=== PATIENT | female | born 1955 | race Caucasian/White ===

== ENCOUNTER 2017-10-03 06:33 | Emergency (ER) | payer OTHER, SELFPAY ==
[2017-10-03 06:34] VITALS: BP 192/104; PULSE 83; RESP 18; TEMP 36.6; O2SAT 95; BMI 29.0
[2017-10-03 06:41] VITALS: O2SAT 95
--- NOTE | 2017-10-03 06:43 | RAD_ITS ---
STUDY: X-RAY CHEST REASON FOR EXAM: Female, 62 years old. Cough. Shortness of breath. History of asthma. TECHNIQUE: Single AP portable view of the chest. COMPARISON: Comparison is made with prior study dated October 11, 2013. FINDINGS: EKG electrodes are seen. Hyperinflation. Stable mild increased markings in the lingular segment of the left upper lobe suggestive of scarring. There is no demonstrated pleural abnormality. Normal size heart. Normal mediastinum and facundo. There is prominence of the pulmonary hilar arteries without peripheral pulmonary vascular congestion, suggesting pulmonary hypertension. Normal visualized aortic arch and descending thoracic aorta. There are mild degenerative changes of the visualized thoracic spine. Normal visualized ribs, clavicles, and shoulders. There is no demonstrated abnormality of the visualized soft tissue structures of the upper abdomen. RAD/Chest PA and Lateral IMPRESSION: Hyperinflation. Stable increased linear markings in the lingular segment of the left upper lobe suggestive of mild scarring. Electronically Signed: Ricky Luis MD at 8:19 EDT Tel [phone], Service support ,
--- NOTE | 2017-10-03 06:47 | ED.VISSUMM ---
- ER Visit Summary Date of Service: 10/03/17 Chief Complaint: Dyspnea History of Present Illness: The patient is a 62 F worsening dyspnea since yesterday. History of asthma. Mild cough symptoms 2 days ago. No fevers. No productive cough. No chest pains. Use inhaler throughout the night. Denies history of diabetes. Denies tobacco history. Similar symptoms in the past. Physical Examination: General: Alert and oriented ?3, no acute distress HEENT: Normocephalic, atraumatic. Moist mucosa membranes Neck: supple, nontender. Cardiovascular: Regular rate and rhythm, no murmurs Respiratory: Lower lobes expiratory wheezing, no distress Abdomen: Soft, nontender, nondistended Extremities: Nontender, no edema, pulses intact ?4 Neuro: no focal neurological deficits. Test Results: Chest x-ray: No acute process Emergency Department Course and Treatment: Patient wheezing on exam, vitals stable. DuoNeb treatment. Prednisone started. Chest x-ray obtained negative. Reevaluation minimal wheezing noted. Symptoms much more improved. Patient discharged additional 4 days of steroids. She will follow-up with her PCP. She return if any worsening symptoms. Treatment Plan: [] Disposition: Discharge Impression: 1. Asthma exacerbation 2. Upper respiratory infection This note was generated with [employer] dictation software. It may contain incorrect words, spelling, and punctuation that were not noted in review of the chart prior to signing ED Disposition - Plan for ED Patient: Disposition: Home or Assisted Living Chief Complaint: Asthma Diagnosis: Asthma exacerbation, Upper respiratory infection Instructions: Understanding Asthma Triggers, ED URI Viral Prescriptions: Prednisone [Deltasone] 60 mg PO DAILY #12 tablet Referrals: Justin Pimentel MD [Primary Care Provider] - 3-5 Days
[2017-10-03] MEDS: Ipratropium/Albuterol Sulfate 3 ML AMPUL.NEB INHALATION (06:56)
[2017-10-03 06:57] VITALS: PULSE 75; RESP 16
[2017-10-03] MEDS: predniSONE 20 MG Tablet 60 MG PO (07:08)
[2017-10-03 07:09] VITALS: BP 153/83; PULSE 74; RESP 21; O2SAT 94
--- NOTE | 2017-10-04 11:02 | CM.ED ---
ED CALLBACK: Follow-up call to patient. Patient states she feels some better today and that she just woke up. Patient states the breathing treatments make her tired. She confirmed that she did fill her prednisone prescription and that she has an appointment with Dr. Pimentel (PCP), this Monday. Patient states she was pleased with the care she received in the ED and has no questions/concerns.
== END 2017-10-03 08:01 | disposition home or self-care (01) ==
PROVIDERS: Emergency Provider Emergency Medicine; Family Provider Family Medicine; PCP Family Medicine
DX: J45.901 Unspecified asthma with (acute) exacerbation (principal); J06.9 Acute upper respiratory infection, unspecified; I10 Essential (primary) hypertension; Z79.899 Other long term (current) drug therapy
CPT/HCPCS: 71046; 94640; 99282

== ENCOUNTER → 2017-11-07 17:50 | Outpatient (CLI) | payer OTHER, SELFPAY ==
[2017-11-13 11:08] LABS: HPV Reflexed? NOT INDICATED
== END ==
PROVIDERS: Visit Provider Nurse Practitioner Adult Health
DX: Z01.419 Encounter for gynecological examination (general) (routine) without abnormal findings (principal)
CPT/HCPCS: 88175; G0145

== ENCOUNTER → 2017-11-23 08:48 | Outpatient (CLI) | payer OTHER, SELFPAY ==
[2017-11-27 15:30] LABS: Alternaria tenuis <0.10 kU/L (Class 0); Ash, White 0.44 kU/L (Class I); Aspergillus fumigatus <0.10 kU/L (Class 0); Bermuda Grass 1.45 kU/L (Class III); Birch 0.29 kU/L (Class 0/I); Black Walnut 0.47 kU/L (Class I); Cat Hair / Dander,Stand 2.52 kU/L (Class III); Cedar, Mountain 0.23 kU/L (Class 0/I); Cladosporium herbarum <0.10 kU/L (Class 0); Cockroach, American 0.13 kU/L (Class 0/I); Cottonwood 0.26 kU/L (Class 0/I); D farinae Mite 0.56 kU/L (Class II); D pteronyssinus 0.46 kU/L (Class I); Elm, American White 0.26 kU/L (Class 0/I); Immunoglobulin E 100 IU/mL (0-100); Maple/Box Elder 0.67 kU/L (Class II); Mulberry, White 0.13 kU/L (Class 0/I); Oak, White 0.37 kU/L (Class I); Pecan 0.32 kU/L (Class I); Penicillium Notatum <0.10 kU/L (Class 0); Pigweed, Rough 0.22 kU/L (Class 0/I); Ragweed, Short/Common 0.94 kU/L (Class II); Russian Thistle 0.21 kU/L (Class 0/I); Sheep Sorrel 0.38 kU/L (Class I); Sycamore, American 0.27 kU/L (Class 0/I); Timothy Grass 5.32 kU/L (Class IV)
[2017-11-28 10:11] LABS: Mouse Urine 0.14 kU/L (Class 0/I)
[2017-11-28 10:12] LABS: Immunoglobulin E 118 IU/mL (0-100)
== END ==
PROVIDERS: Family Provider Family Medicine; PCP Family Medicine; Visit Provider Internal Medicine Critical Care Medicine
DX: J45.909 Unspecified asthma, uncomplicated (principal); J30.9 Allergic rhinitis, unspecified
CPT/HCPCS: 36415; 82785; 86003

== ENCOUNTER → 2017-12-07 10:45 | Outpatient (CLI) | payer OTHER, SELFPAY ==
--- NOTE | 2017-12-07 14:19 | PFTCOMP_ITS ---
COMPLETE PULMONARY FUNCTION TEST INTERPRETATION Brief HPI: Patient is a 62 year old female, currently under the care of Dr. Haq , who presents to [facility] for complete pulmonary function tests secondary to diagnosis of asthma. Respiratory therapist reports good effort and reproducible results. Interpretation: Forced expiration spirometry shows a very severe large airways obstructive ventilatory defect with an FEV1 of 50% predicted. There is a significant bronchodilator response in FVC and FEV1 by ATS criteria. Spirograms are of good quality and plateau slowly, indicating slowly emptying areas of the lungs. The respiratory flow volume loop shows decreased expiratory flow rates at all lung volumes consistent with airway obstruction. Lung volumes by body plethysmography show an elevated total lung capacity at 5.38 L, 120% predicted. FRC and RV are elevated out of proportion. Lung volume measurements are consistent with hyperinflation and air-trapping. Diffusion capacity by carbon monoxide is at the lower limit of normal at 64% predicted. The airway resistance is elevated. No previous pulmonary function tests were available for review. Impression: Partially reversible very severe large airways obstructive ventilatory defect resulting in air trapping and hyperinflation. No previous pulmonary function tests available for review.
== END ==
PROVIDERS: Family Provider Family Medicine; PCP Family Medicine; Visit Provider Internal Medicine Critical Care Medicine
DX: J45.909 Unspecified asthma, uncomplicated (principal)
CPT/HCPCS: 94060; 94726; 94729

== ENCOUNTER → 2018-01-10 08:10 | Outpatient (CLI) | payer OTHER, SELFPAY | PROVIDERS: Family Provider Family Medicine; PCP Family Medicine; Visit Provider Nurse Practitioner Adult Health | DX: Z12.31 Encounter for screening mammogram for malignant neoplasm of breast (principal) | CPT/HCPCS: 77063; 77067 ==

== ENCOUNTER → 2018-01-26 12:21 | Outpatient (CLI) | payer OTHER, SELFPAY | PROVIDERS: Family Provider Family Medicine; PCP Family Medicine; Visit Provider Nurse Practitioner Acute Care | DX: R05 Cough (principal) | CPT/HCPCS: 71046 ==

== ENCOUNTER → 2018-01-26 15:06 | Outpatient (CLI) | payer OTHER, SELFPAY | PROVIDERS: Visit Provider Nurse Practitioner Acute Care | DX: R05 Cough (principal) | CPT/HCPCS: 87070; 87205 ==

== ENCOUNTER → 2018-10-09 20:17 | Outpatient (CLI) | payer OTHER, SELFPAY ==
[2018-09-03 10:19] VITALS: BMI 34.3
== END ==
PROVIDERS: Family Provider Family Medicine; PCP Family Medicine; Referring Provider Nurse Practitioner Acute Care; Visit Provider Nurse Practitioner Acute Care
DX: G47.33 Obstructive sleep apnea (adult) (pediatric) (principal)
CPT/HCPCS: 95811

== ENCOUNTER → 2018-10-30 09:00 | Outpatient (CLI) | payer OTHER, SELFPAY ==
[2018-09-03 10:19] VITALS: BMI 34.3
== END ==
PROVIDERS: Family Provider Family Medicine; PCP Family Medicine; Referring Provider Nurse Practitioner Acute Care; Visit Provider Nurse Practitioner Acute Care
DX: G47.33 Obstructive sleep apnea (adult) (pediatric) (principal)

== ENCOUNTER → 2018-11-27 09:47 | Outpatient (CLI) | payer OTHER, SELFPAY ==
[2018-09-03 10:19] VITALS: BMI 34.3
--- NOTE | 2018-11-28 12:40 | PFT ---
INTRODUCTION: The patient is a 63-year-old female that presents for pulmonary function studies secondary to a diagnosis of asthma. Respiratory therapy reports good patient effort. Bronchodilators were used during testing. INTERPRETATION: Forced expiration spirometry demonstrates the presence of a moderate large airways obstructive ventilatory defect. There was no significant response to aerosolized bronchodilators. Spirograms are of good quality and do not plateau, indicating slow emptying of the lungs. Body plethysmography was performed and reveals an elevated RV to 135% of predicted, indicative of underlying air trapping. Diffusing capacity by single breath CO is within normal limits. IMPRESSION: Irreversible moderate large airways obstructive ventilatory defect with associated air trapping and preserved diffusing capacity.
== END ==
PROVIDERS: Family Provider Family Medicine; PCP Family Medicine; Referring Provider Nurse Practitioner Acute Care; Visit Provider Nurse Practitioner Acute Care
DX: J44.9 Chronic obstructive pulmonary disease, unspecified (principal)
CPT/HCPCS: 94060; 94726; 94729

== ENCOUNTER → 2019-01-11 09:53 | Outpatient (CLI) | payer OTHER, SELFPAY ==
[2018-12-06 11:07] VITALS: BMI 34.3
--- NOTE | 2019-01-11 09:55 | BI_ITS ---
MAMMOGRAPHY - BILATERAL SCREENING REASON FOR EXAM: Female, 63 years old. Routine annual screening examination. PERTINENT HISTORY: Mother with breast cancer. Grandmother with breast cancer. Aunt with breast cancer. TECHNIQUE: Digital bilateral breast antoine (3D mammographic acquisition) in the CC and MLO projections. 2-D mediolateral oblique (MLO) and craniocaudad (CC) views of both breasts were obtained. CAD: Full Field Digital Mammography with Computer Added Detection was performed. COMPARISON: Comparison is made with prior study January 10, 2018 and October 01, 2014. FINDINGS: Breast Composition: The breasts are heterogeneously dense, which may obscure small masses. There are no dominant masses or suspicious calcifications. Stable small benign-appearing bilateral axillary lymph nodes. No other significant abnormalities are identified. There has been no significant change since the prior study. BI/SCREEN MAMM (CAD) W/ANTOINE BILAT IMPRESSION: Stable bilateral screening mammogram. Yearly follow-up mammogram recommended. (A) ASSESSMENT CATEGORY: BIRADS Category 2: Benign. A letter regarding these results will be sent to the patient by the facility within 30 days. Approximately 10% of breast cancers are not detected by mammography. A normal mammogram should not delay biopsy of a clinically suspicious abnormality. [id number] Electronically Signed: Ricky Luis, at 11:09 EDT , Service support ,
== END ==
PROVIDERS: Family Provider Family Medicine; PCP Family Medicine; Referring Provider Family Medicine; Visit Provider Family Medicine
DX: Z12.31 Encounter for screening mammogram for malignant neoplasm of breast (principal)
CPT/HCPCS: 77063; 77067

== ENCOUNTER 2019-01-31 19:59 | Emergency (ER) | payer OTHER, SELFPAY ==
[2018-12-06 11:07] VITALS: BMI 34.3
[2019-01-31 20:00] VITALS: BP 161/110; PULSE 61; RESP 18; TEMP 36.7; O2SAT 98; BMI 30.1
--- NOTE | 2019-01-31 20:13 | CT_ITS ---
HISTORY:HEADACHE AND DIZZINESSHX:HTN,SKIN CANCER HEADACHE AND DIZZINESSHX:HTN,SKIN CANCER TECHNIQUE: Multiple axial images were obtained of the brain without intravenous contrast. A radiation dose optimization technique was used for this scan. IV Contrast dosage and agent: None. COMPARISON: None FINDINGS: # of images incl. paperwork: 241 INFARCT: None HEMORRHAGE: None PARENCHYMAL ATTENUATION:Cortical atrophy MASS: None MIDLINE SHIFT: None BASAL CISTERNS: Patent VENTRICLES: Normal in size and configuration for age PARANASAL SINUSES:Mucous retention cystin the left maxillary sinus MASTOID AIR CELLS: Clear ORBITS:No acute pathology CALVARIUM: No acute pathology OTHER TISSUES: No acute pathology ASPECTS Score for Acute Strokes: 10 CT/Brain/Head without Contrast IMPRESSION: No acute intracranial pathology. Cortical atrophy If symptoms persist consider mri for further evaluation if clinically indicated. Individualized dose optimization techniques were used for this CT. at 2108 Reported and signed by: Federica Martinez DO Electronically Signed: Federica Martinez DO at 21:07 EDT Tel , Service support ,
--- NOTE | 2019-01-31 20:13 | EKG12_ITS ---
Test Reason : HYPERTENSION Blood Pressure : / mmHG Vent. Rate : 056 BPM Atrial Rate : 056 BPM P-R Int : 156 ms QRS Dur : 084 ms QT Int : 448 ms P-R-T Axes : 037 019 027 degrees QTc Int : 432 ms Sinus bradycardia Otherwise normal ECG Confirmed by ALISSON KHAN ([id number]), telegraph editor MELANY COLON ([id number]) on 02/04/2019 2:34:25 PM Referred By: TICO Confirmed By:ALISSON KHAN
--- NOTE | 2019-01-31 20:39 | ED.VIS.GEN ---
History of Present Illness Chief Complaint: Hypertension Informant: Patient Onset: Days Context: Gradual Onset Timing: Continuous Current Severity: Moderate Maximum Severity: Moderate Narrative: The patient presents to the emergency department with lightheadedness and elevated blood pressure. States over the past 3 days, she is been having intermittent headaches and is felt lightheaded. She denies change in speech, trouble with balance, or change in vision. She states she took her blood pressure today and it was elevated at 190 systolic. She took a dose of her clonidine and and the blood pressure was down to 160, but she was still having symptoms. She denies any coronary history. She has no history of stroke. She denies any recent trauma. She is been compliant with all of her medications. She denies any recent medication changes. Prior similar symptoms: No Recent Illness/Hospitalization: No Past Medical History - Allergies and Home Meds Allergies/Adverse Reactions: Allergies erythromycin base Allergy (Verified 01/31/19 20:02) Unknown metronidazole [From Flagyl] Allergy (Verified 01/31/19 20:02) Unknown Penicillins Allergy (Verified 01/31/19 20:02) Unknown sulfamethoxazole [From Bactrim] Allergy (Verified 01/31/19 20:02) Unknown tetracycline Allergy (Verified 01/31/19 20:02) Unknown trimethoprim [From Bactrim] Allergy (Verified 01/31/19 20:02) Unknown cefdinir Adverse Reaction (Mild, Verified 01/31/19 20:02) Upset stomach Primary Care Physician: Justin Pimentel MD [Primary Care Provider] - Prior records reviewed: Yes Past Medical History: - - COPD, hypertension Smoking Status: Former smoker Review of Systems General: Denies: Chills, Fever, Sweats Eyes: Denies: Visual changes - bilaterally, Diplopia ENT: Denies: Rhinorrhea, Sore throat Cardiovascular: Denies: Chest pain, Palpitations Respiratory: Denies: Dyspnea, Cough, Dyspnea on exertion Gastrointestinal: Reports: Nausea. Denies: Abdominal pain, Vomiting, Diarrhea, Melena, Hematochezia Genitourinary: Denies: Dysuria, Hematuria, Frequency Musculoskeletal: Denies: Back pain, Extremity Pain Skin: Denies: Rash, Wounds Neurological: Reports: Headache. Denies: Weakness, Numbness Psych: Denies: Depression Endocrine: Denies: Polyuria Physical Exam Vital Signs/Narrative: Vital Signs Temp Pulse Resp BP Pulse Ox 09/05/19 20:00 98.0 F 61 18 161/110 H 98 Inital Vital Signs reviewed: Yes General: Well nourished, Well developed, No Acute Distress Head: Normocephalic, Atraumatic Eyes: Perrl, EOMI ENT: Moist mucous membranes, No rhinorrhea Neck: Supple, Nontender Cardiovascular: Regular rate, Regular rhythm, No murmurs Respiratory: No distress, CTA bilaterally, Chest nontender Abdomen: Soft, Nontender, Nondistended, Normal bowel sounds Back: Nontender, Normal Inspection Extremities: Nontender, No edema Skin: Normal color, No rash Neurological: Alert, Oriented x3, Cranial nerves II-XII grossly intact, Normal Strength, Normal Sensation Psychological: Normal affect, Normal Mood Diagnostic/Tx/Re-eval Clinical Impression(s) from Imaging Studies Brain CT 01/31/19 20:13 IMPRESSION: No acute intracranial pathology. Cortical atrophy If symptoms persist consider mri for further evaluation if clinically indicated. Individualized dose optimization techniques were used for this CT. at 2108 Reported and signed by: Federica Martinez DO Electronically Signed: Federica Martinez DO at 21:07 EDT Tel , Service support , Abnormal Lab Results 01/31/19 01/31/19 20:25 20:25 WBC 6.1 RBC 4.54 Hgb 15.2 H Hct 44.5 MCV 98.0 MCH 33.5 H MCHC 34.2 RDW Std Deviation 45.3 H RDW Coeff of Derik 12.6 Plt Count 212 MPV 10.0 Immature Gran % (Auto) 0.300 Neut % (Auto) 69.4 Lymph % (Auto) 20.8 [place] % (Auto) 7.7 Eos % (Auto) 1.5 Baso % (Auto) 0.3 Absolute Neuts (auto) 4.2 Absolute Lymphs (auto) 1.27 Nucleated RBC % 0 Sodium 134 L Potassium 3.6 Chloride 98 Carbon Dioxide 26.0 Anion Gap 10 BUN 12 Creatinine 0.72 Estim Creat Clear Calc 66.16 Est GFR (MDRD) Af Amer 105 Est GFR (MDRD) Non-Af 87 BUN/Creatinine Ratio 16.7 Glucose 96 Calcium 9.3 Total Bilirubin 0.80 AST 22 ALT 17 Alkaline Phosphatase 67 Troponin I < 0.015 Total Protein 7.5 Albumin 3.8 Globulin 3.7 Albumin/Globulin Ratio 1.0 - Medical Decision Making The patient has no nystagmus. She has a normal gait. She has no difficulties with rapid alternating movements. She was mildly hypertensive on arrival so I did obtain a metabolic work-up. EKG was sinus rhythm without acute ischemic change. Cardiac enzymes, kidney function, and rest of her labs are unremarkable. Her head CT shows no acute process. Without any further intervention, her repeat blood pressure was 134/79. My suspicion is that she is having some symptomatic highs, but now her blood pressure is normal. I do not suspect a central cause of her symptoms. I do feel that she is safe for outpatient therapy. Patient was counseled on concerning symptoms and reasons to return. She will be discharged home. Impression 1. Hypertension ED Disposition - Plan for ED Patient: Instructions: HYPERTENSION, Established Referrals: Justin Pimentel MD [Primary Care Provider] -
[2019-01-31 20:42] LABS: Absolute Lymphocyte Count 1.27 X10^3/uL (0.83-4.51); Absolute Neutrophil Count 4.2 X10^3/uL (2.0-7.7); Basophil# 0.02 X10^3/uL; Basophil% 0.3 % (0-1); Eosinophil# 0.09 X10^3/uL; Eosinophils% 1.5 % (0-5); Hematocrit 44.5 % (37-47); Hemoglobin 15.2 g/dL (12.0-15.0); Lymphocyte # 1.27 X10^3/ul (4.0); Lymphocyte % 20.8 % (19-41); Mean Corp Hgb Conc 34.2 g/dL (32-36); Mean Corpuscular Hgb 33.5 pg (27.0-32.0); Monocyte# 0.47 X10^3/uL; Monocyte% 7.7 % (0-10); NRBC Flagged by Analyzer 0 % (0-5); Neutrophil # 4.24 X10^3/uL (2.7-7.7); Neutrophil % 69.4 % (47-70); Platelet Count 212 K/mm3 (150-450); RBC Distribution Width CV 12.6 % (11.6-14.6); RBC Distribution Width SD 45.3 fl (35.1-43.9); Red Blood Count 4.54 M/mm3 (4.2-5.4); White Blood Count 6.1 K/mm3 (4.4-11.0)
[2019-01-31 20:57] LABS: AST(SGOT) 22 U/L (15-37); Alanine Aminotransfer ALT/SGPT 17 U/L (13-56); Albumin, Serum 3.8 g/dL (3.2-5.0); Alkaline Phosphatase 67 U/L (45-117); Anion Gap 10 (5-15); BUN 12 mg/dL (7-18); BUN/Creat Ratio 16.7 RATIO (10-20); Calcium,Total 9.3 mg/dL (8.5-10.1); Chloride 98 mmol/L (98-107); Creatinine, Serum 0.72 mg/dL (0.55-1.02); EST Glomerular Filtration Rate 87 mL/min (>60); Est Glom Filt Rate - Afr Amer 105 mL/min (>60); Estimated Creatinine Clearance 66.16 ml/min; Globulin 3.7 g/dL (2.2-4.2); Glucose 96 mg/dL (74-106); Potassium 3.6 mmol/L (3.5-5.1); Protein, Total 7.5 g/dL (6.4-8.2); Sodium Level 134 mmol/L (136-145)
[2019-01-31 21:30] VITALS: BP 134/79; PULSE 56; RESP 16; O2SAT 97
== END 2019-01-31 21:35 | disposition home or self-care (01) ==
LOC: ED 20:34
PROVIDERS: Emergency Provider Emergency Medicine; Family Provider Family Medicine; PCP Family Medicine
DX: I10 Essential (primary) hypertension (principal); R42 Dizziness and giddiness; J44.9 Chronic obstructive pulmonary disease, unspecified; Z87.891 Personal history of nicotine dependence; Z79.899 Other long term (current) drug therapy
CPT/HCPCS: 70450; 80053; 84484; 85025; 93005; 99284

== ENCOUNTER → 2019-05-10 11:13 | Outpatient (CLI) | payer OTHER, SELFPAY ==
[2019-03-12 11:10] VITALS: BMI 30.9
[2019-05-10 14:29] LABS: Anion Gap 5 (5-15); BUN 12 mg/dL (7-18); BUN/Creat Ratio 15.1 RATIO (10-20); Calcium,Total 8.8 mg/dL (8.5-10.1); Chloride 97 mmol/L (98-107); Cholesterol 221 mg/dL (200); EST Glomerular Filtration Rate 77 mL/min (>60); Est Glom Filt Rate - Afr Amer 93 mL/min (>60); Glucose 93 mg/dL (74-106); High Density Lipoprotein 62 mg/dL; Potassium 3.7 mmol/L (3.5-5.1); Sodium Level 133 mmol/L (136-145); Triglycerides 151 mg/dL; Very Low Density Lipoprotein 30 mg/dL (5-40)
== END ==
PROVIDERS: Family Provider Family Medicine; PCP Family Medicine; Referring Provider Family Medicine; Visit Provider Family Medicine
DX: I10 Essential (primary) hypertension (principal); E78.00 Pure hypercholesterolemia, unspecified
CPT/HCPCS: 36415; 80048; 80061

== ENCOUNTER → 2019-07-18 | Outpatient (CLI) | payer OTHER, SELFPAY ==
[2019-03-12 11:10] VITALS: BMI 30.9
== END | disposition home or self-care (01) ==
LOC: LABSPEC 10:48
PROVIDERS: PCP Family Medicine; Referring Provider Family Medicine; Visit Provider Family Medicine
DX: K57.92 Diverticulitis of intestine, part unspecified, without perforation or abscess without bleeding (principal)
CPT/HCPCS: 87493; 87506

== ENCOUNTER → 2020-07-23 10:02 | Outpatient (CLI) | payer MEDICARE, OTHER, SELFPAY ==
[2020-04-09 10:45] VITALS: BMI 32.1
[2020-07-23 12:20] LABS: Absolute Lymphocyte Count 0.84 X10^3/uL (0.83-4.51); Absolute Neutrophil Count 3.4 X10^3/uL (2.0-7.7); Basophil# 0.02 X10^3/uL; Basophil% 0.4 % (0-1); Eosinophil# 0.08 X10^3/uL; Eosinophils% 1.7 % (0-5); Hematocrit 45.2 % (37-47); Lymphocyte # 0.84 X10^3/ul (4.0); Lymphocyte % 17.4 % (19-41); Mean Corp Hgb Conc 33.2 g/dL (32-36); Mean Corpuscular Hgb 33.2 pg (27.0-32.0); Mean Platelet Vol. 10.2 fl (6.2-12.0); Monocyte# 0.46 X10^3/uL; Monocyte% 9.5 % (0-10); NRBC Flagged by Analyzer 0 % (0-5); Neutrophil # 3.42 X10^3/uL (2.7-7.7); Neutrophil % 70.8 % (47-70); Platelet Count 279 K/mm3 (150-450); RBC Distribution Width CV 12.6 % (11.6-14.6); RBC Distribution Width SD 47.1 fl (35.1-43.9); Red Blood Count 4.52 M/mm3 (4.2-5.4); White Blood Count 4.8 K/mm3 (4.4-11.0)
[2020-07-23 12:41] LABS: ALB/GLOB Ratio 0.9 RATIO (0.9-2.4); AST(SGOT) 24 U/L (15-37); Alanine Aminotransfer ALT/SGPT 17 U/L (13-56); Albumin, Serum 3.8 g/dL (3.2-5.0); Alkaline Phosphatase 79 U/L (45-117); Anion Gap 7 (5-15); BUN 10 mg/dL (7-18); BUN/Creat Ratio 12.1 RATIO (10-20); Calcium,Total 9.6 mg/dL (8.5-10.1); Chloride 97 mmol/L (98-107); Cholesterol 232 mg/dL (200); Creatinine, Serum 0.83 mg/dL (0.55-1.02); EST Glomerular Filtration Rate 74 mL/min (>60); Est Glom Filt Rate - Afr Amer 89 mL/min (>60); Globulin 4.1 g/dL (2.2-4.2); Glucose 109 mg/dL (74-106); High Density Lipoprotein 68 mg/dL; Potassium 3.6 mmol/L (3.5-5.1); Protein, Total 7.9 g/dL (6.4-8.2); Sodium Level 131 mmol/L (136-145); Triglycerides 161 mg/dL; Very Low Density Lipoprotein 32 mg/dL (5-40)
== END ==
PROVIDERS: PCP Family Medicine; Referring Provider Family Medicine; Visit Provider Family Medicine
DX: I10 Essential (primary) hypertension (principal)
CPT/HCPCS: 36415; 80053; 80061; 85025

== ENCOUNTER → 2020-07-23 14:20 | Outpatient (CLI) | payer MEDICARE, OTHER, SELFPAY ==
[2020-04-09 10:45] VITALS: BMI 32.1
--- NOTE | 2020-07-23 14:23 | CT_ITS ---
STUDY: CT ABDOMEN AND PELVIS WITH CONTRAST REASON FOR EXAM: Female, 65 years old. LLQ PAIN RADIATION DOSAGE (If Supplied By Facility): CTDIvol = ( 17.26 ) mGy, DLP = ( 1690.10 ) mGycm TECHNIQUE: Transaxial images were obtained from the dome of the diaphragm to the symphysis pubis with oral contrast. Oral and amp; IV Gastrografin and amp; 100mL Isovue-300 was administered. Sagittal and coronal images were reconstructed. Individualized dose optimization techniques were used for this CT. COMPARISON: 11/18/2016 FINDINGS: The visualized lung bases are unremarkable. The visualized portions of the heart are within normal limits. No change in multiple hepatic cysts with the largest measuring 4 cm the posterior segment the right lobe. Normal gallbladder and extrahepatic biliary system. Normal spleen. Normal pancreas. Normal bilateral adrenal glands. Normal right kidney. Normal left kidney. Normal visualized stomach. Normal small intestine. There are multiple colonic diverticula consistent with diverticulosis. There is a 1.5 cm round area of fluid intensity with peripheral enhancement either within or adjacent to the sigmoid colon which may represent a fluid-filled diverticulum or tiny abscess. However, no significant surrounding inflammation. The appendix is visualized and appears normal. Normal abdominal aorta. Normal inferior vena cava. Normal retroperitoneum. Normal urinary bladder. Normal abdominal wall. Normal osseous structures. CT/Abdomen/Pelvis WITH Contrast IMPRESSION: Questionable diverticulitis, possibly with a small abscess.. Electronically Signed: Shravan Villalta MD at 17:42 EST Tel , Service support ,
== END ==
PROVIDERS: PCP Family Medicine; Referring Provider Family Medicine; Visit Provider Family Medicine
DX: R10.32 Left lower quadrant pain (principal); I10 Essential (primary) hypertension
CPT/HCPCS: 36415; 74177; 80053; 80061; 85025; Q9967; A4216

== ENCOUNTER → 2020-08-17 13:29 | Outpatient (CLI) | payer MEDICARE, OTHER, SELFPAY ==
[2020-08-03 13:05] VITALS: BMI 30.8
--- NOTE | 2020-08-17 13:30 | CT_ITS ---
STUDY: CT ABDOMEN AND PELVIS WITH CONTRAST REASON FOR EXAM: Female, 65 years old. LLQ abdominal pain RADIATION DOSAGE (If Supplied By Facility): CTDIvol = ( 18.19 ) mGy, DLP = ( 969.12 ) mGycm TECHNIQUE: Transaxial images were obtained from the dome of the diaphragm to the symphysis pubis with oral contrast. Oral and amp;amp; IV Readi-CAT and amp;amp; 100mL Isovue-300 was administered. Sagittal and coronal images were reconstructed. Individualized dose optimization techniques were used for this CT. COMPARISON: Comparison is made with prior examination dated 07/23/2020. FINDINGS: Stable minimal increased linear markings at the lung bases suggest some mild linear scarring. The visualized portions of the heart are within normal limits. Stable hepatic cysts. The largest measures 4 cm. This is in the inferior the posterior segment of the right lobe of the liver. Normal gallbladder and extrahepatic biliary system. Normal spleen. Normal pancreas. Normal bilateral adrenal glands. Normal right kidney. Normal left kidney. There is a small hiatal hernia. Normal small intestine. There are multiple colonic diverticula consistent with diverticulosis. The appendix is visualized and appears normal. There is scattered atherosclerotic calcification of the abdominal aorta, without a demonstrated aneurysm. Normal inferior vena cava. Normal retroperitoneum. Normal urinary bladder. Calcified fibroid uterus. Normal abdominal wall. Marked degree of disc space narrowing and subchondral sclerosis at the L5-S1 level. CT/Abdomen/Pelvis WITH Contrast IMPRESSION: Sigmoid diverticulosis. No radiographic evidence of diverticulitis. Stable hepatic cysts. Electronically Signed: Ricky Luis MD at 14:33 EDT , Service support ,
== END ==
PROVIDERS: PCP Family Medicine; Referring Provider Surgery; Visit Provider Surgery
DX: K57.30 Diverticulosis of large intestine without perforation or abscess without bleeding (principal); K76.89 Other specified diseases of liver
CPT/HCPCS: 74177; Q9967

== ENCOUNTER 2020-09-21 06:24 | Day surgery (SDC) | payer MEDICARE, OTHER, SELFPAY ==
[2020-09-21] VITALS (7 sets, daily range): BP systolic 105–178; BP diastolic 54–80; PULSE 51–67; RESP 16; TEMP 36.2–36.4; O2SAT 98–99; BMI 30.7
--- NOTE | 2020-09-21 07:00 | HP_ITS ---
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 Required: No Is patient in pain?: No Allergies erythromycin base Allergy (Verified 08/10/20 13:33) Unknown metronidazole [From Flagyl] Allergy (Verified 08/10/20 13:33) Unknown Penicillins Allergy (Verified 08/10/20 13:33) Unknown sulfamethoxazole [From Bactrim] Allergy (Verified 08/10/20 13:33) Unknown tetracycline Allergy (Verified 08/10/20 13:33) Unknown trimethoprim [From Bactrim] Allergy (Verified 08/10/20 13:33) Unknown cefdinir Adverse Reaction (Mild, Verified 08/10/20 13:33) Upset stomach Medications Albuterol IH (ProAir) [Proair Hfa] 1 puff INHALATION Q4H PRN PRN 05/21/13 [History Confirmed 08/10/20] Lisinopril/Hydrochlorothiazide [Zestoretic 20/12.5 Tablet] 1 tab PO DAILY 11/18/16 [History Confirmed 08/10/20] Metoprolol Tartrate [Lopressor (Beta Nick)] 50 mg PO BID 11/18/16 [History Confirmed 08/10/20] fluticasone propionate 50 mcg/actuation nasal spray,suspension 2 spray INTRANASAL DAILY #16 g 12/15/17 [Rx Confirmed 08/10/20] montelukast 10 mg tablet 10 mg PO DAILY #30 tab 03/21/19 [Rx Confirmed 08/10/20] albuterol sulfate 90 mcg/actuation aerosol inhaler 2 puff INHALATION Q4H PRN #8.5 g 04/09/20 [Rx Confirmed 08/10/20] fluticasone furoate 200 mcg-vilanterol 25 mcg/dose inhalation powder 1 inh INHALATION QDAY #3 ea 04/09/20 [Rx Confirmed 08/10/20] umeclidinium 62.5 mcg/actuation blister powder for inhalation 1 inh INHALATION QDAY #3 ea 04/09/20 [Rx Confirmed 08/10/20] amlodipine 5 mg tablet 5 mg PO DAILY 08/03/20 [History Confirmed 08/10/20] fluoxetine 20 mg capsule 20 mg PO DAILY cap 08/03/20 [History Confirmed 08/10/20] omeprazole 40 mg capsule,delayed release 40 mg PO QDAY #30 cap 08/10/20 [Rx Confirmed 08/10/20] PFSH Medical History Thyroid disorder (Chronic) Diabetes mellitus (Chronic) Family History Brother Cancer Hypertension Dementia Mother Breast cancer Dementia Social History (Updated 08/10/20 @ 13:[address] Ernestina Hardy MD) Smoking Status: Former smoker second hand exposure: No alcohol intake: current alcohol intake frequency: 3 or more drinks per day substance use type: does not use caffeine: Yes Type: coffee Number of servings: 1 what type of physical activity do you participate in: none HPI HPI HPI: TELMA MUHAMMAD, is a 65 F who presents to the office today for follow-up for left lower quadrant pain/questionable diverticular abscess on previous CT abdomen pelvis from 07/23/2020. Patient did try the Colace and MiraLAX however states she is not having much bowel movements with that on Monday did start her Metamucil again and had normal bowel movement yesterday and today. Patient still complains of some left lower quadrant nominal pain which occurs usually before bowel movement and with palpation. Patient completed her antibiotics on 07/30/2020. Patient has been complaining also of some left upper quadrant pain which is new. HPI HPI HPI: TELMA MUHAMMAD, is a 65 F who presents to the office today for ROS General General: No weight change Gastro Gastrointestinal: Yes abdominal pain, Yes constipation, No blood in stool, No black,tarry stools Exam Const General: cooperative, comfortable, no acute distress, well developed Resp Effort & Inspection: normal respiratory effort Cardio Rate: regular rate GI Inspection: non-distended Palpation: soft, tender (Left lower quadrant and left upper quadrant on exam no peritoneal signs) Psych Affect: normal affect Assessment & Plan Problems 1. Constipation K59.00 2. LLQ abdominal tenderness R10.[address] of the abdomen R93.5 Questionable 1.5 cm sigmoid diverticular abscess first dilated diverticulum 4. LUQ abdominal pain R10.[address] abdomen pelvis to collect the area of questionable sigmoid diverticular abscess. Patient states that she has had 3 episodes of diverticulitis the one was due to the CAT scan most recently another this year was not treated with any antibiotics nor was there a CAT scan in the middle one was treated with antibiotics but there was no CAT scan done. Unsure about patient left lower quadrant pain for really has to do with her diverticular disease or constipation. Patient also has neuro left upper quadrant pain will start patient on 40 mg of omeprazole x2 weeks to see if this improves will have patient follow-up in 2 weeks. At that time we will discuss repeating colonoscopy depending on CT abdomen pelvis. Ernestina Hardy M.D. Pager: [phone] [facility] [address] [place] [address], [facility], [address] [place] [address] Office: [phone] Orders Orders: Abdomen/Pelvis WITH Contrast Today R10.32 Medications New: omeprazole swallow whole; do not crush, chew, dissolve, cut, break 40 mg PO QDAY 30 caps 0RF Plan Detail Follow Up Will complete CT abdomen pelvis and have patient follow-up in 2 weeks. Coding Level of Care Code Off vis,est,level 3 Diagnoses Constipation K59.00 LLQ abdominal tenderness R10.[address] of the abdomen R93.5 LUQ abdominal pain R10.12
[2020-09-21] MEDS: Lactated Ringers 1,000 ML 100 ML IV (07:15)
--- NOTE | 2020-09-21 07:27 | H&P.OPEN ---
History of Present Illness Date of Admission: 09/21/20 The patient is a 65 year old F previously diagnosed with a possible diverticular abscess on CT a repeat CT abdomen pelvis did not show any abscess. Patient did complete her antibiotics for this on 07/30/2020. Patient was also plan some left upper quadrant pain. Patient did take some omeprazole and said it did work for her. Patient states that her left-sided abdominal pain seems to be more in the morning not even in the evening prior to her waking up. Patient is currently not on the omeprazole as she finished her 2-week trial. Last colonoscopy was 5 years ago per patient. Past Medical/Surgical History - Planned Operation Planned Operative Procedure/s: Colonoscopy Date of Operative Procedure: 09/21/20 Permit Signed: No S.O.S: No Is This Patient Having a Total Joint: No - Previous Hospitalizations/Surgeries HX Hospitalizations: No HX of Surgeries: Colonoscopy Any Problems With Anesthesia: No You/Your Family Experience Fever (Hyperthermia) With Anes: No Cholinesterase deficiency: No - Cardiovascular Hx Chest Pain within Last 2 months: No Hx of Irregular Heartbeat and/or Afib: No - Heart murmur Hx Heart Attack: No Hx Congestive Heart Failure: No Hx Rheumatic Fever: No Hx Hypertension: Yes - controlled with meds Hx Internal Defibrillator: No Hx Pacemaker: No Hx Cardiac Catheterization: No Hx Cardiac Surgery/Stents/Etc.: No Hx Stress Test: No HX Edema: No Hx Pain in Legs when Walking/Leg Cramps: No - Respiratory Chronic Cough: No HX of Shortness of Breath: No Hoarseness: No Hx Chronic Obstructive Pulmonary Disease (COPD): Yes Hx Asthma: Yes Hx Emphysema: No Hx Sleep Apnea: Yes CPAP: No - does not use BIPAP: No - does not use Hx Oxygen Use at Home: No Hx Respiratory Tract Infection/Cold (presently): No Result (for STOP score): Positive Hx Smoking: No Smoking Status: Former smoker - Gastrointestinal Hx Gastroesophageal Reflux: No Hx Gastrointestinal Disorders: Yes - Diverticulitis Hx Gastrointestinal Bleed: No Hx Ulcer: No Hx Hiatal Hernia: No Difficulty Chewing/Swallowing: No Recent Onset of Swallowing Problems: No Special diet followed at home: No Hx Unplanned Weight Loss of 20#: No HX Unplanned Weight Gain of 20#: No - Neurological Hx Seizures: No HX Syncope/Blackout Spells/Unconsciousness: No Hx CVA/Stroke: No Hx Transient Ischemic Attacks (TIA): No Hx Multiple Sclerosis: No Hx Parkinson's Disease: No Hx Head/Neck Injury: No Hx Headaches: No Hx Back Injury/Pain: No Recent Onset of Speech Difficulty: No Restless Legs: No Does patient have nerve stimulator: No - Blood Disorder Hx Leukemia: No Bleeding Tendencies: No Hx Deep Vein Thrombosis: No Hx High Cholesterol: No Blood Transmitted Disease: No Hx Hepatitis: No Hx Cirrhosis: No Hx Anemia: No Hx Blood Disorders: No - Reproduction Are You Post Menopause: Yes - Genitourinary Hx Renal Disease: No - Musculoskeletal Hx Arthritis: No Hx Rheumatoid Arthritis: No Hx Gout: No Recent Onset of an Orthopedic Problem: No - Endocrine Hx Diabetes: No Thyroid Disease: No - Psycho/Social Hx Substance Use: No Hx Alcohol Use: Yes - 1 beer daily Hx Anxiety: Yes Hx Depression: Yes - Miscellaneous Hx Cancer: No Recent Exposure to Contagious Disease: No Active MRSA: No Hx of C-Diff: No Any Loose Teeth: No Allergies erythromycin base Allergy (Verified 09/21/20 06:29) Unknown metronidazole [From Flagyl] Allergy (Verified 09/21/20 06:29) Unknown Penicillins Allergy (Verified 09/21/20 06:29) Unknown sulfamethoxazole [From Bactrim] Allergy (Verified 09/21/20 06:29) Unknown tetracycline Allergy (Verified 09/21/20 06:29) Unknown trimethoprim [From Bactrim] Allergy (Verified 09/21/20 06:29) Unknown cefdinir Adverse Reaction (Mild, Verified 09/21/20 06:29) Upset stomach - Discharge Is Pt Admitted From a Senior Living, or a Long-Term: No Who Could Help: After D/C, Where Do you Plan to Go: Return Home - From the PAT History Number of Risk Factors: 4 - Physical Exam Vitals/I&O's: Vital Signs Temp Pulse Resp BP Pulse Ox 97.2 F L 51 L 16 178/78 H 98 09/21/20 06:49 09/21/20 06:49 09/21/20 06:49 09/21/20 06:49 09/21/20 06:49 Oxygen Delivery Method Room Air Weight: 173 lb 1.006 oz Body Mass Index (BMI) 30.7 General: Alert, Oriented x3, Cooperative, No apparent distress HEENT: Atraumatic Lungs: Normal air movement Cardiovascular: Regular rate Abdomen: Soft, Non-Distended, Tender - Minimal left sided abdominal pain mid left abdomen, no peritoneal signs Neurological: Cranial nerves II-XII grossly intact Current Medications Lactated Ringer's () 1,000 mls @ 100 mls/hr IV .Q10H NIC Last Admin: 09/21/20 07:15 Dose: 100 mls/hr Documented by: Assessment/Plan All Active Problems (Last Reviewed 08/10/20 @ 13:33 by Emmanuelle Mcmillan) Abnormal CT of the abdomen (Acute) Hypersomnia (Acute) 65-year-old female left lower quadrant pain, constipation Procedure Criteria Procedure Type: Elective COVID Risk Discussion: The surgeon/proceduralist and patient have discussed in detail the risk of exposure to and/or potential harm posed by the COVID-19 virus with having a surgery/procedure at this time versus the risk of delaying the surgery/procedure. It is not possible to know either the risk of delaying the surgery or procedure or chance of getting an infection with perfect accuracy, but a joint decision was made between the patient and the surgeon/proceduralist to proceed at this time with the scheduled surgery/procedure as indicated on the consent form. Surgery Risks - Colonoscopy I discussed with the patient the risks of the procedure: Yes Risks Include but are not Limited To: Risks include but are not limited to: Bleeding, perforation requiring further surgery, inability to complete colonoscopy requiring barium enema.
--- NOTE | 2020-09-21 07:30 | COLBX_PTH ---
PATIENT: TELMA MUHAMMAD LOC: EN U#:[id number] AGE/SX: 65/F ROOM: RE09/21/[address]: Dr. Ernestina Hardy MD : 1955 BED: DIS: 09/21/2020 SPEC #: [id number] RECD: 09/21/20 10:50 STATUS: ALVERTO REJocelin #: [id number] MCKINLEY: 09/21/20 07:[address]: Ernestina Hardy DEPT: SURGICAL PATHOLOGY RECD BY: Faye Ag ENTERED: 09/21/20 11:00 SP TYPE: COLON BX OTHR DR: Dr. Justin Rivas MD Tissues: A - Cecum, NOS B - Descending colon Procedures: Surgery Specimen Level IV HEADER OPERATION: Colonoscopy (MAC) PRE-OP DIAGNOSIS: Diverticulitis TISSUE SUBMITTED: A ? Cecum near appendiceal orifice polyp biopsy, B ? Descending polyp biopsy MICROSCOPIC DIAGNOSIS A. Cecum near appendiceal orifice polyp, biopsy: Fragments of tubular adenoma. B. Descending colon polyp, biopsy: Hyperplastic polyp. JANE:tung 09/22/2020 MICROSCOPIC DESCRIPTION Slides are reviewed. GROSS DESCRIPTION A - Received in fixative is one container labeled with the patient's name and designated Cecum near appendiceal orifice polyp biopsy. The specimen consists of multiple irregular fragments of light bray soft tissue that in aggregate measure 1.5 x 0.3 x 0.1 cm. The specimen is totally submitted in one cassette. B - Received in fixative is one container labeled with the patient's name and designated descending polyp biopsy. The specimen consists of multiple irregular fragments of light bray soft tissue that in aggregate measure 0.5 x 0.5 x 0.1 cm. The specimen is totally submitted in one cassette. / JANE:tung 09/21/20 TC:1 CPT: 80013 x2
--- NOTE | 2020-09-21 14:58 | OP.CCLET_ITS ---
09/21/2020 Justin Rivas Md Re : Colonoscopy procedure for Carol Brown Dear Evelyn This procedure was performed on Monday, September 21, 2020. My impressions and recommendations are as follows: Impressions : - Diverticulosis in the sigmoid colon, in the descending colon and in the ascending colon. - Two less than 5 mm polyps in the descending colon and in the cecum, removed with a cold biopsy forceps. Resected and retrieved. - The examination was otherwise normal on direct and retroflexion views. Recommendations : - Discharge patient to home. - High fiber diet. - Continue present medications. - Await pathology results. - Repeat colonoscopy in 3 - 5 years for surveillance based on pathology results. My findings are described in the full procedure note, which is enclosed. If I can be of further assistance, please feel free to contact me at Doctor phone number(s): , Work: . Sincerely, MD Ernestina Jenkins MD 09/21/2020 7:59:38 AM This report has been signed electronically.
--- NOTE | 2020-09-21 14:58 | OP.COLON_ITS ---
Patient Name: Carol Brown Procedure Date: 09/21/2020 7:07 AM Date of : 1955 Age: 65 Procedure: Colonoscopy Indications: Abdominal pain in the left lower quadrant, Constipation Providers: Ernestina Hardy MD Referring MD: Justin Rivas Md Medicines: Monitored Anesthesia Care Patient Profile: This is a 65 year old female. Last Colonoscopy: 5 years ago. Complications: No immediate complications. Procedure: Pre-Anesthesia Assessment: - Prior to the procedure, a History and Physical was performed, and patient medications and allergies were reviewed. The patient's tolerance of previous anesthesia was also reviewed. The risks and benefits of the procedure and the sedation options and risks were discussed with the patient. All questions were answered, and informed consent was obtained. Prior Anticoagulants: The patient has taken no previous anticoagulant or antiplatelet agents. ASA Grade Assessment: Per anesthesia. After reviewing the risks and benefits, the patient was deemed in satisfactory condition to undergo the procedure. After I obtained informed consent, the scope was passed under direct vision. Throughout the procedure, the patient's blood pressure, pulse, and oxygen saturations were monitored continuously. The colonoscope was introduced through the anus and advanced to the cecum, identified by the appendiceal orifice, ileocecal valve and palpation. The colonoscopy was performed without difficulty. The patient tolerated the procedure well. The quality of the bowel preparation was good. Scope In: 7:35:51 AM Scope Withdrawal Time 0 hours 10 minutes 13 seconds Scope Out: 7:52:52 AM Total Procedure Duration Time 0 hours 17 minutes 1 second Findings: The perianal and digital rectal examinations were normal. Multiple small-mouthed diverticula were found in the sigmoid colon, descending colon and ascending colon. Two sessile polyps were found in the descending colon and cecum. The polyps were less than 5 mm in size. These polyps were removed with a cold biopsy forceps. Resection and retrieval were complete. The exam was otherwise without abnormality on direct and retroflexion views. Impression: - Diverticulosis in the sigmoid colon, in the descending colon and in the ascending colon. - Two less than 5 mm polyps in the descending colon and in the cecum, removed with a cold biopsy forceps. Resected and retrieved. - The examination was otherwise normal on direct and retroflexion views. Recommendation: - Discharge patient to home. - High fiber diet. - Continue present medications. - Await pathology results. - Repeat colonoscopy in 3 - 5 years for surveillance based on pathology results. Procedure Code(s): --- Professional --- 59077, Colonoscopy, flexible; with biopsy, single or multiple Diagnosis Code(s): --- Professional --- D12.4, Benign neoplasm of descending colon D12.0, Benign neoplasm of cecum R10.32, Left lower quadrant pain K59.00, Constipation, unspecified K57.30, Diverticulosis of large intestine without perforation or abscess without bleeding CPT copyright 2017 [employer]. All rights reserved. The codes documented in this report are preliminary and upon historiography teacher review may be revised to meet current compliance requirements. MD Ernestina Jenkins MD 09/21/2020 7:59:38 AM This report has been signed electronically. Number of Addenda: 0 Note Initiated On: 09/21/2020 7:07 AM
== END 2020-09-21 09:00 | disposition home or self-care (01) ==
LOC: EN 06:24 → AC 06:25
PROVIDERS: PCP Family Medicine; Referring Provider Family Medicine; Visit Provider Surgery
PROC: 0DJD8ZZ Inspection of Lower Intestinal Tract, Via Natural or Artificial Opening Endoscopic (ICD-10-PCS; CPT 45378; principal; 2020-09-21 07:25)
DX: D12.0 Benign neoplasm of cecum (principal); D12.4 Benign neoplasm of descending colon; K57.30 Diverticulosis of large intestine without perforation or abscess without bleeding; K59.00 Constipation, unspecified; R10.32 Left lower quadrant pain; I10 Essential (primary) hypertension; J44.9 Chronic obstructive pulmonary disease, unspecified; Z79.899 Other long term (current) drug therapy; Z87.891 Personal history of nicotine dependence
CPT/HCPCS: 45380; 88305; J7120; J2405

== ENCOUNTER 2021-06-16 09:54 | Outpatient (CLI) | payer MEDICARE, OTHER, SELFPAY | END 2021-06-16 23:59 | disposition short-term general hospital (02) | LOC: LABSPEC 09:55 | PROVIDERS: Referring Provider Physician Assistant; Visit Provider Physician Assistant | DX: U07.1 COVID-19 (principal) | CPT/HCPCS: 87635; U0003; U0005 ==

== ENCOUNTER 2021-06-18 14:00 | Outpatient (CLI) | payer MEDICARE, OTHER, SELFPAY ==
[2021-06-18 14:08] VITALS: BP 142/70; PULSE 62; RESP 16; TEMP 36.4; O2SAT 98; BMI 29.2
[2021-06-18] MEDS: 0.9% Saline Lock 10 ML Syringe IV (14:17)
[2021-06-18 15:35] VITALS: BP 152/73; PULSE 54; RESP 16; TEMP 36.8; O2SAT 97
[2021-06-18 16:24] VITALS: BP 156/71; PULSE 56; RESP 16; TEMP 36.9; O2SAT 100
== END 2021-06-18 23:59 | disposition home or self-care (01) ==
LOC: MS3OUT 14:00 → MS3 14:01
PROVIDERS: Referring Provider Nurse Practitioner Adult Health; Visit Provider Nurse Practitioner Adult Health
DX: U07.1 COVID-19 (principal)
CPT/HCPCS: J7050; M0245; Q0245; A4216

== ENCOUNTER → 2022-01-05 | Outpatient (CLI) | payer MEDICARE, OTHER, SELFPAY ==
[2022-01-05 12:43] LABS: Anion Gap 9 (5-15); BUN 9 mg/dL (7-18); BUN/Creat Ratio 13.9 RATIO (10-20); Calcium,Total 9.1 mg/dL (8.5-10.1); Chloride 95 mmol/L (98-107); Cholesterol 233 mg/dL (200); Creatinine, Serum 0.65 mg/dL (0.55-1.02); EST Glomerular Filtration Rate 97 mL/min (>60); Est Glom Filt Rate - Afr Amer 117 mL/min (>60); Glucose 104 mg/dL (74-106); High Density Lipoprotein 71 mg/dL; Potassium 3.7 mmol/L (3.5-5.1); Sodium Level 132 mmol/L (136-145); Triglycerides 125 mg/dL; Very Low Density Lipoprotein 25 mg/dL (5-40)
== END | disposition home or self-care (01) ==
LOC: MFPLAB 10:43
PROVIDERS: PCP Family Medicine; Referring Provider Family Medicine; Visit Provider Family Medicine
DX: I10 Essential (primary) hypertension (principal)
CPT/HCPCS: 36415; 80048; 80061

== ENCOUNTER → 2022-03-23 | Outpatient (CLI) | payer MEDICARE, OTHER, SELFPAY ==
--- NOTE | 2022-03-23 09:49 | BI_ITS ---
MAMMOGRAPHY - BILATERAL SCREENING REASON FOR EXAM: Female, 66 years old. Routine annual screening examination. PERTINENT HISTORY: Mother with breast cancer. Grandmother with breast cancer. Aunt with breast cancer. TECHNIQUE: Digital bilateral breast antoine (3D mammographic acquisition) in the CC and MLO projections. 2-D mediolateral oblique (MLO) and craniocaudad (CC) views of both breasts were obtained. CAD: Full Field Digital Mammography with Computer Added Detection was performed. COMPARISON: Comparison is made with prior study dated 01/11/2019 and 01/10/2018. FINDINGS: Breast Composition: The breasts are heterogeneously dense, which may obscure small masses. There are no dominant masses or suspicious calcifications. Stable small benign appearing bilateral axillary nodes. No other significant abnormalities are identified. There has been no significant change since the prior study. BI/SCRN MAMM (CAD)W/ANTOINE BILAT IMPRESSION: Stable bilateral screening mammogram. Yearly follow-up mammogram recommended. (A) ASSESSMENT CATEGORY: BIRADS Category 2: Benign. A letter regarding these results will be sent to the patient by the facility within 30 days. Approximately 10% of breast cancers are not detected by mammography. A normal mammogram should not delay biopsy of a clinically suspicious abnormality. [id number] Electronically Signed: Ricky Luis MD at 10:49 EDT ,
== END | disposition home or self-care (01) ==
LOC: OPBI 09:48
PROVIDERS: PCP Family Medicine; Visit Provider Family Medicine
DX: Z12.31 Encounter for screening mammogram for malignant neoplasm of breast (principal); Z80.3 Family history of malignant neoplasm of breast
CPT/HCPCS: 77063; 77067

== ENCOUNTER → 2022-05-27 | Outpatient (CLI) | payer MEDICARE, OTHER, SELFPAY ==
[2022-05-27 10:25] LABS: Absolute Lymphocyte Count 0.72 X10^3/uL (0.83-4.51); Absolute Neutrophil Count 4.1 X10^3/uL (2.0-7.7); Basophil# 0.02 X10^3/uL; Basophil% 0.4 % (0-1); Eosinophil# 0.05 X10^3/uL; Eosinophils% 0.9 % (0-5); Hemoglobin 15.4 g/dL (12.0-15.0); Lymphocyte # 0.72 X10^3/ul (0.83-4.51); Lymphocyte % 13.6 % (19-41); Mean Corp Hgb Conc 34.2 g/dL (32-36); Mean Corpuscular Hgb 33.3 pg (27.0-32.0); Mean Corpuscular Volume 97.2 fL (81-99); Mean Platelet Vol. 10.5 fl (6.2-12.0); Monocyte# 0.44 X10^3/uL; Monocyte% 8.3 % (0-10); NRBC Flagged by Analyzer 0 % (0-5); Neutrophil # 4.05 X10^3/uL (2.7-7.7); Neutrophil % 76.4 % (47-70); Platelet Count 303 K/mm3 (150-450); RBC Distribution Width CV 11.7 % (11.6-14.6); RBC Distribution Width SD 41.7 fl (35.1-43.9); Red Blood Count 4.63 M/mm3 (4.2-5.4); White Blood Count 5.3 K/mm3 (4.4-11.0)
[2022-05-27 11:00] LABS: ALB/GLOB Ratio 1.2 RATIO (0.9-2.4); AST(SGOT) 22 U/L (15-37); Alanine Aminotransfer ALT/SGPT 23 U/L (13-56); Albumin, Serum 3.8 g/dL (3.2-5.0); Alkaline Phosphatase 66 U/L (45-117); Amylase 102 U/L (25-115); Anion Gap 8 (5-15); BUN 16 mg/dL (7-18); BUN/Creat Ratio 20.5 RATIO (10-20); Bilirubin, Direct 0.27 mg/dL (0.00-0.30); Calcium,Total 9.6 mg/dL (8.5-10.1); Chloride 95 mmol/L (98-107); Creatinine, Serum 0.78 mg/dL (0.55-1.02); EST Glomerular Filtration Rate 78 mL/min (>60); Est Glom Filt Rate - Afr Amer 95 mL/min (>60); Globulin 3.2 g/dL (2.2-4.2); Glucose 102 mg/dL (74-106); Lipase 139 U/L (73-393); Potassium 3.2 mmol/L (3.5-5.1); Sodium Level 131 mmol/L (136-145)
[2022-05-28 08:09] LABS: HEPATITIS B SURFACE AG Negative (Negative); Hep C Antibodies 0.2 s/co ratio (0.0-0.9); Hepatitis A IgM Antibody Negative (Negative); Hepatitis B Core AB IgM Negative (Negative)
== END | disposition home or self-care (01) ==
PROVIDERS: PCP Family Medicine; Referring Provider Family Medicine; Visit Provider Nurse Practitioner Family
DX: R10.9 Unspecified abdominal pain (principal)
CPT/HCPCS: 36415; 80053; 80074; 82150; 82248; 83690; 85025

== ENCOUNTER → 2022-06-06 | Outpatient (CLI) | payer MEDICARE, OTHER, SELFPAY ==
[2022-06-06 13:02] LABS: ALB/GLOB Ratio 1.1 RATIO (0.9-2.4); AST(SGOT) 20 U/L (15-37); Alanine Aminotransfer ALT/SGPT 22 U/L (13-56); Albumin, Serum 3.4 g/dL (3.2-5.0); Alkaline Phosphatase 54 U/L (45-117); Anion Gap 11 (5-15); BUN 11 mg/dL (7-18); BUN/Creat Ratio 17.2 RATIO (10-20); Calcium,Total 9.2 mg/dL (8.5-10.1); Chloride 96 mmol/L (98-107); Creatinine, Serum 0.64 mg/dL (0.55-1.02); EST Glomerular Filtration Rate 99 mL/min (>60); Est Glom Filt Rate - Afr Amer 120 mL/min (>60); Globulin 3.1 g/dL (2.2-4.2); Glucose 95 mg/dL (74-106); Potassium 3.5 mmol/L (3.5-5.1); Protein, Total 6.5 g/dL (6.4-8.2); Sodium Level 134 mmol/L (136-145)
== END | disposition home or self-care (01) ==
LOC: MFPLAB 10:42
PROVIDERS: PCP Family Medicine; Visit Provider Nurse Practitioner Family
DX: R89.9 Unspecified abnormal finding in specimens from other organs, systems and tissues (principal)
CPT/HCPCS: 36415; 80053

== ENCOUNTER → 2022-07-28 | Outpatient (CLI) | payer MEDICARE, OTHER, SELFPAY ==
--- NOTE | 2022-07-28 08:31 | RAD_ITS ---
STUDY: X-RAY - PELVIS AND LEFT HIP REASON FOR EXAM: Female, 67 years old. Pain. TECHNIQUE: 3 views of the pelvis and hip. COMPARISON: None. FINDINGS: There is a non-specific bowel gas pattern. Normal visualized soft tissue structures. Osteopenia. Normal bilateral iliac wings, sacroiliac joints and visualized sacrum. Normal bilateral superior and inferior pubic rami. Normal pubic symphysis. Normal bilateral ischial tuberosities. Mild arthrosis of the right hip. Moderate arthrosis of the left with small osteophytes . RAD/HIP, UNI W/ Pelvis 2-3 Views IMPRESSION: Osteopenia with osteoarthrosis of both hips, left greater than right. No acute abnormality, evidence of erosive changes or fusion. Electronically Signed: Esau Frausto, at 9:52 EST ,
== END | disposition home or self-care (01) ==
LOC: MTRAD 08:31
PROVIDERS: PCP Family Medicine; Referring Provider Nurse Practitioner Family; Visit Provider Nurse Practitioner Family
DX: M25.552 Pain in left hip (principal)
CPT/HCPCS: 73502

== ENCOUNTER 2022-09-06 10:30 | Outpatient (RCR) | payer MEDICARE, OTHER, SELFPAY ==
--- NOTE | 2022-08-09 11:57 | HP.PTEVAL ---
Patient's Visit Information TELMA MUHAMMAD is a 67 year old F referred to Physical Therapy by FABRIZIO Rowan with a diagnosis of L hip arthritis. Date of Evaluation: 08/09/22 Physical Therapist: Orlando Cantu DPT - Visit Plan Frequency: 2x /Week Duration: 4 Weeks Plan: Start with general mobility in aquatic setting. Add in hip ROM and strengthening of L side as tolerated. Progress to stairs as tolerated. - Subjective Pt. is here for her initial evaluation with diagnosis of L hip arthritis. Pt. reports having increased pain for ~2 -3 weeks now without mech of injury. She is having some trouble sleeping, but can sleep on her R side with pillow between her knees. Pt. does reports having some N/T in her L foot as well. Possible correlation. Pain tends to get worse by the of the day. Increases pain: Wbing, lifting her L leg, prolonged walking, walking on hard surfaces. Decreases pain: sitting for a little bit. Sitting for too long causes stiffness. She reports having LBP as well. Pt. did have xrays showing: Mild arthrosis of the right hip. Moderate arthrosis of the left with small osteophytes. Pt. is hopeful to get back to all recreational activities and household activities without increase in symptoms. PMH: BP, asthma, COPD, - Pain R hip Pain Intensity (Out of 10): 6 Pain Intensity Range: 4, 9 - Objective POSTURE: Pt. is over wt. Pt. has slight FH and reduced lumbar lordois. PALPATION: Pt. has tenderness in her R groin. NEURO: Pt. has normal sensation in BLEs. Pt. has normal DTR of BLEs. Pt. is able to rise on heels and toes. ROM: LUMBAR SPINE: flexion nil loss NE, ext mod loss NE, SB R min loss NE, SB L min loss increase NW, rotation min/mod loss increase NW bilat. Pt. has tight L HS, R normal. MMT: RLE: ankle DF 5/5, knee: ext 27.1#, flexion 21.8#; hip: flexion 18.3#, abd 11.3#. LLE: ankle DF 4/5 I cant feel how to do it?, was better on the next trials. PF 5/5; knee: ext 11.1#, flexion 8.3#; hip: flexion 0#, abd 0#. GAIT: Pt. ambulates without AD. Pt. has decreased step length bilaterally. Pt. ambulates with a compensated [place] gait pattern during L stance phase. Stairs step to pattern only, loading RLE only. - Special Tests L/S Slump test left side: Negative L/S Slump test right side: Negative L/S Left Straight Leg Raise: Negative L/S Right Straight Leg Raise: Negative Lumbar Standing: Flexion - Mechanical Response: No effect Lumbar Standing: Flexion - Symptoms During Testing: No effect Lumbar Standing: Flexion - Symptoms After Testing: No effect Lumbar Standing: Extension - Mechanical Response: No effect Lumbar Standing: Extension - Symptoms During Testing: No effect Lumbar Standing: Extension - Symptoms After Testing: No effect Lumbar Standing: Right Side Glides - Mechanical Response: No effect Lumbar Standing: Right Side [place] - Symptoms During Testing: No effect Lumbar Standing: Right Side [place] - Symptoms After Testing: No effect Lumbar Standing: Left Side [place] - Mechanical Response: No effect Lumbar Standing: Left Side [place] - Symptoms During Testing: No effect Lumbar Standing: Left Side [place] - Symptoms After Testing: No effect R Hip Scour: Positive R Hip ARNAUD - Intraarticular Pathology: Positive R Hip FADDIR - Labrum: Positive - Balance/Special Test Scores Lower Extremity Functional Score: 9 - Goals Goal 1:: LTG: Pt. to be I with HEP. Goal Time Frame: 4-6 Weeks Goal 2:: STG: pt. to be able to sleep throughout the night without increase in symptoms. Goal Time Frame: 2-4 Weeks Goal 3:: LTG: pt. to have increased AROM of L hip symmetrical to R side without increase in symptoms. Goal Time Frame: 4-6 Weeks Goal 4:: LTG: Pt. to ambulate with 0-2/10 pain in L hip allowing for increased tolerance to all daily activities. Goal Time Frame: 4-6 Weeks Goal 5:: LTG: Pt. to have symmetrical BLE strength allowing for increased stability with all mobility. Goal Time Frame: 4-6 Weeks Goal 6:: LTG: Pt. to negotiate steps with reciprocal pattern with 1 HR with 0-2/10 pain in L hip. Goal Time Frame: 4-6 Weeks - Rehabilitation Potential Physical Therapy Diagnosis: Pt. has signs and symptoms consistent with L hip arthritis. Pt. did have some signs suggestive of possible radicular symptoms from her back, but these were very inconsistently. She has very limited active L hip flexion but this appears to be from being so painful. Pt. had mixed reports of N/T in her LLE as well. Rehabilitation Potential: Good - Anticipated Interventions Patient/Client Instruction: Educate patient on: Condition, Plan of Care, Risk Factors, Benefits of Fitness Program For the Purpose of:: To improve decision making, To facilitate caregiver knowledge, To improve self management, To prevent re-injury, To improve ability to perform tasks related to life management, To improve tolerance to ADL's Therapeutic Exercise to Include: Strength training, Power training, Endurance training, Balance training, Body mechanics, Postural training, Flexibilty training, Gait and locomotor training, In an aquatic setting, Passive ROM, Active ROM, Dynamic Lumbar Stabilization For the Purpose of:: To decrease pain, To increase ROM, To improve nutrient delivery to tissue, To increase oxygenation perfusion, To improve muscle performance and motor function, To improve ability to perform ADL's, To increase tolerance to activity/condition/position, To improve performance and independence with ADL's, To improve gait and locomotor functions, To improve health of tissue, To decrease soft tissue restriction, To increase flexibility/ROM Thank you for the opportunity to evaluate your patient. For Medicare and Medicare HMO plans, please review the plan of care and approve it. It will need to be FAXED BACK to us at [phone] for Medicare purposes. For Medicare only, by signing this I certify the plan of care. Please let me know if there are questions or concerns regarding this plan of care. Physician Signature: Date:
--- NOTE | 2022-09-06 13:40 | HP.PTREVAL_ITS ---
Emmanuelle Melendez, MAHESH-Nerissa, It has been my pleasure to treat TELMA MUHAMMAD over the last 7 visits for L hip arthritis. Please see the progress note below for an update on the physical therapy plan of care! Subjective: Pt. reports overall still having a lot of pain in her L hip and down her leg. She reports no issues while in the pool, but would almost be worse when she got out and put weight on her L leg. Pt. reports 8/10 pain in her L hip, both laterally and less so in her groin. She is avoiding do much walking do to pain. Objective/Function: ROM: L hip: flexion 90deg increase NW, abd 30deg increase NW, ER 30deg increase NW, IR 10deg increase NW. HS length normal. MMT: L hip: flexion 3/5 very painful. hip ER iso 5/5, ext 4/5 increase NW, abd 4/5 increase NW. add 5/5 NE. GAIT: pt. ambulate with fairly antalgic pattern during L stance phase. Pt is tender to palpation to L greater trochanter, and anterior hip as well. Plan Plan: Pt. to follow up with MD at this point in time. Balance/Gait/Functional tests - Balance/Special Test Scores Lower Extremity Functional Score: 9 Goals Goal 1:: LTG: Pt. to be I with HEP. Goal Time Frame: 4-6 Weeks Goal Progress: Progressing Goal 2:: STG: pt. to be able to sleep throughout the night without increase in symptoms. Goal Time Frame: 2-4 Weeks Goal Progress: Progressing Goal 3:: LTG: pt. to have increased AROM of L hip symmetrical to R side without increase in symptoms. Goal Time Frame: 4-6 Weeks Goal Progress: Not Progressing Goal 4:: LTG: Pt. to ambulate with 0-2/10 pain in L hip allowing for increased t olerance to all daily activities. Goal Time Frame: 4-6 Weeks Goal Progress: Not Progressing Goal 5:: LTG: Pt. to have symmetrical BLE strength allowing for increased stability with all mobility. Goal Time Frame: 4-6 Weeks Goal Progress: Not Progressing Goal 6:: LTG: Pt. to negotiate steps with reciprocal pattern with 1 HR with 0- 2/10 pain in L hip. Goal Time Frame: 4-6 Weeks Goal Progress: Not Progressing Anticipated Interventions Patient/Client Instruction: Educate patient on: Condition, Plan of Care, Risk Factors, Benefits of Fitness Program For the Purpose of:: To improve decision making, To facilitate caregiver knowledge, To improve self management, To prevent re-injury, To improve ability to perform tasks related to life management, To improve tolerance to ADL's Therapeutic Exercise to Include: Strength training, Power training, Endurance training, Balance training, Body mechanics, Postural training, Flexibilty training, Gait and locomotor training, In an aquatic setting, Passive ROM, Active ROM, Dynamic Lumbar Stabilization For the Purpose of:: To decrease pain, To increase ROM, To improve nutrient delivery to tissue, To increase oxygenation perfusion, To improve muscle performance and motor function, To improve ability to perform ADL's, To increase tolerance to activity/condition/position, To improve performance and independence with ADL's, To improve gait and locomotor functions, To improve health of tissue, To decrease soft tissue restriction, To increase flexibility/ROM Please do not hesitate to contact me at [phone] by phone or if you have questions or concerns regarding this new plan of care! Sincerely, NAFISA MoniqueT
== END 2022-09-06 19:00 | disposition home or self-care (01) ==
LOC: PT 10:30
PROVIDERS: PCP Family Medicine; Referring Provider Nurse Practitioner Family; Visit Provider Nurse Practitioner Family
DX: M19.90 Unspecified osteoarthritis, unspecified site (principal)
CPT/HCPCS: 97113; 97162; 97164

== ENCOUNTER → 2022-12-28 | Outpatient (CLI) | payer MEDICARE, OTHER, SELFPAY ==
[2022-12-28 12:28] LABS: Osmolality, Urine 424 mOsm/KG
[2022-12-28 12:30] LABS: Urine Sodium 25 mmol/L (Not Establ.)
[2022-12-28 13:01] LABS: Anion Gap 10 (5-15); BUN 8 mg/dL (7-18); BUN/Creat Ratio 14.8 RATIO (10-20); Calcium,Total 8.9 mg/dL (8.5-10.1); Chloride 94 mmol/L (98-107); Creatinine, Serum 0.54 mg/dL (0.55-1.02); EST Glomerular Filtration Rate 120 mL/min (>60); Est Glom Filt Rate - Afr Amer 145 mL/min (>60); Glucose 97 mg/dL (74-106); Sodium Level 131 mmol/L (136-145)
== END | disposition home or self-care (01) ==
LOC: MFPLAB 10:23
PROVIDERS: PCP Family Medicine; Visit Provider Family Medicine
DX: E87.1 Hypo-osmolality and hyponatremia (principal)
CPT/HCPCS: 36415; 80048; 83935; 84300

== ENCOUNTER → 2023-01-26 | Outpatient (CLI) | payer MEDICARE, OTHER, SELFPAY ==
[2023-01-26 10:16] LABS: Sodium Level 139 mmol/L (136-145)
== END | disposition home or self-care (01) ==
LOC: MFPLAB 08:58
PROVIDERS: PCP Family Medicine; Visit Provider Family Medicine
DX: E87.1 Hypo-osmolality and hyponatremia (principal)
CPT/HCPCS: 36415; 84295

== ENCOUNTER 2023-01-28 13:49 | Emergency (ER) | payer MEDICARE, OTHER, SELFPAY ==
[2023-01-28 13:50] VITALS: BP 180/85; PULSE 68; RESP 20; TEMP 36.9; O2SAT 100; BMI 29.2
--- NOTE | 2023-01-28 13:56 | RAD_ITS ---
STUDY: X-RAY CHEST REASON FOR EXAM: Female, 67 years old. chest pain TECHNIQUE: Single AP portable view of the chest. COMPARISON: 01/26/2018 FINDINGS: The lungs are clear and expanded. There is no demonstrated pleural abnormality. Normal size heart. Prominent hilum of the right lung worrisome for right hilar mass or lymphadenopathy. Correlation with CT of the chest with contrast is recommended. Normal visualized pulmonary arteries. Normal visualized aortic arch and descending thoracic aorta. Normal visualized thoracic spine. Normal visualized ribs, clavicles, and shoulders. There is no demonstrated abnormality of the visualized soft tissue structures of the upper abdomen. RAD/Chest 1 View (Portable) IMPRESSION: Possible right hilar mass or lymphadenopathy correlation with CT of the chest with contrast is recommended. Electronically Signed: Shravan Villalta MD at 14:23 EDT ,
--- NOTE | 2023-01-28 13:58 | EDS_ITS ---
HPI History of Present Illness Chief Complaint: Chest Pain Narrative Narrative: 67-year-old female past medical history obstructive sleep apnea, hypersomnia, diabetes, thyroid disorder, presents with chest pain that she has had since this morning. It did not wake her from sleep, and after she got dressed she started having chest pain underneath her breasts. She denies any exacerbating or alleviating factors. Of note, they changed her blood pressure medications recently from lisinopril/hydrochlorothiazide to strictly lisinopril once a day from twice daily dosing. This was because her sodium was low so they took out the water pill component according to the patient and her . They had to increase her lisinopril to 30 mg because of continued elevated blood pressure. She denies any exacerbating or alleviating factors. She may have chest pain on exertion. She states the pain is underneath both of her breasts and across her chest. No nausea or vomiting. No diaphoresis. CVD Risk Factors: Positive for Hypertension and Diabetes [facility] Medical History Abdominal pain Alcohol abuse, uncomplicated Asthma Back pain Chest wall deformity Constipation Daytime sleepiness Depression Diabetes mellitus Diverticulitis HTN (hypertension) Hypercholesteremia LLQ pain Nausea Thyroid disorder Home Medications metoprolol tartrate 50 mg tablet 50 mg PO BID 11/18/16 [History Last Taken 09/21/20] amlodipine 5 mg tablet (Norvasc) 5 mg PO DAILY 08/03/20 [History Last Taken U nknown] fluoxetine 20 mg capsule 20 mg PO DAILY 08/03/20 [History Last Taken Unknown] omeprazole 20 mg capsule,delayed release 20 mg PO DAILY 04/06/21 [History Last Taken Unknown] lisinopril 20 mg-hydrochlorothiazide 12.5 mg tablet 1 tab PO DAILY 06/18/21 [History Last Taken Unknown] umeclidinium 62.5 mcg/actuation blister powder for inhalation (Incruse Ellipta) 1 inh inhalation QDAY #3 ea 04/06/22 [Rx Last Taken Unknown] meloxicam 15 mg tablet 15 mg PO DAILY 06/15/22 [History Last Taken Unknown] montelukast 10 mg tablet 10 mg PO DAILY #30 tabs 07/28/22 [Rx Last Taken Unknown] albuterol sulfate 90 mcg/actuation aerosol inhaler 2 puff inhalation Q4H PRN shortness of breath or wheezing #8.5 grams 10/25/22 [Rx Last Taken Unknown] fluticasone furoate 200 mcg-vilanterol 25 mcg/dose inhalation powder (Breo Ellipta) 1 inh inhalation QDAY #3 ea 10/25/22 [Rx Last Taken Unknown] Allergy/AdvReac Type Severity Reaction Status Date / Time erythromycin base Allergy Unknown Verified 11/21/22 10:43 Penicillins Allergy Unknown Verified 11/21/22 10:43 sulfamethoxazole Allergy Unknown Verified 11/21/22 10:43 [From Bactrim] tetracycline Allergy Unknown Verified 11/21/22 10:43 trimethoprim [From Bactrim] Allergy Unknown Verified 11/21/22 10:43 cefdinir AdvReac Mild Upset Verified 11/21/22 10:43 stomach metronidazole [From Flagyl] AdvReac Nausea Verified 11/21/22 10:43 Family History Brother Cancer Hypertension Dementia Mother Breast cancer Dementia Social History Smoking Status: Former smoker second hand exposure: No alcohol intake: current alcohol intake frequency: 3 or more drinks per day substance use type: does not use caffeine: Yes Type: coffee Number of servings: 1 what type of physical activity do you participate in: none ROS ROS ED ROS Narrative Constitutional: No fever, no chills. HEENT: No sore throat. No neck pain. No loss of vision. No rhinorrhea. Cardiovascular: Positive chest pain. No palpitations. No pedal edema. Respiratory: No cough, no shortness of breath. Abdominal: No abdominal pain. No nausea. No vomiting. Genitourinary: No dysuria. No hematuria. Musculoskeletal: No myalgias. No arthralgias. Neurologic: No headaches. No dizziness. No lightheadedness. Skin: No rash. No change in color. Psychiatric: No depression. No anxiety. EXAM Physical Exam Narrative Exam Narrative: Afebrile. Vital signs noted. HEENT: Normocephalic. Atraumatic. PERRL, EOMI. Neck soft and supple. No point tenderness or step off. Cardiovascular: Regular rate and rhythm. No murmurs, rubs, or gallops appreciated. Respiratory: No tachypnea. Lungs clear to auscultation bilaterally. Gastrointestinal: Abdomen soft, nontender, with normoactive bowel sounds. No rebound or guarding. Neurological: Awake. Alert. Nonfocal, nonlateralizing. Skin: No rash. Normal color. No pallor. Musculoskeletal: No pedal edema. Full range of motion extremities. Const Vital Signs: 01/28/23 13:50 01/28/23 13:55 01/28/23 14:10 Temperature 98.4 F Temperature Source Temporal Pulse Rate 68 Respiratory Rate 20 H Respiratory Effort Short of Breath Labored Blood Pressure 180/85 H Blood Pressure Mean 116 Pulse Ox 100 Oxygen Delivery Method Room Air Room Air 01/28/23 14:13 01/28/23 15:00 Temperature Temperature Source Pulse Rate 67 58 L Respiratory Rate 9 L Respiratory Effort Blood Pressure 142/72 H 153/64 H Blood Pressure Mean 88 Pulse Ox 98 Oxygen Delivery Method Heart Score History: Slightly/Non-Suspicious ECG: Normal Age: >/= 65 years Risk Factors: 1 or 2 Risk Factors Score: 3 MDM MDM MDM Narrative Medical decision making narrative: In the differential diagnosis is acute coronary syndrome versus pulmonary embol ism versus aortic dissection versus hypertensive urgency. She does have elevated blood pressure of 180/85. I have lower suspicion for pulmonary embolism as she has a pulse of 68 and is satting 100% on room air without evidence of hypoxia. She denies DVT or PE risk factors as well except for recent surgery. I have low suspicion for aortic dissection as she is not having tearing back pain, and has equal radial pulses. Her history and physical is not suggestive of dissection pain. Chest pain work-up was pursued. EKG was obtained and interpreted by myself independently as normal sinus rhythm at 72 bpm without ectopy or acute ST changes. No STEMI. In review of previous EKG, there is no significant change from EKG dated January 31, 2019 except for he was bradycardic at that time at 56 bpm. She will be given aspirin and nitroglycerin, as this is also an attempt to lower her blood pressure. I reviewed her laboratory work from today and she has a normal white count of 5.5, hemoglobin normal at 13.1, platelet count normal at 420. Electrolyte panel shows sodium slightly low at 133 but this appears chronic, potassium 3.3, but also she has had low potassium in the past. Glucose appropriately elevated at 139 with a normal anion gap of 9. Initial high-sensitivity troponin is 5. Patient informed me that she had hip surgery 3 weeks ago. While I was going to add a D-dimer, in review of the chest x-ray, while there is no evidence of pneumonia or pneumothorax on my independent interpretation, I reviewed the radiology report which shows concern for hilar mass versus lymphadenopathy. They recommended a CT of the chest with IV contrast. Hence instead of a D-dimer I will perform CTA to look for pulmonary embolism as a cause of her chest pain. However, upon repeat examination her blood pressure is now 153/64 and she states she feels improved. I feel that as long as she has a negative repeat troponin and her CTA shows no evidence of pulmonary embolism, that most likely she would be able to be discharged with follow-up to her primary care provider. Patient will be signed out to the oncoming physician, Dr. Brayan Vargas. Disposition is pending. Patient is in stable condition. History & Record Review Discussion w/independent historian: Patient and Family Additional record(s) reviewed:: Prior ED visit and Prior labs Lab Data Attestation: I reviewed the patient's lab results. Labs: Laboratory Results - last 24 hr 01/28/23 13:55 WBC 5.5 RBC 4.10 L Hgb 13.1 Hct 40.2 MCV 98.0 MCH 32.0 MCHC 32.6 RDW Std Deviation 42.2 RDW Coeff of Derik 11.7 Plt Count 420 MPV 10.2 Immature Gran % (Auto) 0.400 Neut % (Auto) 69.7 Lymph % (Auto) 19.1 [place] % (Auto) 8.4 Eos % (Auto) 2.0 Baso % (Auto) 0.4 Absolute Neuts (auto) 3.8 Absolute Lymphs (auto) 1.05 Nucleated RBC % 0 Sodium 133 L Potassium 3.3 L Chloride 101 Carbon Dioxide 23.0 Anion Gap 9 BUN 9 Creatinine 0.74 Estim Creat Clear Calc 47.14 Est GFR (MDRD) Af Amer 100 Est GFR (MDRD) Non-Af 83 BUN/Creatinine Ratio 12.1 Glucose 139 H Calcium 9.6 Troponin I High Sens 5 Radiography Diagnostic Testing: Clinical Impression(s) from Imaging Studies Chest X-Ray 01/28/23 13:56 IMPRESSION: Possible right hilar mass or lymphadenopathy correlation with CT of the chest with contrast is recommended. Electronically Signed: Shravan Villalta MD at 14:23 EDT , Discharge Plan Triage Chief Complaint: Chest Pain ED Provider: Pierce Alonzo Dx/Rx/DC Orders Clinical Impression: History of hip surgery, Chest pain Prescriptions: No Action omeprazole 20 mg capsule,delayed release(DR/EC) 20 mg PO DAILY amlodipine [Norvasc] 5 mg tablet 5 mg PO DAILY Incruse Ellipta 62.5 mcg/actuation blister with device 1 inh INHALATION QDAY Qty: 3 4RF meloxicam 15 mg tablet 15 mg PO DAILY fluoxetine 20 mg capsule 20 mg PO DAILY metoprolol tartrate 50 MG tablet 50 mg PO BID lisinopril-hydrochlorothiazide 20-12.5 mg tablet 1 tab PO DAILY montelukast 10 mg tablet 10 mg PO DAILY Qty: 30 11RF albuterol sulfate 90 mcg/actuation HFA aerosol inhaler 2 puff INHALATION Q4H PRN (Reason: shortness of breath or wheezing) Qty: 8.5 6RF Rx Instructions: administer with spacer Breo Ellipta 200-25 mcg/dose blister with device 1 inh INHALATION QDAY Qty: 3 4RF Rx Instructions: after inhalation, rinse mouth with water and spit out; do not swallow Primary Care Provider: Sara Rogel Referrals: Sara Rogel, DO [Primary Care Provider] -
[2023-01-28] MEDS: 0.9% Normal Saline 1,000 ML 250 ML IV (14:06)
[2023-01-28] MEDS: Aspirin 81 MG TAB.CHEW 324 MG PO (14:06)
[2023-01-28 14:13] VITALS: BP 142/72; PULSE 67
[2023-01-28] MEDS: Nitroglycerin SL (ED/IMG/CATH) 0.4 MG TABLET SL (14:13)
[2023-01-28 14:21] LABS: Absolute Lymphocyte Count 1.05 X10^3/uL (0.83-4.51); Absolute Neutrophil Count 3.8 X10^3/uL (2.0-7.7); Basophil# 0.02 X10^3/uL; Basophil% 0.4 % (0-1); Eosinophil# 0.11 X10^3/uL; Hematocrit 40.2 % (37-47); Hemoglobin 13.1 g/dL (12.0-15.0); Lymphocyte # 1.05 X10^3/ul (0.83-4.51); Lymphocyte % 19.1 % (19-41); Mean Corp Hgb Conc 32.6 g/dL (32-36); Mean Platelet Vol. 10.2 fl (6.2-12.0); Monocyte# 0.46 X10^3/uL; Monocyte% 8.4 % (0-10); NRBC Flagged by Analyzer 0 % (0-5); Neutrophil # 3.83 X10^3/uL (2.7-7.7); Neutrophil % 69.7 % (47-70); Platelet Count 420 K/mm3 (150-450); RBC Distribution Width CV 11.7 % (11.6-14.6); RBC Distribution Width SD 42.2 fl (35.1-43.9); White Blood Count 5.5 K/mm3 (4.4-11.0)
--- NOTE | 2023-01-28 14:26 | CT_ITS ---
STUDY: CTA CHEST REASON FOR EXAM: Female, 67 years old. Hilar mass RADIATION DOSAGE (If Supplied By Facility): CTDIvol = ( 12.89 ) mGy, DLP = ( 493.56 ) mGycm TECHNIQUE: The examination was performed with the intravenous administration of IV 100mL Isovue-370. Post-processing of the angiographic images was performed, with multiplanar reformation and 3D reconstruction. Individualized dose optimization techniques were used for this CT. COMPARISON: Chest x-ray earlier today FINDINGS: Normal enhancement of the main pulmonary artery and right and left pulmonary arteries. Normal enhancement of the bilateral peripheral pulmonary arteries. There is no demonstrated pulmonary embolism. There is prominence of the main pulmonary arteries without peripheral pulmonary vascular congestion, suggesting pulmonary hypertension. Normal thoracic aorta and visualized great vessels. There is no demonstrated aortic dissection. Normal heart and pericardium. Normal mediastinum. Normal hilar regions. In particular no right hilar mass as suggested on recent chest x-ray with findings corresponding to right hilar vessels. Normal visualized trachea and bronchi. The lungs are well expanded. Some right lower lobe discoid atelectasis. Some lingular atelectasis adjacent to left heart border. Bibasilar and lingular linear scarring. 4 mm noncalcified nodule in the periphery of the superior segment left lower lobe lungs on image 151 Normal pleura. Elevated right hemidiaphragm. Normal chest wall structures. Normal osseous structures. 4.5 cm cyst in the posterior segment of the right lobe of the liver. CT/CTA Chest W/WO Contrast IMPRESSION: 1. No CT evidence of pulmonary embolism. 2. Enlarged central pulmonary arteries suggestive of pulmonary arterial hypertension corresponding to the prominence of the right hilum seen on recent chest x-ray. 3. 4 mm noncalcified left lower lobe nodule and follow-up CT is recommended in 12 months document stability. Electronically Signed: Shravan Villalta MD at 17:03 EDT ,
[2023-01-28 14:45] LABS: Anion Gap 9 (5-15); BUN 9 mg/dL (7-18); BUN/Creat Ratio 12.1 RATIO (10-20); Calcium,Total 9.6 mg/dL (8.5-10.1); Chloride 101 mmol/L (98-107); Creatinine, Serum 0.74 mg/dL (0.55-1.02); EST Glomerular Filtration Rate 83 mL/min (>60); Est Glom Filt Rate - Afr Amer 100 mL/min (>60); Estimated Creatinine Clearance 47.14 ml/min; Glucose 139 mg/dL (74-106); Potassium 3.3 mmol/L (3.5-5.1); Sodium Level 133 mmol/L (136-145); Troponin-I HS (w/2H Reflex) 5 pg/mL (3.0-54.0)
[2023-01-28 15:00] VITALS: BP 153/64; PULSE 58; RESP 9; O2SAT 98
[2023-01-28 16:14] LABS: Reflex Troponin-HS? (from REC) Y
[2023-01-28 16:59] LABS: Troponin-I HS 5 pg/mL (3.0-54.0)
[2023-01-28 17:21] VITALS: BP 144/77; PULSE 63; RESP 13; O2SAT 98
== END 2023-01-28 18:40 | disposition home or self-care (01) ==
PROVIDERS: Emergency Medicine; Emergency Provider Emergency Medicine; PCP Family Medicine; Visit Provider Emergency Medicine
DX: R07.9 Chest pain, unspecified (principal); G47.33 Obstructive sleep apnea (adult) (pediatric); Z87.891 Personal history of nicotine dependence
CPT/HCPCS: 71045; 71275; 80048; 84484; 85025; 93005; 96360; 96361; 99283; J7030; Q9967; A4216

== ENCOUNTER 2023-02-12 00:08 | Emergency (ER) | payer MEDICARE, OTHER, SELFPAY ==
[2023-02-12 00:11] VITALS: BP 148/73; PULSE 61; RESP 24; TEMP 35.6; O2SAT 100; BMI 29.0
[2023-02-12 00:13] VITALS: BP 148/73; PULSE 61; RESP 24; TEMP 35.6; O2SAT 100
--- NOTE | 2023-02-12 01:36 | EX.ED.DYSGE1 ---
HPI History of Present Illness Chief Complaint: Abd Pain Informant: patient and spouse/S.O. Narrative Narrative: Patient is a 67-year-old female with past medical history of hypertension hyperlipidemia and diabetes. She states that she was at home this evening and after eating dinner developed pain in her right upper abdomen. She states the pain was sharp and stabbing and that the bouts of nausea and vomiting. She states has been concerned that she has dysfunction of her gallbladder in the past but never had the gallbladder removed. She reports as she cannot get her pain and nausea under control at home she presents for evaluation. [facility] Medical History Abdominal pain Alcohol abuse, uncomplicated Asthma Back pain Chest wall deformity Constipation Daytime sleepiness Depression Diabetes mellitus Diverticulitis HTN (hypertension) Hypercholesteremia LLQ pain Nausea Thyroid disorder Home Medications metoprolol tartrate 50 mg tablet 50 mg PO BID 11/18/16 [History Last Taken 09/21/20] amlodipine 5 mg tablet (Norvasc) 5 mg PO DAILY 08/03/20 [History Last Taken Unknown] fluoxetine 20 mg capsule 20 mg PO DAILY 08/03/20 [History Last Taken Unknown] omeprazole 20 mg capsule,delayed release 20 mg PO DAILY 04/06/21 [History Last Taken Unknown] lisinopril 20 mg-hydrochlorothiazide 12.5 mg tablet 1 tab PO DAILY 06/18/21 [History Last Taken Unknown] umeclidinium 62.5 mcg/actuation blister powder for inhalation (Incruse Ellipta) 1 inh inhalation QDAY #3 ea 04/06/22 [Rx Last Taken Unknown] meloxicam 15 mg tablet 15 mg PO DAILY 06/15/22 [History Last Taken Unknown] montelukast 10 mg tablet 10 mg PO DAILY #30 tabs 07/28/22 [Rx Last Taken Unknown] albuterol sulfate 90 mcg/actuation aerosol inhaler 2 puff inhalation Q4H PRN shortness of breath or wheezing #8.5 grams 10/25/22 [Rx Last Taken Unknown] fluticasone furoate 200 mcg-vilanterol 25 mcg/dose inhalation powder (Breo Ellipta) 1 inh inhalation QDAY #3 ea 10/25/22 [Rx Last Taken Unknown] ondansetron 4 mg disintegrating tablet 4 mg PO TID PRN nausea and vomiting #21 tabs 02/12/23 [Rx Last Taken Unknown] Allergy/AdvReac Type Severity Reaction Status Date / Time erythromycin base Allergy Unknown Verified 02/12/23 00:10 Penicillins Allergy Unknown Verified 02/12/23 00:10 sulfamethoxazole Allergy Unknown Verified 02/12/23 00:10 [From Bactrim] tetracycline Allergy Unknown Verified 02/12/23 00:10 trimethoprim [From Bactrim] Allergy Unknown Verified 02/12/23 00:10 cefdinir AdvReac Mild Upset Verified 02/12/23 00:10 stomach metronidazole [From Flagyl] AdvReac Nausea Verified 02/12/23 00:10 Family History Brother Cancer Hypertension Dementia Mother Breast cancer Dementia Social History (Updated 02/12/23 @ 00:20 by Gracie Hurley) household members: spouse Smoking Status: Former smoker second hand exposure: No alcohol intake: current alcohol intake frequency: 3 or more drinks per day substance use type: does not use caffeine: Yes Type: coffee Number of servings: 1 what type of physical activity do you participate in: none ROS ROS ED Constitutional Constitutional ED: Denies chills or fever(s) ENT ENT ED: Denies sore throat Cardiovascular Cardiovascular: Denies chest pain Respiratory/Chest Respiratory/Chest: Denies cough or dyspnea Gastrointestinal Gastrointestinal: Reports abdominal pain, nausea and vomiting; Denies diarrhea Genitourinary Genitourinary ED: Denies dysuria Musculoskeletal Musculoskeletal: Denies myalgias Integumentary Denies rash Neurologic Neurologic: Denies headache(s) Hematologic/Lymphatic Hematologic/Lymphatic: Denies easy bleeding or easy bruising EXAM Physical Exam Const Vital Signs: 02/12/23 00:11 02/12/23 00:13 Temperature 96.0 F L 96.0 F L Temperature Source Temporal Temporal Pulse Rate 61 61 Respiratory Rate 24 H 24 H Blood Pressure 148/73 H 148/73 H Blood Pressure Mean 98 98 Pulse Ox 100 100 Oxygen Delivery Method Room Air Room Air Positive well nourished, well developed and obese General Appearance ED: well developed Nutritional Appearance: obese HEENT Reports moist mucous membranes Eyes PERRL and EOMs intact bilaterally General Eye ED: Negative for scleral icterus Neck supple Neck Narrative: No nuchal rigidity or meningeal signs Resp normal respiratory effort and clear to auscultation bilaterally Cardio regular rate and regular rhythm Rate: other Other Details: Radial and carotid pulses are equal and symmetric GI non-distended GI Narrative: Abdomen is soft and nondistended with normal active bowel sounds. Patient has pain with palpation in the midepigastric and right upper quadrant region. No voluntary guarding or rigidity. No pulsatile mass. Negative Fallon sign Auscultation: normoactive bowel sounds Palpation: soft Back/Spine no CVA tenderness Extremity normal to inspection Neuro oriented x3 and CN's II-XII intact bilaterally Sensorium / Orientation: alert Motor Exam: strength 5/5 throughout Psych mental status grossly normal Skin no rashes or lesions noted General Skin Exam: Negative for jaundice MDM MDM MDM Narrative Medical decision making narrative: Patient presented to the ER afebrile. She reported pain in the right upper abdomen that began after eating and reports she does have a history of gallbladder dysfunction. Differential diagnosis is for biliary colic versus acute pancreatitis versus gastroenteritis versus peptic ulcer disease versus intestinal obstruction. By the time I evaluated the patient she states her pain had spontaneously resolved. I discussed with the patient that as she still has mild tenderness on exam that blood work and CT scan to look for potential pancreatitis and/or cholecystitis would be beneficial. She states that she feels much better/normal at this time and does not want to be in the hospital any longer. Therefore at this time patient will be discharged with Zofran for nausea and we will order an outpatient ultrasound of her gallbladder to be obtained in the next few days in order to assess for gallstones and or acute cholecystitis. Patient understands she needs to return if symptoms return or worsen but at this time as she does not want further testing performed and reports feeling normal at this time she is otherwise safe for discharge History & Record Review Discussion w/independent historian: Patient and Significant other Discharge Plan Triage Chief Complaint: Abd Pain ED Provider: Prasanna Berger Dx/Rx/DC Orders Clinical Impression: Biliary colic, Diabetes mellitus, Hypertension Instructions: ED Abdominal Pain Gallstone Poss Prescriptions: New ondansetron 4 mg tablet,disintegrating 4 mg PO TID PRN (Reason: nausea and vomiting) Qty: 21 0RF No Action omeprazole 20 mg capsule,delayed release(DR/EC) 20 mg PO DAILY amlodipine [Norvasc] 5 mg tablet 5 mg PO DAILY Incruse Ellipta 62.5 mcg/actuation blister with device 1 inh INHALATION QDAY Qty: 3 4RF meloxicam 15 mg tablet 15 mg PO DAILY fluoxetine 20 mg capsule 20 mg PO DAILY metoprolol tartrate 50 MG tablet 50 mg PO BID lisinopril-hydrochlorothiazide 20-12.5 mg tablet 1 tab PO DAILY montelukast 10 mg tablet 10 mg PO DAILY Qty: 30 11RF albuterol sulfate 90 mcg/actuation HFA aerosol inhaler 2 puff INHALATION Q4H PRN (Reason: shortness of breath or wheezing) Qty: 8.5 6RF Rx Instructions: administer with spacer Breo Ellipta 200-25 mcg/dose blister with device 1 inh INHALATION QDAY Qty: 3 4RF Rx Instructions: after inhalation, rinse mouth with water and spit out; do not swallow Other Ambulatory Orders: Gallbladder (Routine) Facility: [facility] - Location: [facility] Ordered By: Dr. Prasanna Berger Primary Care Provider: Sara Rogel Referrals: Sara Rogel, [Primary Care Provider] - Activity Restrictions/Additional Instructions: Please get your outpatient gallbladder ultrasound obtained in the next few days to further assess the cause of your symptoms. Use the Zofran as directed to control nausea and vomiting and if you have worsening symptoms or any further concerns return to the ER for repeat evaluation Disposition Disposition: Home, Self Care Discharge Date/Time: 02/12/23 02:05
[2023-02-12] MEDS: Ondansetron ODT 4 MG Tablet PO (01:56)
[2023-02-12 02:04] VITALS: BP 154/64
== END 2023-02-12 02:05 | disposition home or self-care (01) ==
PROVIDERS: Emergency Provider Emergency Medicine; PCP Family Medicine; Visit Provider Emergency Medicine
DX: R10.11 Right upper quadrant pain (principal); E11.9 Type 2 diabetes mellitus without complications; E78.00 Pure hypercholesterolemia, unspecified; Z87.891 Personal history of nicotine dependence; I10 Essential (primary) hypertension; E66.9 Obesity, unspecified
CPT/HCPCS: 99283; A4216

== ENCOUNTER → 2023-02-14 | Outpatient (CLI) | payer MEDICARE, OTHER, SELFPAY ==
--- NOTE | 2023-02-14 09:23 | US_ITS ---
STUDY: ABDOMINAL ULTRASOUND - RIGHT UPPER QUADRANT REASON FOR VISIT: Female, 67 years old RUQ pain . Nausea and vomiting. TECHNIQUE: Ultrasound evaluation of the right upper quadrant was performed with real-time and static puente-scale imaging. TECHNICAL QUALITY: Adequate. COMPARISON: Comparison is made with prior CT scan abdomen and pelvis August 17, 2020. FINDINGS: Liver: The liver measures 14.5 cm. There is increased echogenicity consistent with fatty infiltration. The bile ducts are within normal limits. There is hepatic color flow. The direction of portal flow is hepatopetal. There is a 6.4 cm x 5.1 cm x 5 cm cyst in the inferior aspect of the right lobe of the liver. Gallbladder: Normal distended gallbladder. The gallbladder wall is thickened and measures 4.1 mm. There is a positive sonographic Fallon''s sign. There is no pericholecystic fluid. There are multiple echogenic structures within the gallbladder, consistent with multiple gallstones. Common Bile Duct (C.B.D.): The common bile duct is mildly dilated and measures 7.9 mm. Pancreas: Normal size of the head, body and tail of the pancreas. There is normal echogenicity of the pancreas. There is no demonstrated pancreatic mass or cyst. Right Kidney: Normal size of the right kidney. The right kidney measures 9.6 cm x 5.5 cm x 4.7 cm. Normal renal cortex. The right cortex measures 1.2 cm. There is an 8 mm x 7 mm x 5 mm cyst in the medial aspect of the right kidney. There is no right hydronephrosis. US/Gallbladder IMPRESSION: Multiple gallstones with the gallbladder wall thickening and positive sonographic Fallon''s sign. Mild dilatation of the common bile duct. Fatty infiltration of the liver Electronically Signed: Ricky Luis MD at 10:40 EDT ,
== END | disposition home or self-care (01) ==
LOC: US 09:15
PROVIDERS: PCP Family Medicine; Referring Provider Emergency Medicine; Visit Provider Emergency Medicine
DX: R10.11 Right upper quadrant pain (principal)
CPT/HCPCS: 76705

== ENCOUNTER 2023-03-06 11:23 | Day surgery (SDC) | payer MEDICARE, OTHER, SELFPAY ==
[2023-03-06] VITALS (9 sets, daily range): BP systolic 144–178; BP diastolic 64–86; PULSE 60–85; RESP 16–18; TEMP 36.9–37.1; O2SAT 92–99; BMI 26.4
--- NOTE | 2023-03-06 12:28 | PCM.HP.BLA ---
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: No Accompanied by: Is patient in pain?: No Allergies erythromycin base Allergy (Verified 02/27/23 09:41) UnknownPenicillins Allergy (Verified 02/27/23 09:41) Unknownsulfamethoxazole [From Bactrim] Allergy (Verified 02/27/23 09:41) Unknowntetracycline Allergy (Verified 02/27/23 09:41) Unknowntrimethoprim [From Bactrim] Allergy (Verified 02/27/23 09:41) Unknowncefdinir Adverse Reaction (Mild, Verified 02/27/23 09:41) Upset stomach metronidazole [From Flagyl] Adverse Reaction (Verified 02/27/23 09:41) Nausea Medications metoprolol tartrate 50 mg tablet 50 mg PO BID 11/18/16 [History Confirmed 02/27/23] amlodipine 5 mg tablet (Norvasc) 5 mg PO DAILY 08/03/20 [History Confirmed 02/27/23] fluoxetine 20 mg capsule 20 mg PO DAILY 08/03/20 [History Confirmed 02/27/23] umeclidinium 62.5 mcg/actuation blister powder for inhalation (Incruse Ellipta) 1 inh inhalation QDAY #3 ea 04/06/22 [Rx Confirmed 02/27/23] montelukast 10 mg tablet 10 mg PO DAILY #30 tabs 07/28/22 [Rx Confirmed 02/27/23] albuterol sulfate 90 mcg/actuation aerosol inhaler 2 puff inhalation Q4H PRN shortness of breath or wheezing #8.5 grams 10/25/22 [Rx Confirmed 02/27/23] fluticasone furoate 200 mcg-vilanterol 25 mcg/dose inhalation powder (Breo Ellipta) 1 inh inhalation QDAY #3 ea 10/25/22 [Rx Confirmed 02/27/23] ondansetron 4 mg disintegrating tablet 4 mg PO TID PRN nausea and vomiting #21 tabs 02/12/23 [Rx Confirmed 02/27/23] lisinopril 20 mg-hydrochlorothiazide 12.5 mg tablet 1.5 tab PO DAILY 02/22/23 [History Confirmed 02/27/23] pantoprazole 40 mg tablet,delayed release 40 mg PO DAILY #30 tabs 02/22/23 [Rx Confirmed 02/27/23] PFSH Medical History Abdominal pain Alcohol abuse, uncomplicated Asthma Back pain Chest wall deformity Constipation Daytime sleepiness Depression Diabetes mellitus Diverticulitis HTN (hypertension) Hypercholesteremia LLQ pain Nausea Thyroid disorder Surgical History History of left hip replacement Family History Brother Cancer HypertensionMother Breast cancer Dementia Social History household members: spouse Smoking Status: Former smoker second hand exposure: No alcohol intake: former substance use type: does not use caffeine: Yes Type: coffee Number of servings: 1 what type of physical activity do you participate in: none HPI HPI HPI: The patient has been having pain for about a month. She says the pain is in the right upper quadrant happens when she eats. She has been on a PPI since June. Patient reports that she is not eating anything except for fish or chicken she does not have the pain. Anything else causes pain in the right upper quadrant. ROS General General: No weight change, appetite, fatigue, colon cancer, breast cancer or weakness HEENT HEENT: Yes difficulty swallowing; No eye injury, eye surgery, swollen glands or hoarseness Endo Endocrine: No thyroid disease, diabetes mellitus, thyroid cancer, Hair loss, heat intolerance or cold intolerance Skin Skin: No rash or changing moles Musc Musculoskeletal: No back problems, arthritis, rheumatoid arthritis, gout or joint pain Cardio Cardiovascular: Yes high blood pressure; No murmur, pacemaker, heart disease, atrial fibrillation, heart attack, heart stent, palpitations, shortness of breat with exertion or chest pain Psych Psychiatric: Yes anxiety; No depression or hearing voices Resp Respiratory: No shortness of breath, Yes sleep apnea, No cough, Yes COPD, Yes asthma, No emphysema and No wheezing Gastro Gastrointestinal: Yes abdominal pain, Yes nausea or vomiting, No diarrhea, Yes constipation, No blood in stool, Yes acid reflux, No hemorrhoids, No ulcers, Yes gallbladder problem and No black,tarry stools Raffaele Hematologic: No blood thinners, No blood disorders, No bleeding, No anemia and No blood clots Neuro Neurologic: No system reviewed and no additional complaints, except as documented, No as per HPI, No abnormal gait, No abnormal hearing, No abnormal movements, No abnormal speech, No behavioral changes, No burning sensations, No confusion, No convulsions, No disequilibrium, No dizziness, No localized weakness, No frequent falls, No headache(s), No lack of coordination, No loss of vision, No memory loss, No numbness, No other visual disturbances, No radicular pain, No restless legs, No sensory deficit, No syncope, No tingling, No tremor(s), No weakness and No other Exam Const General: cooperative Orientation: alert and oriented x3 HENMT Head: normal to inspection Neck Neck: normal visual inspection and full ROM Chest Chest palpation & inspection: normal inspection of the chest Resp Effort & Inspection: normal respiratory effort Auscultation: clear to auscultation bilaterally Cardio Rate: regular rate Rhythm: regular rhythm GI Inspection: non-distended Palpation: soft and nontender Skin General: no rashes or lesions noted Neuro General: patient alert and patient oriented x3 Extrem General: full ROM Psych Appearance: grossly normal Mental Status: mental status grossly normal Assessment and Plan Assessment and Plan (1) Cholelithiasis: Status: Acute Qualifiers: Cholelithiasis location: gallbladder Cholecystitis presence: with cholecystitis Cholecystitis acuity: chronic Biliary obstruction: without biliary obstruction Qualified Code(s): K80.10 - Calculus of gallbladder with chronic cholecystitis without obstruction Plan: The patient is a 67-year-old female who has been having right upper quadrant pain after eating. She has been on a PPI for almost a year. This has not improved any of her symptoms. She had an ultrasound that showed a thickened gallbladder wall with cholelithiasis. I recommended laparoscopic cholecystectomy. I discussed the procedure in detail with the patient. I discussed the risks, benefits, and alternatives of the procedure. I discussed the risks including but not limited to bleeding, infection, injury to surrounding organs such as the liver, bile duct, bowels. I did discuss the possibility of having to convert to an open procedure as well as the possibility that if any injuries occurred this may necessitate further surgery at a tertiary care center. El Green MD Pager: [facility] [address] [place] [address], [address] [place] [address] Office: I have examined the patient and the H&P has been reviewed. There are no clinical changes since date of exam.
[2023-03-06 12:46] LABS: Anion Gap 8 (5-15); BUN 6 mg/dL (7-18); BUN/Creat Ratio 8.5 RATIO (10-20); Calcium,Total 9.4 mg/dL (8.5-10.1); Chloride 103 mmol/L (98-107); EST Glomerular Filtration Rate 88 mL/min (>60); Est Glom Filt Rate - Afr Amer 106 mL/min (>60); Estimated Creatinine Clearance 47.14 ml/min; Glucose 101 mg/dL (74-106); Potassium 4.2 mmol/L (3.5-5.1); Sodium Level 137 mmol/L (136-145)
--- NOTE | 2023-03-06 13:00 | GALL_PTH ---
PATIENT: TELMA MUHAMMAD LOC: [facility] [place] U#:[id number] AGE/SX: 67/F ROOM: RE03/06/[address]: Dr. El Green MD : 1955 BED: DIS: 03/06/2023 SPEC #: [id number] RECD: 03/06/23 14:26 STATUS: ALVERTO REJocelin #: [id number] MCKINLEY: 03/06/23 13:[address]: El Green DEPT: SURGICAL PATHOLOGY RECD BY: Faye Ag ENTERED: 03/07/23 09:20 SP TYPE: IDANIA FORTE DR: Sara Rogel DO Tissues: Gallbladder, NOS Procedures: Surgery Specimen Level III HEADER OPERATION: Laparoscopic cholecystectomy PRE-OP DIAGNOSIS: Cholelithiasis TISSUE SUBMITTED: Gallbladder MICROSCOPIC DIAGNOSIS Gallbladder, cholecystectomy: Cholesterolosis, chronic cholecystitis and cholelithiasis. AM:tung 03/08/2023 MICROSCOPIC DESCRIPTION Slides are reviewed. GROSS DESCRIPTION Received is one container labeled with the patient's name and designated gallbladder. The specimen consists of a gallbladder measuring 7.0 x 3.0 x 2.5 cm. The external surface is smooth and glistening. Focally, it is granular, hemorrhagic and contains cautery artifact. The lumen of the gallbladder contains yellow-green mucoid bile and multiple yellow calculi ranging in size from <0.1 to 1.0 cm in greatest dimension. The mucosa is bile-stained and without any mass lesions. The gallbladder wall averages 0.2 cm in thickness and is free of mass lesions. Licensing Analyst sections of the gallbladder and the cystic duct at margin of resection are submitted in one cassette. / AM:tung 03/07/2023 :3 CPT: 99397
[2023-03-06] MEDS: Clindamycin 900 MG/50 ML BAG 75 MG IV (13:10)
[2023-03-06] MEDS: Bupivacaine 0.5% PF 10 ML VIAL (13:52)
--- NOTE | 2023-03-06 14:11 | PCM.OPRPT ---
Report of Operation Date of Procedure: 03/06/23 Pre-Operative Diagnosis: Biliary colic and cholelithiasis Post-Operative Diagnosis: Same Surgery/Procedure Performed:: Laparoscopic cholecystectomy Type of Anesthesia: General/Regional Specimen's removed: Gallbladder Estimated Blood Loss (mL): 5 Description of Procedure: After obtaining informed consent patient was brought back to the operating room. General anesthesia was induced. The abdomen was prepped and draped in usual sterile fashion. A small midline incision was made superior to the umbilicus and deepened to the level of fascia. The fascia was elevated and incised. Next the peritoneum was elevated and incised in the same fashion. Finger sweep was performed and the Curtis trocar was placed into the abdomen. The balloon was inflated. The abdomen was inflated to 15 mmHg. Next a camera was introduced into the abdomen and the abdomen was inspected. Next under direct visualization three 5-mm ports were placed one subxiphoid and 2 subcostal. Next the gallbladder was elevated and retracted toward the right shoulder. The peritoneum was stripped from the gallbladder. The infundibulum was located and retracted laterally. Next the triangle of Calot was dissected and the cystic duct and cystic artery were identified. Cholangiograms were attempted. The Garcia clamp was used to clamp across the infundibulum and the catheter needle was inserted into the gallbladder. I was unable to flush the catheter. There was also a small hole in the back of the gallbladder leaking the contrast. There was some spillage of bile and stones. The cystic duct was too short for a Ranfac catheter. The anatomy appeared classic with no aberrant structures. The gallbladder was taken off of the liver up to group home up the gallbladder to ensure that the anatomy was correct. Three hemolock clips were placed across the cystic duct. The cystic duct was then divided leaving 2 clips on the stump. The cystic artery was clipped and divided in the same fashion. The hook cautery was then used to take the gallbladder off of the gallbladder bed. Hemostasis was obtained. Gallbladder fossa was irrigated and no active bleeding or bile leakage was noted. Next the camera was introduced in the subxiphoid port. An Endopouch bag was placed through the umbilical port and the gallbladder was placed into it. The gallbladder was then removed through the umbilical incision. The camera was then reinserted through the umbilical port. The gallbladder fossa was inspected once more and noted to be hemostatic with no leaking bile. The abdomen was suctioned dry. The 5 mm ports were removed under direct visualization. The umbilical port was then removed and the air was removed from the abdomen. Next using an 0 Vicryl suture the umbilical fascia was closed in a [id number] fashion. The umbilical port site was irrigated local anesthetic was administered to all the incisions. All the incisions were closed with interrupted subcuticular 4-0 Monocryl sutures followed by Steri-Strips and dressings. The patient was awoken and taken to PACU in stable condition. Admit VTE Documentation VTE Mechan Device Prophylaxis: SCD's
--- NOTE | 2023-03-06 14:13 | DCINST_ITS ---
Discharge Instructions Procedure Gallbladder Diet Discharge Diet: Light diet - advance as tolerated Activity Discharge Activity: May Not Drive (for 2-3 days or while taking narcotic pain medications.) and - (Do not drive, work heavy equipment or sign legal documents for 24 hours.) May shower in (days): 1 Lifting Restrictions: 20 lbs for 2 weeks Additional Activity Instructions:: Pain medication may cause nausea. You should typically eat light foods as you take your pain medications. Pain medication may also cause constipation. If this is a problem for you, please discuss with your doctor. Dressing / Incision Call your doctor if your incision/area has: Continuous Slow Oozing, Sudden Increased Bleeding, Increased Pain/ Swelling, Increased Redness and Foul Smelling Discharge Call your doctor if you observe: Fever of 101 or Higher Suture Line Care: Avoid Pulling/Pushing and Avoid Pinching/Bending Remove Dressing in: 2 days Additional Dressing/Incision Instructions:: Leave operative bandaids on for 2 days. When you remove dressing, leave Steri-Strips on until your follow-up appointment, or until the Steri-Strips fall off on their own. Follow Up Care Please Follow Up With: El Green MD When: Please call to schedule 2 week follow up appointment. [phone] Test Results: Test results from this visit will be discussed in further detail at your follow- up appointment, if applicable. Discharge Plan Admission Attending Provider: El Green Primary Care Provider: Sara Rogel Instructions Additional Instructions / Restrictions: Ibuprofen and Tylenol for pain, oxycodone for breakthrough pain. Discharge Orders/Prescriptions Prescriptions: New oxycodone 5 mg tablet 5 - 10 mg PO Q6H PRN (Reason: pain) 5 Days Qty: 20 0RF Continued amlodipine [Norvasc] 5 mg tablet 5 mg PO DAILY Incruse Ellipta 62.5 mcg/actuation blister with device 1 inh INHALATION QDAY Qty: 3 4RF fluoxetine 20 mg capsule 40 mg PO DAILY metoprolol tartrate 50 MG tablet 50 mg PO BID ondansetron 4 mg tablet,disintegrating 4 mg PO TID PRN (Reason: nausea and vomiting) Qty: 21 0RF lisinopril 30 mg tablet 30 mg PO DAILY omeprazole 20 mg capsule,delayed release(DR/EC) 20 mg PO BID Patient Comments: TAKE 1 CAPSULE BY MOUTH TWICE A DAY BEFORE MORNING AND EVENING MEALS montelukast 10 mg tablet 10 mg PO DAILY Qty: 30 11RF albuterol sulfate 90 mcg/actuation HFA aerosol inhaler 2 puff INHALATION Q4H PRN (Reason: shortness of breath or wheezing) Qty: 8.5 6RF Rx Instructions: administer with spacer Breo Ellipta 200-25 mcg/dose blister with device 1 inh INHALATION QDAY Qty: 3 4RF Rx Instructions: after inhalation, rinse mouth with water and spit out; do not swallow Referrals / Follow Up: Sara Rogel DO [Primary Care Provider] - Disposition Disposition (needs filled in before D/C Order can be placed): Home, Self Care
[2023-03-06] MEDS: Lactated Ringers 1,000 ML 15 ML IV (14:58)
[2023-03-06] MEDS: Acetaminophen 500 MG Tablet 1000 MG PO (16:00)
== END 2023-03-06 16:44 | disposition home or self-care (01) ==
LOC: SDC 11:24 → AC 11:25
PROVIDERS: Anesthesiology; PCP Family Medicine; Referring Provider Surgery; Visit Provider Surgery
PROC: (CPT 47610; principal; 2023-03-06 12:40)
DX: K80.10 Calculus of gallbladder with chronic cholecystitis without obstruction (principal); I10 Essential (primary) hypertension; K21.9 Gastro-esophageal reflux disease without esophagitis; J45.909 Unspecified asthma, uncomplicated; F32.A Depression, unspecified; Z79.899 Other long term (current) drug therapy; Z87.891 Personal history of nicotine dependence; Z86.16 Personal history of COVID-19
CPT/HCPCS: 47562; 00790; 80048; 88304; 93005; J7120; J2405

== ENCOUNTER → 2023-03-24 | Outpatient (CLI) | payer MEDICARE, OTHER, SELFPAY ==
--- NOTE | 2023-03-24 13:07 | BI_ITS ---
MAMMOGRAPHY - BILATERAL SCREENING REASON FOR EXAM: Female, 67 years old. Routine annual screening examination. PERTINENT HISTORY: Mother with breast cancer. Grandmother with breast cancer. Aunt with breast cancer. TECHNIQUE: Digital bilateral breast antoine (3D mammographic acquisition) in the CC and MLO projections. 2-D mediolateral oblique (MLO) and craniocaudad (CC) views of both breasts were obtained. CAD: Full Field Digital Mammography with Computer Added Detection was performed. COMPARISON: Comparison is made with prior study dated March 23, 2022 and January 11, 2019. FINDINGS: Breast Composition: The breasts are heterogeneously dense, which may obscure small masses. There are no dominant masses or suspicious calcifications. Stable small benign-appearing bilateral axillary lymph nodes. No other significant abnormalities are identified. There has been no significant change since the prior study. BI/SCRN MAMM (CAD)W/ANTOINE BILAT IMPRESSION: Stable bilateral screening mammogram. Yearly follow-up mammogram recommended. (A) ASSESSMENT CATEGORY: BIRADS Category 2: Benign. A letter regarding these results will be sent to the patient by the facility within 30 days. Approximately 10% of breast cancers are not detected by mammography. A normal mammogram should not delay biopsy of a clinically suspicious abnormality. [id number] Electronically Signed: Ricky Luis MD at 13:55 EDT ,
== END | disposition home or self-care (01) ==
LOC: OPBI 13:06
PROVIDERS: PCP Family Medicine; Referring Provider Family Medicine; Visit Provider Family Medicine
DX: Z12.31 Encounter for screening mammogram for malignant neoplasm of breast (principal); Z80.3 Family history of malignant neoplasm of breast
CPT/HCPCS: 77063; 77067

== ENCOUNTER 2023-10-07 16:25 | Emergency (ER) | payer MEDICARE, OTHER, SELFPAY ==
[2023-10-07 16:26] VITALS: BP 190/103; PULSE 72; RESP 18; TEMP 35.7
[2023-10-07 16:30] VITALS: BP 190/103; PULSE 72; RESP 18; TEMP 35.7; BMI 27.5
--- NOTE | 2023-10-07 16:57 | EX.ED.DYSGE1 ---
HPI History of Present Illness Chief Complaint: Hypertension Informant: patient Onset/Context/Timing Onset: Days Context: Gradual Onset Timing: Intermittent Current Severity: Mild Maximum Severity: Mild Narrative Narrative: 68-year-old female history of hypertension, COPD and diabetes. For her hypertension she is treated with 3 medications, amlodipine 5 mg daily, lisinopril 30 mg daily and metoprolol 50 mg twice daily. States typically they control blood pressure well. Says she has not been ill recently. Denies any chest pain or severe headache. Does states she has been anxious recently about a upcoming trip. Taken to [place]. Prior similar symptoms: Yes Recent Illness/Hospitalization: No PFSH PFS Medical History Abdominal pain Alcohol use Arthritis Asthma Cancer Constipation COPD (chronic obstructive pulmonary disease) CPAP (continuous positive airway pressure) dependence Depression Diabetes mellitus Gastric reflux History of diverticulitis History of hiatal hernia HTN (hypertension) Hypercholesteremia LLQ pain Nausea Post-menopausal Thyroid disorder Wears glasses Home Medications metoprolol tartrate 50 mg tablet 50 mg PO BID 11/18/16 [History Last Taken 03/06/23] amlodipine 5 mg tablet (Norvasc) 5 mg PO DAILY 08/03/20 [History Last Taken 03/05/23] fluoxetine 20 mg capsule 40 mg PO DAILY 08/03/20 [History Last Taken Unknown] lisinopril 30 mg tablet 30 mg PO DAILY 03/01/23 [History Last Taken Unknown] omeprazole 20 mg capsule,delayed release 20 mg PO BID 03/01/23 [History Last Taken 03/06/23] albuterol sulfate 90 mcg/actuation aerosol inhaler 2 puff inhalation Q4H PRN shortness of breath or wheezing #8.5 grams 10/04/23 [Rx Last Taken Unknown] fluticasone furoate 200 mcg-vilanterol 25 mcg/dose inhalation powder (Breo Ellipta) 1 inh inhalation QDAY #3 ea 10/04/23 [Rx Last Taken Unknown] loratadine 10 mg tablet 10 mg PO DAILY #90 tabs 10/04/23 [Rx Last Taken Unknown] montelukast 10 mg tablet 10 mg PO DAILY #90 tabs 10/04/23 [Rx Last Taken Unknown] prednisone 10 mg tablet 10 mg PO QDAY #30 tabs 10/04/23 [Rx Last Taken Unknown] umeclidinium 62.5 mcg/actuation blister powder for inhalation (Incruse Ellipta) 1 inh inhalation QDAY #3 ea 10/04/23 [Rx Last Taken Unknown] Allergy/AdvReac Type Severity Reaction Status Date / Time erythromycin base Allergy Unknown Verified 10/07/23 16:29 Penicillins Allergy Unknown Verified 10/07/23 16:29 sulfamethoxazole Allergy Unknown Verified 10/07/23 16:29 [From Bactrim] tetracycline Allergy Unknown Verified 10/07/23 16:29 trimethoprim [From Bactrim] Allergy Unknown Verified 10/07/23 16:29 cefdinir AdvReac Mild Upset Verified 10/07/23 16:29 stomach metronidazole [From Flagyl] AdvReac Nausea Verified 10/07/23 16:29 Family History Brother Cancer Hypertension Mother Breast cancer Dementia Surgical History History of esophagogastroduodenoscopy (EGD) History of left hip replacement Hx of colonoscopy S/P laparoscopic cholecystectomy Social History household members: spouse Smoking Status: Former smoker second hand exposure: No alcohol intake: former substance use type: does not use caffeine: Yes Type: coffee Number of servings: 1 what type of physical activity do you participate in: none ROS ROS ED ROS Narrative Denies recent illness. Review of Systems ROS Unobtainable: Denies due to encephalopathy Constitutional Constitutional ED: Denies chills or fever(s) Eyes Eyes: Denies blurry vision ENT ENT ED: Denies ear pain Cardiovascular Cardiovascular: Denies chest pain Respiratory/Chest Respiratory/Chest: Denies cough or dyspnea Gastrointestinal Gastrointestinal: Denies abdominal pain Genitourinary Genitourinary ED: Denies dysuria or hematuria Musculoskeletal Musculoskeletal: Denies arthralgias Integumentary Denies abscess Neurologic Neurologic: Denies paresthesias or weakness Psychiatric Psychiatric: Denies anxiety Endocrine Endocrinology: Denies cold intolerance Hematologic/Lymphatic Hematologic/Lymphatic: Reports none Allergic/Immunologic Allergic/Immunologic ED: Denies mouth swelling, tongue swelling or urticaria EXAM Physical Exam Narrative Exam Narrative: Well-appearing 68-year-old female. Vital signs stable blood pressure is elevated at 190/103. She does not look septic toxic or in any distress. H EENT exam normal. Pupils round react light. No facial droop. Normal speech. Neck nontender. No meningismus. Lungs clear to auscultation bilaterally. Heart regular rhythm rate about 70 no murmur. Chest wall and ribs nontender. Abdomen soft nontender. Moving all 4 extremities. 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 Dorsi plantarflexion intact. Neurological exam she is awake and alert. Answer questions following commands. Normal facility maintenance worker strength bilaterally. Normal dorsi plantarflexion. Fingertip to nose and [id number] within normal limits. NIH score 0. At times she does get emotional about anxiety with trip but otherwise acting very normally. Const Vital Signs: 10/07/23 16:30 10/07/23 16:26 Temperature 96.3 F L 96.3 F L Temperature Source Temporal Temporal Pulse Rate 72 72 Respiratory Rate 18 18 Blood Pressure 190/103 H 190/103 H Blood Pressure Mean 132 132 Positive well nourished and well developed; Negative for cachectic, contractures or unkempt General Appearance ED: well developed and NAD; Negative for unkempt, cachectic, contractures, cyanotic, diaphoretic or pallor Nutritional Appearance: Negative for cachectic HEENT Reports moist mucous membranes Negative for trauma or tenderness Eyes PERRL and EOMs intact bilaterally General Eye ED: Negative for pale conjunctiva Neck no lymphadenopathy, supple and no JVD General: Negative for tenderness Lymph Lymphatic: Negative for other Chest Wall inspection of chest normal and palpation of chest normal Resp normal respiratory effort and clear to auscultation bilaterally Effort and Inspection: Negative for retractions Auscultation: Negative for rales, rhonchi or wheezes Cardio regular rate, regular rhythm, S1 normal heart sound, S2 normal heart sound and no murmurs Palpation: Negative for palpable S3 or palpable S4 Rate: Negative for bradycardia or tachycardic Rhythm: Negative for abnormal rhythm GI normal to inspection, nondistended, normoactive bowel sounds, non-tender, non-distended and no masses Auscultation: normoactive bowel sounds Palpation: soft; Negative for tender, guarding or rebound tenderness present Bladder / Kidney Exam: No other Back/Spine no CVA tenderness General Back: Negative for CVA tenderness Cervical Spine: Negative for cervical spine tenderness Thoracic Spine / Upper Back: Negative for thoracic spinal tenderness or paraspinal muscle tenderness Lumbar Spine / Lower Back: Negative for lumbar spinal tenderness Extremity normal to inspection General Extremety ED: Negative for edema or tenderness General Extremity: Negative for edema Neuro oriented x3 and CN's II-XII intact bilaterally Sensorium / Orientation: alert; Negative for orientation impaired, lethargic or stuporous Motor Exam: strength 5/5 throughout; Negative for general weakness or strength abnormal Psych mental status grossly normal Appearance: Negative for unkempt Attitude: No agitated Mood & Affect: Negative for depressed, anxious or tearful Skin no rashes or lesions noted, no wounds and skin turgor normal General Skin Exam: Negative for elasticity normal, jaundice or pallor Lesions: No lesion noted Rashes: No rashes noted Trauma: Negative for abrasion Wounds: Negative for wounds noted MDM MDM MDM Narrative Medical decision making narrative: Patient with acute on chronic hypertension. Normal exam. She had labs several months ago kidney function was unremarkable at that time. She has a completely normal neurologic exam. I do not think she needs any type of imaging or blood work today. She will continue her current medications. Log her blood pressure to follow-up with her primary care provider. She knows she can take an extra dose of either the metoprolol or lisinopril if she needs to if her pressure is running significantly higher. Both she and her are comfortable with plan. Discharge Plan Triage Chief Complaint: Hypertension ED Provider: Raad Wakefield Dx/Rx/DC Orders Clinical Impression: Chronic hypertension, History of diabetes mellitus Instructions: ED Hypertension, Established Prescriptions: No Action amlodipine [Norvasc] 5 mg tablet 5 mg PO DAILY albuterol sulfate 90 mcg/actuation HFA aerosol inhaler 2 puff INHALATION Q4H PRN (Reason: shortness of breath or wheezing) Qty: 8.5 6RF Rx Instructions: administer with spacer Breo Ellipta 200-25 mcg/dose blister with device 1 inh INHALATION QDAY Qty: 3 4RF Rx Instructions: after inhalation, rinse mouth with water and spit out; do not swallow loratadine 10 mg tablet 10 mg PO DAILY Qty: 90 3RF Incruse Ellipta 62.5 mcg/actuation blister with device 1 inh INHALATION QDAY Qty: 3 4RF montelukast 10 mg tablet 10 mg PO DAILY Qty: 90 3RF prednisone 10 mg tablet 10 mg PO QDAY Qty: 30 0RF Rx Instructions: take 4 tabs for three days, then 3 tabs for three days, then 2 tabs for three days, then 1 tab for 3 days fluoxetine 20 mg capsule 40 mg PO DAILY metoprolol tartrate 50 MG tablet 50 mg PO BID lisinopril 30 mg tablet 30 mg PO DAILY omeprazole 20 mg capsule,delayed release(DR/EC) 20 mg PO BID Patient Comments: TAKE 1 CAPSULE BY MOUTH TWICE A DAY BEFORE MORNING AND EVENING MEALS Primary Care Provider: Maggi Dorsey Referrals: Maggi Dorsey MD [Primary Care Provider] - 1-2 Weeks Activity Restrictions/Additional Instructions: Take your blood pressure medications as prescribed. Log your blood pressure twice daily when you are calm and relaxed after breakfast and after dinner. Take those readings to your primary care physician when you follow-up with them to help them determine if they need to adjust your blood pressure medications. Disposition Disposition: Home, Self Care
== END 2023-10-07 17:08 | disposition home or self-care (01) ==
LOC: ED 17:01
PROVIDERS: Emergency Provider Emergency Medicine; PCP Family Medicine; Visit Provider Emergency Medicine
DX: I10 Essential (primary) hypertension (principal); J44.9 Chronic obstructive pulmonary disease, unspecified; E11.9 Type 2 diabetes mellitus without complications; Z87.891 Personal history of nicotine dependence; Z79.899 Other long term (current) drug therapy; E78.00 Pure hypercholesterolemia, unspecified; K21.9 Gastro-esophageal reflux disease without esophagitis
CPT/HCPCS: 99282

== ENCOUNTER → 2023-10-18 | Outpatient (CLI) | payer MEDICARE, OTHER, SELFPAY ==
[2023-10-18 10:21] LABS: Absolute Lymphocyte Count 1.03 X10^3/uL (0.83-4.51); Absolute Neutrophil Count 5.4 X10^3/uL (2.0-7.7); Basophil# 0.03 X10^3/uL; Basophil% 0.4 % (0-1); Eosinophil# 0.11 X10^3/uL; Eosinophils% 1.6 % (0-5); Hematocrit 43.1 % (37-47); Hemoglobin 14.4 g/dL (12.0-15.0); Lymphocyte # 1.03 X10^3/ul (0.83-4.51); Lymphocyte % 14.7 % (19-41); Mean Corp Hgb Conc 33.4 g/dL (32-36); Mean Corpuscular Hgb 33.4 pg (27.0-32.0); Mean Platelet Vol. 10.5 fl (6.2-12.0); Monocyte# 0.41 X10^3/uL; Monocyte% 5.9 % (0-10); NRBC Flagged by Analyzer 0 % (0-5); Neutrophil # 5.41 X10^3/uL (2.7-7.7); Neutrophil % 77.3 % (47-70); Platelet Count 269 K/mm3 (150-450); RBC Distribution Width SD 45.1 fl (35.1-43.9); Red Blood Count 4.31 M/mm3 (4.2-5.4)
[2023-10-18 11:44] LABS: AST(SGOT) 16 U/L (15-37); Alanine Aminotransfer ALT/SGPT 11 U/L (13-56); Albumin, Serum 3.6 g/dL (3.2-5.0); Alkaline Phosphatase 74 U/L (45-117); Anion Gap 10 (5-15); BUN 11 mg/dL (7-18); BUN/Creat Ratio 17.3 RATIO (10-20); Calcium,Total 9.4 mg/dL (8.5-10.1); Chloride 100 mmol/L (98-107); Cholesterol 242 mg/dL (200); Creatinine, Serum 0.64 mg/dL (0.55-1.02); EST Glomerular Filtration Rate 99 mL/min (>60); Est Glom Filt Rate - Afr Amer 119 mL/min (>60); Globulin 3.5 g/dL (2.2-4.2); Glucose 97 mg/dL (74-106); High Density Lipoprotein 69 mg/dL; Potassium 4.1 mmol/L (3.5-5.1); Protein, Total 7.1 g/dL (6.4-8.2); Sodium Level 134 mmol/L (136-145); Thyroid Stim Hormone (TSH) 1.88 uIU/mL (0.358-3.74); Triglycerides 123 mg/dL; Very Low Density Lipoprotein 25 mg/dL (5-40)
[2023-10-18 11:47] LABS: Vitamin D,25 Hydroxy 19.3 ng/mL
== END | disposition home or self-care (01) ==
LOC: MFPLAB 09:16
PROVIDERS: PCP Family Medicine; Visit Provider Family Medicine
DX: I10 Essential (primary) hypertension (principal); F32.A Depression, unspecified
CPT/HCPCS: 36415; 80053; 80061; 82306; 84443; 85025

== ENCOUNTER → 2023-11-07 | Outpatient (CLI) | payer MEDICARE, OTHER, SELFPAY ==
--- NOTE | 2023-11-07 10:09 | CDU_ITS ---
Reason For Study: Dizziness / Chest Pain Rt. Velocities/BP Lt. Velocities/BP Prox CCA 74.0/15.7 cm/sec. Prox CCA 62.5/11.9 cm/sec. Mid CCA 81.7/14.6 cm/sec. Mid CCA 62.5/16.2 cm/sec. Dist CCA 69.2/16.3 cm/sec. Dist CCA 73.8/17.1 cm/sec. Prox ICA 70.2/14.5 cm/sec. Prox ICA 75.5/14.5 cm/sec. Mid ICA 67.4/10.7 cm/sec. Mid ICA 40.5/13.3 cm/sec. Dist ICA 65.5/20.1 cm/sec. Dist ICA 118.0/30.3 cm/sec. Rt. ICA/CCA = 0.9. Lt. ICA/CCA = 1.9. Prox ECA 59.8/12.6 cm/sec. Prox ECA 58.9/12.7 cm/sec. Rt. Vert. 42.1/10.2 cm/sec. Lt. Vert. 72.0/14.5 cm/sec. Right Extracranial There is homogeneous, smooth atherosclerotic plaque noted in the right common carotid artery. There is heterogeneous, irregular atherosclerotic plaque noted in the right internal carotid artery. There is intimal thickening but no significant atherosclerotic plaque noted in the right external carotid artery. Antegrade flow is noted in the right vertebral artery. Left Extracranial There is homogeneous, smooth atherosclerotic plaque noted in the left common carotid artery. There is homogeneous, smooth atherosclerotic plaque noted in the left internal carotid artery. The tortuous nature of the left internal carotid artery may result in flow velocities overestimating the degree of stenosis. There is heterogeneous, irregular atherosclerotic plaque noted in the left external carotid artery. Antegrade flow is noted in the left vertebral artery. Procedure Carotid Duplex [id number]. This is a Carotid Duplex examination using B-mode, color flow and specral Doppler. The exam was diagnostic. Exam performed in department. VL/Carotid Duplex Ultrasound Interpretation Summary Irregular plaque at the proximal right internal carotid artery with less than 5 0% stenosis Less than 50% stenosis right external carotid artery Minimal smooth plaque with tortuosity noted of the left internal carotid artery and less than 50% stenosis. Less than 50% stenosis left external carotid artery Patent and antegrade vertebral arteries bilaterally Ordering Physician: Maggi Dorsey Referring Physician: Maggi Dorsey Performed By: Derick Zamora RVT
== END | disposition home or self-care (01) ==
LOC: CVS 09:49
PROVIDERS: PCP Family Medicine; Referring Provider Family Medicine; Visit Provider Family Medicine
DX: I65.23 Occlusion and stenosis of bilateral carotid arteries (principal); I27.20 Pulmonary hypertension, unspecified; R07.9 Chest pain, unspecified
CPT/HCPCS: 93880

== ENCOUNTER 2024-04-09 18:08 | Emergency (ER) | payer MEDICARE, OTHER, SELFPAY ==
[2024-04-09] VITALS (20 sets, daily range): BP systolic 159–192; BP diastolic 64–93; PULSE 55–68; RESP 10–22; TEMP 36.4; O2SAT 92–100; BMI 28.5
--- NOTE | 2024-04-09 19:07 | EKG12_ITS ---
Test Reason : DYSRHYTHMIA Blood Pressure : */* mmHG Vent. Rate : 57 BPM Atrial Rate : 57 BPM P-R Int : 152 ms QRS Dur : 82 ms QT Int : 474 ms P-R-T Axes : 38 22 24 degrees QTcB Int : 461 ms Sinus bradycardia with occasional Premature ventricular complexes Nonspecific ST abnormality Abnormal ECG Confirmed by ELLIOT BRADLEY, RYLEE ([id number]), assistant film editor EDMOND COLLADO ([id number]) on 04/10/2024 8:58:49 AM Referred By: Confirmed By: RYLEE ZARATE MD
--- NOTE | 2024-04-09 19:07 | CT_ITS ---
STUDY: CT BRAIN WITHOUT CONTRAST REASON FOR EXAM: Female, 68 years old. vision changes, paresthesias, HTN RADIATION DOSAGE (If Supplied By Facility): CTDIvol = ( 44.99 ) mGy, DLP = ( 779.24 ) mGycm TECHNIQUE: Transaxial CT imaging of the brain was performed without administration of intravenous contrast material. Individualized dose optimization techniques were used for this CT. COMPARISON: January 31, 2019. FINDINGS: Normal soft tissue structures. Normal calvarium. Moderate cortical atrophy. Normal white matter tracts of the cerebral hemispheres. Normal basal ganglia and thalami. Normal brainstem. Normal cerebellum. Partial empty sella deformity likely of no significance There is no intracranial hemorrhage. There are no findings of an acute ischemic infarction. Mild mucosal thickening of left maxillary sinus. No significant change since prior exam CT/Brain/Head without Contrast IMPRESSION: Moderate cortical atrophy. No mass or acute bleed. If concern for acute infarct MRI recommended . Electronically Signed: Benny Broderick MD at 20:14 EST ,
--- NOTE | 2024-04-09 19:08 | EDS_ITS ---
HPI History of Present Illness Chief Complaint: Dizziness Informant: patient and spouse/S.O. Narrative Narrative: 68-year-old female states for the past 2 days she has been having intermittent dizziness that she describes as lightheadedness, no disequilibrium, spinning, no near-syncope or syncope. She has been having some off-and-on tingling in her hands and her feet, symmetrically bilaterally when they occur. No weakness. Some flashes of vision disturbance in her vision but no loss, diplopia. No headaches. She had her blood pressure checked when she was in pulmonary office yesterday for routine COPD follow-up and it was in the 170s unusual for her, and today she checked it at home and it was over 200 which prompted her to come to the emergency department. She states she is on multiple blood pressure medications but cannot recall them all. One of them is amlodipine 5 mg she took an extra 1 prior to coming here. She denies any chest discomfort, dyspnea, GI symptoms such as vomiting. She denies any recent injuries or significant pain. Denies any changes to her medications recently that she can recall or taking [id number] medicines such as a decongestant, except for a new vitamin D pill she is taking. [facility] Medical History Wears glasses Cancer Post-menopausal Alcohol use Arthritis History of hiatal hernia History of diverticulitis Gastric reflux COPD (chronic obstructive pulmonary disease) CPAP (continuous positive airway pressure) dependence Constipation Nausea Hypercholesteremia LLQ pain HTN (hypertension) Depression Asthma Abdominal pain Thyroid disorder Diabetes mellitus Home Medications ?Medication ?Instructions ?Recorded ?Last Taken ?Type metoprolol tartrate 50 mg tablet 50 mg PO BID 11/18/16 03/06/23 History fluoxetine 20 mg capsule 40 mg PO DAILY 08/03/20 Unknown History lisinopril 30 mg tablet 30 mg PO DAILY 03/01/23 Unknown History omeprazole 20 mg capsule,delayed 20 mg PO BID 03/01/23 03/06/23 History release loratadine 10 mg tablet 10 mg PO DAILY #90 tabs 10/04/23 Unknown Rx albuterol sulfate 90 mcg/actuation 2 puff inhalation Q4H PRN 04/08/24 Unknown Rx aerosol inhaler shortness of breath or wheezing #8.5 grams ergocalciferol (vitamin D2) 1,250 1,250 mcg PO QWEEK 04/08/24 Unknown History mcg (50,000 unit) capsule fluticasone furoate 200 1 inh inhalation QDAY #3 ea 04/08/24 Unknown Rx mcg-vilanterol 25 mcg/dose inhalation powder (Breo Ellipta) montelukast 10 mg tablet 10 mg PO DAILY #90 tabs 04/08/24 Unknown Rx umeclidinium 62.5 mcg/actuation 1 inh inhalation QDAY #3 ea 04/08/24 Unknown Rx blister powder for inhalation (Incruse Ellipta) amlodipine 5 mg tablet (Norvasc) 10 mg (2 x 5 mg) PO DAILY #1 TAB 04/09/24 03/05/23 Rx clonidine HCl 0.2 mg tablet 0.2 mg PO TID PRN SBP > 175 #20 04/09/24 Unknown Rx tabs Allergy/AdvReac Type Severity Reaction Status Date / Time erythromycin base Allergy Unknown Verified 04/09/24 18:09 Penicillins Allergy Unknown Verified 04/09/24 18:09 sulfamethoxazole (From Allergy Unknown Verified 04/09/24 18:09 Bactrim) tetracycline Allergy Unknown Verified 04/09/24 18:09 trimethoprim (From Bactrim) Allergy Unknown Verified 04/09/24 18:09 cefdinir AdvReac Mild Upset Verified 04/09/24 18:09 stomach metronidazole (From Flagyl) AdvReac Nausea Verified 04/09/24 18:09 Family History Brother Cancer Hypertension Mother Breast cancer Dementia Surgical History S/P laparoscopic cholecystectomy History of esophagogastroduodenoscopy (EGD) Hx of colonoscopy History of left hip replacement Social History household members: spouse Smoking Status: Unknown if ever smoked second hand exposure: No alcohol intake: former substance use type: does not use caffeine: Yes Type: coffee Number of servings: 1 what type of physical activity do you participate in: none ROS ROS ED Constitutional Constitutional ED: Denies chills or fever(s) Eyes Eyes: Reports change in vision; Denies diplopia ENT ENT ED: Denies rhinorrhea or sore throat Cardiovascular Cardiovascular: Reports as per HPI, hypertension and lightheadedness; Denies chest pain, palpitations, pedal edema or syncope Respiratory/Chest Respiratory/Chest: Denies cough or dyspnea Gastrointestinal Gastrointestinal: Denies abdominal pain, diarrhea, nausea or vomiting Genitourinary Genitourinary ED: Denies dysuria or hematuria Musculoskeletal Musculoskeletal: Denies back pain or neck pain Integumentary Denies abscess or rash Neurologic Neurologic: Reports paresthesias; Denies headache(s) or weakness Psychiatric Psychiatric: Denies suicidal thoughts EXAM Physical Exam Const Vital Signs: 04/09/24 18:09 04/09/24 18:58 04/09/24 20:05 Temperature 97.6 F L Temperature Source Oral Pulse Rate 62 61 56 L Respiratory Rate 18 18 12 Blood Pressure 192/93 H 178/69 H Blood Pressure Mean 126 105 Pulse Ox 100 99 95 Oxygen Delivery Method Room Air Room Air 04/09/24 20:08 04/09/24 20:15 04/09/24 20:30 Temperature Temperature Source Pulse Rate 56 L 63 Respiratory Rate 12 14 Blood Pressure 167/77 H 170/66 H 162/75 H Blood Pressure Mean 107 94 97 Pulse Ox 92 94 Oxygen Delivery Method 04/09/24 20:35 04/09/24 20:45 04/09/24 21:00 Temperature Temperature Source Pulse Rate 58 L 61 57 L Respiratory Rate 12 13 11 L Blood Pressure 162/75 H 170/70 H 159/68 H Blood Pressure Mean 104 99 93 Pulse Ox 97 94 92 Oxygen Delivery Method Room Air 04/09/24 21:15 04/09/24 21:30 04/09/24 21:45 Temperature Temperature Source Pulse Rate 56 L 57 L 57 L Respiratory Rate 11 L 11 L 11 L Blood Pressure 168/64 H 176/70 H 181/75 H Blood Pressure Mean 92 98 104 Pulse Ox 94 94 97 Oxygen Delivery Method 04/09/24 22:00 04/09/24 22:00 04/09/24 22:15 Temperature Temperature Source Pulse Rate 68 60 57 L Respiratory Rate 10 L 11 L 10 L Blood Pressure 191/65 H 191/65 H Blood Pressure Mean 107 96 Pulse Ox 98 96 97 Oxygen Delivery Method Room Air 04/09/24 22:30 04/09/24 22:45 04/09/24 22:58 Temperature Temperature Source Pulse Rate 62 55 L 56 L Respiratory Rate 11 L 10 L 22 H Blood Pressure 189/80 H 185/91 H Blood Pressure Mean 110 117 Pulse Ox 98 98 98 Oxygen Delivery Method 04/09/24 23:00 04/09/24 23:15 Temperature Temperature Source Pulse Rate 58 L 56 L Respiratory Rate 12 19 H Blood Pressure 192/87 H Blood Pressure Mean 113 Pulse Ox 99 96 Oxygen Delivery Method Positive well nourished, well developed and obese Constitutional Narrative: Well-appearing General Appearance ED: well developed and NAD Nutritional Appearance: obese HEENT Reports moist mucous membranes normocephalic and atraumatic Eyes PERRL and EOMs intact bilaterally Neck full ROM and supple Resp normal respiratory effort and clear to auscultation bilaterally Cardio regular rate, regular rhythm and no murmurs GI non-tender and non-distended Auscultation: normoactive bowel sounds Palpation: soft Back/Spine no CVA tenderness General Back: other FROM Extremity normal to inspection General Extremety ED: Negative for edema, pulses abnormal or tenderness General Extremity: Negative for edema or pulses abnormal Neuro oriented x3, CN's II-XII intact bilaterally and no sensory deficits noted Neuro Narrative: Normal speech. Normal [id number] and [id number] bilaterally. NIHSS 0. Sensorium / Orientation: awake and alert Motor Exam: strength 5/5 throughout Psych mental status grossly normal Skin no rashes or lesions noted and no wounds MDM MDM MDM Narrative Medical decision making narrative: Patient's renal function, EKG, CT head all normal. I reviewed the imaging, which was obtained because of having nonfocal neurologic symptoms and intermittent vision changes; also saw the report with regards to the CT and I agree with it. Patient with no evidence of endorgan damage as a result of her high blood pressure. Etiology of her pressure being elevated is unknown at this time. She is not having any symptoms that suggest why, I think her symptoms of intermittent lightheadedness are probably a result of her pressure as opposed to because of it. She is on a very small dose of amlodipine, and then apparently according to her list which she wants me to go by, lisinopril and metoprolol. Since her heart rate is in the 50s I would not go up on her metoprolol, but reasonable to go up to amlodipine 10 mg until she sees her doctor as an outpatient. Here we were watching her blood pressure, at the time of evaluation she had a systolic of about 170 and was asymptomatic so we continue to monitor it but it went back up to 192 for a while so we treated this with hydralazine and clonidine. Afterwards her pressure is 165/78 and she is asymptomatic. Stable for discharge home we will also give her a prescription for some prn clonidine to use until she follows up with her doctor. Lab Data Attestation: I reviewed the patient's lab results. Labs: Laboratory Results - last 24 hr 04/09/24 18:30 WBC 5.3 RBC 4.43 Hgb 14.8 Hct 43.7 MCV 98.6 MCH 33.4 H MCHC 33.9 RDW Std Deviation 46.4 H RDW Coeff of Derik 12.8 Plt Count 239 MPV 10.3 Immature Gran % (Auto) 0.400 Neut % (Auto) 65.7 Lymph % (Auto) 23.0 [place] % (Auto) 8.8 Eos % (Auto) 1.5 Baso % (Auto) 0.6 Absolute Neuts (auto) 3.5 Absolute Lymphs (auto) 1.21 Nucleated RBC % 0 Sodium 134 L Potassium 3.2 L Chloride 98 Carbon Dioxide 29.0 Anion Gap 7 BUN 9 Creatinine 0.71 Estim Creat Clear Calc 64.44 Est GFR (MDRD) Af Amer 105 Est GFR (MDRD) Non-Af 87 BUN/Creatinine Ratio 12.7 Glucose 103 Calcium 9.5 Radiography Diagnostic Testing: Clinical Impression(s) from Imaging Studies Brain CT 04/09/24 19:07 IMPRESSION: Moderate cortical atrophy. No mass or acute bleed. If concern for acute infarct MRI recommended . Electronically Signed: Benny Broderick MD at 20:14 EST Reading Location ID and State: [facility] / [place] Tel , Service support , Rhythm Strip Rhythm Strip: Sinus Rhythm Rate: 60 Ectopy: PVC(s) EKG Initial EKG: Attestation: I personally reviewed and interpreted this EKG as follows: Interpretation: Sinus Rhythm and No Acute Injury Pattern Comments: Nml axis & intervals; nml EKG except for PVC Discharge Plan Triage Chief Complaint: Dizziness ED Provider: Heber Allison Dx/Rx/DC Orders Clinical Impression: Accelerated hypertension Instructions: Malignant Hypertension Dc Prescriptions: New clonidine HCl 0.2 mg tablet 0.2 mg PO TID PRN (Reason: SBP > 175) Qty: 20 0RF Continued loratadine 10 mg tablet 10 mg PO DAILY Qty: 90 3RF ergocalciferol (vitamin D2) 1,250 mcg (50,000 unit) capsule 1,250 mcg PO QWEEK albuterol sulfate 90 mcg/actuation HFA aerosol inhaler 2 puff INHALATION Q4H PRN (Reason: shortness of breath or wheezing) Qty: 8.5 6RF Rx Instructions: administer with spacer Incruse Ellipta 62.5 mcg/actuation blister with device 1 inh INHALATION QDAY Qty: 3 4RF montelukast 10 mg tablet 10 mg PO DAILY Qty: 90 3RF Breo Ellipta 200-25 mcg/dose blister with device 1 inh INHALATION QDAY Qty: 3 4RF Rx Instructions: after inhalation, rinse mouth with water and spit out; do not swallow fluoxetine 20 mg capsule 40 mg PO DAILY metoprolol tartrate 50 MG tablet 50 mg PO BID lisinopril 30 mg tablet 30 mg PO DAILY omeprazole 20 mg capsule,delayed release(DR/EC) 20 mg PO BID Patient Comments: TAKE 1 CAPSULE BY MOUTH TWICE A DAY BEFORE MORNING AND EVENING MEALS Changed amlodipine [Norvasc] 5 mg tablet 10 mg PO DAILY Qty: 1 0RF Primary Care Provider: Maggi Dorsey Referrals: Maggi Dorsey MD [Primary Care Provider] - As soon as possible Print Language: [place] Disposition Disposition: Home, Self Care
[2024-04-09 19:24] LABS: Absolute Lymphocyte Count 1.21 X10^3/uL (0.83-4.51); Absolute Neutrophil Count 3.5 X10^3/uL (2.0-7.7); Basophil# 0.03 X10^3/uL; Basophil% 0.6 % (0-1); Eosinophil# 0.08 X10^3/uL; Eosinophils% 1.5 % (0-5); Hematocrit 43.7 % (37-47); Hemoglobin 14.8 g/dL (12.0-15.0); Lymphocyte # 1.21 X10^3/ul (0.83-4.51); Mean Corp Hgb Conc 33.9 g/dL (32-36); Mean Corpuscular Hgb 33.4 pg (27.0-32.0); Mean Corpuscular Volume 98.6 fL (81-99); Mean Platelet Vol. 10.3 fl (6.2-12.0); Monocyte# 0.46 X10^3/uL; Monocyte% 8.8 % (0-10); NRBC Flagged by Analyzer 0 % (0-5); Neutrophil # 3.45 X10^3/uL (2.7-7.7); Neutrophil % 65.7 % (47-70); Platelet Count 239 K/mm3 (150-450); RBC Distribution Width CV 12.8 % (11.6-14.6); RBC Distribution Width SD 46.4 fl (35.1-43.9); Red Blood Count 4.43 M/mm3 (4.2-5.4); White Blood Count 5.3 K/mm3 (4.4-11.0)
[2024-04-09 19:41] LABS: Anion Gap 7 (5-15); BUN 9 mg/dL (7-18); BUN/Creat Ratio 12.7 RATIO (10-20); Calcium,Total 9.5 mg/dL (8.5-10.1); Chloride 98 mmol/L (98-107); Creatinine, Serum 0.71 mg/dL (0.55-1.02); EST Glomerular Filtration Rate 87 mL/min (>60); Est Glom Filt Rate - Afr Amer 105 mL/min (>60); Estimated Creatinine Clearance 64.44 ml/min; Glucose 103 mg/dL (74-106); Potassium 3.2 mmol/L (3.5-5.1); Sodium Level 134 mmol/L (136-145)
[2024-04-09] MEDS: Potassium Chloride Oral Tablet 20 MEQ 40 MEQ PO (22:37)
[2024-04-09] MEDS: cloNIDine HCl 0.1 MG Tablet PO (22:37)
[2024-04-09] MEDS: hydrALAZINE 20 MG/ML Vial 10 MG IV (22:59)
== END 2024-04-09 23:55 | disposition home or self-care (01) ==
PROVIDERS: Emergency Provider Emergency Medicine; PCP Family Medicine; Visit Provider Emergency Medicine
DX: I10 Essential (primary) hypertension (principal); J44.9 Chronic obstructive pulmonary disease, unspecified; E11.9 Type 2 diabetes mellitus without complications; E66.9 Obesity, unspecified
CPT/HCPCS: 70450; 80048; 85025; 93005; 99285; A4216

== ENCOUNTER → 2024-04-09 | Outpatient (CLI) | payer MEDICARE, OTHER, SELFPAY ==
--- NOTE | 2024-04-09 14:25 | BI_ITS ---
MAMMOGRAPHY - BILATERAL SCREENING REASON FOR EXAM: Female, 68 years old. Routine annual screening examination. PERTINENT HISTORY: Mother with breast cancer. Grandmother with breast cancer. Aunt with breast cancer. TECHNIQUE: Digital bilateral breast antoine (3D mammographic acquisition) in the CC and MLO projections. 2-D mediolateral oblique (MLO) and craniocaudad (CC) views of both breasts were obtained. CAD: Full Field Digital Mammography with Computer Added Detection was performed. COMPARISON: Comparison is made with prior study March 24, 2023 and March 23, 2022. FINDINGS: Breast Composition: The breasts are heterogeneously dense, which may obscure small masses. There are no dominant masses or suspicious calcifications. Stable bilateral scattered microcalcifications. Stable fat-containing bilateral axillary lymph nodes. No other significant abnormalities are identified. There has been no significant change since the prior study. BI/SCRN MAMM (CAD)W/ANTOINE BILAT IMPRESSION: Stable bilateral screening mammogram. Yearly follow-up mammogram recommended. (A) ASSESSMENT CATEGORY: BIRADS Category 2: Benign. A letter regarding these results will be sent to the patient by the facility within 30 days. Approximately 10% of breast cancers are not detected by mammography. A normal mammogram should not delay biopsy of a clinically suspicious abnormality. [id number] Electronically Signed: Ricky Luis MD at 15:07 EST ,
== END | disposition home or self-care (01) ==
LOC: OPBI 14:25
PROVIDERS: PCP Family Medicine; Referring Provider Family Medicine; Visit Provider Family Medicine
DX: Z12.31 Encounter for screening mammogram for malignant neoplasm of breast (principal)
CPT/HCPCS: 77063; 77067

== ENCOUNTER → 2024-09-12 | Outpatient (CLI) | payer MEDICARE, OTHER, SELFPAY ==
[2024-09-12 17:59] LABS: Hematocrit 41.9 % (37-47); Hemoglobin 14.4 g/dL (12.0-15.0); Mean Corp Hgb Conc 34.4 g/dL (32-36); Mean Corpuscular Hgb 33.4 pg (27.0-32.0); Mean Corpuscular Volume 97.2 fL (81-99); Mean Platelet Vol. 10.1 fl (6.2-12.0); Platelet Count 248 K/mm3 (150-450); RBC Distribution Width CV 11.8 % (11.6-14.6); RBC Distribution Width SD 42.5 fl (35.1-43.9); Red Blood Count 4.31 M/mm3 (4.2-5.4); White Blood Count 4.4 K/mm3 (4.4-11.0)
[2024-09-12 18:31] LABS: ALB/GLOB Ratio 1.7 RATIO (0.9-2.4); AST(SGOT) 21 U/L (<=31); Alanine Aminotransfer ALT/SGPT 8 U/L (<=34); Albumin, Serum 4.3 g/dL (3.4-4.8); Alkaline Phosphatase 61 U/L (35-104); Anion Gap 13 (5-15); BUN 10 mg/dL (4-19); BUN/Creat Ratio 14.2 RATIO (10-20); Calcium,Total 9.6 mg/dL (7.6-11.0); Carbon Dioxide 24.9 mmol/L (21.0-32.0); Chloride 93 mmol/L (98-108); Creatinine, Serum 0.68 mg/dL (0.70-1.20); EST Glomerular Filtration Rate 94 (>60); Globulin 2.5 g/dL (2.2-4.2); Glucose 104 mg/dL (70-99); Potassium 3.7 mmol/L (3.3-5.1); Protein, Total 6.8 g/dL (5.9-8.4); Sodium Level 131 mmol/L (133-145); Total Bilirubin 0.84 mg/dL (0.00-1.30)
[2024-09-16 15:08] LABS: Vitamin D 1,25-Dihydroxy 88.9 pg/mL (24.8-81.5)
== END | disposition home or self-care (01) ==
LOC: MFPLAB 16:53
PROVIDERS: PCP Family Medicine; Referring Provider Family Medicine; Visit Provider Family Medicine
DX: I10 Essential (primary) hypertension (principal); E55.9 Vitamin D deficiency, unspecified; E87.6 Hypokalemia
CPT/HCPCS: 36415; 80053; 82652; 84443; 85027

== ENCOUNTER 2024-09-21 18:48 | Observation (INO) | payer MEDICARE, OTHER, SELFPAY ==
[2024-09-21] VITALS (11 sets, daily range): BP systolic 125–185; BP diastolic 68–97; PULSE 59–69; RESP 16–18; TEMP 36.2–36.7; O2SAT 97–100; BMI 28.5; BMI 28.8
--- NOTE | 2024-09-21 19:15 | CT_ITS ---
PROCEDURE: STROKE BRAIN/HEAD WITHOUT CONT 09/21/2024 REASON FOR EXAM: NEURO DEFICIT, ACUTE, STROKE SUSPECTED TECHNIQUE: Head CT without intravenous contrast. Coronal and Sagittal reconstruction series were provided. One or more dose reduction techniques were used (e.g., Automated exposure control, adjustment of the mA and/or kV according to patient size, use of iterative reconstruction technique. COMPARISON: 04/09/2024 FINDINGS: Brain: Normal CSF Spaces: Normal Sinuses/Mastoids: Clear at visualized levels Bones: Unremarkable. CT/STROKE Brain/Head without Cont IMPRESSION: NORMAL NONCONTRAST HEAD CT. Reading Location: [id number]
--- NOTE | 2024-09-21 19:32 | EDS_ITS ---
HPI History of Present Illness Chief Complaint: Hypertension Detail of Chief Complaint: Elevated blood pressure, intermittent numbness upper and lower extremity an Informant: patient Onset/Context/Timing Onset: Weeks (Onset greater than a week ago) Context: Sudden Onset Timing: Intermittent Quality: Intermittent paresthesia all extremities and problems with balance Location: Uncertain Current Severity: Gone (At the completion of my H&P patient states symptoms are going) Maximum Severity: Moderate Worsened by: Nothing specific Relieved by: Not applicable Associated Symptoms Associated Symptoms: HPI narrative Narrative Narrative: Patient is a 69-year-old woman. She has history of cholelithiasis, GERD, obstructive sleep apnea not using a CPAP or BiPAP machine, thyroid disease and diabetes mellitus. She however denies diabetes mellitus. This was per review of records. Review of her medication list indicates she is on no medicine for diabetes. Patient presents because of elevated blood pressure with systolic of 180+. She states that she has had bilateral numbness in upper and lower extremity as well as unilateral. Symptoms are worse on the right side. She states she had trouble walking because her right lower extremity was very numb. She denies headache, double vision blurred vision loss of vision. She denies ringing or ears or decreased hearing. She denies trouble with speech or swallowing. She denies cardiac or respiratory symptoms. She denies GI symptoms. She denies urologic symptoms. Patient is not a good informant. Patient would describe her paresthesia when I asked her about the dizziness. From what I am able to gather the dizziness is not positional. There are no exacerbating, alleviating or precipitating factors for the dizziness or the paresthesia. commented that she had trouble using her right arm and picking things up. Prior similar symptoms: No Recent Illness/Hospitalization: No PFSH PFS Medical History Wears glasses Cancer Post-menopausal Alcohol use Arthritis History of hiatal hernia History of diverticulitis Gastric reflux COPD (chronic obstructive pulmonary disease) CPAP (continuous positive airway pressure) dependence Constipation Nausea Hypercholesteremia LLQ pain HTN (hypertension) Depression Asthma Abdominal pain Thyroid disorder Diabetes mellitus Home Medications ?Medication ?Instructions ?Recorded ?Last Taken ?Type metoprolol tartrate 50 mg tablet 50 mg PO BID 11/18/16 03/06/23 History fluoxetine 20 mg capsule 40 mg PO DAILY 08/03/20 Unkn own History omeprazole 20 mg capsule,delayed 20 mg PO BID 03/01/23 03/06/23 History release loratadine 10 mg tablet 10 mg PO DAILY #90 tabs 01/19 Unknown Rx albuterol sulfate 90 mcg/actuation 2 puff inhalation Q 4H PRN 04/08/24 Unknown Rx aerosol inhaler shortness of breath or wheez ing #8.5 grams ergocalciferol (vitamin D2) 1,250 1,250 mcg PO QWEEK 1 06/08/23 Unknown History mcg (50,000 unit) capsule fluticasone furoate 200 1 inh inhalation QDAY #3 ea 04/08/24 Unknown Rx mcg-vilanterol 25 mcg/dose inhalation powder (Breo Ellipta) montelukast 10 mg tablet 10 mg PO DAILY #90 tabs 03/29 06/21 Unknown Rx umeclidinium 62.5 mcg/actuation 1 inh inhalation QDAY #3 ea 04/08/24 Unknown Rx blister powder for inhalation (Incruse Ellipta) amlodipine 10 mg tablet 10 mg PO QHS 09/21/24 Unknow n History hydrochlorothiazide 25 mg tablet 25 mg PO DAILY Unknown History lisinopril 40 mg tablet 40 mg PO DAILY 09/21/24 Unkn own History Allergy/AdvReac Type Severity Reaction Status Date / Time erythromycin base Allergy Unknown Verified 09/21/24 18:51 Penicillins Allergy Unknown Verified 09/21/24 18:51 sulfamethoxazole (From Allergy Unknown Verified 09/21/24 18:51 Bactrim) tetracycline Allergy Unknown Verified 09/21/24 18:51 trimethoprim (From Bactrim) Allergy Unknown Verified 09/21/24 18:51 cefdinir AdvReac Mild Upset Verified 09/21/24 18:51 stomach metronidazole (From Flagyl) AdvReac Nausea Verified 09/21/24 18:51 Family History Brother Cancer Hypertension Mother Breast cancer Dementia Surgical History S/P laparoscopic cholecystectomy History of esophagogastroduodenoscopy (EGD) Hx of colonoscopy History of left hip replacement Social History household members: spouse Smoking Status: Never smoker second hand exposure: No alcohol intake: former substance use type: does not use caffeine: Yes Type: coffee Number of servings: 1 what type of physical activity do you participate in: none ROS ROS ED Constitutional Constitutional ED: Denies chills, fever(s), subjective or sweats Eyes Eyes: Denies blurry vision, change in vision or diplopia ENT ENT ED: Denies ear pain, rhinorrhea or sore throat Cardiovascular Cardiovascular: Denies chest pain, orthopnea, palpitations, paroxysmal nocturnal dyspnea or racing heartbeat Respiratory/Chest Respiratory/Chest: Denies cough, dyspnea, dyspnea on exertion, orthopnea or paroxysmal nocturnal dyspnea Gastrointestinal Gastrointestinal: Denies abdominal pain, diarrhea, melena, nausea or vomiting Genitourinary Genitourinary ED: Denies dysuria, hematuria or urinary frequency Musculoskeletal Musculoskeletal: Denies arthralgias, myalgias or neck pain Integumentary Denies rash Neurologic Neurologic: Reports paresthesias RUE, RLE, LUE and LLE and weakness Psychiatric Psychiatric: Reports anxiety; Denies depression Endocrine Endocrinology: Denies cold intolerance or heat intolerance Hematologic/Lymphatic Hematologic/Lymphatic: Reports systems reviewed and no addt'l complaints, except as documented EXAM Physical Exam Const Vital Signs: 09/21/24 18:52 09/21/24 19:30 09/21/24 19:30 Temperature 97.1 F L Temperature Source Temporal Pulse Rate 59 L 65 Respiratory Rate 18 18 Respiratory Effort Respiratory Pattern Blood Pressure 185/97 H 174/69 H Blood Pressure Mean 126 104 Pulse Ox 97 100 99 Oxygen Delivery Method Room Air Room Air Room Air 09/21/24 19:30 09/21/24 19:45 09/21/24 20:00 Temperature Temperature Source Pulse Rate 60 61 Respiratory Rate 18 16 Respiratory Effort Normal Non-Labored Respiratory Pattern Normal Blood Pressure 179/72 H 157/68 H Blood Pressure Mean 107 97 Pulse Ox 100 98 Oxygen Delivery Method Room Air Room Air 09/21/24 20:15 Temperature Temperature Source Pulse Rate 64 Respiratory Rate 18 Respiratory Effort Respiratory Pattern Blood Pressure 125/97 H Blood Pressure Mean 106 Pulse Ox 98 Oxygen Delivery Method Room Air Positive well nourished and well developed Constitutional Narrative: BMI is 20.6. Patient's blood pressure is elevated. Will not treat in the event that this represents a neurologic event. Will for permissive hypertension. General Appearance ED: well developed; Negative for pallor HEENT Reports moist mucous membranes HEENT Narrative: Ears normal. Nares patent. Posterior pharynx is normal. Uvula is midline. No deviation tongue or protrusion. Eyes PERRL and EOMs intact bilaterally Eyes Narrative: There is no nystagmus. There is no visual field cut. General Eye ED: Negative for pale conjunctiva or scleral icterus Neck no lymphadenopathy, supple and no JVD Chest Wall inspection of chest normal and palpation of chest normal Resp normal respiratory effort and clear to auscultation bilaterally Cardio regular rate, regular rhythm, S1 normal heart sound, S2 normal heart sound and no murmurs GI normal to inspection, nondistended, normoactive bowel sounds, non-tender, non- distended and no masses; Negative for hepatosplenomegaly Back/Spine no CVA tenderness Extremity normal to inspection General Extremety ED: Negative for edema or tenderness General Extremity: Negative for edema Neuro oriented x3, CN's II-XII intact bilaterally and no sensory deficits noted Neuro Narrative: Patient's gait is slightly broad-based. She falls with tandem gait and falls to the right predominantly. There is no dysmetria. [id number] was performed adequately. Sensorium / Orientation: alert Motor Exam: strength 5/5 throughout Psych Psych Narrative: Patient voiced that she feels anxious. She presently has no paresthesia in any extremity or perioral. She states earlier today she had some numbness around her lips. Skin no rashes or lesions noted, no wounds and skin turgor normal General Skin Exam: Negative for jaundice or pallor MDM MDM MDM Narrative Medical decision making narrative: This could represent neuropathy, this could represent hyperventilation, with her stating she had trouble using her right arm concerned this represents TIA/stroke. Symptoms with her weakness would be anterior circulation and she is describing problems with balance which would be posterior circulation. I did not appreciate a heart murmur. Will obtain EKG to determine if there is any evidence of prior NC which would increase likelihood of mural thrombus. History & Record Review Additional record(s) reviewed:: Prior outpatient record (Seen March 2024 at pulmonary office for asthma COPD), Prior ED visit (Seen March 2024 for elevated blood pressure by Dr. Heber Allison. Seen by Dr. Wakefield September 2023 for elevated blood pressure.) and Other (H&P by Dr. Green for cholelithiasis cholecystitis without obstruction) Lab Data Attestation: I reviewed the patient's lab results. Lab results narrative: CBC is unremarkable. Coags are normal. Electrolyte panel is remarkable for sodium 129 and chloride of 92. Her sodium has varied over the past couple of years. The sodium was 131 on September 12. Would not believe this to be the cause of her paresthesia. Labs: Laboratory Results - last 24 hr 09/21/24 19:22 WBC 5.6 RBC 4.47 Hgb 15.2 H Hct 42.4 MCV 94.9 MCH 34.0 H MCHC 35.8 RDW Std Deviation 39.3 RDW Coeff of Derik 11.3 L Plt Count 267 MPV 9.8 Immature Gran % (Auto) 0.400 Neut % (Auto) 66.4 Lymph % (Auto) 21.1 [place] % (Auto) 10.4 H Eos % (Auto) 1.3 Baso % (Auto) 0.4 Absolute Neuts (auto) 3.7 Absolute Lymphs (auto) 1.18 Nucleated RBC % 0 PT 12.7 INR 0.9 APTT 27.4 Sodium 129 L Potassium 3.3 Chloride 92 L Carbon Dioxide 24.4 Anion Gap 13 BUN 11 Creatinine 0.67 L Estim Creat Clear Calc 63.59 Est GFR (MDRD) Non-Af 95 BUN/Creatinine Ratio 15.9 Glucose 114 H Calcium 9.5 Troponin T High Sens < 6 Radiography Diagnostic Testing: Clinical Impression(s) from Imaging Studies Brain CT 09/21/24 19:15 IMPRESSION: NORMAL NONCONTRAST HEAD CT. Reading Location: [facility] CT minus of the head reveals no acute process per my review. There is no evidence of subdural, epidural, subarachnoid hemorrhage or intraparenchymal bleed. There is evidence of atrophy. Awaiting formal read by radiologist, Nicolasa EKG Initial EKG: Attestation: I personally reviewed and interpreted this EKG as follows: Interpretation: Sinus Rhythm (Rate is 61. VA interval is 156 ms. Cures duration 84 ms. QT duration 4 to 50 ms. Crary is normal. There is some artifact which the computer is reading is nonseptic abnormality.) Management Discussion w/another healthcare provider: Hospitalist Treatment and Re-Evaluation :: Patient was informed that I was contacting the hospitalist. I did speak with Dr. Jerad Gonzales. [facility] [place] for stroke workup Discharge Plan Triage Chief Complaint: Hypertension ED Provider: David Roberson Dx/Rx/DC Orders Clinical Impression: Paresthesia of right upper and lower extremity, STACEY (obstructive sleep apnea), Hemiplegia affecting right dominant side, Elevated blood pressure reading with diagnosis of hypertension Prescriptions: No Action loratadine 10 mg tablet 10 mg PO DAILY Qty: 90 3RF ergocalciferol (vitamin D2) 1,250 mcg (50,000 unit) capsule 1,250 mcg PO QWEEK albuterol sulfate 90 mcg/actuation HFA aerosol inhaler 2 puff INHALATION Q4H PRN (Reason: shortness of breath or wheezing) Qty: 8.5 6RF Rx Instructions: administer with spacer Incruse Ellipta 62.5 mcg/actuation blister with device 1 inh INHALATION QDAY Qty: 3 4RF montelukast 10 mg tablet 10 mg PO DAILY Qty: 90 3RF Breo Ellipta 200-25 mcg/dose blister with device 1 inh INHALATION QDAY Qty: 3 4RF Rx Instructions: after inhalation, rinse mouth with water and spit out; do not swallow fluoxetine 20 mg capsule 40 mg PO DAILY metoprolol tartrate 50 MG tablet 50 mg PO BID omeprazole 20 mg capsule,delayed release(DR/EC) 20 mg PO BID Patient Comments: TAKE 1 CAPSULE BY MOUTH TWICE A DAY BEFORE MORNING AND EVENING MEALS amlodipine 10 mg tablet 10 mg PO QHS hydrochlorothiazide 25 mg tablet 25 mg PO DAILY lisinopril 40 mg tablet 40 mg PO DAILY Primary Care Provider: Maggi Dorsey Referrals: Maggi Dorsey MD [Primary Care Provider] - Print Language: Martiniquais Disposition Disposition: Acute Care Hospital [facility]
[2024-09-21 19:34] LABS: Absolute Lymphocyte Count 1.18 X10^3/uL (0.83-4.51); Absolute Neutrophil Count 3.7 X10^3/uL (2.0-7.7); Basophil# 0.02 X10^3/uL; Basophil% 0.4 % (0-1); Eosinophil# 0.07 X10^3/uL; Eosinophils% 1.3 % (0-5); Hematocrit 42.4 % (37-47); Hemoglobin 15.2 g/dL (12.0-15.0); Lymphocyte # 1.18 X10^3/ul (0.83-4.51); Lymphocyte % 21.1 % (19-41); Mean Corp Hgb Conc 35.8 g/dL (32-36); Mean Corpuscular Volume 94.9 fL (81-99); Mean Platelet Vol. 9.8 fl (6.2-12.0); Monocyte# 0.58 X10^3/uL; Monocyte% 10.4 % (0-10); NRBC Flagged by Analyzer 0 % (0-5); Neutrophil # 3.72 X10^3/uL (2.7-7.7); Neutrophil % 66.4 % (47-70); Platelet Count 267 K/mm3 (150-450); RBC Distribution Width CV 11.3 % (11.6-14.6); RBC Distribution Width SD 39.3 fl (35.1-43.9); Red Blood Count 4.47 M/mm3 (4.2-5.4); White Blood Count 5.6 K/mm3 (4.4-11.0)
[2024-09-21 19:44] LABS: International Normalized Ratio 0.9; Prothrombin Time (Protime)PT. 12.7 SECONDS (11.7-14.9)
[2024-09-21 19:45] LABS: Partial Thromboplast Time 27.4 Seconds (24.1-36.2)
[2024-09-21 19:56] LABS: Anion Gap 13 (5-15); BUN 11 mg/dL (4-19); BUN/Creat Ratio 15.9 RATIO (10-20); Calcium,Total 9.5 mg/dL (7.6-11.0); Carbon Dioxide 24.4 mmol/L (21.0-32.0); Chloride 92 mmol/L (98-108); Creatinine, Serum 0.67 mg/dL (0.70-1.20); EST Glomerular Filtration Rate 95 (>60); Estimated Creatinine Clearance 63.59 ml/min (50-250); Glucose 114 mg/dL (70-99); Potassium 3.3 mmol/L (3.3-5.1); Sodium Level 129 mmol/L (133-145); Troponin T High Sensitivity < 6 ng/L (<=14)
--- NOTE | 2024-09-21 20:28 | PCM.HP.STD ---
[facility] - [facility] Date of Admission: 09/21/24 Date of Service: 09/21/24 Chief Complaint: Right Upper Extremity Weakness and Numbness with Elevated Blood Pressure. HPI Narrative TELMA MUHAMMAD, is a 69 F with a past medical history of essential hypertension; on lisinopril, metoprolol, amlodipine and hydrochlorothiazide, history of hyperlipidemia; currently not on treatment, overweight; BMI of 28.6 this admission, STACEY; currently not using CPAP, history of diabetes mellitus; currently not on treatment, history of tobacco abuse; subsequent asthma/COPD on umeclidinium daily plus on as needed albuterol inhaler, depression; on fluoxetine, history of cancer, history of diverticulitis, history of hiatal hernia, history of cholelithiasis; s/p laparoscopic cholecystectomy (2022), GERD; on omeprazole twice daily and OA; s/p Left THR (2022) who presents to [facility] ER complaining of RUE weakness and numbness with elevated blood pressure. Ms. Muhammad is not a good historian at this time to information was gathered from chart, medical staff and computer. According to the records her symptoms began approximately 1 week prior to admission with intermittent paresthesias in all extremities and problems with her balance. She rated symptoms of dizziness and paresthesia to be of moderate severity and not made better or worse by anything. Her informed the ER physician that she seemed to have some clumsiness and weakness of her Right arm with an elevated systolic blood pressure in the ~180 mmHg range so they decided to come in for further evaluation and treatment. She denies associated fever, chills, changes in vision, discharge from eyes, runny nose, sore throat, ear pain, chest pain, shortness of breath, heart racing, palpitations, abdominal pain, nausea, vomiting, diarrhea, constipation, dysuria, hematuria, headache or rash but she does admit to heightened anxiety. In the ER she was noted to have a CT scan of the brain without contrast that revealed normal noncontrast head CT with initial blood pressure highly elevated at 187/95 mmHg consistent with uncontrolled hypertension likely due at least in part to noncompliance with CPAP compounded by laboratory evidence of mild Hyponatremia 129 mmol/L present on admission and she was then admitted to the PCU under observation status for TIA/CVA workup for stay that is expected to be less than 2 midnights. [facility] Medical History Wears glasses Cancer Post-menopausal Alcohol use Arthritis History of hiatal hernia History of diverticulitis Gastric reflux COPD (chronic obstructive pulmonary disease) CPAP (continuous positive airway pressure) dependence Constipation Nausea Hypercholesteremia LLQ pain HTN (hypertension) Depression Asthma Abdominal pain Thyroid disorder Diabetes mellitus Home Medications ?Medication ?Instructions ?Recorded ?Last Taken ?Type metoprolol tartrate 50 mg tablet 50 mg PO BID 11/18/16 03/06/23 History fluoxetine 20 mg capsule 40 mg PO DAILY 08/03/20 Unknown History omeprazole 20 mg capsule,delayed 20 mg PO BID 03/01/23 03/06/23 History release loratadine 10 mg tablet 10 mg PO DAILY #90 tabs 10/04/23 Unknown Rx albuterol sulfate 90 mcg/actuation 2 puff inhalation Q4H PRN 04/08/24 Unknown Rx aerosol inhaler shortness of breath or wheezing #8.5 grams ergocalciferol (vitamin D2) 1,250 1,250 mcg PO QWEEK 04/08/24 Unknown History mcg (50,000 unit) capsule fluticasone furoate 200 1 inh inhalation QDAY #3 ea 04/08/24 Unknown Rx mcg-vilanterol 25 mcg/dose inhalation powder (Breo Ellipta) montelukast 10 mg tablet 10 mg PO DAILY #90 tabs 04/08/24 Unknown Rx umeclidinium 62.5 mcg/actuation 1 inh inhalation QDAY #3 ea 04/08/24 Unknown Rx blister powder for inhalation (Incruse Ellipta) amlodipine 10 mg tablet 10 mg PO QHS 09/21/24 Unknown History hydrochlorothiazide 25 mg tablet 25 mg PO DAILY 09/21/24 Unknown History lisinopril 40 mg tablet 40 mg PO DAILY 09/21/24 Unknown History Allergy/AdvReac Type Severity Reaction Status Date / Time erythromycin base Allergy Unknown Verified 09/21/24 18:51 Penicillins Allergy Unknown Verified 09/21/24 18:51 sulfamethoxazole (From Allergy Unknown Verified 09/21/24 18:51 Bactrim) tetracycline Allergy Unknown Verified 09/21/24 18:51 trimethoprim (From Bactrim) Allergy Unknown Verified 09/21/24 18:51 cefdinir AdvReac Mild Upset Verified 09/21/24 18:51 stomach metronidazole (From Flagyl) AdvReac Nausea Verified 09/21/24 18:51 Family History Brother Cancer Hypertension Mother Breast cancer Dementia Surgical History S/P laparoscopic cholecystectomy History of esophagogastroduodenoscopy (EGD) Hx of colonoscopy History of left hip replacement Social History household members: spouse Smoking Status: Never smoker second hand exposure: No alcohol intake: former substance use type: does not use caffeine: Yes Type: coffee Number of servings: 1 what type of physical activity do you participate in: none ROS ROS Narrative Review of Systems: Constitutional: Patient denies fever or chills. Eyes: Patient denies change in vision or discharge from eyes. ENT: Patient denies runny nose, sore throat or ear pain. Resp: Patient denies shortness of breath or cough. CV: Patient denies chest pain, palpitations, heart racing or lower extremity edema. GI: Patient denies abdominal pain, nausea, vomiting, diarrhea or constipation. : Patient denies dysuria, hematuria or urinary frequency. MSK: Patient admits to generalized weakness but she denies arthralgias or myalgias. Skin: Patient denies rash, abscess, wounds or jaundice. Psych: Patient admits to heightened anxiety but she denies symptoms of uncontrolled depression or SI/HI. Neuro: Patient admits to RUE weakness and numbness with dizziness that have both been intermittent x 1 week as per HPI. She denies headache. Allergy: Patient denies lip swelling, tongue swelling or urticaria. Hematology: Patient denies easy bleeding or easy bruisability. Endocrinology: Patient denies polyuria, polydipsia, polyphagia or heat/cold intolerance. 14 point ROS otherwise negative except for positives noted above in HPI. Vital Signs Vital Signs Vital Signs: 09/21/24 18:52 09/21/24 19:30 09/21/24 19:30 Temperature 97.1 F L Temperature Source Temporal Pulse Rate 59 L 65 Respiratory Rate 18 18 Respiratory Effort Respiratory Pattern Blood Pressure 185/97 H 174/69 H Blood Pressure Mean 126 104 Pulse Ox 97 100 99 Oxygen Delivery Method Room Air Room Air Room Air 09/21/24 19:30 09/21/24 19:45 09/21/24 20:00 Temperature Temperature Source Pulse Rate 60 61 Respiratory Rate 18 16 Respiratory Effort Normal Non-Labored Respiratory Pattern Normal Blood Pressure 179/72 H 157/68 H Blood Pressure Mean 107 97 Pulse Ox 100 98 Oxygen Delivery Method Room Air Room Air 09/21/24 20:15 Temperature Temperature Source Pulse Rate 64 Respiratory Rate 18 Respiratory Effort Respiratory Pattern Blood Pressure 125/97 H Blood Pressure Mean 106 Pulse Ox 98 Oxygen Delivery Method Room Air Weight Weight: 161 lb 3.2 oz Body Mass Index (BMI) 28.5 Results Lab / Micro Data 09/21/24 19:22 09/21/24 19:22 Labs: Laboratory Results - last 24 hr 09/21/24 19:22: WBC 5.6, RBC 4.47, Hgb 15.2 H, Hct 42.4, MCV 94.9, MCH 34.0 H, MCHC 35.8, RDW Std Deviation 39.3, RDW Coeff of Derik 11.3 L, Plt Count 267, MPV 9.8, Immature Gran % (Auto) 0.400, Neut % (Auto) 66.4, Lymph % (Auto) 21.1, [place] % (Auto) 10.4 H, Eos % (Auto) 1.3, Baso % (Auto) 0.4, Absolute Neuts (auto) 3.7, Absolute Lymphs (auto) 1.18, Nucleated RBC % 0, PT 12.7, INR 0.9, APTT 27.4, Sodium 129 L, Potassium 3.3, Chloride 92 L, Carbon Dioxide 24.4, Anion Gap 13, BUN 11, Creatinine 0.67 L, Estim Creat Clear Calc 63.59, Est GFR (MDRD) Non-Af 95, BUN/Creatinine Ratio 15.9, Glucose 114 H, Calcium 9.5, Troponin T High Sens < 6 Imaging Radiology Impression Brain CT 09/21/24 19:15 IMPRESSION: NORMAL NONCONTRAST HEAD CT. Reading Location: [id number] Assessment & Plan Assessment/Plan (1) Hemiplegia affecting right dominant side: QUALIFIERS: Hemiplegia type: unspecified type Hemiplegia etiology: unspecified etiology Qualified Code(s): G81.91 - Hemiplegia, unspecified affecting right dominant side (2) Paresthesia of right upper and lower extremity: (3) Uncontrolled hypertension: (4) STACEY (obstructive sleep apnea): (5) Noncompliance with CPAP treatment: (6) Hyponatremia: (7) Overweight (BMI 25.0-29.9): PLAN: Plan 1. Intermittent RUE weakness and numbness with dizziness suspicious for TIA versus CVA - Admit to PCU under observation status. Start aspirin and statin. Check MRI of brain to evaluate for CVA. Check carotid Doppler to evaluate for stenosis. Check echocardiogram to evaluate LVEF. Check TSH, B12, folate, hemoglobin A1c, lipid profile, DONN and UDS to broaden neurologic evaluation. Check lipid profile in AM. Give acetaminophen as needed for pain or fever. Finally, we will consult [facility] to see this patient for further recommendations without appreciated in advance. 2. Uncontrolled Hypertension; with initial blood pressure highly elevated at 187/95 mmHg present on admission complicating #1 - Hold scheduled antihypertensives to allow for ' permissive hypertension' until CVA definitively ruled out on MRI. Serialize troponin. 3. STACEY; noncompliant with CPAP compounding #1 & #2 - CPAP will be offered and its routine use will be strongly encouraged. 4. Hyponatremia 129 mmol/L present on admission likely due to Adverse Drug Reaction to Hydrochlorothiazide adding to the medical complexity of #1 - #3 - Hold hydrochlorothiazide to avoid potential worsening of this issue. Give NS IV fluid and recheck BMP in a.m. to ensure improvement. 5. Overweight; BMI of 28.6 this admission adding to the burden of disease outlined from #1 - #5 - Weight loss will be recommended. Check TSH. 6. History of tobacco abuse; subsequent asthma/COPD on umeclidinium daily plus on as needed albuterol inhaler amplifying the pathology outlined from #1 - #5 - Stable with no evidence of acute flare maintain home regimen. 7. History of hyperlipidemia; currently not on treatment - Lipid Profile to be checked for #1 will confirm status. 8. History of diabetes mellitus; currently not on treatment HgbA1c pending from #1 to confirm status. 9. Depression; on fluoxetine - Resume fluoxetine as before. 10. History of cancer - Noted. 11. History of diverticulitis - Stable no evidence of recurrence at this time. 12. History of hiatal hernia - Noted. 13. History of cholelithiasis; s/p laparoscopic cholecystectomy (2022) - Noted. 14. GERD; on omeprazole twice daily - Maintain current therapy. 15. OA; s/p Left THR (2022) - Stable. We will give acetaminophen as needed as outlined in #1. 16. DVT prophylaxis - Enoxaparin 40 mg sq daily plus SCD's. Total time: Approximately (but not less than) 70 minutes. Charges/Coding Visit Charges OBSV E&M: 81169 Observ/hosp same date L2
--- NOTE | 2024-09-21 21:05 | CASEMGMT ---
Care Management Face to Face with patient for initial transition planning/care coordination assessment in the ED.? This copy writer introduced self and role at [facility]. Patient alert and oriented. Patient willing to participate in assessment and is able to answer all questions appropriately.? Care providers, pharmacy, and demographics verified. Patient?s was at bedside and also assisted with the assessment when needed. Admitting Diagnosis: Hemiplegia affecting right dominant side and elevated blood pressure. Other diagnosis history: Including but not limited to: Cholelithiasis, GERD, STACEY, (not using CPAP or BiPAP machine), Thyroid Disease, Cancer, Arthritis, Hiatal Hernia, Diverticulitis, COPD, HTN and DM (patient denied DM diagnosis). PCP: Dr. Maggi Dorsey Specialists: Press Brake Operator: Dr. Haq Preferred Pharmacy: [facility] Insurance: AAPR: [facility] Prescription Benefit: Well Care Living Will/HPOA: ?No and unsure if wants during this admission. LNOK: Patient?s , Sami, and 2 daughters, one of [place] and the other of [place], [place]. (All 3 were described as supports) Living Arrangements: Patient lives with her in a one-story home with a basement. There are 2 steps leading in/out of the house which patient is able to navigate without difficulty.? There are handrails by the steps. Patient denied any environmental barriers. Transportation: Patient drives. DME: Nebulizer, standard cane, standard walker, [id number], HHS, 2 grab bars in the shower, and a [id number] chair. Patient stated she used to have a CPAP machine but took it back because it was too loud and patient wasn?t able to sleep. Patient stated she is exploring alternatives with her doctor during an upcoming appointment. [facility]: 2022: History of PT through [facility] following a left hip replacement. SNF/Rehab: Denied. Community Resources: None and none needed. Behavioral Health History: Depression and Anxiety.? Patient reported she?s on medication for anxiety and isn?t sure if it?s working or not. Patient was tearful through much of the assessment. Patient goals: Patient wishes to discharge home, denies need for home health care at this time. Patient denies any further needs or concerns at this time. Disposition Plan: admission to acute; RN CM/SW to follow for discharge planning needs that may arise. Althea Mejias, GROOVING MACHINE OPERATOR, I O PSYCHOLOGIST
--- NOTE | 2024-09-21 21:08 | CT_ITS ---
PROCEDURE: STROKE CTA HEAD AND NECK W/CON N/A REASON FOR EXAM: NEURO DEFICIT, ACUTE, STROKE SUSPECTED TECHNIQUE: CTA imaging of the head and neck from the aortic arch to the skull vertex with out constrast and with intravenous contrast. Multiplanar and multisequence images were obtained. 3D post processing with reformations, Maximum intensity projection (MIPs) Volume rendering and Shaded surface rendering was provided. One or more dose reduction techniques were used (e.g., Automated exposure control, adjustment of the mA and/or kV according to patient size, use of iterative reconstruction technique). FINDINGS: Aortic Arch: Common origin of the brachiocephalic trunk and left common carotid artery consistent with a bovine arch which is a normal variant. Brachiocephalic and Subclavians: Mild atherosclerotic plaque without significant stenosis. RIGHT Carotid: Right CCA: Unremarkable. Right ICA: Mild calcified and soft plaque. Short-segment of the mid right internal carotid artery demonstrates a beaded appearance without significant stenosis suggestive of fibromuscular dysplasia. Maximum stenosis (NASCET): 20 % Right ECA: Unremarkable. LEFT Carotid: Left CCA: Unremarkable. Left ICA: Unremarkable. Maximum stenosis (NASCET): 0 % Left ECA: Mild calcified and soft plaque. Vertebrals: RIGHT Vertebral: Hypoplastic right vertebral artery which terminates as the right posterior inferior cerebellar artery. LEFT Vertebral: Dominant widely patent left vertebral artery. Anatomy: Persistent origin of the left posterior cerebral artery. Aneurysm or avm: No intracranial aneurysms or large vascular malformations are identified. Anterior cerebral arteries: Unremarkable: Middle cerebral arteries: Unremarkable. Basilar artery: Unremarkable. Posterior cerebral arteries: Unremarkable. Other major branches of the posterior circulation: Unremarkable. Major venous structures: Unremarkable. Other findings: Neck: No lymphadenopathy. Lungs: Lung apices are clear. Bones: Bones are unremarkable. CT/STROKE CTA Head AND Neck W/Con IMPRESSION: No large vessel occlusion. Bovine arch. Mild (20%) right carotid stenosis. Short segment of fibromuscular dysplasia of the mid right internal carotid rafi ry. No left carotid stenosis. Patent vertebral arteries bilaterally. The right vertebral artery is hypoplast ic and terminates as the right posterior inferior cerebellar artery. Reading Location: [id number]
--- NOTE | 2024-09-21 21:22 | CDU_ITS ---
Reason For Study Reason For Study: Evaluate for Stenosis Rt. Velocities/BP Lt. Velocities/BP Prox CCA 90/15 cm/sec. Prox CCA 74/16 cm/sec. Mid CCA 83/18 cm/sec. Mid CCA 81/16 cm/sec. Dist CCA 86/20 cm/sec. Dist CCA 71/17 cm/sec. Prox ICA 83/19 cm/sec. Prox ICA 111/26 cm/sec. Mid ICA 91/15 cm/sec. Mid ICA 58/20 cm/sec. Dist ICA 190/52 cm/sec. Dist ICA 83/27 cm/sec. Rt. ICA/CCA = 2.29. Lt. ICA/CCA = 1.4. Prox ECA 95/17 cm/sec. Prox ECA 73/10 cm/sec. Rt. Vert. 59/11 cm/sec. Lt. Vert. 89/26 cm/sec. Right Extracranial There is intimal thickening but no significant atherosclerotic plaque noted in the right common carotid artery. There is heterogeneous, smooth atherosclerotic plaque noted in the right internal carotid artery. There is intimal thickening but no significant atherosclerotic plaque noted in the right external carotid artery. Antegrade flow is noted in the right vertebral artery. Left Extracranial There is heterogeneous, irregular atherosclerotic plaque noted in the left common carotid artery. There is heterogeneous, irregular atherosclerotic plaque noted in the left internal carotid artery. There is heterogeneous, irregular atherosclerotic plaque noted in the left external carotid artery. Antegrade flow is noted in the left vertebral artery. Procedure Carotid Duplex [id number]. This is a Carotid Duplex examination using B-mode, color flow and specral Doppler. Exam performed portable in patient room. VL/Carotid Duplex Ultrasound Interpretation Summary Moderate (50-69%) stenosis right extracranial internal carotid. Mild (<50%) stenosis left extracranial internal carotid. Patent and antegrade vertebrals bilaterally. Ordering Physician: Jerad Rodriguez Referring Physician: David Roberson Performed By: Char Longoria, RDCS, RVT
--- NOTE | 2024-09-21 21:22 | ECHOD_ITS ---
Reason For Study Reason For Study: TIA/CVA Procedure This was a 2D Doppler, Color Flow transthoracic echocardiogram. Exam performed portable in patient room. Left Ventricle Normal size and thickness. The LV systolic function is normal. EF is 65 %. Stage 1 diastolic dysfunction. Right Ventricle Normal right ventricle. Atria The left atrium is moderately enlarged. Normal right atrium. Mitral Valve Mild mitral annular calcification. Trivial mitral valve insufficiency. Tricuspid Valve Normal tricuspid valve. Aortic Valve Trisinus/trileaflet aortic valve. Pulmonic Valve The pulmonic valve is not well visualized. Great Vessels Normal sized aortic root. Pericardium/Pleural No pericardial effusion. MMode/2D Measurements & Calculations LVIDd: 4.0 cm IVSd: 1.1 cm Ao root diam: 2.8 cm LVIDs: 2.2 cm LVPWd: 1.1 cm RVDd: 2.8 cm FS: 44.5 % LAV(MOD-bp): 29.0 ml LVAd ap4: 21.8 cm2 LVAd ap2: 19.5 cm2 LAV(MOD-bp) Indexed: 16.5 ml/m2 LVLd ap4: 7.0 cm LVLd ap2: 6.8 cm LAV(MOD-sp2): 25.3 ml EDV(MOD-sp4): 57.4 ml EDV(MOD-sp2): 47.8 ml LAV(MOD-sp4): 31.7 ml EDV(sp4-el): 57.3 ml EDV(sp2-el): 47.6 ml LVAs ap4: 9.5 cm2 LVAs ap2: 8.9 cm2 LVLs ap4: 6.0 cm LVLs ap2: 5.9 cm ESV(MOD-sp4): 13.5 ml ESV(MOD-sp2): 12.3 ml ESV(sp4-el): 12.9 ml ESV(sp2-el): 11.6 ml EF(MOD-sp4): 76.4 % EF(MOD-sp2): 74.4 % EF(sp4-el): 77.5 % SV(MOD-sp4): 43.9 ml SV(MOD-sp2): 35.6 ml SV(sp4-el): 44.4 ml SI(MOD-sp4): 24.9 ml/m2 SI(MOD-sp2): 20.2 ml/m2 LA A4 area: 15.0 cm2 LA dimension(2D): 4.6 cm RA A4 area: 10.2 cm2 TAPSE: 1.8 cm Time Measurements MV dec time: 0.18 sec Doppler Measurements & Calculations MV E max leland: 52.1 cm/sec Lat Peak E' Leland: 10.8 cm/sec Med Peak E' Leland: 6.6 cm/sec MV A max leland: 94.4 cm/sec E/E' lat: 4.8 E/E' med: 7.9 MV E/A: 0.55 Ao V2 max: 163.2 cm/sec LV V1 max: 122.0 cm/sec MV dec slope: 293.1 cm/sec2 Ao max P.7 mmHg LV V1 max P.0 mmHg Ao V2 mean: 107.6 cm/sec LV V1 mean P.8 mmHg Ao mean P.3 mmHg LV V1 mean: 78.5 cm/sec Ao V2 VTI: 30.4 cm LV V1 VTI: 26.2 cm AV (velocity ratio): 0.86 PA V2 max: 112.8 cm/sec ECHO/Echo Complete Interpretation Summary The LV systolic function is normal. EF is 65 %. Stage 1 diastolic dysfunction. The left atrium is moderately enlarged. Mild mitral annular calcification. Increased turbulence and flow in the pulmonary artery. Recommend cardiac MRI fo r evaluation for possible shunts. Ordering Physician: Jerad Rodriguez Referring Physician: David Roberson Performed By: Saira Rubi RDCS
[2024-09-21 22:40] LABS: FOLATES,SERUM (FOLIC ACID) 9.82 ng/mL (4.60-34.80)
[2024-09-21] MEDS: 0.9% Normal Saline (1000mL) 1,000 ML 70 ML IV (22:40)
[2024-09-21] MEDS: Atorvastatin Calcium 40 MG Tablet PO (22:47)
[2024-09-21] MEDS: Pantoprazole Sodium 20 MG Tablet PO (22:47)
[2024-09-21] MEDS: Aspirin 325 MG Tablet PO (22:50)
[2024-09-21 23:10] LABS: Hemoglobin A1c 5.4 % (<=5.6)
[2024-09-21 23:15] LABS: Troponin T High Sens 2 HR < 6 ng/L (<=14)
[2024-09-21 23:32] LABS: Vitamin B12 488 pg/mL (180-914)
[2024-09-21 23:40] LABS: Alcohol, Blood (Medical)-Serum < 10.1 mg/dL (<=10.0)
[2024-09-21 23:59] LABS: Troponin T High Sens 4 HR < 6 ng/L (<=14)
[2024-09-22] VITALS (9 sets, daily range): BP systolic 129–149; BP diastolic 57–90; PULSE 55–75; RESP 12–18; TEMP 36.6–36.9; O2SAT 97–99; BMI 28.8
[2024-09-22 00:11] LABS: Amphetamine Urine NEGATIVE (<1000 ng/mL); Barbiturate Urine NEGATIVE (< 200 ng/mL); Benzodiazepine Urine NEGATIVE (< 200 ng/mL); Buprenorphine Urine NEGATIVE (< 200 ng/mL); Cocaine Urine NEGATIVE (< 300 ng/mL); Fentanyl, Urine NEGATIVE; Methadone Urine NEGATIVE (< 300 ng/mL); Opiates Urine NEGATIVE (< 300 ng/mL); Oxycodone, Urine NEGATIVE (< 100 ng/mL); PCP Urine NEGATIVE (< 25 ng/mL); THC Urine PRESUMPTIVE POSITIVE (< 50 ng/mL)
--- NOTE | 2024-09-22 01:06 | CPS ---
Patient refused PAP therapy for night time use
[2024-09-22] MEDS: Enoxaparin 40 MG/0.4 ML Syringe SC (06:15)
[2024-09-22 06:46] LABS: Cholesterol 198 mg/dL (<=200); High Density Lipoprotein 54 mg/dL; Low Density Lipoprotein Calc. 131 mg/dL; Triglycerides 66 mg/dL; Very Low Density Lipoprotein 13 mg/dL (5-40); cholesterol:hdl ratio screen 3.68
[2024-09-22] MEDS: Ipratropium/Albuterol Sulfate 3 ML AMPUL.NEB INHALATION ×3 (06:51→19:57)
[2024-09-22] MEDS: Budesonide Respules 0.5 MG/2 ML AMPUL.NEB. INHALATION (06:51)
[2024-09-22] MEDS: Aspirin E.C. 81 MG Tablet PO (09:58)
[2024-09-22] MEDS: Pantoprazole Sodium 20 MG Tablet PO ×2 (09:58→21:41)
[2024-09-22] MEDS: Loratadine 10 MG Tablet PO (09:59)
[2024-09-22] MEDS: Fluoxetine HCl 40 MG CAPSULE PO (09:59)
--- NOTE | 2024-09-22 11:42 | NEURO.CONS ---
Assessment and Plan: Neuro Assessment/Plan TELMA MUHAMMAD is a 69 F with a past medical history of HTN and HLD presented with hypertension, b/l hand tingling and right arm weakness. symptoms has resolved possible TIA MRI brain w.o cont TTE cont ASA start statin vascular risks modification follow up with vascular neurolgy HPI Consult Data Date of Consult: 09/22/24 HPI Narrative HPI Narrative: TELMA MUHAMMAD, is a 69 F with a past medical history of essential hypertension history of hyperlipidemia; currently not on treatment,who presents to [facility] ER complaining of RUE weakness and numbness with elevated blood pressure. she had b/l hand tinglings followed by right arm weakness she was hypertensive in the ED. on exam today she is back to her baseline CTA head and neck showed No large vessel occlusion.Short segment of fibromuscular dysplasia of the mid right internal carotid artery. [facility] Medical History Wears glasses Cancer Post-menopausal Alcohol use Arthritis History of hiatal hernia History of diverticulitis Gastric reflux COPD (chronic obstructive pulmonary disease) CPAP (continuous positive airway pressure) dependence Constipation Nausea Hypercholesteremia LLQ pain HTN (hypertension) Depression Asthma Abdominal pain Thyroid disorder Diabetes mellitus Home Medications ?Medication ?Instructions ?Recorded ?Last Taken ?Type metoprolol tartrate 50 mg tablet 50 mg PO BID blood pressure 11/18/16 03/06/23 History fluoxetine 20 mg capsule 40 mg PO DAILY depression 08/03/20 Unknown History omeprazole 20 mg capsule,delayed 20 mg PO BID GERD 03/01/23 03/06/23 History release loratadine 10 mg tablet 10 mg PO DAILY #90 tabs 10/04/23 Unknown Rx albuterol sulfate 90 mcg/actuation 2 puff inhalation Q4H PRN 04/08/24 Unknown Rx aerosol inhaler shortness of breath or wheezing #8.5 grams ergocalciferol (vitamin D2) 1,250 1,250 mcg PO QWEEK 04/08/24 Unknown History mcg (50,000 unit) capsule fluticasone furoate 200 1 inh inhalation QDAY #3 ea 04/08/24 Unknown Rx mcg-vilanterol 25 mcg/dose inhalation powder (Breo Ellipta) montelukast 10 mg tablet 10 mg PO DAILY allergies #90 tabs 04/08/24 Unknown Rx umeclidinium 62.5 mcg/actuation 1 inh inhalation QDAY COPD #3 ea 04/08/24 Unknown Rx blister powder for inhalation (Incruse Ellipta) amlodipine 10 mg tablet 10 mg PO QHS blood pressure 09/21/24 Unknown History hydrochlorothiazide 25 mg tablet 25 mg PO DAILY blood pressure 09/21/24 Unknown History lisinopril 40 mg tablet 40 mg PO DAILY blood presssure 09/21/24 Unknown History Allergy/AdvReac Type Severity Reaction Status Date / Time erythromycin base Allergy Unknown Verified 09/21/24 18:51 Penicillins Allergy Unknown Verified 09/21/24 18:51 sulfamethoxazole (From Allergy Unknown Verified 09/21/24 18:51 Bactrim) tetracycline Allergy Unknown Verified 09/21/24 18:51 trimethoprim (From Bactrim) Allergy Unknown Verified 09/21/24 18:51 cefdinir AdvReac Mild Upset Verified 09/21/24 18:51 stomach metronidazole (From Flagyl) AdvReac Nausea Verified 09/21/24 18:51 Family History Brother Cancer Hypertension Mother Breast cancer Dementia Surgical History S/P laparoscopic cholecystectomy History of esophagogastroduodenoscopy (EGD) Hx of colonoscopy History of left hip replacement Social History household members: spouse Smoking Status: Never smoker second hand exposure: No alcohol intake: former substance use type: does not use caffeine: Yes Type: coffee Number of servings: 1 what type of physical activity do you participate in: none Vital Signs Vital Signs Vital Signs: 09/21/24 18:52 09/21/24 19:30 09/21/24 19:30 Temperature 97.1 F L Temperature Source Temporal Pulse Rate 59 L 65 Pulse Strength Respiratory Rate 18 18 Respiratory Effort Respiratory Depth Respiratory Pattern Blood Pressure 185/97 H 174/69 H Blood Pressure Mean 126 104 Blood Pressure Source Blood Pressure Position Blood Pressure Location Pulse Ox 97 100 99 Oxygen Delivery Method Room Air Room Air Room Air 09/21/24 19:30 09/21/24 19:45 09/21/24 20:00 Temperature Temperature Source Pulse Rate 60 61 Pulse Strength Respiratory Rate 18 16 Respiratory Effort Normal Non-Labored Respiratory Depth Respiratory Pattern Normal Blood Pressure 179/72 H 157/68 H Blood Pressure Mean 107 97 Blood Pressure Source Blood Pressure Position Blood Pressure Location Pulse Ox 100 98 Oxygen Delivery Method Room Air Room Air 09/21/24 20:15 09/21/24 20:30 09/21/24 20:39 Temperature 98.0 F Temperature Source Pulse Rate 64 68 65 Pulse Strength Respiratory Rate 18 16 18 Respiratory Effort Respiratory Depth Respiratory Pattern Blood Pressure 125/97 H 145/71 H 145/71 H Blood Pressure Mean 106 95 95 Blood Pressure Source Blood Pressure Position Blood Pressure Location Pulse Ox 98 99 100 Oxygen Delivery Method Room Air Room Air 09/21/24 21:00 09/21/24 21:22 09/21/24 22:00 Temperature 97.6 F L 97.9 F Temperature Source Oral Oral Pulse Rate 65 63 69 Pulse Strength Respiratory Rate 16 16 16 Respiratory Effort Respiratory Depth Respiratory Pattern Blood Pressure 166/78 H 183/75 H 182/73 H Blood Pressure Mean 107 111 109 Blood Pressure Source Monitor Monitor Blood Pressure Position Semi-Fowlers Semi-Fowlers Blood Pressure Location Right Arm Right Arm Pulse Ox 98 98 100 Oxygen Delivery Method Room Air Room Air Room Air 09/21/24 22:00 09/21/24 23:15 09/22/24 01:56 Temperature 97.8 F Temperature Source Oral Pulse Rate 62 Pulse Strength Respiratory Rate 16 Respiratory Effort Normal Respiratory Depth Normal Respiratory Pattern Normal Blood Pressure 146/67 H Blood Pressure Mean 93 Blood Pressure Source Monitor Blood Pressure Position Semi-Fowlers Blood Pressure Location Right Arm Pulse Ox 100 98 Oxygen Delivery Method Room Air Room Air Room Air 09/22/24 02:57 09/22/24 06:00 09/22/24 06:52 Temperature 98.4 F Temperature Source Oral Pulse Rate 71 55 L Pulse Strength Respiratory Rate 16 16 Respiratory Effort Normal Respiratory Depth Normal Respiratory Pattern Normal Normal Blood Pressure 149/57 H Blood Pressure Mean 87 Blood Pressure Source Monitor Blood Pressure Position Semi-Fowlers Blood Pressure Location Right Arm Pulse Ox 97 Oxygen Delivery Method Room Air Room Air 09/22/24 06:52 09/22/24 09:54 09/22/24 10:00 Temperature 98.3 F Temperature Source Oral Pulse Rate 62 Pulse Strength Normal (2+) Respiratory Rate 17 Respiratory Effort Respiratory Depth Respiratory Pattern Blood Pressure 135/65 H Blood Pressure Mean 88 Blood Pressure Source Monitor Blood Pressure Position Semi-Fowlers Blood Pressure Location Right Arm Pulse Ox 99 97 Oxygen Delivery Method Room Air Room Air 09/22/24 10:00 Temperature Temperature Source Pulse Rate Pulse Strength Respiratory Rate Respiratory Effort Respiratory Depth Respiratory Pattern Blood Pressure Blood Pressure Mean Blood Pressure Source Blood Pressure Position Blood Pressure Location Pulse Ox Oxygen Delivery Method Room Air Weight Weight: 71.6 kg Body Mass Index (BMI) 28.8 EEG Results Procedure Details EEG Procedure Details: TELMA MUHAMMAD is a 69 year old F with a past medical history of , who presents for evaluation of Electroencephalogram on DATE at TIME Physical Exam Narrative awake alert oriented x3 following commands RHIANNON, EMOI Face symmetric upper ext antigravity no drift lower ext no drift sensatin intact Lab / Micro Data 09/21/24 19:22 09/21/24 19:22 Labs: Laboratory Results - last 24 hr 09/21/24 19:22: WBC 5.6, RBC 4.47, Hgb 15.2 H, Hct 42.4, MCV 94.9, MCH 34.0 H, MCHC 35.8, RDW Std Deviation 39.3, RDW Coeff of Derik 11.3 L, Plt Count 267, MPV 9.8, Immature Gran % (Auto) 0.400, Neut % (Auto) 66.4, Lymph % (Auto) 21.1, [place] % (Auto) 10.4 H, Eos % (Auto) 1.3, Baso % (Auto) 0.4, Absolute Neuts (auto) 3.7, Absolute Lymphs (auto) 1.18, Nucleated RBC % 0, PT 12.7, INR 0.9, APTT 27.4, Sodium 129 L, Potassium 3.3, Chloride 92 L, Carbon Dioxide 24.4, Anion Gap 13, BUN 11, Creatinine 0.67 L, Estim Creat Clear Calc 63.59, Est GFR (MDRD) Non-Af 95, BUN/Creatinine Ratio 15.9, Glucose 114 H, Hemoglobin A1c 5.4, Calcium 9.5, Troponin T High Sens < 6 09/21/24 21:35: Troponin T Hi Sens 2 Hr < 6, Vitamin B12 488, Serum Folate 9.82, TSH 2.810, Ethyl Alcohol < 10.1 09/21/24 22:45: Urine Opiates Screen NEGATIVE, U Buprenorphine Qual NEGATIVE, Ur Oxycodone Screen NEGATIVE, Urine Methadone Screen NEGATIVE, Urine Fentanyl Screen NEGATIVE, Ur Barbiturates Screen NEGATIVE, Ur Phencyclidine Scrn NEGATIVE, Ur Amphetamines Screen NEGATIVE, U Benzodiazepines Scrn NEGATIVE, Urine Cocaine Screen NEGATIVE, U Cannabinoids Screen PRESUMPTIVE POSITIVE 09/21/24 23:17: Troponin T Hi Sens 4Hr < 6 09/22/24 04:57: Triglycerides 66, Cholesterol 198, LDL Cholesterol, Calc 131, VLDL Cholesterol 13, HDL Cholesterol 54, Cholesterol/HDL Ratio 3.68 Imaging Radiology Impression Brain CT 09/21/24 19:15 IMPRESSION: NORMAL NONCONTRAST HEAD CT. Reading Location: [facility] Head/Neck CTA 09/21/24 21:08 IMPRESSION: No large vessel occlusion. Bovine arch. Mild (20%) right carotid stenosis. Short segment of fibromuscular dysplasia of the mid right internal carotid artery. No left carotid stenosis. Patent vertebral arteries bilaterally. The right vertebral artery is hypoplastic and terminates as the right posterior inferior cerebellar artery. Reading Location: [facility] Active Medications Active Medications Active Medications: Current Medications Generic Name Dose Route Start Last Admin Trade Name Freq PRN Reason Stop Dose Admin Acetaminophen 650 mg 09/21/24 21:22 Acetaminophen 325 Mg Tablet PO Q6H PRN PRN Pain 1-10 or Fever Albuterol Sulfate 2.5 mg 09/21/24 21:22 Albuterol 2.5 Mg/3 Ml Vial.Neb. INHALATION Q4H PRN PRN shortness of breath/wheezing Albuterol/Ipratropium 3 ml 09/21/24 22:00 09/22/24 06:51 Ipratropium/Albuterol Sulfate 3 Ml Ampul.Neb INHALATION 3 ml Q6HWA.RT NIC Administration Aspirin 81 mg 09/22/24 08:00 09/22/24 09:58 Aspirin E.C. 81 Mg Tablet PO 81 mg BREAKFAST NIC Administration Atorvastatin Calcium 40 mg 09/21/24 22:00 09/21/24 22:47 Atorvastatin Calcium 40 Mg Tablet PO 40 mg QHS NIC Administration Budesonide 0.5 mg 09/21/24 22:00 09/22/24 06:51 Budesonide Respules 0.5 Mg/2 Ml Ampul.Neb. INHALATION 0.5 mg Q12H.RT NIC Administration Enoxaparin Sodium 40 mg 09/22/24 06:00 09/22/24 06:15 Enoxaparin 40 Mg/0.4 Ml Syringe SC 40 mg DAILY@0600 NIC Administration Fluoxetine HCl 40 mg 09/22/24 10:00 09/22/24 09:59 Fluoxetine Hcl 40 Mg Capsule PO 40 mg DAILY NIC Administration Sodium Chloride 100 mls @ 15 mls/hr 09/21/24 21:24 IV .Q6H40M PRN Saline Flush Sodium Chloride 100 mls @ 15 mls/hr 09/21/24 21:24 IV .Q6H40M PRN Additional IVPB Infusion Loratadine 10 mg 09/22/24 10:00 09/22/24 09:59 Loratadine 10 Mg Tablet PO 10 mg DAILY NIC Administration Montelukast Sodium 10 mg 09/22/24 22:00 Montelukast 10 Mg Tablet PO QHS NIC Pantoprazole Sodium 20 mg 09/21/24 22:00 09/22/24 09:58 Pantoprazole Sodium 20 Mg Tablet PO 20 mg BID NIC Administration Sodium Chloride 10 - 40 ml 09/21/24 21:24 0.9% Saline Lock 10 Ml Syringe IV UD PRN SALINE FLUSH NIHSS NIHSS Nursing Documentation NIHSS Nursing Documentation: NIHSS: Ischemic Stroke/TIA Start: 09/21/24 21:22 Text: For PCU Patients: NIH and Neuro Check every 4 Status: Active hours, PRN and with change in RN caregiver. Freq: [id number] Protocol: Activity Type Activity Date Activity User E-sign Co-sign Detail Recorded Client Recorded Date Recorded By Document 09/22/24 09:54 [id number] 09/22/24 09:56 09/22/24 09:54 NIH Stroke Scale [NIHSS] A score of 0 is normal or asymptomatic . Total possible score is 42. Inpatient: RN or Physician to activate a stroke alert for onset of new stroke symptoms or with NIHSS increase >/= 3 points. Following change in neurological status, NIHSS will be performed per physician order or more frequently PRN. -1a. Level of Consciousness 0 - Alert; keenly responsive -1b. LOC Questions 0 - Answers BOTH questions correctly -1c. LOC Commands 0 - Performs BOTH tasks correctly -2. Best Gaze 0 - Normal -3. Visual 0 - No visual loss -4. Facial Palsy 0 - Normal symmetrical movements -5a. Left Arm 0 - No drift; arm holds 90 ( or 45) degrees for full 10 seconds -5b. Right Arm 0 - No drift; arm holds 90 ( or 45) degrees for full 10 seconds -6a. Left Leg 0 - No drift; leg holds 30- degree position for full 5 seconds -7. Limb Ataxia 0 - Absent -8. Sensory 0 - Normal; no sensory loss -9. Best Language 0 - No aphasia; normal -10. Dysarthria 0 - Normal -11. Extinction and Inattention 0 - No abnormality -Total 0 Query Text:A score of 0 is normal or asymptomatic. Total possible score is 42 . ED: Notify Physician for NIHSS increase by > / = 3 points. Inpatient: RN or Physician to activate a stroke alert for NIHSS increase of > / = 3 points. Coma Scale [Assess] -Motor Obeys Commands -Verbal Oriented
[2024-09-22] MEDS: 0.9% Saline Lock 10 ML Syringe IV (13:39)
--- NOTE | 2024-09-22 17:53 | PN.HOSP_ITS ---
Reason for Visit Reason for Visit: Diagnoses Overweight (09/21/24) Hypo-osmolality and hyponatremia (09/21/24) Obstructive sleep apnea (adult) (pediatric) (09/21/24) Hemiplegia, unspecified affecting right dominant side (09/21/24) Essential (primary) hypertension (09/21/24) Paresthesia of skin (09/21/24) Patient's noncompliance with other medical treatment and regimen due to unspecified reason (09/21/24) Subjective Subjective Patient was seen and examined today, her blood pressure appears under control at this time, she was admitted due to paresthesias and generalized weakness in the upper and lower extremities that has been going on for approximately a week. Patient denies any visual disturbances or speech disturbances. She has an MRI of the brain ordered without contrast but I changed it to an MRI of the brain with contrast to rule out the possibility of MS. Patient has a history of sleep apnea but was intolerant of CPAP. Objective Data Objective Data Vital Signs: Vital Signs Temp Pulse Resp BP Pulse Ox O2 Del Method 98.3 F 75 17 129/64 H 97 Room Air 09/22/24 17:30 09/22/24 17:30 09/22/24 17:30 09/22/24 17:30 09/22/24 17:30 09/22/24 17:30 Oxygen Delivery Method Room Air Weight: 71.6 kg Body Mass Index (BMI) 28.8 Intake & Output: Intake and Output for Last 24 Hours 09/20/24 09/21/24 09/22/24 23:59 23:59 23:59 Intake Total 1280 / 1280 Output Total 300 / 300 Balance 980 / 980 Lab / Micro Data 09/21/24 19:22 09/21/24 19:22 Labs: Laboratory Results - last 24 hr 09/21/24 19:22: WBC 5.6, RBC 4.47, Hgb 15.2 H, Hct 42.4, MCV 94.9, MCH 34.0 H, MCHC 35.8, RDW Std Deviation 39.3, RDW Coeff of Derik 11.3 L, Plt Count 267, MPV 9.8, Immature Gran % (Auto) 0.400, Neut % (Auto) 66.4, Lymph % (Auto) 21.1, Mills % (Auto) 10.4 H, Eos % (Auto) 1.3, Baso % (Auto) 0.4, Absolute Neuts (auto) 3.7, Absolute Lymphs (auto) 1.18, Nucleated RBC % 0, PT 12.7, INR 0.9, APTT 27.4, S odium 129 L, Potassium 3.3, Chloride 92 L, Carbon Dioxide 24.4, Anion Gap 13, BUN 11, Creatinine 0.67 L, Estim Creat Clear Calc 63.59, Est GFR (MDRD) Non-Af 95, BUN/Creatinine Ratio 15.9, Glucose 114 H, Hemoglobin A1c 5.4, Calcium 9.5, Troponin T High Sens < 6 09/21/24 21:35: Troponin T Hi Sens 2 Hr < 6, Vitamin B12 488, Serum Folate 9.82, TSH 2.810, Ethyl Alcohol < 10.1 09/21/24 22:45: Urine Opiates Screen NEGATIVE, U Buprenorphine Qual NEGATIVE, Ur Oxycodone Screen NEGATIVE, Urine Methadone Screen NEGATIVE, Urine Fentanyl Screen NEGATIVE, Ur Barbiturates Screen NEGATIVE, Ur Phencyclidine Scrn NEGATIVE, Ur Amphetamines Screen NEGATIVE, U Benzodiazepines Scrn NEGATIVE, Urine Cocaine Screen NEGATIVE, U Cannabinoids Screen PRESUMPTIVE POSITIVE 09/21/24 23:17: Troponin T Hi Sens 4Hr < 6 09/22/24 04:57: Triglycerides 66, Cholesterol 198, LDL Cholesterol, Calc 131, VLDL Cholesterol 13, HDL Cholesterol 54, Cholesterol/HDL Ratio 3.68 Radiography Diagnostic Testing: Radiology Impression Brain CT 09/21/24 19:15 IMPRESSION: NORMAL NONCONTRAST HEAD CT. Reading Location: [facility] Head/Neck CTA 09/21/24 21:08 IMPRESSION: No large vessel occlusion. Bovine arch. Mild (20%) right carotid stenosis. Short segment of fibromuscular dysplasia of the mid right internal carotid artery. No left carotid stenosis. Patent vertebral arteries bilaterally. The right vertebral artery is hypoplastic and terminates as the right posterior inferior cerebellar artery. Reading Location: [facility] Physical Exam Const alert, oriented x3, no apparent distress, average body habitus and healthy appearing General Appearance: cooperative, well kempt and well developed Orientation / Consciousness: awake, oriented to person, oriented to place and oriented to time HEENT normocephalic, head/scalp atraumatic and moist oral mucous membranes Eyes PERRL, EOMs intact bilaterally and conjunctivae normal Neck supple, no JVD, thyroid normal and no carotid bruits General: trachea midline Resp normal respiratory effort, no retractions, no use of accessory muscles and clear to auscultation bilaterally Auscultation: Negative for rales, rhonchi or wheezes Cardio regular rate, regular rhythm, S1 normal heart sound, S2 normal heart sound, no murmurs, no rub and no gallops GI normal to inspection, nondistended, normoactive bowel sounds, soft to palpation, non-tender and non-distended Extremity no clubbing, cyanosis or edema Skin no rashes or lesions noted General Skin Exam: no breakdown Neuro oriented x3, CN's II-XII intact bilaterally, moves all extremities, no focal motor deficits and no sensory deficits noted Sensorium / Orientation: awake and alert Speech: speech normal Psych affect normal Assessment & Plan Assessment/Plan (1) Paresthesia of right upper and lower extremity: PLAN: Plan 1. Paresthesias of the upper and lower extremities with generalized weakness- again patient's MRI of the brain was changed to MRI with contrast to rule out MS. PT and OT will continue to see the patient #2 uncontrolled hypertension-patient's blood pressure is under control at this time, her medications for blood pressure will have to be reviewed before she is discharged #3 obstructive sleep apnea-intolerant of PAP therapy-complicates care, management, recovery, and prognosis #4 chronic depression-patient is on Prozac #5 asthma-COPD overlap syndrome-patient does see pulmonary medicine, she is on inhalers-it appears she uses Breo and Incruse Total clinical time spent by myself addressing the patient's medical issues, reviewing all of her data, and collaborating with patient's care team: 35 minutes Charges/Coding Visit Charges Inpatient E&M: 87406 Subs Hosp L2 NIHSS NIHSS Nursing Documentation NIHSS Nursing Documentation: NIHSS: Ischemic Stroke/TIA Start: 09/21/24 21:22 Text: For PCU Patients: NIH and Neuro Check every 4 Status: Active hours, PRN and with change in RN caregiver. Freq: [id number] Protocol: Activity Type Activity Date Activity User E-sign Co-sign Detail Recorded Client Recorded Date Recorded By Document 09/22/24 17:30 [id number] 09/22/24 17:38 09/22/24 17:30 NIH Stroke Scale [NIHSS] A score of 0 is normal or asymptomatic . Total possible score is 42. Inpatient: RN or Physician to activate a stroke alert for onset of new stroke symptoms or with NIHSS increase >/= 3 points. Following change in neurological status, NIHSS will be performed per physician order or more frequently PRN. -1a. Level of Consciousness 0 - Alert; keenly responsive -1b. LOC Questions 0 - Answers BOTH questions correctly -1c. LOC Commands 0 - Performs BOTH tasks correctly -2. Best Gaze 0 - Normal -3. Visual 0 - No visual loss -4. Facial Palsy 0 - Normal symmetrical movements -5a. Left Arm 0 - No drift; arm holds 90 ( or 45) degrees for full 10 seconds -5b. Right Arm 0 - No drift; arm holds 90 ( or 45) degrees for full 10 seconds -6a. Left Leg 0 - No drift; leg holds 30- degree position for full 5 seconds -6b. Right Leg 0 - No drift; leg holds 30- degree position for full 5 seconds -7. Limb Ataxia 0 - Absent -8. Sensory 0 - Normal; no sensory loss -9. Best Language 0 - No aphasia; normal -10. Dysarthria 0 - Normal -11. Extinction and Inattention 0 - No abnormality -Total 0 Query Text:A score of 0 is normal or asymptomatic. Total possible score is 42 . ED: Notify Physician for NIHSS increase by > / = 3 points. Inpatient: RN or Physician to activate a stroke alert for NIHSS increase of > / = 3 points. Coma Scale [Assess] -Eye Opening Spontaneous -Motor Obeys Commands -Verbal Oriented [Total] -Coma Scale Total 15
[2024-09-22] MEDS: Montelukast 10 MG Tablet PO (21:41)
[2024-09-22] MEDS: Atorvastatin Calcium 40 MG Tablet PO (21:41)
[2024-09-23] VITALS (8 sets, daily range): BP systolic 136–154; BP diastolic 54–88; PULSE 70–89; RESP 16–22; TEMP 36.7–37.1; O2SAT 95–99; BMI 28.8
--- NOTE | 2024-09-23 00:13 | EKG12_ITS ---
Test Reason : CP Blood Pressure : */* mmHG Vent. Rate : 86 BPM Atrial Rate : 86 BPM P-R Int : 136 ms QRS Dur : 90 ms QT Int : 404 ms P-R-T Axes : 39 54 32 degrees QTcB Int : 483 ms Normal sinus rhythm Nonspecific ST abnormality Abnormal ECG When compared with ECG of 21-Sep-2024 19:24, MANUAL COMPARISON REQUIRED DATA IS UNCONFIRMED Confirmed by ELLIOT BRADLEY, RYLEE ([id number]), deputy editor in chief HILARIA REESE ([id number]) on 09/26/2024 1:35:53 PM Referred By: David Roberson Confirmed By: RYLEE ZARATE MD
[2024-09-23 00:28] LABS: Bedside Glucose 108 mg/dL (74-106)
[2024-09-23] MEDS: Lorazepam 2 MG/ML WCH Syringe 0.5 MG IV (00:32)
[2024-09-23] MEDS: 0.9% Saline Lock 10 ML Syringe IV (00:32)
--- NOTE | 2024-09-23 00:40 | NURSING ---
pt rand out because she felt shaky and like her rt leg was asleep, she also states that her jaw feltodd, like she has to bite down on something, pt is anxious and worried about lots of different things in life ekg obtained, dr ventura notified. will monitor
[2024-09-23] MEDS: Enoxaparin 40 MG/0.4 ML Syringe SC (05:27)
[2024-09-23] MEDS: Budesonide Respules 0.5 MG/2 ML AMPUL.NEB. INHALATION (06:54)
[2024-09-23] MEDS: Ipratropium/Albuterol Sulfate 3 ML AMPUL.NEB INHALATION ×2 (06:54→12:13)
[2024-09-23] MEDS: Loratadine 10 MG Tablet PO (07:56)
[2024-09-23] MEDS: Pantoprazole Sodium 20 MG Tablet PO (07:56)
[2024-09-23] MEDS: Aspirin E.C. 81 MG Tablet PO (07:56)
[2024-09-23] MEDS: Fluoxetine HCl 40 MG CAPSULE PO (07:56)
--- NOTE | 2024-09-23 09:42 | MRI_ITS ---
PROCEDURE: SPINE CERVICAL W/WO CONTRAST 09/23/2024 REASON FOR EXAM: SPINAL STENOSIS TECHNIQUE: Multiplanar multisequence MRI cervical spine was performed with and without IV contrast. CONTRAST: Clariscan VOLUME: 15 mL COMPARISON: 09/21/2024 FINDINGS: Variable overall moderate motion limitation. Cervical vertebral body heights are preserved. Degenerative type marrow signal changes, greatest at C5-C7. Straightening of the normal cervical lordosis may be positional, degenerative, or related to pain/muscular spasm.. No definite cord signal abnormality or abnormal enhancement allowing for limitations. Diffuse disc desiccation. Additional level by level degenerative findings as below acknowledging evaluation is again limited by motion. C2-3: Unremarkable. C3-4: Minimal disc bulging. No significant foraminal or spinal canal stenosis. C4-5: Mild/moderate disc height loss.. Broad-based predominantly posterior disc bulging, slightly asymmetric to the LEFT. Mild focal spinal canal stenosis with incomplete effacement of CSF and without cord contour abnormality. Suspect mild facet/uncovertebral arthropathy. Suspect mild LEFT foraminal stenosis, difficult to evaluate due to motion. C5-6: Moderate disc height loss. Diffuse disc bulging. Mild/moderate focal spinal canal stenosis, with incomplete effacement of CSF. No cord contour abnormality. Suspect facet/uncovertebral arthropathy. Mild ligamentum flavum hypertrophy. Suspect mild RIGHT and at least moderate LEFT foraminal stenosis, difficult to evaluate due to motion artifact on T2. C6-7: [id number] disc height loss with diffuse disc bulging. Suspect mild facet/uncovertebral arthropathy. Mild/moderate focal spinal canal stenosis with incomplete effacement of CSF. No definite cord contour abnormality. Suspect mild/moderate LEFT and mild RIGHT foraminal stenoses, difficult to evaluate due to motion. C7-T1: Mild/moderate disc height loss. Mild diffuse disc bulging. No significant focal spinal canal or foraminal stenosis evident allowing for limitations. Other: None. MRI/Spine Cervical W/WO Contrast IMPRESSION: 1. Somewhat limited exam. 2. Multilevel spondylosis as above, greatest at C5-C7. No high grade spinal ca nal or foraminal stenoses identified, allowing for limitations. 3. No definite cord signal abnormality or abnormal enhancement to suggest a dem yelinating process. 4. Additional description as above. Reading Location: [id number]
--- NOTE | 2024-09-23 10:00 | MRI_ITS ---
PROCEDURE: BRAIN W/WO CONTRAST (MRIBRWW), 09/23/2024 REASON FOR EXAM: WEAKNESS WITH PARESTHESIAS-RULE OUT MS,STROKE COMPARISON: 09/21/2024 TECHNIQUE: Multisequence multiplanar MRI brain was performed with and without intravenous contrast. Contrast: 15 mL Clariscan. FINDINGS: Cerebrum: Unremarkable. Cerebellum: Unremarkable. Brainstem: Unremarkable. Ventricles/extra-axial spaces: Similar prominence of the extra-axial spaces over the bilateral cerebral convexities. No ventriculomegaly. Major flow voids: Grossly unremarkable within limits of nondedicated technique. Paranasal sinuses: Trace to mild mucosal thickening in the ethmoid air cells.. Scalp/calvarium: Unremarkable. Orbits: Grossly unremarkable within limits of nondedicated technique. Other: No abnormal enhancement. MRI/Brain W/WO Contrast IMPRESSION: 1. No findings to suggest acute infarct or a demyelinating process such as MS. 2. Additional description as above. Reading Location: [id number]
--- NOTE | 2024-09-23 11:11 | CASEMGMT ---
Met with patient to complete MURILLO form. MURILLO form explained to patient who voiced understanding and signed form. Original form placed in pt?s chart and copy provided to patient. Afshan Robert, Discharge Planning Asst
--- NOTE | 2024-09-23 12:41 | STROKE.CONS ---
Assessment and Plan: Stroke Assessment/Plan TELMA MUHAMMAD is a 69 F with a history of HTN who presents for evaluation of BLE numbness. Neurological examination shows NIH 0. Neuroimaging shows no acute stroke Dx Peripheral Neuropahty. Resolved No further work up If sx re occur outpatient EMG SL HPI Consult Data Date of Consult: 09/23/24 HPI Narrative HPI Narrative: TELMA MUHAMMAD, is a 69 F who presents [facility] Medical History Wears glasses Cancer Post-menopausal Alcohol use Arthritis History of hiatal hernia History of diverticulitis Gastric reflux COPD (chronic obstructive pulmonary disease) CPAP (continuous positive airway pressure) dependence Constipation Nausea Hypercholesteremia LLQ pain HTN (hypertension) Depression Asthma Abdominal pain Thyroid disorder Diabetes mellitus Home Medications ?Medication ?Instructions ?Recorded ?Last Taken ?Type metoprolol tartrate 50 mg tablet 50 mg PO BID blood pressure 11/18/16 03/06/23 History fluoxetine 20 mg capsule 40 mg PO DAILY depression 08/03/20 Unknown History omeprazole 20 mg capsule,delayed 20 mg PO BID GERD 03/01/23 03/06/23 History release loratadine 10 mg tablet 10 mg PO DAILY #90 tabs 10/04/23 Unknown Rx albuterol sulfate 90 mcg/actuation 2 puff inhalation Q4H PRN 04/08/24 Unknown Rx aerosol inhaler shortness of breath or wheezing #8.5 grams ergocalciferol (vitamin D2) 1,250 1,250 mcg PO QWEEK 04/08/24 Unknown History mcg (50,000 unit) capsule fluticasone furoate 200 1 inh inhalation QDAY #3 ea 04/08/24 Unknown Rx mcg-vilanterol 25 mcg/dose inhalation powder (Breo Ellipta) montelukast 10 mg tablet 10 mg PO DAILY allergies #90 tabs 04/08/24 Unknown Rx umeclidinium 62.5 mcg/actuation 1 inh inhalation QDAY COPD #3 ea 04/08/24 Unknown Rx blister powder for inhalation (Incruse Ellipta) amlodipine 10 mg tablet 10 mg PO QHS blood pressure 09/21/24 Unknown History hydrochlorothiazide 25 mg tablet 25 mg PO DAILY blood pressure 09/21/24 Unknown History lisinopril 40 mg tablet 40 mg PO DAILY blood presssure 09/21/24 Unknown History Allergy/AdvReac Type Severity Reaction Status Date / Time erythromycin base Allergy Unknown Verified 09/21/24 18:51 Penicillins Allergy Unknown Verified 09/21/24 18:51 sulfamethoxazole (From Allergy Unknown Verified 09/21/24 18:51 Bactrim) tetracycline Allergy Unknown Verified 09/21/24 18:51 trimethoprim (From Bactrim) Allergy Unknown Verified 09/21/24 18:51 cefdinir AdvReac Mild Upset Verified 09/21/24 18:51 stomach metronidazole (From Flagyl) AdvReac Nausea Verified 09/21/24 18:51 Family History Brother Cancer Hypertension Mother Breast cancer Dementia Surgical History S/P laparoscopic cholecystectomy History of esophagogastroduodenoscopy (EGD) Hx of colonoscopy History of left hip replacement Social History household members: spouse Smoking Status: Never smoker second hand exposure: No alcohol intake: former substance use type: does not use caffeine: Yes Type: coffee Number of servings: 1 what type of physical activity do you participate in: none Vital Signs Vital Signs Vital Signs: 09/22/24 13:14 09/22/24 13:32 09/22/24 13:47 Temperature 98.5 F Temperature Source Oral Pulse Rate 58 L 67 Pulse Strength Respiratory Rate 18 16 Respiratory Pattern Normal Blood Pressure 134/90 H Blood Pressure Mean 104 Blood Pressure Source Monitor Blood Pressure Position Semi-Fowlers Blood Pressure Location Right Arm Pulse Ox 97 Oxygen Delivery Method Room Air Room Air 09/22/24 17:30 09/22/24 19:57 09/22/24 19:57 Temperature 98.3 F Temperature Source Oral Pulse Rate 75 73 Pulse Strength Respiratory Rate 17 12 Respiratory Pattern Normal Blood Pressure 129/64 H Blood Pressure Mean 85 Blood Pressure Source Monitor Blood Pressure Position Semi-Fowlers Blood Pressure Location Right Arm Pulse Ox 97 97 Oxygen Delivery Method Room Air Room Air 09/22/24 22:00 09/22/24 22:00 09/22/24 22:00 Temperature 98 F Temperature Source Temporal Pulse Rate 73 Pulse Strength Normal (2+) Respiratory Rate 17 Respiratory Pattern Blood Pressure 147/71 H Blood Pressure Mean 96 Blood Pressure Source Monitor Blood Pressure Position Semi-Fowlers Blood Pressure Location Right Arm Pulse Ox 97 Oxygen Delivery Method Room Air Room Air 09/23/24 02:00 09/23/24 05:22 09/23/24 05:26 Temperature 98.1 F 98.6 F 98.6 F Temperature Source Temporal Oral Oral Pulse Rate 87 70 70 Pulse Strength Respiratory Rate 22 H 18 18 Respiratory Pattern Blood Pressure 144/76 H 145/88 H 154/88 H Blood Pressure Mean 98 107 110 Blood Pressure Source Monitor Blood Pressure Position Supine Blood Pressure Location Left Arm Pulse Ox 98 98 98 Oxygen Delivery Method Room Air Room Air Room Air 09/23/24 06:55 09/23/24 06:55 09/23/24 07:51 Temperature 98.7 F Temperature Source Oral Pulse Rate 78 89 Pulse Strength Respiratory Rate 16 16 Respiratory Pattern Normal Blood Pressure 136/57 H Blood Pressure Mean 83 Blood Pressure Source Monitor Blood Pressure Position Semi-Fowlers Blood Pressure Location Right Arm Pulse Ox 98 96 Oxygen Delivery Method Room Air Room Air 09/23/24 07:55 09/23/24 08:17 09/23/24 12:14 Temperature Temperature Source Pulse Rate 86 Pulse Strength Normal (2+) Respiratory Rate 18 Respiratory Pattern Normal Blood Pressure Blood Pressure Mean Blood Pressure Source Blood Pressure Position Blood Pressure Location Pulse Ox Oxygen Delivery Method Room Air Weight Weight: 71.6 kg Body Mass Index (BMI) 28.8 EEG Results Procedure Details EEG Procedure Details: TELMA MUHAMMAD is a 69 year old F with a past medical history of , who presents for evaluation of Electroencephalogram on DATE at TIME Lab / Micro Data 09/21/24 19:22 09/21/24 19:22 Labs: Laboratory Results - last 24 hr 09/23/24 00:09: POC Glucose 108 H Imaging Radiology Impression Carotid Duplex 09/21/24 21:22 Interpretation Summary Moderate (50-69%) stenosis right extracranial internal carotid. Mild (<50%) stenosis left extracranial internal carotid. Patent and antegrade vertebrals bilaterally. Ordering Physician: Jerad Rodriguez Referring Physician: David Roberson Performed By: Char Longoria, [place], RVT Cervical Spine MRI 09/23/24 09:42 IMPRESSION: 1. Somewhat limited exam. 2. Multilevel spondylosis as above, greatest at C5-C7. No high grade spinal canal or foraminal stenoses identified, allowing for limitations. 3. No definite cord signal abnormality or abnormal enhancement to suggest a demyelinating process. 4. Additional description as above. Reading Location: [facility] Brain MRI 09/23/24 10:00 IMPRESSION: 1. No findings to suggest acute infarct or a demyelinating process such as MS. 2. Additional description as above. Reading Location: [facility] Active Medications Active Medications Active Medications: Current Medications Generic Name Dose Route Start Last Admin Trade Name Freq PRN Reason Stop Dose Admin Acetaminophen 650 mg 09/21/24 21:22 Acetaminophen 325 Mg Tablet PO Q6H PRN PRN Pain 1-10 or Fever Albuterol Sulfate 2.5 mg 09/21/24 21:22 Albuterol 2.5 Mg/3 Ml Vial.Neb. INHALATION Q4H PRN PRN shortness of breath/wheezing Albuterol/Ipratropium 3 ml 09/21/24 22:00 09/23/24 12:13 Ipratropium/Albuterol Sulfate 3 Ml Ampul.Neb INHALATION 3 ml Q6HWA.RT NIC Administration Aspirin 81 mg 09/22/24 08:00 09/23/24 07:56 Aspirin E.C. 81 Mg Tablet PO 81 mg BREAKFAST NIC Administration Atorvastatin Calcium 40 mg 09/21/24 22:00 09/22/24 21:41 Atorvastatin Calcium 40 Mg Tablet PO 40 mg QHS NIC Administration Budesonide 0.5 mg 09/21/24 22:00 09/23/24 06:54 Budesonide Respules 0.5 Mg/2 Ml Ampul.Neb. INHALATION 0.5 mg Q12H.RT NIC Administration Enoxaparin Sodium 40 mg 09/22/24 06:00 09/23/24 05:27 Enoxaparin 40 Mg/0.4 Ml Syringe SC 40 mg DAILY@0600 NIC Administration Fluoxetine HCl 40 mg 09/22/24 10:00 09/23/24 07:56 Fluoxetine Hcl 40 Mg Capsule PO 40 mg DAILY NIC Administration Sodium Chloride 100 mls @ 15 mls/hr 09/21/24 21:24 IV .Q6H40M PRN Saline Flush Sodium Chloride 100 mls @ 15 mls/hr 09/21/24 21:24 IV .Q6H40M PRN Additional IVPB Infusion Loratadine 10 mg 09/22/24 10:00 09/23/24 07:56 Loratadine 10 Mg Tablet PO 10 mg DAILY NIC Administration Montelukast Sodium 10 mg 09/22/24 22:00 09/22/24 21:41 Montelukast 10 Mg Tablet PO 10 mg QHS NIC Administration Pantoprazole Sodium 20 mg 09/21/24 22:00 09/23/24 07:56 Pantoprazole Sodium 20 Mg Tablet PO 20 mg BID NIC Administration Sodium Chloride 10 - 40 ml 09/21/24 21:24 09/23/24 00:32 0.9% Saline Lock 10 Ml Syringe IV 20 ml UD PRN Administration SALINE FLUSH NIHSS NIHSS Nursing Documentation NIHSS Nursing Documentation: NIHSS: Ischemic Stroke/TIA Start: 09/21/24 21:22 Text: For PCU Patients: NIH and Neuro Check every 4 Status: Complete hours, PRN and with change in RN caregiver. Freq: [id number] Protocol: Activity Type Activity Date Activity User E-sign Co-sign Detail Recorded Client Recorded Date Recorded By Document 09/23/24 07:52 [id number] 09/23/24 07:54 SS 09/23/24 07:52 NIH Stroke Scale [NIHSS] A score of 0 is normal or asymptomatic . Total possible score is 42. Inpatient: RN or Physician to activate a stroke alert for onset of new stroke symptoms or with NIHSS increase >/= 3 points. Following change in neurological status, NIHSS will be performed per physician order or more frequently PRN. -1a. Level of Consciousness 0 - Alert; keenly responsive -1b. LOC Questions 0 - Answers BOTH questions correctly -1c. LOC Commands 0 - Performs BOTH tasks correctly -2. Best Gaze 0 - Normal -3. Visual 0 - No visual loss -4. Facial Palsy 0 - Normal symmetrical movements -5a. Left Arm 0 - No drift; arm holds 90 ( or 45) degrees for full 10 seconds -5b. Right Arm 0 - No drift; arm holds 90 ( or 45) degrees for full 10 seconds -6a. Left Leg 0 - No drift; leg holds 30- degree position for full 5 seconds -6b. Right Leg 0 - No drift; leg holds 30- degree position for full 5 seconds -7. Limb Ataxia 0 - Absent -8. Sensory 1 - Mild-to- moderate sensory loss; -9. Best Language 0 - No aphasia; normal -10. Dysarthria 0 - Normal -11. Extinction and Inattention 0 - No abnormality -Total 1 Query Text:A score of 0 is normal or asymptomatic. Total possible score is 42 . ED: Notify Physician for NIHSS increase by > / = 3 points. Inpatient: RN or Physician to activate a stroke alert for NIHSS increase of > / = 3 points. Coma Scale [Assess] -Eye Opening Spontaneous -Motor Obeys Commands -Verbal Oriented [Total] -Coma Scale Total 15
--- NOTE | 2024-09-23 16:32 | PCM.DC ---
Discharge Instructions Diet Discharge Diet: Low fat / Low cholesterol DC O2, CPAP, BIPAP needs Home O2 Discharge instructions: No Dressing / Incision Discharge Activity: Return to Normal Activity May resume sexual activity in: No Restrictions Weight Bearing Status: Weight bearing as tolerated Dressing / Incision Call your doctor if you observe: Fever of 101 or Higher, Shortness of breath, Dizziness, Swelling in the ankles and Chest pain Follow Up Care Test Results: Test results from this visit will be discussed in further detail at your follow-up appointment, if applicable. Discharge Plan Admission Admit Date/Time: 09/21/24 20:59 Primary Reason for Your Visit: intermittent neuropathy Attending Provider: Radha Murray Primary Care Provider: Maggi Dorsey Consulting Providers: Enrico Santos; Carlos Harmon; Elyssa Lloyd; Saida Walters; Stefany Cantu; Braxton Choi; Esther Yu; Jaime Mccray; Felipe Perez; Matt Sal; Caitlin Contreras; Migue Ibanez; Domitila Cantrell; lAec Malik; Roseline Gonzalez; Niranjan Briones; Arturo Khanna; Hao Rodriguez; Caroline Guzman; Sriram Powell; Jerad Rodriguez; Erik Moreno Instructions Patient Instructions: What Is Peripheral Neuropathy Discharge Orders/Prescriptions Prescriptions: New aspirin 81 mg Tablet,Delayed Release (Dr/Ec) 81 mg PO BREAKFAST Qty: 30 1RF Continued loratadine 10 mg tablet 10 mg PO DAILY Qty: 90 3RF ergocalciferol (vitamin D2) 1,250 mcg (50,000 unit) capsule 1,250 mcg PO QWEEK albuterol sulfate 90 mcg/actuation HFA aerosol inhaler 2 puff INHALATION Q4H PRN (Reason: shortness of breath or wheezing) Qty: 8.5 6RF Rx Instructions: administer with spacer Incruse Ellipta 62.5 mcg/actuation blister with device 1 inh INHALATION QDAY Qty: 3 4RF montelukast 10 mg tablet 10 mg PO DAILY Qty: 90 3RF Breo Ellipta 200-25 mcg/dose blister with device 1 inh INHALATION QDAY Qty: 3 4RF Rx Instructions: after inhalation, rinse mouth with water and spit out; do not swallow fluoxetine 20 mg capsule 40 mg PO DAILY metoprolol tartrate 50 MG tablet 50 mg PO BID omeprazole 20 mg capsule,delayed release(DR/EC) 20 mg PO BID Patient Comments: TAKE 1 CAPSULE BY MOUTH TWICE A DAY BEFORE MORNING AND EVENING MEALS amlodipine 10 mg tablet 10 mg PO QHS hydrochlorothiazide 25 mg tablet 25 mg PO DAILY lisinopril 40 mg tablet 40 mg PO DAILY Referrals / Follow Up: Maggi Dorsey MD [Primary Care Provider] - Within 1 Week Disposition Disposition (needs filled in before D/C Order can be placed): Home, Self Care
--- NOTE | 2024-09-23 16:33 | PCM.DC.SUM ---
Providers Date of Admission: 09/21/24 Date of Discharge: 09/23/24 Primary Care Physician: Maggi Dorsey MD Consultations 09/21/24 21:22 Consult: Tele-Neurology Routine Consulting Provider: [facility] Reason for Consult: Acute Ischemic Stroke/TIA EMERGENT Consult: No MD Notified: Yes Date Notified: 09/21/24 Time Notified: 22:13 Method of Notification: Answering Service Method of Consult:: Telemedicine Nursing Unit Staff Notify [facility] of Tele-Neurology Consult: Yes Reason For Visit: INTERMITTENT RUE WEAKNESS AND NUMBNESS Diagnosis Discharge Diagnosis (1) Paresthesia of right upper and lower extremity: Status: Acute Code(s): R20.2 - Paresthesia of skin Medications at Discharge Home Medications metoprolol tartrate 50 mg tablet 50 mg PO BID blood pressure 11/18/16 fluoxetine 20 mg capsule 40 mg PO DAILY depression 08/03/20 omeprazole 20 mg capsule,delayed release 20 mg PO BID GERD 03/01/23 loratadine 10 mg tablet 10 mg PO DAILY #90 tabs 10/04/23 albuterol sulfate 90 mcg/actuation aerosol inhaler 2 puff inhalation Q4H PRN shortness of breath or wheezing #8.5 grams 04/08/24 ergocalciferol (vitamin D2) 1,250 mcg (50,000 unit) capsule 1,250 mcg PO QWEEK 04/08/24 fluticasone furoate 200 mcg-vilanterol 25 mcg/dose inhalation powder (Breo Ellipta) 1 inh inhalation QDAY #3 ea 04/08/24 montelukast 10 mg tablet 10 mg PO DAILY allergies #90 tabs 04/08/24 umeclidinium 62.5 mcg/actuation blister powder for inhalation (Incruse Ellipta) 1 inh inhalation QDAY COPD #3 ea 04/08/24 amlodipine 10 mg tablet 10 mg PO QHS blood pressure 09/21/24 hydrochlorothiazide 25 mg tablet 25 mg PO DAILY blood pressure 09/21/24 lisinopril 40 mg tablet 40 mg PO DAILY blood presssure 09/21/24 aspirin 81 mg tablet,delayed release 81 mg PO BREAKFAST #30 tabs 09/23/24 Hospital Course Operations None Procedures None Summary of Care Provided Minutes Spent on Discharge: 55 Hospital Course: Patient is a 69-year-old female with past medical history as outlined including hypertension and a history of depression and anxiety who was admitted through the ED on 09/21/2024 with complaint of right upper extremity weakness and numbness as well as elevated blood pressure. Symptoms have been going on for about a week prior to admission and she admitted to dizziness and paresthesia in all her extremities. The symptoms were intermittent. noticed some clumsiness and weakness in her right upper extremity and blood pressure was elevated in the 180s so they came in for review. CT of the brain showed no acute intracranial pathology. She was admitted to be managed for strokelike symptoms to rule out stroke as well as poorly controlled hypertension. Neurology was consulted. Patient had MRI of the brain with and without contrast which did not show any evidence of acute pathology. She also had cervical spine MRI which showed evidence of moderate cervical stenosis. This could also be contributing to her symptoms. Symptoms however resolved while in the hospital and she felt better. Her blood pressure control also improved. Patient was worried that she had severe anxiety and depression and this could also be contributing to her symptoms. She was counseled to follow-up with her PCP for management of this. She was discharged home on 09/23/2024. She had 2D echo which showed EF of 65% with stage I diastolic dysfunction and moderately enlarged left atrium and increased turbulence and flow in the pulmonary artery with recommendation for cardiac MRI for evaluation of possible shunts. She is follow-up with her PCP for this cardiac MRI to be ordered as deemed necessary. Patient seen and examined prior to discharge. Her daughter was by her bedside. She denied any numbness or tingling at that time. Review of systems otherwise negative. Labs and vitals reviewed. Home medication reviewed and reconciled. Physical Exam Const alert, oriented x3 and no apparent distress General Appearance: cooperative, comfortable and anxious Orientation / Consciousness: awake Exam Limitations: no limitations HEENT normocephalic, head/scalp atraumatic, hearing grossly normal bilaterally, moist oral mucous membranes and oropharynx normal Mouth: oral and palatal mucosa normal Eyes PERRL, EOMs intact bilaterally and conjunctivae normal Neck no lymphadenopathy and supple Resp normal respiratory effort, no retractions, no use of accessory muscles and clear to auscultation bilaterally Cardio regular rate, regular rhythm, S1 normal heart sound, S2 normal heart sound and no murmurs Extremity normal to inspection, full ROM and no clubbing, cyanosis or edema Skin no rashes or lesions noted Neuro oriented x3, CN's II-XII intact bilaterally, moves all extremities and no focal motor deficits Sensorium / Orientation: awake and alert Motor Exam: strength 5/5 throughout Psych affect normal Weight / BMI Weight Weight: 157 lb 13.616 oz Body Mass Index (BMI) 28.8 ABG / Lab / Microbiology Data 09/21/24 19:22 09/21/24 19:22 Laboratory: Laboratory Results - last 24 hr 09/23/24 00:09: POC Glucose 108 H Microbiology: Microbiology 09/23/24 11:29 Mucosa - Nasopharyngeal Respiratory Panel (PCR) - Final Radiography Diagnostic Testing: Radiology Impression Carotid Duplex 09/21/24 21:22 Interpretation Summary Moderate (50-69%) stenosis right extracranial internal carotid. Mild (<50%) stenosis left extracranial internal carotid. Patent and antegrade vertebrals bilaterally. Ordering Physician: Jerad Rodriguez Referring Physician: David Roberson Performed By: Char Longoria RDCS, RVT Echocardiogram 09/21/24 21:22 Interpretation Summary The LV systolic function is normal. EF is 65 %. Stage 1 diastolic dysfunction. The left atrium is moderately enlarged. Mild mitral annular calcification. Increased turbulence and flow in the pulmonary artery. Recommend cardiac MRI for evaluation for possible shunts. Ordering Physician: Jerad Rodriguez Referring Physician: David Roberson Performed By: Saira Rubi RDCS Cervical Spine MRI 09/23/24 09:42 IMPRESSION: 1. Somewhat limited exam. 2. Multilevel spondylosis as above, greatest at C5-C7. No high grade spinal canal or foraminal stenoses identified, allowing for limitations. 3. No definite cord signal abnormality or abnormal enhancement to suggest a demyelinating process. 4. Additional description as above. Reading Location: [facility] Brain MRI 09/23/24 10:00 IMPRESSION: 1. No findings to suggest acute infarct or a demyelinating process such as MS. 2. Additional description as above. Reading Location: [facility] D/C Instructions Discharge Diet: Low fat / Low cholesterol Discharge Activity: Return to Normal Activity May resume sexual activity in: No Restrictions Weight Bearing Status: Weight bearing as tolerated Call your doctor if you observe: Fever of 101 or Higher, Shortness of breath, Dizziness, Swelling in the ankles and Chest pain DC O2, CPAP, BIPAP Needs Home O2 Discharge instructions: No DC home with Oxygen: No Meaningful Use Info Meaningful Use Meaningful Use Diagnoses (Choose all that apply): None applicable Ischemic Stroke Statin Dosing Therapy Reference: STATIN DOSE THERAPY REFERENCE: * Patients > 75 years receive moderate or high dose statin therapy. * Patients 75 years or YOUNGER should receive HIGH intensity statin dose unless contraindicated. You will be required to document reason for non-treatment if statin daily dose does not meet guidelines. HIGH DOSE STATIN THERAPY DAILY Atorvastatin > than or = to 40 mg Rosuvastatin > than or = to 20 mg Amlodipine + Atorvastatin > than or = to 2.5/40 mg Ezetimibe + Simvastatin 10/80 mg Simvastatin 80mg Discharge Plan Admission Admit Date/Time: 09/21/24 20:59 Primary Reason for Your Visit: intermittent neuropathy Attending Provider: Radha Murray Primary Care Provider: Maggi Dorsey Consulting Providers: Enrico Santos; Carlos Harmon; Elyssa Lloyd; Saida Walters; Stefany Cantu; Braxton Choi; Esther Yu; Jaime Mccray; Felipe Perez; Matt Sal; Caitlin Contreras; Migue Ibanez; Domitila Cantrell; Alec Malik; Roseline Gonzalez; Niranjan Briones; Arturo Khanna; Hao Rodriguez; Caroline Guzman; Sriram Powell; Jerad Rodriguez; Erik Moreno Instructions Patient Instructions: What Is Peripheral Neuropathy Discharge Orders/Prescriptions Prescriptions: New aspirin 81 mg Tablet,Delayed Release (Dr/Ec) 81 mg PO BREAKFAST Qty: 30 1RF Continued loratadine 10 mg tablet 10 mg PO DAILY Qty: 90 3RF ergocalciferol (vitamin D2) 1,250 mcg (50,000 unit) capsule 1,250 mcg PO QWEEK albuterol sulfate 90 mcg/actuation HFA aerosol inhaler 2 puff INHALATION Q4H PRN (Reason: shortness of breath or wheezing) Qty: 8.5 6RF Rx Instructions: administer with spacer Incruse Ellipta 62.5 mcg/actuation blister with device 1 inh INHALATION QDAY Qty: 3 4RF montelukast 10 mg tablet 10 mg PO DAILY Qty: 90 3RF Breo Ellipta 200-25 mcg/dose blister with device 1 inh INHALATION QDAY Qty: 3 4RF Rx Instructions: after inhalation, rinse mouth with water and spit out; do not swallow fluoxetine 20 mg capsule 40 mg PO DAILY metoprolol tartrate 50 MG tablet 50 mg PO BID omeprazole 20 mg capsule,delayed release(DR/EC) 20 mg PO BID Patient Comments: TAKE 1 CAPSULE BY MOUTH TWICE A DAY BEFORE MORNING AND EVENING MEALS amlodipine 10 mg tablet 10 mg PO QHS hydrochlorothiazide 25 mg tablet 25 mg PO DAILY lisinopril 40 mg tablet 40 mg PO DAILY Referrals / Follow Up: Maggi Dorsey MD [Primary Care Provider] - Within 1 Week Disposition Disposition (needs filled in before D/C Order can be placed): Home, Self Care Charges/Coding Visit Charges Inpatient E&M: 34870 Disch Hosp >30min
== END 2024-09-23 16:32 | disposition home or self-care (01) ==
LOC: ED 20:34 → PCU 20:45
PROVIDERS: Internal Medicine; Admitting Provider Internal Medicine; Emergency Provider Emergency Medicine; PCP Family Medicine; Referring Provider Emergency Medicine; Visit Provider Student in an Organized Health Care Education/Training Program
DX: R20.2 Paresthesia of skin (principal); G81.91 Hemiplegia, unspecified affecting right dominant side; J44.9 Chronic obstructive pulmonary disease, unspecified; E87.1 Hypo-osmolality and hyponatremia; R42 Dizziness and giddiness; F41.9 Anxiety disorder, unspecified; G47.33 Obstructive sleep apnea (adult) (pediatric); E66.3 Overweight; Z79.51 Long term (current) use of inhaled steroids; Z79.82 Long term (current) use of aspirin; K21.9 Gastro-esophageal reflux disease without esophagitis; Z91.199 Patient's noncompliance with other medical treatment and regimen due to unspecified reason; Z82.49 Family history of ischemic heart disease and other diseases of the circulatory system; R29.700 NIHSS score 0; Z68.28 Body mass index [BMI] 28.0-28.9, adult; R29.898 Other symptoms and signs involving the musculoskeletal system; I10 Essential (primary) hypertension; E78.00 Pure hypercholesterolemia, unspecified; M48.02 Spinal stenosis, cervical region; F32.A Depression, unspecified; Z87.19 Personal history of other diseases of the digestive system; Z79.899 Other long term (current) drug therapy; Z90.49 Acquired absence of other specified parts of digestive tract; R53.1 Weakness
CPT/HCPCS: 36415; 70450; 70496; 70498; 70553; 72156; 80048; 80061; 80307; 82077; 82607; 82746; 82962; 83036; 84443; 84484; 85025; 85610; 85730; 87633; 92522; 93005; 93306; 93880; 94640; 94762; 96372; 96374; 97162; 97165; 97802; 99221; 99285; 99406; A9575; Q9967; A4216; G0378

== ENCOUNTER → 2024-10-28 | Outpatient (CLI) | payer MEDICARE, OTHER, SELFPAY | END | disposition home or self-care (01) | LOC: PSN 08:06 | PROVIDERS: PCP Family Medicine; Referring Provider Nurse Practitioner Acute Care; Visit Provider Nurse Practitioner Acute Care | DX: J44.9 Chronic obstructive pulmonary disease, unspecified (principal) | CPT/HCPCS: 94060; 94726; 94729 ==

== ENCOUNTER → 2024-11-05 | Outpatient (CLI) | payer MEDICARE, OTHER, SELFPAY ==
[2024-11-05 08:15] VITALS: PULSE 61; PULSE 66; PULSE 73; PULSE 75; PULSE 77; PULSE 81; O2SAT 95; O2SAT 96; O2SAT 97; O2SAT 98; O2SAT 99
--- NOTE | 2024-11-08 12:26 | PCM.PSN.6M ---
PSN 6 Minute Walk Test 6 Minute Walk Test 6 Minute Walk Test: 6 Minute Walk Test PSN:6-Minute Walk Test Start: 11/05/24 08:29 Freq: Status: Active Protocol: RESP.6MINW Document 11/05/24 08:15 AEH (Rec: 11/05/24 08:32 AEH [id number]) 6 Minute Walk Test Date Performed 11/05/24 Time Performed 08:15 Height 5 ft 4 in Weight: 160 lb Weight in Pounds 160.[address]: Tasia Assistive device None used: Pre-test Oxygen Delivery Room Air Method Pulse Ox (%) 98 Pulse Rate (60-100 61 beats/min) Dyspnea Desmond Scale ( 0 0-10) Exertion Desmond Scale 6 (6-20) 1st minute Oxygen Delivery Room Air Method Pulse Ox (%) 96 Pulse Rate (60-100 66 beats/min) 2nd minute Oxygen Delivery Room Air Method Pulse Ox (%) 97 Pulse Rate (60-100 73 beats/min) 3rd minute Oxygen Delivery Room Air Method Pulse Ox (%) 98 Pulse Rate (60-100 73 beats/min) 4th minute Oxygen Delivery Room Air Method Pulse Ox (%) 98 Pulse Rate (60-100 77 beats/min) 5th minute Oxygen Delivery Room Air Method Pulse Ox (%) 95 Pulse Rate (60-100 75 beats/min) 6th minute Oxygen Delivery Room Air Method Pulse Ox (%) 98 Pulse Rate (60-100 81 beats/min) Dyspnea Desmond Scale ( 0.5 0-10) Exertion Desmond Scale 9 (6-20) Post-test Oxygen Delivery Room Air Method Pulse Ox (%) 99 Pulse Rate (60-100 66 beats/min) Full Laps Walked 13 Partial Lap, Number 9 of Tiles Walked Total Distance 776 Walked (ft) Interpretation Interpretation: The patient ambulated 776 feet over the course of 6 minutes beginning on room air without assistive devices. Pretesting oxygen saturation was noted to be 98% on room air. With ambulation, the magy oxygen saturation was 95%. There was no significant exertional oxygen desaturation. Recommendations Recommendations: There is no indication for the use of supplemental oxygen at this time.
== END | disposition home or self-care (01) ==
LOC: PSN 08:02
PROVIDERS: PCP Family Medicine; Referring Provider Nurse Practitioner Acute Care; Visit Provider Nurse Practitioner Acute Care
DX: J44.9 Chronic obstructive pulmonary disease, unspecified (principal)
CPT/HCPCS: 94618

== ENCOUNTER → 2024-11-06 | Outpatient (CLI) | payer MEDICARE, OTHER, SELFPAY ==
--- NOTE | 2024-11-06 12:19 | BD_ITS ---
PROCEDURE: DEXA BONE DENSITY STUDY 11/06/2024 REASON FOR EXAM: F, age 69 y/o . Postmenopausal. TECHNIQUE: DXA scan of sites with data reported below. REFERENCE LINKS: ISCD Adult Positions COMPARISON: None FINDINGS: BMD and T-SCORES Lumbar spine: 0.957 g/cm2, T-score -0.8 Levels: L1 through L4 Right femoral neck: 0.633 g/cm2, T-score -1.9 Femoral neck comparison data not recommended for monitoring change. Right total hip: 0.891 g/cm2, T-score -0.4 The World Health Organization has defined the following categories based on bone density: Normal bone density: T-score equal to or greater than -1.0 Osteopenia: T-score between -1.0 and -2.5 Osteoporosis: T-score equal to or less than -2.5 The patient does meet the pharmacological treatment recommendations for prevention of osteoporosis. BD/Dexa Bone Density Study IMPRESSION: OSTEOPENIA. Recommend follow-up as clinically warranted. Reading Location: [place] [id number]
--- OUTSIDE RECORDS SUMMARY | 2024-11-06 21:14 | XMS RPT_ITS | CCD ---
Author Organization [facility] Care Team Providers Care Transportation Museum Helper Name Role Phone Dr. Justin Rivas Referring Provider [phone] Dr. Mikey Haq Attending Provider DO Sara Rogel M Primary Care Provider [phone] DR ARMAND COOK MD Attending [facility] DO Juan F Sara M Primary Care Provider DO Juan F Sara M Referring Provider Opal ROLL CARRIER, ROLL CARRIER-C Fern Attending Provider DO Sara Rogel M Primary Care Provider [phone] DO Nithin Rogelistin M Referring Provider Dr. Ernestina Hardy Attending Provider Dr. El Green Attending Provider Dr. Phan Salgado Attending Provider Dr. El Green Referring Provider Dr. El Green Other Provider DO Nithin Rogelistin M Primary Care Provider DO Juan F Sara M Referring Provider Opal ROLL CARRIER, ROLL CARRIER-C Fern Attending Provider Maggi Dorsey MD Primary Care Provider Maggi Dorsey MD Attending Provider Maggi Dorsey MD Referring Provider Dr. David Roberson MD Referring Provider Dr. David Roberson MD Emergency Provider Rodriguez DO, Dr. Mars Admit Provider Unavail able Rodriguez DO, Dr. Mars Other Provider Unavail able Enrico Santos MD Other Provider Unavailable Eden BRADLEY, Dr. Gonzalez Other Provider Elyssa Lloyd MD Other Provider Unavailable Romeo RODRIGUEZ, Dr. Cintron Other Provider Alondra BRADLEY, Dr. Mccall Other Provider Jimbo BRADLEY, Dr. Limon Other Provider Gigi BRADLEY, Dr. Santana Other Provider Shazia BRADLEY, Dr. Sandoval Other Provider Chris BRADLEY, Dr. Wang Other Provider Doron BRADLEY, Dr. Gutierrez Other Provider Diane BRADLEY, Caitlin Other Provider Marcelle BRADLEY, Dr. Camarena Other Provider Óscar BRADLEY, Dr. Ramesh Other Provider King BRADLEY, Dr. Michael Other Provider Carlos BRADLEY, Dr. Roseline Morgan Other Provider Anselmo BRADLEY, Dr. Ureña Other Provider Clemencia BRADLEY, Dr. Morris Other Provider Michael BRADLEY, Dr. Bui Other Provider Thomas BRADLEY, Dr. Velazquez Other Provider Unavailable Andre BRADLEY, Sriram Other Provider Unavailable Trevor BRADLEY, Dr. Radha Whitehead Attending Provider Dr. Erik Moreno DO Other Provider Dr. Erik Moreno DO Attending Provider Dr. Hilton Ulrich MD Attending Provider Rodriguez DO, Dr. Mars Referring Provider Deandre Newman MD, Dr. Arellano Attending Provider Trevor BRADLEY, Dr. Radha Whitehead Other Provider Brigette Alvarenga Attending Provider Damian BRADLEY, Dr. Chisholm Attending Provider [phone] Opal ROLL CARRIER-C, Fern Attending Provider Joseph ROLL CARRIER-C, Fern Referring Provider Sunita, Chalon Referring Unavailable Brigette Murillo Attending Unavailable Sunita, Chalon Primary Care Unavailable Sunita, Chalon Primary Care Unavailable Joseph ROLL CARRIER, Fern Attending Unavailable Joseph ROLL CARRIER, Fern Referring Unavailable Sunita, Chalon Attending Unavailable Sunita, Chalon Primary Care Unavailable Sunita, Chalon Referring Unavailable Sunita, Chalon Primary Care Unavailable Sunita, Chalon Referring Unavailable Joseph ROLL CARRIER, Fern Attending Unavailable Sunita, Chalon Primary Care Unavailable Sunita, Chalon Referring Unavailable LidiaBrigette Attending Unavailable Sunita, Chalon Primary Care Unavailable Phan Salgado Attending Unavailable Sunita, Chalon Referring Unavailable Sunita, Chalon Primary Care Unavailable Joseph ROLL CARRIER, Fern Attending Unavailable Sunita, Chalon Primary Care Unavailable Jerad Rodriguez Referring Unavailable Hilton Ulrich Attending Unavailable Sunita, Chalon Primary Care Unavailable Eileen Newman Attending Unavailable Jerad Rodriguez Admitting Unavailable Sunita, Chalon Primary Care Unavailable Enrico Santos Consulting Unavailable Radha Murray Attending Unavailable Roberson, David Referring Unavailable Adeli, Amir Consulting Unavailable Hinduspeedy, Elyssa Consulting Unavailable Romeo, Saida Consulting Unavailable Zha, Stefany Consulting Unavailable Jimbo, Braxton Consulting Unavailable Gigi, Esther Consulting Unavailable BittaJaime alston Consulting Unavailable Felipe Perez Consulting Unavailable Matt Sal Consulting Unavailable Caitlin Contreras Consulting Unavailable Migue Ibanez Consulting Unavailable Domitila Cantrell Consulting Unavailable Alec Malik Consulting Unavailable Roseline Gonzalez Consulting UnavailNiranjan Barbosa Consulting Unavailable Arturo Khanna Consulting Unavailable Hao Rodriguez Consulting Unavailable Caroline Guzman Consulting Unavailable Sriram Powell Consulting Unavailable Jerad Rodriguez Consulting Unavailable Erik Moreno Consulting Unavailable Radha Murray Consulting Unavailable Jerad Rodriguez Attending Unavailable Erik Moreno Attending Unavailable Sunita, Chalon Primary Care Unavailable Opal ROLL CARRIER, Fern Referring Unavailable Opal ROLL CARRIER, Fern Attending Unavailable Sunita, Chalon Primary Care Unavailable Sunita, Chalon Referring Unavailable Sunita, Chalon Attending Unavailable Sunita, Chalon Attending Unavailable Sunita, Chalon Primary Care Unavailable Sunita, Chalon Referring Unavailable Sunita, Chalon Primary Care Unavailable Heber Allison Attending Unavailable Jerad Rodriguez Admitting Unavailable Sunita, Chalon Primary Care Unavailable Enrico Santos Consulting Unavailable Roberson, David Referring Unavailable Radha Murray Attending Unavailable Adesamara Amigamaliel Consulting Unavailable Hindsalinas Elyssa Consulting Unavailable Romeo, Saida Consulting Unavailable Alondra Stefany Consulting Unavailable JimboBraxton dick Consulting Unavailable Esther Yu Consulting Unavailable Jaime Mccray Consulting Unavailable Felipe Perez Consulting Unavailable Matt Sal Consulting Unavailable Caitlin Contreras Consulting Unavailable Migue Ibanez Consulting Unavailable Domitila Cantrell Consulting Unavailable Alec Malik Consulting Unavailable Roseline Gonzalez Consulting UnavailNiranjan Barbosa Consulting Unavailable Arturo Khanna Consulting Unavailable Hao Rodriguez Consulting Unavailable Caroline Guzman Consulting Unavailable Sriram Powell Consulting Unavailable Jerad Rodriguez Consulting Unavailable Erik Moreno Consulting Unavailable Allergies Allergy Classification Reported Allergen(s) Allergy Type Date of Onset Reaction(s) Facility (15 sources) cefdinir Drug Allergy 06-16-19 Upset stomach [facility] (15 sources) Erythromycin Drug Allergy 06-16-19 Unknown [facility] (15 sources) metroNIDAZOLE Drug Allergy 06-18-19 22 Nausea [facility] (16 sources) Penicillins; Translations: [Penicillins] Allergy to substance 06-16-19 Unknown [facility] (15 sources) Sulfamethoxazole Drug Allergy 06-16-19 Unknown [facility] (15 sources) Tetracycline Drug Allergy 06-16-19 Unknown [facility] (15 sources) Trimethoprim Drug Allergy 06-16-19 Unknown [facility] (1 source) cefdinir Drug Allergy 10-09-19 [facility] (1 source) Erythromycin Drug Allergy 10-09-19 [facility] (1 source) metroNIDAZOLE Drug Allergy 10-09-19 [facility] (1 source) Sulfamethoxazole Drug Allergy 10-09-19 [facility] (1 source) Tetracycline Drug Allergy 10-09-19 [facility] (1 source) Trimethoprim Drug Allergy 10-09-19 [facility] Medications Current Medications Medication Drug Class(es) Dates Sig (Normalized) Sig (Original) amLODIPine 10 mg oral tablet (20 sources) Dihydropyridine Calcium Channel Nick Start: 09-21-2024 take 1 tablet by mouth at bedtime Amlodipine 10 mg tablet Active 10 mg PO AT BEDTIME September 21, 2024 12:00am Start: 04-09-2024 End: 09-21-2024 take 2 tablets by mouth once daily Amlodipine (Norvasc) 5 mg tablet Discontinued 10 mg PO DAILY April 10, 2024 12:41am September 21, 2024 7:24pm Start: 08-03-2020 End: 04-09-2024 take 1 tablet by mouth once daily Amlodipine (Norvasc) 5 mg tablet Discontinued 5 mg PO DAILY August 03, 2020 1:00am April 10, 2024 12:41am FLUoxetine 20 mg oral capsule (20 sources) Serotonin Reuptake Inhibitor Start: 08-03-2020 take 20 mg by mouth once daily Fluoxetine Active 20 MG PO DAILY August 03, 2020 1:54pm Start: 05-21-2013 End: 08-03-2020 take 2 capsules by mouth once daily Fluoxetine 20 mg capsule Active 40 mg PO DAILY August 03, 2020 1:54pm Start: 05-21-2013 End: 08-03-2020 take 40 mg by mouth once daily Fluoxetine Active 40 MG PO DAILY August 03, 2020 1:54pm Fluticasone Furoate-Vilanterol (20 sources) Corticosteroid, beta2-Adrenergic Agonist Start: 04-08-2024 Fluticasone Furoate-Vilanterol (Breo Ellipta) 200-25 mcg/dose blister with device Active 1 NMA INHALATION daily April 08, 2024 12:20pm after inhalation, rinse mouth with water and spit out; do not swallow Start: 10-04-2023 End: 04-08-2024 Fluticasone Furoate-Vilanter ol (Breo Ellipta) 200-25 mcg/dose blister with device Discontinued 1 NMA INHALATION daily October 04, 2023 10:20am April 08, 2024 12:20pm after inhalation, rinse mouth with water and spit out; do not swallow Start: 10-04-2023 Fluticasone Fu roate-Vilanterol (Breo Ellipta) 200-25 mcg/dose blister with device Active 1 INH INHALATION daily October 04, 2023 10:20am after inhalation, rinse mouth with water and spit out; do not swallow Start: 10-25-2022 End: 10-04-2023 Fluticasone Furoate-Vilanter ol (Breo Ellipta) 200-25 mcg/dose blister with device Discontinued 1 NMA INHALATION daily October 25, 2022 1:12pm October 04, 2023 10:20am after inhalation, rinse mouth with water and spit out; do not swallow Start: 10-25-2022 End: 10-04-2023 Fluticasone Furoate-Vilanter ol (Breo Ellipta) 200-25 mcg/dose blister with device Discontinued 1 INH INHALATION daily October 25, 2022 1:12pm October 04, 2023 10:20am after inhalation, rinse mouth with water and spit out; do not swallow Start: 10-25-2022 Fluticasone Fu roate-Vilanterol (Breo Ellipta) 200-25 mcg/dose blister with device Active 1 INH INHALATION daily October 25, 2022 1:12pm after inhalation, rinse mouth with water and spit out; do not swallow Start: 04-06-2022 End: 10-25-2022 Fluticasone Furoate-Vilanter ol (Breo Ellipta) 200-25 mcg/dose blister with device Discontinued 1 NMA INHALATION daily April 06, 2022 10:40am October 25, 2022 1:12pm after inhalation, rinse mouth with water and spit out; do not swallow Start: 04-06-2022 End: 10-25-2022 Fluticasone Furoate-Vilanter ol (Breo Ellipta) 200-25 mcg/dose blister with device Discontinued 1 INH INHALATION daily April 06, 2022 10:40am October 25, 2022 1:12pm after inhalation, rinse mouth with water and spit out; do not swallow Start: 04-06-2022 Fluticasone Fu roate-Vilanterol (Breo Ellipta) 200-25 mcg/dose blister with device Active 1 INH INHALATION daily April 06, 2022 9:40am after inhalation, rinse mouth with water and spit out; do not swallow Start: 09-03-2021 End: 04-06-2022 Fluticasone Furoate-Vilanter ol (Breo Ellipta) 200-25 mcg/dose blister with device Discontinued 1 NMA INHALATION daily September 03, 2021 9:42am April 06, 2022 10:41am after inhalation, rinse mouth with water and spit out; do not swallow Start: 09-03-2021 End: 04-06-2022 Fluticasone Furoate-Vilanter ol (Breo Ellipta) 200-25 mcg/dose blister with device Discontinued 1 INH INHALATION daily September 03, 2021 9:42am April 06, 2022 10:41am after inhalation, rinse mouth with water and spit out; do not swallow Start: 09-03-2021 End: 04-06-2022 Fluticasone Furoate-Vilanter ol (Breo Ellipta) 200-25 mcg/dose blister with device Discontinued 1 INH INHALATION daily September 03, 2021 8:42am April 06, 2022 9:41am after inhalation, rinse mouth with water and spit out; do not swallow Start: 09-03-2021 Fluticasone Fu roate-Vilanterol (Breo Ellipta) 200-25 mcg/dose blister with device Active 1 INH INHALATION daily September 03, 2021 9:42am after inhalation, rinse mouth with water and spit out; do not swallow Start: 08-24-2020 End: 09-03-2021 Fluticasone Furoate-Vilanter ol (Breo Ellipta) 200-25 mcg/dose blister with device Discontinued 1 NMA INHALATION daily August 24, 2020 1:43pm September 03, 2021 9:42am after inhalation, rinse mouth with water and spit out; do not swallow Start: 08-24-2020 End: 09-03-2021 Fluticasone Furoate-Vilanter ol (Breo Ellipta) 200-25 mcg/dose blister with device Discontinued 1 INH INHALATION daily 3 August 24, 2020 12:43pm September 03, 2021 8:42am after inhalation, rinse mouth with water and spit out; do not swallow Start: 08-24-2020 End: 09-03-2021 Fluticasone Furoate-Vilanter ol (Breo Ellipta) 200-25 mcg/dose blister with device Discontinued 1 INH INHALATION daily 3 August 24, 2020 1:43pm September 03, 2021 9:42am after inhalation, rinse mouth with water and spit out; do not swallow Start: 04-09-2020 End: 08-24-2020 Fluticasone Furoate-Vilanter ol (Breo Ellipta) 200-25 mcg/dose blister with device Discontinued 1 NMA INHALATION daily April 09, 2020 12:22pm August 24, 2020 1:43pm after inhalation, rinse mouth with water and spit out; do not swallow Start: 04-09-2020 End: 08-24-2020 Fluticasone Furoate-Vilanter ol (Breo Ellipta) 200-25 mcg/dose blister with device Discontinued 1 INH INHALATION daily April 09, 2020 11:22am August 24, 2020 12:43pm after inhalation, rinse mouth with water and spit out; do not swallow Start: 04-09-2020 End: 08-24-2020 Fluticasone Furoate-Vilanter ol (Breo Ellipta) 200-25 mcg/dose blister with device Discontinued 1 INH INHALATION daily April 09, 2020 12:22pm August 24, 2020 1:43pm after inhalation, rinse mouth with water and spit out; do not swallow Start: 03-21-2019 End: 04-09-2020 Fluticasone Furoate-Vilanter ol (Breo Ellipta) 200-25 mcg/dose blister with device Discontinued 1 NMA INHALATION daily 60 March 21, 2019 11:45am April 09, 2020 12:23pm after inhalation, rinse mouth with water and spit out; do not swallow Start: 03-21-2019 End: 04-09-2020 Fluticasone Furoate-Vilanter ol (Breo Ellipta) 200-25 mcg/dose blister with device Discontinued 1 INH INHALATION daily 60 March 21, 2019 10:45am April 09, 2020 11:23am after inhalation, rinse mouth with water and spit out; do not swallow Start: 03-21-2019 End: 04-09-2020 Fluticasone Furoate-Vilanter ol (Breo Ellipta) 200-25 mcg/dose blister with device Discontinued 1 INH INHALATION daily 60 March 21, 2019 11:45am April 09, 2020 12:23pm after inhalation, rinse mouth with water and spit out; do not swallow Start: 02-25-2019 End: 03-21-2019 Fluticasone Furoate-Vilanter ol (Breo Ellipta) 200-25 mcg/dose blister with device Discontinued 1 NMA INHALATION daily 60 February 25, 2019 11:01am March 21, 2019 11:45am after inhalation, rinse mouth with water and spit out; do not swallow Start: 02-25-2019 End: 03-21-2019 Fluticasone Furoate-Vilanter ol (Breo Ellipta) 200-25 mcg/dose blister with device Discontinued 1 INH INHALATION daily 60 February 25, 2019 10:01am March 21, 2019 10:45am after inhalation, rinse mouth with water and spit out; do not swallow Start: 02-25-2019 End: 03-21-2019 Fluticasone Furoate-Vilanter ol (Breo Ellipta) 200-25 mcg/dose blister with device Discontinued 1 INH INHALATION daily 60 February 25, 2019 11:01am March 21, 2019 11:45am after inhalation, rinse mouth with water and spit out; do not swallow Start: 07-27-2018 End: 02-25-2019 Fluticasone Furoate-Vilanter ol (Breo Ellipta) 200-25 mcg/dose blister with device Discontinued 1 NMA INHALATION daily 60 July 27, 2018 4:43pm February 25, 2019 11:01am after inhalation, rinse mouth with water and spit out; do not swallow Start: 07-27-2018 End: 02-25-2019 Fluticasone Furoate-Vilanter ol (Breo Ellipta) 200-25 mcg/dose blister with device Discontinued 1 INH INHALATION daily 60 July 27, 2018 3:43pm February 25, 2019 10:01am after inhalation, rinse mouth with water and spit out; do not swallow Start: 07-27-2018 End: 02-25-2019 Fluticasone Furoate-Vilanter ol (Breo Ellipta) 200-25 mcg/dose blister with device Discontinued 1 INH INHALATION daily 60 July 27, 2018 4:43pm February 25, 2019 11:01am after inhalation, rinse mouth with water and spit out; do not swallow Start: 12-15-2017 End: 07-27-2018 Fluticasone Furoate-Vilanter ol (Breo Ellipta) 200-25 mcg/dose blister with device Discontinued 1 NMA INHALATION daily 60 December 15, 2017 12:00am July 27, 2018 4:43pm after inhalation, rinse mouth with water and spit out; do not swallow Start: 12-15-2017 End: 07-27-2018 Fluticasone Furoate-Vilanter ol (Breo Ellipta) 200-25 mcg/dose blister with device Discontinued 1 INH INHALATION daily 60 December 14, 2017 11:00pm July 27, 2018 3:43pm after inhalation, rinse mouth with water and spit out; do not swallow Start: 12-15-2017 End: 07-27-2018 Fluticasone Furoate-Vilanter ol (Breo Ellipta) 200-25 mcg/dose blister with device Discontinued 1 INH INHALATION daily 60 December 15, 2017 12:00am July 27, 2018 4:43pm after inhalation, rinse mouth with water and spit out; do not swallow hydroCHLOROthiazide 25 mg oral tablet (2 sources) Thiazide Diuretic Start: 09-21-2024 take 1 tablet by mouth once daily Hydrochlorothiazide 25 mg tablet Active 25 mg PO DAILY September 21, 2024 12:00am lisinopril 40 mg oral tablet (20 sources) Angiotensin Converting Enzyme Inhibitor Start: 09-21-2024 take 1 tablet by mouth once daily Lisinopril 40 mg tablet Active 40 mg PO DAILY September 21, 2024 12:00am Start: 03-01-2023 End: 09-21-2024 take 1 tablet by mouth once daily Lisinopril 30 mg tablet Discontinued 30 mg PO DAILY March 01, 2023 12:00am September 21, 2024 7:23pm Start: 05-21-2013 End: 08-03-2020 take 1 tablet by mouth once daily Lisinopril 20 MG tablet Discontinued 20 mg PO DAILY May 21, 2013 1:00am August 03, 2020 1:55pm metoprolol tartrate 50 mg oral tablet (15 sources) beta-Adrenergic Nick Start: 11-18-2016 take 1 tablet by mouth twice daily Metoprolol Tartrate 50 MG tablet Active 50 mg PO TWICE A DAY November 18, 2016 12:00am omeprazole 20 mg delayed release oral capsule (20 sources) Proton Pump Inhibitor Start: 03-01-2023 take 1 capsule by mouth twice daily Omeprazole 20 mg capsule,delayed release(DR/EC) Active 20 mg PO TWICE A DAY March 01, 2023 12:00am Start: 04-06-2021 End: 02-22-2023 take 1 capsule by mouth once daily Omeprazole 20 mg capsule,delayed release(DR/EC) Discontinued 20 mg PO DAILY April 06, 2021 1:00am February 22, 2023 3:11pm Start: 08-10-2020 End: 04-06-2021 take 1 capsule by mouth once daily Omeprazole 40 mg capsule,delayed release(DR/EC) Discontinued 0 .ROUTE .COMPLEX November 25, 2020 8:09am April 06, 2021 12:26pm TAKE ONE CAPSULE BY MOUTH EVERY DAY. SWALLOW WHOLE DO NOT CRUSH, CHEW, DISSOLVE, CUT, OR BREAK Umeclidinium (20 sources) Anticholinergic Start: 04-08-2024 take 62.5 ug by inhalation once daily Umeclidinium (Incruse Ellipta) 62.5 mcg/actuation blister with device Active 1 NMA INHALATION daily April 08, 2024 12:19pm Start: 10-04-2023 End: 04-08-2024 take 62.5 ug by inhalation once daily Umeclidinium (Incruse Ellipta) 62.5 mcg/actuation blister with device Discontinued 1 NMA INHALATION daily October 04, 2023 10:20am April 08, 2024 12:20pm Start: 10-04-2023 take 62.5 ug by inha lation once daily Umeclidinium (Incruse Ellipta) 62.5 mcg/actuation blister with device Active 1 INH INHALATION daily October 04, 2023 10:20am Start: 04-19-2023 End: 10-04-2023 take 62.5 ug by inhalation once daily Umeclidinium (Incruse Ellipta) 62.5 mcg/actuation blister with device Discontinued 1 NMA INHALATION daily April 19, 2023 4:06pm October 04, 2023 10:20am Start: 04-19-2023 End: 10-04-2023 take 62.5 ug by inhalation once daily Umeclidinium (Incruse Ellipta) 62.5 mcg/actuation blister with device Discontinued 1 INH INHALATION daily April 19, 2023 4:06pm October 04, 2023 10:20am Start: 04-06-2022 End: 04-19-2023 take 62.5 ug by inhalation once daily Umeclidinium (Incruse Ellipta) 62.5 mcg/actuation blister with device Discontinued 1 NMA INHALATION daily April 06, 2022 10:40am April 19, 2023 4:06pm Start: 04-06-2022 End: 04-19-2023 take 62.5 ug by inhalation once daily Umeclidinium (Incruse Ellipta) 62.5 mcg/actuation blister with device Discontinued 1 INH INHALATION daily April 06, 2022 10:40am April 19, 2023 4:06pm Start: 04-06-2022 take 62.5 ug by inha lation once daily Umeclidinium (Incruse Ellipta) 62.5 mcg/actuation blister with device Active 1 INH INHALATION daily April 06, 2022 10:40am Start: 04-06-2022 take 62.5 ug by inha lation once daily Umeclidinium (Incruse Ellipta) 62.5 mcg/actuation blister with device Active 1 INH INHALATION daily April 06, 2022 9:40am Start: 09-03-2021 End: 04-06-2022 take 62.5 ug by inhalation once daily Umeclidinium (Incruse Ellipta) 62.5 mcg/actuation blister with device Discontinued 1 NMA INHALATION daily September 03, 2021 9:42am April 06, 2022 10:41am Start: 09-03-2021 End: 04-06-2022 take 62.5 ug by inhalation once daily Umeclidinium (Incruse Ellipta) 62.5 mcg/actuation blister with device Discontinued 1 INH INHALATION daily September 03, 2021 9:42am April 06, 2022 10:41am Start: 09-03-2021 End: 04-06-2022 take 62.5 ug by inhalation once daily Umeclidinium (Incruse Ellipta) 62.5 mcg/actuation blister with device Discontinued 1 INH INHALATION daily September 03, 2021 8:42am April 06, 2022 9:41am Start: 09-03-2021 take 62.5 ug by inha lation once daily Umeclidinium (Incruse Ellipta) 62.5 mcg/actuation blister with device Active 1 INH INHALATION daily September 03, 2021 9:42am Start: 08-24-2020 End: 09-03-2021 take 62.5 ug by inhalation once daily Umeclidinium (Incruse Ellipta) 62.5 mcg/actuation blister with device Discontinued 1 NMA INHALATION daily August 24, 2020 1:43pm September 03, 2021 9:42am Start: 08-24-2020 End: 09-03-2021 take 62.5 ug by inhalation once daily Umeclidinium (Incruse Ellipta) 62.5 mcg/actuation blister with device Discontinued 1 INH INHALATION daily August 24, 2020 12:43pm September 03, 2021 8:42am Start: 08-24-2020 End: 09-03-2021 take 62.5 ug by inhalation once daily Umeclidinium (Incruse Ellipta) 62.5 mcg/actuation blister with device Discontinued 1 INH INHALATION daily August 24, 2020 1:43pm September 03, 2021 9:42am Start: 04-09-2020 End: 08-24-2020 take 62.5 ug by inhalation once daily Umeclidinium (Incruse Ellipta) 62.5 mcg/actuation blister with device Discontinued 1 NMA INHALATION daily April 09, 2020 12:22pm August 24, 2020 1:43pm Start: 04-09-2020 End: 08-24-2020 take 62.5 ug by inhalation once daily Umeclidinium (Incruse Ellipta) 62.5 mcg/actuation blister with device Discontinued 1 INH INHALATION daily April 09, 2020 11:22am August 24, 2020 12:43pm Start: 04-09-2020 End: 08-24-2020 take 62.5 ug by inhalation once daily Umeclidinium (Incruse Ellipta) 62.5 mcg/actuation blister with device Discontinued 1 INH INHALATION daily April 09, 2020 12:22pm August 24, 2020 1:43pm Start: 09-05-2019 End: 04-09-2020 take 62.5 ug by inhalation once daily Umeclidinium (Incruse Ellipta) 62.5 mcg/actuation blister with device Discontinued 1 NMA INHALATION daily September 05, 2019 1:39pm April 09, 2020 12:23pm Start: 09-05-2019 End: 04-09-2020 take 62.5 ug by inhalation once daily Umeclidinium (Incruse Ellipta) 62.5 mcg/actuation blister with device Discontinued 1 INH INHALATION daily September 05, 2019 12:39pm April 09, 2020 11:23am Start: 09-05-2019 End: 04-09-2020 take 62.5 ug by inhalation once daily Umeclidinium (Incruse Ellipta) 62.5 mcg/actuation blister with device Discontinued 1 INH INHALATION daily September 05, 2019 1:39pm April 09, 2020 12:23pm Start: 09-05-2019 End: 09-05-2019 take 62.5 ug by inhalation once daily Umeclidinium (Incruse Ellipta) 62.5 mcg/actuation blister with device Discontinued 1 NMA INHALATION daily September 05, 2019 1:19pm September 05, 2019 1:39pm Start: 09-05-2019 End: 09-05-2019 take 62.5 ug by inhalation once daily Umeclidinium (Incruse Ellipta) 62.5 mcg/actuation blister with device Discontinued 1 INH INHALATION daily September 05, 2019 12:19pm September 05, 2019 12:39pm Start: 09-05-2019 End: 09-05-2019 take 62.5 ug by inhalation once daily Umeclidinium (Incruse Ellipta) 62.5 mcg/actuation blister with device Discontinued 1 INH INHALATION daily September 05, 2019 1:19pm September 05, 2019 1:39pm Start: 03-21-2019 End: 09-05-2019 take 62.5 ug by inhalation once daily Umeclidinium (Incruse Ellipta) 62.5 mcg/actuation blister with device Discontinued 1 NMA INHALATION daily March 21, 2019 11:45am September 05, 2019 1:22pm Start: 03-21-2019 End: 09-05-2019 take 62.5 ug by inhalation once daily Umeclidinium (Incruse Ellipta) 62.5 mcg/actuation blister with device Discontinued 1 INH INHALATION daily March 21, 2019 10:45am September 05, 2019 12:22pm Start: 03-21-2019 End: 09-05-2019 take 62.5 ug by inhalation once daily Umeclidinium (Incruse Ellipta) 62.5 mcg/actuation blister with device Discontinued 1 INH INHALATION daily March 21, 2019 11:45am September 05, 2019 1:22pm Start: 11-26-2018 End: 03-21-2019 take 62.5 ug by inhalation once daily Umeclidinium (Incruse Ellipta) 62.5 mcg/actuation blister with device Discontinued 1 NMA INHALATION daily November 26, 2018 1:00pm March 21, 2019 11:45am Start: 11-26-2018 End: 03-21-2019 take 62.5 ug by inhalation once daily Umeclidinium (Incruse Ellipta) 62.5 mcg/actuation blister with device Discontinued 1 INH INHALATION daily November 26, 2018 12:00pm March 21, 2019 10:45am Start: 11-26-2018 End: 03-21-2019 take 62.5 ug by inhalation once daily Umeclidinium (Incruse Ellipta) 62.5 mcg/actuation blister with device Discontinued 1 INH INHALATION daily November 26, 2018 1:00pm March 21, 2019 11:45am Start: 04-27-2018 End: 11-26-2018 take 62.5 ug by inhalation once daily Umeclidinium (Incruse Ellipta) 62.5 mcg/actuation blister with device Discontinued 1 NMA INHALATION daily April 27, 2018 11:51am November 26, 2018 1:00pm Start: 04-27-2018 End: 11-26-2018 take 62.5 ug by inhalation once daily Umeclidinium (Incruse Ellipta) 62.5 mcg/actuation blister with device Discontinued 1 INH INHALATION daily April 27, 2018 10:51am November 26, 2018 12:00pm Start: 04-27-2018 End: 11-26-2018 take 62.5 ug by inhalation once daily Umeclidinium (Incruse Ellipta) 62.5 mcg/actuation blister with device Discontinued 1 INH INHALATION daily April 27, 2018 11:51am November 26, 2018 1:00pm Start: 12-15-2017 End: 04-27-2018 take 62.5 ug by inhalation once daily Umeclidinium (Incruse Ellipta) 62.5 mcg/actuation blister with device Discontinued 1 NMA INHALATION daily December 15, 2017 12:00am April 27, 2018 11:52am Completed/Discontinued Medications Medication Drug Class(es) Dates Sig (Normalized) Sig (Original) [id number] actuat albuterol 0.09 mg/actuat metered dose inhaler (20 sources) beta2-Adrenergic Agonist Start: 04-09-2020 End: 04-08-2024 Albuterol Sulfate 90 mcg/actuation HFA aerosol inhaler Discontinued 2 NMA INHALATION Q4H as needed for shortness of breath or wheezing 8.October 25, 2022 1:11pm October 04, 2023 10:20am administer with spacer Start: 04-09-2020 End: 10-04-2023 take 1 puff(s) by inhalation every four hours Albuterol Sulfate Active 2 PUFF INHALATION Q4H 8.October 04, 2023 10:19am administer with spacer Start: 05-21-2013 End: 04-06-2021 take 1 puff(s) by inhalation every four hours as needed Albuterol Sulfate Discontinued 1 PUFF INHALATION EVERY 4 HOURS NEEDED May 21, 2013 12:00am April 06, 2021 11:25am Start: 05-21-2013 End: 04-06-2021 take 1 puff(s) by inhalation every four hours as needed Albuterol Sulfate Discontinued 1 PUFF INHALATION EVERY 4 HOURS NEEDED May 21, 2013 1:00am April 06, 2021 12:25pm Albuterol Sulfate 1 PUFF inhaler (3 sources) Start: 05-21-2013 End: 04-06-2021 Albuterol Sulfate 1 PUFF inhaler Discontinued 1 NMA INHALATION EVERY 4 HOURS NEEDED as needed for Asthma May 21, 2013 1:00am April 06, 2021 12:25pm aspirin 81 mg delayed release oral tablet (2 sources) Platelet Aggregation Inhibitor, Nonsteroidal Anti-inflammatory Drug Start: 09-23-2024 End: 10-08-2024 take 1 tablet by mouth at breakfast Aspirin 81 mg Tablet,Delayed Release (Dr/Ec) Discontinued 81 mg PO WITH BREAKFAST September 23, 2024 12:00am October 08, 2024 1:17pm 60 actuat budesonide 0.16 mg/actuat / formoterol fumarate 0.0045 mg/actuat metered dose inhaler (15 sources) Corticosteroid, beta2-Adrenergic Agonist Start: 10-03-2017 End: 01-26-2018 Budesonide-Formote rol 6 GM HFA aerosol inhaler Discontinued 6 g IH NEEDED as needed for Sob &/Or Wheezing October 03, 2017 12:00am January 26, 2018 1:47pm Start: 10-03-2017 End: 01-26-2018 Budesonide-Formoterol Discon tinued 6 GM IH NEEDED October 03, 2017 12:00am January 26, 2018 1:47pm cetirizine hydrochloride 10 mg oral tablet (15 sources) Histamine-1 Receptor Antagonist Start: 05-21-2013 End: 08-03-2020 take 1 tablet by mouth once daily Cetirizine 10 MG tablet Discontinued 10 mg PO DAILY May 21, 2013 1:00am August 03, 2020 1:54pm cloNIDine hydrochloride 0.2 mg oral tablet (3 sources) Central alpha-2 Adrenergic Agonist Start: 04-09-2024 End: 09-21-2024 Clonidine Hcl 0.2 mg tablet Discontinued 0.2 mg PO THREE TIMES A DAY as needed for SBP > 175 April 10, 2024 12:41am September 21, 2024 7:23pm ergocalciferol 1.25 mg oral capsule (3 sources) Provitamin D2 Compound Start: 04-08-2024 End: 10-08-2024 Ergocalciferol (Vitamin D2) 1,250 mcg (50,000 unit) capsule Discontinued 1250 ug PO EVERY WEEK April 08, 2024 1:00am October 08, 2024 1:17pm Fluticasone-Umeclidi n-Vilanter (15 sources) Anticholinergic, Corticosteroid, beta2-Adrenergic Agonist Start: 04-06-2021 End: 04-06-2022 Fluticasone-Umeclidi n-Vilanter (Trelegy Ellipta) 100-62.5-25 mcg blister with device Discontinued 1 NMA INHALATION DAILY 60 April 06, 2021 1:00am April 06, 2022 10:25am Start: 04-06-2021 End: 04-06-2022 Ivpmoijpuar-Yaxuowkep-Miudrk er (Trelegy Ellipta) 100-62.5-25 mcg blister with device Discontinued 1 INH INHALATION DAILY 60 April 06, 2021 1:00am April 06, 2022 10:25am Start: 04-06-2021 End: 04-06-2022 Vpqavpjappq-Ywnlairip-Mozfoj er (Trelegy Ellipta) 100-62.5-25 mcg blister with device Discontinued 1 INH INHALATION DAILY 60 April 06, 2021 12:00am April 06, 2022 9:25am Start: 04-06-2021 Fluticasone-Um eclidin-Vilanter (Trelegy Ellipta) 100-62.5-25 mcg blister with device Active 1 INH INHALATION DAILY 60 April 06, 2021 1:00am hydroCHLOROthiazide 12.5 mg / lisinopril 20 mg oral tablet (15 sources) Thiazide Diuretic, Angiotensin Converting Enzyme Inhibitor Start: 06-18-2021 End: 02-22-2023 Lisinopril-Hydrochlorothiazi de 20-12.5 mg tablet Discontinued 1 {tbl} PO DAILY June 18, 2021 1:00am February 22, 2023 2:56pm Start: 06-18-2021 End: 02-22-2023 take 1 tablet by mouth once daily Lisinopril-Hydrochlorothiazide Discontin ued 1 TABLET PO DAILY June 18, 2021 1:00am February 22, 2023 2:56pm levoFLOXacin 500 mg oral tablet (15 sources) Quinolone Antimicrobial Start: 01-26-2018 End: 01-31-2018 take 1 tablet by mouth every twenty-four hours Levofloxacin (Levaquin) 500 mg tablet Discontinued 500 mg PO Q24H 5 January 26, 2018 12:00am January 30, 2018 12:00am January 31, 2018 12:05am loratadine 10 mg oral tablet (10 sources) Start: 10-04-2023 End: 10-08-2024 take 1 tablet by mouth once daily Loratadine 10 mg tablet Discontinued 10 mg PO DAILY October 04, 2023 10:20am October 08, 2024 1:18pm meloxicam 15 mg oral tablet (12 sources) Nonsteroidal Anti-inflammatory Drug Start: 06-15-2022 End: 02-22-2023 take 1 tablet by mouth once daily Meloxicam 15 mg tablet Discontinued 15 mg PO DAILY June 15, 2022 1:00am February 22, 2023 2:55pm montelukast 10 mg oral tablet (20 sources) Leukotriene Receptor Antagonist Start: 05-21-2013 End: 04-08-2024 take 1 tablet by mouth once daily Montelukast 10 mg tablet Discontinued 10 mg PO DAILY September 19, 2023 12:16pm October 04, 2023 10:20am ondansetron 4 mg disintegrating oral tablet (6 sources) Serotonin-3 Receptor Antagonist Start: 02-12-2023 End: 04-04-2023 take 1 tablet by mouth three times daily as needed for nausea and vomiting Ondansetron 4 mg tablet,disintegra ting Discontinued 4 mg PO THREE TIMES A DAY as needed for nausea and vomiting February 12, 2023 1:37am April 04, 2023 10:14am oxyCODONE hydrochloride 5 mg oral tablet (5 sources) Opioid Agonist Start: 03-06-2023 End: 03-21-2023 take 5-10 mg by mouth every six hours as needed for pain Oxycodone 5 mg tablet Discontinued 5 - 10 mg PO EVERY 6 HOURS as needed for pain 15 10March 06, 2023 March 21, 2023 1:49pm predniSONE 10 mg oral tablet (20 sources) Start: 10-04-2023 End: 04-08-2024 Prednisone 10 mg tablet Discontinued 10 mg PO daily October 04, 2023 12:00am April 08, 2024 12:00pm take 4 tabs for three days, then 3 tabs for three days, then 2 tabs for three days, then 1 tab for 3 days Start: 01-26-2018 End: 02-09-2018 Prednisone 10 mg tablet Discontinued 10 mg PO daily January 26, 2018 12:00am February 09, 2018 12:55pm take 4 tabs for three days, then 3 tabs for three days, then 2 tabs for three days, then 1 tab for 3 days Start: 10-03-2017 End: 12-15-2017 take 3 tablets by mouth once daily at mealtime Prednisone 20 MG tablet Discontinued 60 mg PO DAILY October 03, 2017 12:00am December 15, 2017 2:06pm With food Start: 10-03-2017 End: 12-15-2017 take 60 mg by mouth once daily at mealtime Prednisone Discontinued 60 MG PO DAILY October 03, 2017 12:00am December 15, 2017 2:06pm With food Problems Active Problems Problem Classification Problem Date Documented Date Episodic/Chronic Abdominal pain (6 sources) Abdominal pain; Translations: [Unspecified abdominal pain] 02-22-2023 Episodic Asthma (15 sources) Exacerbation of asthma; Translations: [Unspecified asthma with (acute) exacerbation] 10-04-2017 Chronic Biliary tract disease (14 sources) Biliary colic; Translations: [Calculus of bile duct without cholangitis or cholecystitis without obstruction] 02-20-2023 Episodic Chronic obstructive pulmonary disease and bronchiectasis (20 sources) Asthma-chronic obstructive pulmonary disease overlap syndrome; Translations: [Chronic obstructive pulmonary disease, unspecified] Onset: 10-31-2024 Chronic Diabetes mellitus without complication (15 sources) Diabetes mellitus; Translations: [Type 2 diabetes mellitus without complications] 11-16-2017 Chronic Esophageal disorders (6 sources) Gastroesophageal reflux disease; Translations: [Gastro-esophageal reflux disease without esophagitis] 02-22-2023 Chronic Essential hypertension (20 sources) Hypertensive disorder; Translations: [Essential (primary) hypertension] Onset: 09-17-2024 02-20-2023 Chronic Fluid and electrolyte disorders (5 sources) Hyponatremia; Translations: [Hypo-osmolality and hyponatremia] Onset: 09-23-2024 09-21-2024 Episodic Nausea and vomiting (6 sources) Nausea; Translations: [Nausea] 02-22-2023 Episodic Nonspecific chest pain (8 sources) Chest pain; Translations: [Chest pain, unspecified] 01-28-2023 Episodic Other nervous system disorders (4 sources) Paresthesia; Translations: [Paresthesia of skin] 10-01-2024 Episodic Other nervous system disorders (2 sources) Paresthesia of skin; Translations: [Paresthesia of skin] Onset: 09-23-2024 Episodic Other nutritional; endocrine; and metabolic disorders (4 sources) H/O: diabetes mellitus; Translations: [Personal history of other endocrine, nutritional and metabolic disease] 10-07-2023 Episodic Other nutritional; endocrine; and metabolic disorders (4 sources) Body mass index 25-29 - overweight; Translations: [Overweight] 10-01-2024 Episodic Other nutritional; endocrine; and metabolic disorders (1 source) Overweight; Translations: [Overweight] Onset: 09-23-2024 Episodic Other upper respiratory disease (16 sources) Allergic rhinitis; Translations: [Allergic rhinitis, unspecified] 12-15-2017 Chronic Other upper respiratory infections (15 sources) Upper respiratory infection; Translations: [Acute upper respiratory infection, unspecified] 10-04-2017 Episodic Paralysis (5 sources) Hemiplegia of right dominant side; Translations: [Hemiplegia, unspecified affecting right dominant side] Onset: 09-23-2024 10-01-2024 Chronic Pulmonary heart disease (8 sources) Pulmonary hypertension; Translations: [Pulmonary hypertension, unspecified] 01-28-2023 Chronic Residual codes; unclassified (17 sources) Obstructive sleep apnea syndrome; Translations: [Obstructive sleep apnea (adult) (pediatric)] 03-12-2019 Chronic Residual codes; unclassified (15 sources) Hypersomnia; Translations: [Hypersomnia, unspecified] 12-15-2017 Chronic Residual codes; unclassified (11 sources) Obstructive sleep apnea (adult) (pediatric); Translations: [Obstructive sleep apnea (adult)(pediatric)] Onset: 04-09-2024 Chronic Residual codes; unclassified (2 sources) Dependence on continuous positive airway pressure ventilation; Translations: [Dependence on other enabling machines and devices] 10-08-2024 Chronic Comment on above: NONCOMPLIANT Residual codes; unclassified (8 sources) History of operative procedure on hip; Translations: [Other specified postprocedural states] 01-28-2023 Episodic Residual codes; unclassified (4 sources) Unable to comply with treatment; Translations: [Poor compliance with continuous positive airway pressure treatment] 10-01-2024 Episodic Residual codes; unclassified (1 source) Asymptomatic menopausal state; Translations: [Asymptomatic menopausal state] Onset: 10-08-2024 Episodic Spondylosis; intervertebral disc disorders; other back problems (4 sources) Degeneration of cervical intervertebral disc; Translations: [Other cervical disc degeneration, unspecified cervical region] 09-27-2024 Chronic Spondylosis; intervertebral disc disorders; other back problems (1 source) Cervicalgia; Translations: [Cervicalgia] Onset: 09-26-2024 Episodic Thyroid disorders (15 sources) Disorder of thyroid gland; Translations: [Disorder of thyroid, unspecified] 11-16-2017 Episodic Unclassified (15 sources) Age more than 65 years; Translations: [Over 65 years old] 06-16-2021 Unclassified (1 source) Patient's noncompliance with other medical treatment and regimen due to unspecified reason; Translations: [Patient's noncompliance with other medical treatment and regimen due to unspecified reason] Onset: 09-23-2024 Viral infection (15 sources) Disease caused by 2019-nCoV; Translations: [COVID-19] 06-16-2021 Episodic Past or Other Problems Problem Classification Problem Date Documented Da te Episodic/Chronic Conditions associated with dizziness or vertigo (1 source) Dizziness and giddiness; Translations: [Dizziness and giddiness] Onset: 05-07-2024 Episodic Other screening for suspected conditions (not mental disorders or infectious disease) (16 sources) CT of abdomen abnormal; Translations: [Abnormal findings on diagnostic imaging of other abdominal regions, including retroperitoneum] Onset: 05-08-2024 08-03-2020 Episodic Comment on above: Questionable 1.5 cm sigmoid diverticular abscess first dilated diverticulum Results Test Name Value Interpretation Reference Range Facility Pulmonary Visit Reporton Pulmonary Visit Report [facility] [place] [address] [place] [address] OFFICE VISIT Date of Service: 10/08/24 MR#: [id number] Acct: [id number] Name: TELMA MUHAMMAD Rep #: [id number] : 1955 Provider: FABRIZIO Joseph Age/Sex: 69/F Location: [facility] Status: Signed Assessment and Plan Assessment and Plan (1) Asthma-COPD overlap syndrome: Status: Chronic Plan: She does not appear to be in exacerbation today. It has been quite sometime since we performed any testing. She is agreeable to reestablishing baseline function by evaluating a pulmonary function test and a pulmonary stress test. Return to the office in approximately 6 weeks to discuss test results. We will develop a plan at that time. In the meantime, continue current maintenance medication, she is symptomatically controlled with the use of Breo and Incruse. (2) CPAP (continuous positive airway pressure) dependence: Status: Chronic Comment: NONCOMPLIANT Plan: She may consider a retitration study and attempting compliance with PAP therapy. This can be addressed at her follow-up visit. (3) Allergic rhinitis: Status: Chronic Qualifiers: Allergic rhinitis trigger: unspecified Allergic rhinitis seasonality: unspecified Qualified Code(s): J30.9 - Allergic rhinitis, unspecified Plan: Complicates exam, plan, care and prognosis. Continue loratadine, and Singulair. Orders: Orders Simple Pulmonary Exercise Test 11/05/24 J44.9 - Chronic obstructive pulmonary disease, unspecified PFT Complete - DLCO, Spirometry b/a bronchodilators, lung volumes 10/28/24 J44.9 - Chronic obstructive pulmonary disease, unspecified Plan Details Additional Comments: This note was generated with Miroi dictation software. It may contain incorrect words, spelling, and punctuation that were not noted in checking the note before signing. Follow Up: 6 Weeks (CSM) HPI 6 M FU Chief Complaint: Routine follow-up HPI Comments Details: This patient presents to the office today for follow-up of her asthma/COPD overlap syndrome complicated by obstructive sleep apnea for which she is no longer compliant. She is ambulatory and currently on room air. She was recently hospitalized at [facility] from September 21 through September 23, 2024 for paresthesia of the right upper and lower extremity. She came into the emergency department with complaints of right upper extremity weakness and numbness, also had elevated blood pressure. Symptoms were reportedly ongoing for a week. CT of the brain negative for intracranial pathology. [facility] neurology consulted. MRI of the brain with and without contrast negative for acute pathology. Cervical spine MRI showed moderate cervical stenosis. She is compliant with use of Breo 1 puff daily. She does report rinsing her mouth out after each use. She denies any medication side effect such as sore throat or thrush. She is also compliant with Singulair daily and Incruse daily. She is not currently using her albuterol nebulizer. If you recall, she quit smoking approximately 25 or 30 years ago. She reports shortness of breath on exertion occasionally. She denies any cough, sputum production or hemoptysis. She denies any wheezing, chest pain or chest tightness. She has not had any fever, chills or body aches. 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 She admits to dry mouth throughout the night and in the morning. She realizes that she has obstructive sleep apnea but was not able to tolerate a fullface mask. She might consider reevaluating with an alternative mask. Intake Vital Signs 04/08/24 07:35 10/08/24 08:25 Height 5 ft 3 in 5 ft 2 in Weight: 155 lb BMI 28.3 BP 134/60 H Blood Pressure Location Rt brachial Position Sitting Respiration 16 Pulse 51 L Pulse Source Monitor Temp 97.4 F L Temperature Source Temporal Artery Pulse Oximetry (%) 99 Oxygen Delivery Method room air Intake Visit Reasons: 6 M FU Rolls Baker Required: No DME Vendor: None Accompanied by: Self Is patient in pain?: No Allergies erythromycin base Allergy (Verified 10/08/24 13:15) Unknown Penicillins Allergy (Verified 10/08/24 13:15) Unknown sulfamethoxazole (From Bactrim) Allergy (Verified 10/08/24 13:15) Unknown tetracycline Allergy (Verified 10/08/24 13:15) Unknown trimethoprim (From Bactrim) Allergy (Verified 10/08/24 13:15) Unknown cefdinir Adverse Reaction (Mild, Verified 10/08/24 13:15) Upset stomach metronidazole (From Flagyl) Adverse Reaction (Verified 10/08/24 13:15) Nausea Medications ???Medication ???Instructions ???Recorded ???Confirmed ???Type metoprolol tartrate 50 mg tablet 50 mg PO BID blood pressure 10/08/24 History fluoxetine 20 mg capsule 40 (more content not included)... Normal [facility] Cerv Spine 4 or 5 Viewson Cerv Spine 4 or 5 Views [facility] Imaging Services [address] [place] [address] Cerv Spine 4 or 5 Views MR#: [id number] Acct: [id number] Name: TELMA MUHAMMAD Rep #: [id number] : 1955 F 69 From: Martín Alva MD PCP: Dr. Maggi Dorsey MD Status: DEP AMB Study: Cerv Spine 4 or 5 Views Date of Exam: 09/26/24 Exam# [id number] Ordering Dr: Brigette Murillo PROCEDURE: CERV SPINE 4 OR 5 VIEWS 09/26/2024 REASON FOR EXAM: PAIN TECHNIQUE: 4 views of the cervical spine. AP, lateral, flexion-extension FINDINGS: The cervical spine is visualized on the lateral view from the skull base to T1. No fracture or malalignment. No prevertebral soft tissue swelling. No evidence of instability. C4-5 moderate disc space narrowing with anterior osteophyte formation C5-6 and C6-7 severe appearing disc space narrowing with anterior osteophyte formation C7-T1 mhvatvql-[id number] disc space narrowing Visualized apices appear clear. RAD/Cerv Spine 4 or 5 Views IMPRESSION: Multilevel spondylosis/discogenic change as above. Reading Location: [id number] CC: KENNETH Watts; Dr. Maggi Dorsey MD Nailhead Operator: Signed Normal [facility] Orthopedic Visit Reporton Orthopedic Visit Report [facility] [facility] [address] [place] [address] OFFICE VISIT Date of Service: 09/26/24 MR#: [id number] Acct: [id number] Name: TELMA MUHAMMAD Rep #: [id number] : 1955 Provider: KENNETH Watts Age/Sex: 69/F Location: [facility] Status: Signed Intake Vital Signs 09/22/24 11:11 09/26/24 15:04 Height 5 ft 2 in 5 ft 2 in Weight: 156 lb 2 oz BMI 28.5 Intake Visit Reasons: LUMBAR SPINE Chief Complaint: Lumbar spine pain Accompanied by: Self Is patient in pain?: No Allergies erythromycin base Allergy (Verified 09/26/24 15:08) Unknown Penicillins Allergy (Verified 09/26/24 15:08) Unknown sulfamethoxazole (From Bactrim) Allergy (Verified 09/26/24 15:08) Unknown tetracycline Allergy (Verified 09/26/24 15:08) Unknown trimethoprim (From Bactrim) Allergy (Verified 09/26/24 15:08) Unknown cefdinir Adverse Reaction (Mild, Verified 09/26/24 15:08) Upset stomach metronidazole (From Flagyl) Adverse Reaction (Verified 09/26/24 15:08) Nausea Medications ???Medication ???Instructions ???Recorded ???Confirmed ???Type metoprolol tartrate 50 mg tablet 50 mg PO BID blood pressure 09/26/24 History fluoxetine 20 mg capsule 40 mg PO DAILY depression 08/03/20 09/26/24 History omeprazole 20 mg capsule,delayed 20 mg PO BID GERD 03/01/23 5 History release loratadine 10 mg tablet 10 mg PO DAILY #90 tabs 10/04/23 0 09/26/24 Rx albuterol sulfate 90 mcg/actuation 2 puff inhalation Q4H PRN 09/26/24 Rx aerosol inhaler shortness of breath or wheezing #8.5 grams ergocalciferol (vitamin D2) 1,250 1,250 mcg PO QWEEK 04/08/2409/26 History mcg (50,000 unit) capsule fluticasone furoate 200 1 inh inhalation QDAY #3 ea 09/26/24 Rx mcg-vilanterol 25 mcg/dose inhalation powder (Breo Ellipta) montelukast 10 mg tablet 10 mg PO DAILY allergies #90 tabs 04/08/24 09/26/24 Rx umeclidinium 62.5 mcg/actuation 1 inh inhalation QDAY COPD #3 ea 1 06/08/23 09/26/24 Rx blister powder for inhalation (Incruse Ellipta) amlodipine 10 mg tablet 10 mg PO QHS blood pressure 09/26/24 History hydrochlorothiazide 25 mg tablet 25 mg PO DAILY blood pressure 08/2809/26/24 History lisinopril 40 mg tablet 40 mg PO DAILY blood presssure 09/26/24 History aspirin 81 mg tablet,delayed 81 mg PO BREAKFAST #30 tabs 09/26/24 Rx release Have you fallen in the past year?: No PFSH Medical History Wears glasses Cancer Post-menopausal Alcohol use Arthritis History of hiatal hernia History of diverticulitis Gastric reflux COPD (chronic obstructive pulmonary disease) CPAP (continuous positive airway pressure) dependence Constipation Nausea Hypercholesteremia LLQ pain HTN (hypertension) Depression Asthma Abdominal pain Thyroid disorder Diabetes mellitus Surgical History S/P laparoscopic cholecystectomy History of esophagogastroduodenoscopy (EGD) Hx of colonoscopy History of left hip replacement Family History Brother Cancer Hypertension Mother Breast cancer Dementia Social History household members: spouse Smoking Status: Never smoker second hand exposure: No alcohol intake: former substance use type: does not use caffeine: Yes Type: coffee Number of servings: 1 what type of physical activity do you participate in: none HPI LUMBAR SPINE Details: This documentation accurately reflects the service provided and the decisions made by , KENNETH Watts 09/26/24 1504. Part of today???s visit was documented by Nelly Turcios MA, acting as scribe. TELMA MUHAMMAD is a 69 year old F here today for her cervical spine. The patient says that on weekend on both Monday and Monday she was having tingling in her bilateral fingers and toes. She was also having difficulty grasping objects in her right hand and then she felt like her right side of her face was starting to droop. The patient then went to the ER to be seen for potential stroke. While she was at the hospital her symptoms resolved leading to be investigated for a TIA. Patient says that she was also having very high blood pressure at the time of these issues and reportedly said that it was 178/92. While at the hospital they did multiple different imaging which included a cervical MRI. The cervical MRI did show some mild to moderate stenosis of the cervical spine and she was recommended to see us at discharge. The patient denies any neck pain she denies any pain that exten (more content not included)... Normal [facility] 12 Lead EKGon 09-23-2024 12 Lead EKG [facility] Cardiovascular Services [address] [place] [address] 12 Lead EKG 09/23/24 0023 MR#: [id number] Acct: [id number] Name: TELMA MUHAMMAD Rep #: [id number] : 1955 69 From: Phan Salgado MD Attending Dr: Dr. Radha Murray MD Status: DI S JACOBO Ordering Dr: Jerad Rodriguez DO Date: 09/23/24 Location: [facility] Sex: F C Admitted: 09/21/24 Test Reason : CP Blood Pressure : */* mmHG Vent. Rate : 86 BPM Atrial Rate : 86 BPM P-R Int : 136 ms QRS Dur : 90 ms QT Int : 404 ms P-R-T Axes : 39 54 32 degrees QTcB Int : 483 ms Normal sinus rhythm Nonspecific ST abnormality Abnormal ECG When compared with ECG of 21-Sep-2024 19:24, MANUAL COMPARISON REQUIRED DATA IS UNCONFIRMED Confirmed by DAMIAN BRADLEY, PHAN ([id number]), script editor HILARIA REESE ([id number]) on 09/26/2024 1:35:53 PM Referred By: David Roberson Confirmed By: PHAN SALGADO MD 09/26/24 1335 Date Phan Salgado MD CC: Dr. Maggi Dorsey MD; Dr. Jerad Rodriguez DO; Dr. Radha Murray MD; Dr. David Roberson MD Signed [facility] Bedside Glucoseon 09-23-2024 FINGERSTICK GLU 108 mg/dL High 74-106 [facility] Comment on above: Result Comment: LUCILA VANG OF PATIENT CARE PER NURSING PROTOCOL Performed By: #### L 499.0043 #### [facility] [address] [place], [address] Brain W/WO Contraston 2024 Brain W/WO Contrast [facility] Imaging Services [address] [place] [address] Brain W/WO Contrast MR#: [id number] Acct: [id number] Name: TELMA MUHAMMAD Rep #: [id number] : 1955 F 69 From: Erik Valencia MD PCP: Dr. Maggi Dorsey MD Status: ADM JACOBO Study: Brain W/WO Contrast Date of Exam: 09/23/24 Exam# [id number] Ordering Dr: Erik Moreno DO PROCEDURE: BRAIN W/WO CONTRAST (MRIBRWW), 09/23/2024 REASON FOR EXAM: WEAKNESS WITH PARESTHESIAS-RULE OUT MS,STROKE COMPARISON: 09/21/2024 TECHNIQUE: Multisequence multiplanar MRI brain was performed with and without intravenous contrast. Contrast: 15 mL Clariscan. FINDINGS: Cerebrum: Unremarkable. Cerebellum: Unremarkable. Brainstem: Unremarkable. Ventricles/extra-axial spaces: Similar prominence of the extra-axial spaces over the bilateral cerebral convexities. No ventriculomegaly. Major flow voids: Grossly unremarkable within limits of nondedicated technique. Paranasal sinuses: Trace to mild mucosal thickening in the ethmoid air cells.. Scalp/calvarium: Unremarkable. Orbits: Grossly unremarkable within limits of nondedicated technique. Other: No abnormal enhancement. MRI/Brain W/WO Contrast IMPRESSION: 1. No findings to suggest acute infarct or a demyelinating process such as MS. 2. Additional description as above. Reading Location: [facility] CC: Dr. Maggi Dorsey MD; Dr. Erik oMreno DO Nailhead Operator: Signed [facility] Discharge Instructionon 08-28 Discharge Instruction [facility] Medical Records Department [address] [place] [address] Instructions for Home/Discharge Instructions 09/23/24 1632 MR#: [id number] Acct: [id number] Name: TELMA MUHAMMAD Rep #: [id number] : 1955 69 From: Radha Murray MD PCP: Dr. Maggi Dorsey MD Status:ADM JACOBO Discharge Instructions Diet Discharge Diet: Low fat / Low cholesterol DC O2, CPAP, BIPAP needs Home O2 Discharge instructions: No Dressing / Incision Discharge Activity: Return to Normal Activity May resume sexual activity in: No Restrictions Weight Bearing Status: Weight bearing as tolerated Dressing / Incision Call your doctor if you observe: Fever of 101 or Higher, Shortness of breath, Dizziness, Swelling in the ankles and Chest pain Follow Up Care Test Results: Test results from this visit will be discussed in further detail at your follow-up appointment, if applicable. Discharge Plan Admission Admit Date/Time: 09/21/24 20:59 Primary Reason for Your Visit: intermittent neuropathy Attending Provider: Radha Murray Primary Care Provider: Maggi Dorsey Consulting Providers: Enrico Santos; Carlos Harmon; Elyssa Lloyd; Saida Walters; Stefany Cantu; Braxton Choi; Esther Yu; Jaime Mccray; Felipe Perez; Matt Sal; Caitlin Contreras; Migue Ibanez; Domitila Cantrell; Alec Malik; Roseline Gonzalez; Niranjan Briones; Arturo Khanna; Hao Rodriguez; Caroline Guzman; Sriram Powell; Jerad Rodriguez; Erik Moreno Instructions Patient Instructions: What Is Peripheral Neuropathy Discharge Orders/Prescriptions Prescriptions: New aspirin 81 mg Tablet,Delayed Release (Dr/Ec) 81 mg PO BREAKFAST Qty: 30 1RF Continued loratadine 10 mg tablet 10 mg PO DAILY Qty: 90 3RF ergocalciferol (vitamin D2) 1,250 mcg (50,000 unit) capsule 1,250 mcg PO QWEEK albuterol sulfate 90 mcg/actuation HFA aerosol inhaler 2 puff INHALATION Q4H PRN (Reason: shortness of breath or wheezing) Qty: 8.5 6RF Rx Instructions: administer with spacer Incruse Ellipta 62.5 mcg/actuation blister with device 1 inh INHALATION QDAY Qty: 3 4RF montelukast 10 mg tablet 10 mg PO DAILY Qty: 90 3RF Breo Ellipta 200-25 mcg/dose blister with device 1 inh INHALATION QDAY Qty: 3 4RF Rx Instructions: after inhalation, rinse mouth with water and spit out; do not swallow fluoxetine 20 mg capsule 40 mg PO DAILY metoprolol tartrate 50 MG tablet 50 mg PO BID omeprazole 20 mg capsule,delayed release(DR/EC) 20 mg PO BID Patient Comments: TAKE 1 CAPSULE BY MOUTH TWICE A DAY BEFORE MORNING AND EVENING MEALS amlodipine 10 mg tablet 10 mg PO QHS hydrochlorothiazide 25 mg tablet 25 mg PO DAILY lisinopril 40 mg tablet 40 mg PO DAILY Referrals / Follow Up: Maggi Dorsey MD [Primary Care Provider] - Within 1 Week Disposition Disposition (needs filled in before D/C Order can be placed): Home, Self Care 09/23/24 1633 Radha Murray MD CC: Saida Walters; Domitila Cantrell; Niranjan Briones; Stefany Cantu MD; Elyssa Lloyd MD; Enrico Santos MD; Dr. Carlos Harmon MD; Dr. Maggi Dorsey MD; Dr. Jerad Rodriguez DO; Dr. Braxton Choi MD; Dr. Esther Yu MD; Dr. Felipe Perez MD; Dr. Jaime Mccray MD; Dr. Matt Sal MD; Dr. Erik Moreno DO; Dr. Migue Ibanez DO; Dr. Roseline Gonzalez MD; Dr. Alec Malik MD; Dr. Arturo Khanna MD; Dr. Hao Rodriguez MD; Dr. Caroline Guzman MD; Caitlin Contreras DO; Sriram Powell MD Signed [facility] deOrdered By: Erik Moreno on 09-23-2024 Glucose [Mass/Vol] 108 mg/dL High 74-106 [facility] Comment on above: MANAGEMENT OF PATIEN T CARE PER NURSING PROTOCOL MR/CON.PCM.NEon 09-23-2024 MR/CON.PCM.NE [facility] Medical Records Department [address] [place] [address] Consultation - Neurology 09/23/24 1241 MR#: [id number] Acct: [id number] Name: TELMA MUHAMMAD Rep #: [id number] : 1955 69 From: Hao Rodriguez MD PCP: Dr. Maggi Dorsey MD Status:ADM JACOBO Location: [place] [address] Assessment and Plan: Stroke Assessment/Plan TELMA MUHAMMAD is a 69 F with a history of HTN who presents for evaluation of BLE numbness. Neurological examination shows NIH 0. Neuroimaging shows no acute stroke Dx Peripheral Neuropahty. Resolved No further work up If sx re occur outpatient EMG SL HPI Consult Data Date of Consult: 09/23/24 HPI Narrative HPI Narrative: TELMA MUHAMMAD, is a 69 F who presents [facility] Medical History Wears glasses Cancer Post-menopausal Alcohol use Arthritis History of hiatal hernia History of diverticulitis Gastric reflux COPD (chronic obstructive pulmonary disease) CPAP (continuous positive airway pressure) dependence Constipation Nausea Hypercholesteremia LLQ pain HTN (hypertension) Depression Asthma Abdominal pain Thyroid disorder Diabetes mellitus Home Medications ???Medication ???Instructions ???Recorded ???Last Taken ???Type metoprolol tartrate 50 mg tablet 50 mg PO BID blood pressure 03/06/23 History fluoxetine 20 mg capsule 40 mg PO DAILY depression 08/03/20 Unknown History omeprazole 20 mg capsule,delayed 20 mg PO BID GERD 03/01/23 3 History release loratadine 10 mg tablet 10 mg PO DAILY #90 tabs 10/04/23 U nknown Rx albuterol sulfate 90 mcg/actuation 2 puff inhalation Q4H PRN Unknown Rx aerosol inhaler shortness of breath or wheezing #8.5 grams ergocalciferol (vitamin D2) 1,250 1,250 mcg PO QWEEK 11/11/24 Unkno wn History mcg (50,000 unit) capsule fluticasone furoate 200 1 inh inhalation QDAY #3 ea Unknown Rx mcg-vilanterol 25 mcg/dose inhalation powder (Breo Ellipta) montelukast 10 mg tablet 10 mg PO DAILY allergies #90 tabs 04/08/24 Unknown Rx umeclidinium 62.5 mcg/actuation 1 inh inhalation QDAY COPD #3 ea 1 06/08/23 Unknown Rx blister powder for inhalation (Incruse Ellipta) amlodipine 10 mg tablet 10 mg PO QHS blood pressure Unknown History hydrochlorothiazide 25 mg tablet 25 mg PO DAILY blood pressure 08/28 11/20 Unknown History lisinopril 40 mg tablet 40 mg PO DAILY blood presssure Unknown History Allergy/AdvReac Type Severity Reaction Status Date / Time erythromycin base Allergy Unknown Verified 09/21/24 18:51 Penicillins Allergy Unknown Verified 09/21/24 18:51 sulfamethoxazole (From Allergy Unknown Verified 09/21/24 18:51 Bactrim) tetracycline Allergy Unknown Verified 09/21/24 18:51 trimethoprim (From Bactrim) Allergy Unknown Verified 09/21/24 18:51 cefdinir AdvReac Mild Upset Verified 09/21/24 18:51 stomach metronidazole (From Flagyl) AdvReac Nausea Verified 09/21/24 18:51 Family History Brother Cancer Hypertension Mother Breast cancer Dementia Surgical History S/P laparoscopic cholecystectomy History of esophagogastroduodenoscopy (EGD) Hx of colonoscopy History of left hip replacement Social History household members: spouse Smoking Status: Never smoker second hand exposure: No alcohol intake: former substance use type: does not use caffeine: Yes Type: coffee Number of servings: 1 what type of physical activity do you participate in: none Vital Signs Vital Signs Vital Signs: 09/22/24 13:14 09/22/24 13:32 09/22/24 13:47 Temperature 98.5 F Temperature Source Oral Pulse Rate 58 L 67 Pulse Strength Respiratory Rate 18 16 Respiratory Pattern Normal Blood Pressure 134/90 H Blood Pressure Mean 104 Blood Pressure Source Monitor Blood Pressure Position Semi-Fowlers Blood Pressure Location Right Arm Pulse Ox 97 Oxygen Delivery Method Room Air Room Air 09/22/24 17:30 09/22/24 19:57 09/22/24 19:57 Temperature 98.3 F Temperature Source Oral Pulse Rate 75 73 Pulse Strength Respiratory Rate 17 12 Respiratory Pattern Normal Blood Pressure 129/64 H Blood Pressure Mean 85 Blood Pressure Source Monitor Blood Pressure Position Semi-Fowlers Blood Pressure Location Right Arm Pulse Ox 97 97 Oxygen Delivery Method Room Air Room Air 09/22/24 22:00 09/22/24 22:00 09/22/24 22:00 Temperature 98 F Temperature Source Temporal Pulse Rate 73 Pulse Strength Normal (2+) Respiratory Rate (more content not included)... Normal [facility] RESPIRATORY PANEL MOLECULARo n 09-23-2024 RP PANEL ADENOVIRUS Not Detected INFLUENZA A Not Detected INFLUENZA A (SUBTYPE H1) Not Detected INFLUENZA A (SUBTYPE H3) Not Detected INFLUENZA B Not Detected HUMAN METAPHNEUMO Not Detected PARAINFLUENZA 1 Not Detected PARAINFLUENZA 2 Not Detected PARAINFLUENZA 3 Not Detected PARAINFLUENZA 4 Not Detected RHINOVIRUS Not Detected RSV A Not Detected RSV B Not Detected Normal [facility] Comment on above: Performed By: #### L 499.0043 #### [facility] [address] [address] [facility] [place], [place], [id number] Respiratory pathogens detect ion panel by molecular detection methodOrdered By: Radha Murray on 09-23-2024 Respiratory pathogens DNA and RNA panel DONALD+probe (Resp) [facility] Spine Cervical W/WO Contrast on 09-23-2024 Spine Cervical W/WO Contrast [facility] Imaging Services [address] [place], [place] [id number] Spine Cervical W/WO Contrast MR#: [id number] Acct: [id number] Name: TELMA MUHAMMAD Rep #: [id number] : 1955 F 69 From: Erik Valencia MD PCP: Dr. Maggi Dorsey MD Status: ADM JACOBO Study: Spine Cervical W/WO Contrast Date of Exam: Exam# [id number] Ordering Dr: Radha Murray MD PROCEDURE: SPINE CERVICAL W/WO CONTRAST 09/23/2024 REASON FOR EXAM: SPINAL STENOSIS TECHNIQUE: Multiplanar multisequence MRI cervical spine was performed with and without IV contrast. CONTRAST: Clariscan VOLUME: 15 mL COMPARISON: 09/21/2024 FINDINGS: Variable overall moderate motion limitation. Cervical vertebral body heights are preserved. Degenerative type marrow signal changes, greatest at C5-C7. Straightening of the normal cervical lordosis may be positional, degenerative, or related to pain/muscular spasm.. No definite cord signal abnormality or abnormal enhancement allowing for limitations. Diffuse disc desiccation. Additional level by level degenerative findings as below acknowledging evaluation is again limited by motion. C2-3: Unremarkable. C3-4: Minimal disc bulging. No significant foraminal or spinal canal stenosis. C4-5: Mild/moderate disc height loss.. Broad-based predominantly posterior disc bulging, slightly asymmetric to the LEFT. Mild focal spinal canal stenosis with incomplete effacement of CSF and without cord contour abnormality. Suspect mild facet/uncovertebral arthropathy. Suspect mild LEFT foraminal stenosis, difficult to evaluate due to motion. C5-6: Moderate disc height loss. Diffuse disc bulging. Mild/moderate focal spinal canal stenosis, with incomplete effacement of CSF. No cord contour abnormality. Suspect facet/uncovertebral arthropathy. Mild ligamentum flavum hypertrophy. Suspect mild RIGHT and at least moderate LEFT foraminal stenosis, difficult to evaluate due to motion artifact on T2. C6-7: Wzgiovzn-gc-zsypqz disc height loss with diffuse disc bulging. Suspect mild facet/uncovertebral arthropathy. Mild/moderate focal spinal canal stenosis with incomplete effacement of CSF. No definite cord contour abnormality. Suspect mild/moderate LEFT and mild RIGHT foraminal stenoses, difficult to evaluate due to motion. C7-T1: Mild/moderate disc height loss. Mild diffuse disc bulging. No significant focal spinal canal or foraminal stenosis evident allowing for limitations. Other: None. MRI/Spine Cervical W/WO Contrast IMPRESSION: 1. Somewhat limited exam. 2. Multilevel spondylosis as above, greatest at C5-C7. No high grade spinal canal or foraminal stenoses identified, allowing for limitations. 3. No definite cord signal abnormality or abnormal enhancement to suggest a demyelinating process. 4. Additional description as above. Reading Location: [id number] CC: Dr. Maggi Dorsey MD; Dr. Radha Murray MD Nailhead Operator: Signed [facility] Calculated very low density lipoprotein (VLDL) cholesterol measurementOrdered By: Jerad Moses on 09-22-2024 Calculated very low density lipoprotein (VLDL) cholesterol measurement 13 mg/dL 5-40 [facility] LDL calc ser/plasOrdered By: Jerad Moses on 09-22-2024 Cholesterol in LDL [Mass/Vol] 131 mg/dL [facility] Comment on above: Qsjnjnpgjg=845-261 m g/dL & Higher Tebu=927 mg/dL or greater Lipid Profileon 09-22-2024 CHOL:HDL 3.68 Normal [facility] Comment on above: Performed By: #### L 499.0043 #### [facility] [address] [place], [place], [id number] ([phone]) Cholesterol [Mass/Vol] 198 mg/dL Normal <=200 [facility] Comment on above: Result Comment: Chol esterol level, Desirable <200 mg/dL Borderline high cholesterol 200-239 mg/dL High cholesterol >=240 mg/dL Recommendations of the NCEP Adult Treatment Panel for the following risk-cutoff thresholds for the [place] population. Performed By: #### L 499.0043 #### [facility] [address] [place], [place], [id number] Cholesterol in HDL [Mass/Vol] 54 mg/dL Normal [facility] Comment on above: Result Comment: [place] Cholesterol Education Program (NCEP) guidelines: <40 mg/dL: Low HDL-cholesterol (major risk factor for CHD) >= 60 mg/dL: High HDL-cholesterol (negative risk factor for CHD) HDL-cholesterol is affected by a number of factors, e.g. smoking, exercise, hormones, sex and age. Performed By: #### L 499.0043 #### [facility] [address] [place], [place], [id number] [phone] Cholesterol in LDL [Mass/Vol] 131 mg/dL [facility] Comment on above: Result Comment: Bord fkyugn=605-294 mg/dL Higher Vgzv=372 mg/dL or greater Performed By: #### L 499.0043 #### [facility] [address] [place], [address] Cholesterol in VLDL [Mass/Vol] 13 mg/dL Normal 5-40 [facility] Comment on above: Performed By: #### L 499.0043 #### [facility] [address] [place], [address] Triglyceride [Mass/Vol] 66 mg/dL Normal [facility] Comment on above: Result Comment: The drugs N-Acetylcysteine and Metamizole may falsely depress this assay. Normal range: <150 mg/dL Borderline High: 150-199 mg/dL High: 200-499 mg/dL Very High: >500 mg/dL Performed By: #### L 499.0043 #### [facility] [address] [place], [address] MR/CON.PCM.NEon 09-22-2024 MR/CON.PCM.NE [facility] Medical Records Department [address] [place] [address] Consultation - Neurology 09/22/24 1142 MR#: [id number] Acct: [id number] Name: TELMA MUHAMMAD Rep #: [id number] : 1955 69 From: Roseline Gonzalez MD PCP: Dr. Maggi Dorsey MD Status:ADM JACOBO Location: [place] [address] Assessment and Plan: Neuro Assessment/Plan TELMA MUHAMMAD is a 69 F with a past medical history of HTN and HLD presented with hypertension, b/l hand tingling and right arm weakness. symptoms has resolved possible TIA MRI brain w.o cont TTE cont ASA start statin vascular risks modification follow up with vascular neurolgy HPI Consult Data Date of Consult: 09/22/24 HPI Narrative HPI Narrative: TELMA MUHAMMAD, is a 69 F with a past medical history of essential hypertension history of hyperlipidemia; currently not on treatment,who presents to [facility] ER complaining of RUE weakness and numbness with elevated blood pressure. she had b/l hand tinglings followed by right arm weakness she was hypertensive in the ED. on exam today she is back to her baseline CTA head and neck showed No large vessel occlusion.Short segment of fibromuscular dysplasia of the mid right internal carotid artery. [facility] Medical History Wears glasses Cancer Post-menopausal Alcohol use Arthritis History of hiatal hernia History of diverticulitis Gastric reflux COPD (chronic obstructive pulmonary disease) CPAP (continuous positive airway pressure) dependence Constipation Nausea Hypercholesteremia LLQ pain HTN (hypertension) Depression Asthma Abdominal pain Thyroid disorder Diabetes mellitus Home Medications ???Medication ???Instructions ???Recorded ???Last Taken ???Type metoprolol tartrate 50 mg tablet 50 mg PO BID blood pressure 03/06/23 History fluoxetine 20 mg capsule 40 mg PO DAILY depression 08/03/20 Unknown History omeprazole 20 mg capsule,delayed 20 mg PO BID GERD 03/01/23 3 History release loratadine 10 mg tablet 10 mg PO DAILY #90 tabs 10/04/23 U nknown Rx albuterol sulfate 90 mcg/actuation 2 puff inhalation Q4H PRN Unknown Rx aerosol inhaler shortness of breath or wheezing #8.5 grams ergocalciferol (vitamin D2) 1,250 1,250 mcg PO QWEEK 04/08/24 Unkno wn History mcg (50,000 unit) capsule fluticasone furoate 200 1 inh inhalation QDAY #3 ea Unknown Rx mcg-vilanterol 25 mcg/dose inhalation powder (Breo Ellipta) montelukast 10 mg tablet 10 mg PO DAILY allergies #90 tabs 04/08/24 Unknown Rx umeclidinium 62.5 mcg/actuation 1 inh inhalation QDAY COPD #3 ea 1 06/08/23 Unknown Rx blister powder for inhalation (Incruse Ellipta) amlodipine 10 mg tablet 10 mg PO QHS blood pressure Unknown History hydrochlorothiazide 25 mg tablet 25 mg PO DAILY blood pressure 08/28 11/20 Unknown History lisinopril 40 mg tablet 40 mg PO DAILY blood presssure Unknown History Allergy/AdvReac Type Severity Reaction Status Date / Time erythromycin base Allergy Unknown Verified 09/21/24 18:51 Penicillins Allergy Unknown Verified 09/21/24 18:51 sulfamethoxazole (From Allergy Unknown Verified 09/21/24 18:51 Bactrim) tetracycline Allergy Unknown Verified 09/21/24 18:51 trimethoprim (From Bactrim) Allergy Unknown Verified 09/21/24 18:51 cefdinir AdvReac Mild Upset Verified 09/21/24 18:51 stomach metronidazole (From Flagyl) AdvReac Nausea Verified 09/21/24 18:51 Family History Brother Cancer Hypertension Mother Breast cancer Dementia Surgical History S/P laparoscopic cholecystectomy History of esophagogastroduodenoscopy (EGD) Hx of colonoscopy History of left hip replacement Social History household members: spouse Smoking Status: Never smoker second hand exposure: No alcohol intake: former substance use type: does not use caffeine: Yes Type: coffee Number of servings: 1 what type of physical activity do you participate in: none Vital Signs Vital Signs Vital Signs: 09/21/24 18:52 09/21/24 19:30 09/21/24 19:30 Temperature 97.1 F L Temperature Source Temporal Pulse Rate 59 L 65 Pulse Strength Respiratory Rate 18 18 Respiratory Effort Respiratory Depth Respiratory Pattern Blood Pressure 185/97 H 174/69 H Blood Pressure Mean 126 104 Blood Pressure Source Blood Pressure Position Blood Pressure Location Pulse Ox 97 100 99 Oxygen Delivery Method Room Air Room Air Room Air 09/21/24 19:30 09/21/24 19:45 09/21/24 20:0 (more content not included)... Normal [facility] Screening total cholesterol/ high density lipoprotein (HDL) cholesterol ratioOrdered By: Jerad Moses on 09-22-2024 Cholesterol.total/Chol esterol in HDL [Mass ratio] 3.68 {ratio} [facility] Serum or plasma cholesterol in HDL measurement (mass/volume)Ordered By: Jerad Moses on 09-22-2024 Cholesterol in HDL [Mass/Vol] 54 mg/dL >40 [facility] Comment on above: National Cholesterol Education Program (NCEP) guidelines:<40 mg/dL: Low HDL-cholesterol (major risk factor for CHD)>= 60 mg/dL: High HDL-cholesterol (negative risk factor for CHD)HDL-cholesterol is affected by a number of factors, e.g. smoking, exercise, hormones, sex and age. Serum or plasma cholesterol measurement (mass/volume)Ordered By: Jerad Moses on 09-22-2024 Cholesterol [Mass/Vol] 198 mg/dL <201 [facility] Comment on above: Cholesterol level, D esirable <200 mg/dLBorderline high cholesterol 200-239 mg/dLHigh cholesterol >=240 mg/dLRecommendations of the NCEP Adult Treatment Panel for the following risk-cutoff thresholds for the [place] population. Triglycerides measurementOrd ered By: Jerad Moses on 09-22-2024 Triglyceride [Mass/Vol] 66 mg/dL <199 [facility] Comment on above: The drugs N-Acetylcy steine and Metamizole may falsely depress this assay. Normal range: <150 mg/dLBorderline High: 150-199 mg/dLHigh: 200-499 mg/dLVery High: >500 mg/dL Urine Drug Screen ([facility]IST[facility])on 09-22-2024 AMPHETAMINES Negative Normal <1000 ng/mL [facility] Comment on above: Performed By: #### L 501.9985, L501.9100, L503.0106, L505.5000, L501.9520 #### [facility] [address] [place], [address] BARBITIURATES Negative Normal < 200 ng/mL [facility] Comment on above: Performed By: #### L 501.9985, L501.9100, L503.0106, L505.5000, L501.9520 #### [facility] [address] [place], [address] BENZODIAZIPINE Negative Normal < 200 ng/mL [facility] Comment on above: Performed By: #### L 501.9985, L501.9100, L503.0106, L505.5000, L501.9520 #### [facility] [address] [place], [address] BUP Ur Drug Scr Negative Normal < 200 ng/mL [facility] Comment on above: Performed By: #### L 501.9985, L501.9100, L503.0106, L505.5000, L501.9520 #### [facility] [address] [place], [address] COCAINE Negative Normal < 300 ng/mL [facility] Comment on above: Performed By: #### L 501.9985, L501.9100, L503.0106, L505.5000, L501.9520 #### [facility] [address] [place], [address] Fentanyl Negative Normal [facility] Comment on above: Performed By: #### L 501.9985, L501.9100, L503.0106, L505.5000, L501.9520 #### [facility] [address] [place], [address] METHADONE Negative Normal < 300 ng/mL [facility] Comment on above: Performed By: #### L 501.9985, L501.9100, L503.0106, L505.5000, L501.9520 #### [facility] [address] [place], [address] OPIATES Negative Normal < 300 ng/mL [facility] Comment on above: Performed By: #### L 501.9985, L501.9100, L503.0106, L505.5000, L501.9520 #### [facility] [address] [place], [address] OXYCODONE Negative Normal < 100 ng/mL [facility] Comment on above: Performed By: #### L 501.9985, L501.9100, L503.0106, L505.5000, L501.9520 #### [facility] [address] [place], [place], [id number] PCP Negative Normal < 25 ng/mL [facility] Comment on above: Performed By: #### L 501.9985, L501.9100, L503.0106, L505.5000, L501.9520 #### [facility] [address] [place], [place], [id number] THC Positive Normal < 50 ng/mL [facility] Comment on above: Result Comment: If c onfirmation testing is needed, a separate order will be required to send out testing to the reference laboratory. Performed By: #### L 501.9985, L501.9100, L503.0106, L505.5000, L501.9520 #### [facility] [address] [facility] [address] [place], [place], [id number] Absolute lymphocyte countOrd ered By: David [facility] on 09-21-2024 Lymphocytes Auto (Unsp spec) [#/Vol] 1.18 10*3/uL 0.83-4.51 [facility] Absolute neutrophil countOrd ered By: [facility] on 09-21-2024 Neutrophils (Bld) [#/Vol] 3.7 10*3/uL 2.0-7.7 [facility] Activated partial thrombopla stin time (aPTT) in platelet poor plasma by coagulation aOrdered By: Davidalysia Roberson on 09-21-2024 aPTT Coag (PPP) [Time] 27.4 s 24.1-36.2 [facility] Alcohol, Blood (Medical)-Ser umon 09-21-2024 SERUM ETOH < 10.1 Normal <=10.0 [facility] Comment on above: Result Comment: This test is for medical purposes only. The legal definition of intoxication varies according to local law. Performed By: #### L 501.9985, L501.9100, L503.0106, L505.5000, L501.9520 #### [facility] [address] [place], [address] Amphetamine detection with 1 000 ng/mL as cutoffOrdered By: Jerad Moses on 09-21-2024 Amphetamines Screen method >1000 ng/mL Ql (U) Negative < 200 ng/mL [facility] Anion gap in Serum or Plasma Ordered By: Davidalysia Roberson on 09-21-2024 Anion gap [Moles/Vol] 13 mmol/L 10-10 [facility] Automated lymphocyte count a s percentage of total leukocytesOrdered By: Davidalysia Roberson on 09-21-2024 Lymphocytes/100 WBC Auto (Unsp spec) 21.1 % [facility] BUN/creatinine ratioOrdered By: David Roberson on 09-21-2024 Urea nitrogen/Creatinine [Mass ratio] 15.9 mg/mg 03-17 [facility] Basic Metabolic Profile (BMP )on 09-21-2024 BUN/CRE 15.9 RATIO Normal 03-17 [facility] Comment on above: Performed By: #### L 300.3900, L300.4310, L500.2500, L501.4021, L100.0100 ####[facility] [address] [place], [address] Calcium [Mass/Vol] 9.5 mg/dL Normal 7.6-11.0 [facility] Comment on above: Performed By: #### L 300.3900, L300.4310, L500.2500, L501.4021, L100.0100 ####[facility] [address] [place], [address] Chloride [Moles/Vol] 92 mmol/L Low 98-108 [facility] Comment on above: Performed By: #### L 300.3900, L300.4310, L500.2500, L501.4021, L100.0100 ####[facility] [address] [place], [address] CO2 [Moles/Vol] 24.4 mmol/L Normal 21.0-32.0 [facility] Comment on above: Performed By: #### L 300.3900, L300.4310, L500.2500, L501.4021, L100.0100 ####[facility] [address] [place], [address] Creatinine [Mass/Vol] 0.67 mg/dL Low 0.70-1.20 [facility] Comment on above: Performed By: #### L 300.3900, L300.4310, L500.2500, L501.4021, L100.0100 ####[facility] [address] [place], [address] ECRCL 63.59 ml/min Normal 50-250 [facility] Comment on above: Performed By: #### L 300.3900, L300.4310, L500.2500, L501.4021, L100.0100 ####[facility] [address] [place], [address] GAP 13 Normal 5-15 [facility] Comment on above: Performed By: #### L 300.3900, L300.4310, L500.2500, L501.4021, L100.0100 ####[facility] [address] [place], [address] GFR/1.73 sq M.predicted among non-blacks MDRD (S/P/Bld) [Vol rate/Area] 95 mL/min/{1.73_m2} Normal >60 [facility] Comment on above: Result Comment: mL/m in/1.73m2 CKD-EPI Creatinine Equation (2020) Performed By: #### L 300.3900, L300.4310, L500.2500, L501.4021, L100.0100 ####[facility] [address] [place], [address] Glucose [Mass/Vol] 114 mg/dL High 70-99 [facility] Comment on above: Performed By: #### L 300.3900, L300.4310, L500.2500, L501.4021, L100.0100 ####[facility] [address] [place], [address] Potassium [Moles/Vol] 3.3 mmol/L Normal 3.3-5.1 [facility] Comment on above: Performed By: #### L 300.3900, L300.4310, L500.2500, L501.4021, L100.0100 ####[facility] [address] [place], [address] Sodium [Moles/Vol] 129 mmol/L Low 133-145 [facility] Comment on above: Performed By: #### L 300.3900, L300.4310, L500.2500, L501.4021, L100.0100 ####[facility] [address] [place], [address] Urea nitrogen [Mass/Vol] 11 mg/dL Normal 4-19 [facility] Comment on above: Performed By: #### L 300.3900, L300.4310, L500.2500, L501.4021, L100.0100 ####[facility] [address] [place], [address] Basophil percentageOrdered B y: David Roberson on 09-21-2024 Basophils/100 WBC (Bld) 0.4 % 0-1 [facility] CBC W/Diff, Automatedon 04-2 Absolute Lymph 1.18 X10 3/uL Normal 0.83-4.51 [facility] Comment on above: Performed By: #### L 300.3900, L300.4310, L500.2500, L501.4021, L100.0100 #### [facility] [address] [place], [address] Absolute Neut 3.7 X10 3/uL Normal 2.0-7.7 [facility] Comment on above: Performed By: #### L 300.3900, L300.4310, L500.2500, L501.4021, L100.0100 #### [facility] [address] [place], [address] Basophils/100 WBC (Bld) 0.4 % Normal 0-1 [facility] Comment on above: Performed By: #### L 300.3900, L300.4310, L500.2500, L501.4021, L100.0100 #### [facility] [address] [place], [address] Eosinophils/100 WBC (Bld) 1.3 % Normal 0-5 [facility] Comment on above: Performed By: #### L 300.3900, L300.4310, L500.2500, L501.4021, L100.0100 #### [facility] [address] [place], [address] Erythrocyte distribution width (RBC) [Ratio] 11.3 % Low 11.6-14.6 [facility] Comment on above: Performed By: #### L 300.3900, L300.4310, L500.2500, L501.4021, L100.0100 #### [facility] [address] [place], [address] Hematocrit (Bld) [Volume fraction] 42.4 % Normal 37-47 [facility] Comment on above: Performed By: #### L 300.3900, L300.4310, L500.2500, L501.4021, L100.0100 #### [facility] [address] [place], [address] Hemoglobin (Bld) [Mass/Vol] 15.2 g/dL High 12.0-15.0 [facility] Comment on above: Performed By: #### L 300.3900, L300.4310, L500.2500, L501.4021, L100.0100 #### [facility] [address] [place], [address] IG% 0.400 Normal 0.0-0.9 [facility] Comment on above: Result Comment: IG% - Immature Granulocytes (promyelocytes, myelocytes and metamyelocytes) > 1% indicates that a LEFT SHIFT is Present. Performed By: #### L 300.3900, L300.4310, L500.2500, L501.4021, L100.0100 #### [facility] [address] [place], [address] Lymphocytes/100 WBC (Bld) 21.1 % Normal 19-41 [facility] Comment on above: Performed By: #### L 300.3900, L300.4310, L500.2500, L501.4021, L100.0100 #### [facility] [address] [place], [address] MCH (RBC) [Entitic mass] 34.0 pg High 27.0-32.0 [facility] Comment on above: Performed By: #### L 300.3900, L300.4310, L500.2500, L501.4021, L100.0100 #### [facility] [address] [place], [address] MCHC (RBC) [Mass/Vol] 35.8 g/dL Normal 32-36 [facility] Comment on above: Performed By: #### L 300.3900, L300.4310, L500.2500, L501.4021, L100.0100 #### [facility] [address] [place], [address] MCV (RBC) [Entitic vol] 94.9 fL Normal 81-99 [facility] Comment on above: Performed By: #### L 300.3900, L300.4310, L500.2500, L501.4021, L100.0100 #### [facility] [address] [place], [address] Monocytes/100 WBC (Bld) 10.4 % High 0-10 [facility] Comment on above: Performed By: #### L 300.3900, L300.4310, L500.2500, L501.4021, L100.0100 #### [facility] [address] [place], [address] Neutrophils/100 WBC (Bld) 66.4 % Normal 47-70 [facility] Comment on above: Performed By: #### L 300.3900, L300.4310, L500.2500, L501.4021, L100.0100 #### [facility] [address] [place], [address] Nucleated RBC (Bld) [#/Vol] 0 10*3/uL Normal 0-5 [facility] Comment on above: Performed By: #### L 300.3900, L300.4310, L500.2500, L501.4021, L100.0100 #### [facility] [address] [place], [address] Platelet mean volume (Bld) [Entitic vol] 9.8 fL Normal 6.2-12.0 [facility] Comment on above: Performed By: #### L 300.3900, L300.4310, L500.2500, L501.4021, L100.0100 #### [facility] [address] [place], [address] Platelets (Bld) [#/Vol] 267 10*3/uL Normal 150-450 [facility] Comment on above: Performed By: #### L 300.3900, L300.4310, L500.2500, L501.4021, L100.0100 #### [facility] [address] [place], [address] RBC (Bld) [#/Vol] 4.47 10*6/uL Normal 4.2-5.4 [facility] Comment on above: Performed By: #### L 300.3900, L300.4310, L500.2500, L501.4021, L100.0100 #### [facility] [address] [place], [address] RDW SD 39.3 fl Normal 35.1-43.9 [facility] Comment on above: Performed By: #### L 300.3900, L300.4310, L500.2500, L501.4021, L100.0100 #### [facility] [address] [place], [address] WBC (Bld) [#/Vol] 5.6 10*3/uL Normal 4.4-11.0 [facility] Comment on above: Performed By: #### L 300.3900, L300.4310, L500.2500, L501.4021, L100.0100 #### [facility] [address] [place], [address] Carbon dioxide, total [Moles /volume] in Central venous bloodOrdered By: David Roberson on 09-21-2024 CO2 [Moles/Vol] 24.4 mmol/L 21.0-32.0 [facility] Carotid Duplex Ultrasoundon 09-21-2024 Carotid Duplex Ultrasound [facility] [address] [place] [address] Carotid Duplex Ultrasound 09/23/24 0833 MR#: [id number] Acct: [id number] Name: TELMA MUHAMMAD Rep #: [id number] : 1955 69 From: Hilton Ulrich MD Attending Dr: Dr. Radha Murray MD Status: LEATHA CENTENO Ordering Dr: Jerad Rodriguez DO Date: 09/21/24 Location: U Sex: F C Admitted: 09/21/24 Reason For Study Reason For Study: Evaluate for Stenosis Rt. Velocities/BP Lt. Velocities/BP Prox CCA 90/15 cm/sec. Prox CCA 74/16 cm/sec. Mid CCA 83/18 cm/sec. Mid CCA 81/16 cm/sec. Dist CCA 86/20 cm/sec. Dist CCA 71/17 cm/sec. Prox ICA 83/19 cm/sec. Prox ICA 111/26 cm/sec. Mid ICA 91/15 cm/sec. Mid ICA 58/20 cm/sec. Dist ICA 190/52 cm/sec. Dist ICA 83/27 cm/sec. Rt. ICA/CCA = 2.29. Lt. ICA/CCA = 1.4. Prox ECA 95/17 cm/sec. Prox ECA 73/10 cm/sec. Rt. Vert. 59/11 cm/sec. Lt. Vert. 89/26 cm/sec. Right Extracranial There is intimal thickening but no significant atherosclerotic plaque noted in the right common carotid artery. There is heterogeneous, smooth atherosclerotic plaque noted in the right internal carotid artery. There is intimal thickening but no significant atherosclerotic plaque noted in the right external carotid artery. Antegrade flow is noted in the right vertebral artery. Left Extracranial There is heterogeneous, irregular atherosclerotic plaque noted in the left common carotid artery. There is heterogeneous, irregular atherosclerotic plaque noted in the left internal carotid artery. There is heterogeneous, irregular atherosclerotic plaque noted in the left external carotid artery. Antegrade flow is noted in the left vertebral artery. Procedure Carotid Duplex 06177. This is a Carotid Duplex examination using B-mode, color flow and specral Doppler. Exam performed portable in patient room. VL/Carotid Duplex Ultrasound Interpretation Summary Moderate (50-69%) stenosis right extracranial internal carotid. Mild (<50%) stenosis left extracranial internal carotid. Patent and antegrade vertebrals bilaterally. Ordering Physician: Jerad Rodriguez Referring Physician: David Roberson Performed By: Char Longoria, [place], RVT 09/23/24 1115 Date Hilton Ulrich MD CC: Dr. Maggi Dorsey MD; Dr. Jerad Rodriguez DO; Dr. Radha Murray MD; Dr. David Roberson MD Date Dictated: 09/23/24832 Date Transcribed: 09/23/241114 Nailhead Operator: Signed Normal [facility] Chloride assayOrdered By: Garrett Roberson on 09-21-2024 Chloride [Moles/Vol] 92 mmol/L Low 98-108 [facility] Echo Completeon 09-21-2024 Echo Complete [facility] [address] [place] [address] Echo Complete 09/23/24 1142 MR#: [id number] Acct: [id number] Name: TELMA MUHAMMAD Rep #: [id number] : 1955 69 From: Eileen Newman MD Attending Dr: Dr. Radha Murray MD Status: AD M JACOBO Ordering Dr: Jerad Rodriguez DO Date: 09/21/24 Location: [facility] Sex: F C Admitted: 09/21/24 Reason For Study Reason For Study: TIA/CVA Procedure This was a 2D Doppler, Color Flow transthoracic echocardiogram. Exam performed portable in patient room. Left Ventricle Normal size and thickness. The LV systolic function is normal. EF is 65 %. Stage 1 diastolic dysfunction. Right Ventricle Normal right ventricle. Atria The left atrium is moderately enlarged. Normal right atrium. Mitral Valve Mild mitral annular calcification. Trivial mitral valve insufficiency. Tricuspid Valve Normal tricuspid valve. Aortic Valve Trisinus/trileaflet aortic valve. Pulmonic Valve The pulmonic valve is not well visualized. Great Vessels Normal sized aortic root. Pericardium/Pleural No pericardial effusion. MMode/2D Measurements Calculations LVIDd: 4.0 cm IVSd: 1.1 cm Ao root diam: 2.8 cm LVIDs: 2.2 cm LVPWd: 1.1 cm RVDd: 2.8 cm FS: 44.5 % LAV(MOD-bp): 29.0 ml LVAd ap4: 21.8 cm2 LVAd ap2: 19.5 cm2 LAV(MOD-bp) Indexed: 16.5 ml/m2 LVLd ap4: 7.0 cm LVLd ap2: 6.8 cm LAV(MOD-sp2): 25.3 ml EDV(MOD-sp4): 57.4 ml EDV(MOD-sp2): 47.8 ml LAV(MOD-sp4): 31.7 ml EDV(sp4-el): 57.3 ml EDV(sp2-el): 47.6 ml LVAs ap4: 9.5 cm2 LVAs ap2: 8.9 cm2 LVLs ap4: 6.0 cm LVLs ap2: 5.9 cm ESV(MOD-sp4): 13.5 ml ESV(MOD-sp2): 12.3 ml ESV(sp4-el): 12.9 ml ESV(sp2-el): 11.6 ml EF(MOD-sp4): 76.4 % EF(MOD-sp2): 74.4 % EF(sp4-el): 77.5 % SV(MOD-sp4): 43.9 ml SV(MOD-sp2): 35.6 ml SV(sp4-el): 44.4 ml SI(MOD-sp4): 24.9 ml/m2 SI(MOD-sp2): 20.2 ml/m2 LA A4 area: 15.0 cm2 LA dimension(2D): 4.6 cm RA A4 area: 10.2 cm2 TAPSE: 1.8 cm Time Measurements MV dec time: 0.18 sec Doppler Measurements Calculations MV E max kvng: 52.1 cm/sec Lat Peak E' Kvng: 10.8 cm/sec Med Peak E' Kvng: 6.6 cm/sec MV A max kvng: 94.4 cm/sec E/E' lat: 4.8 E/E' med: 7.9 MV E/A: 0.55 Ao V2 max: 163.2 cm/sec LV V1 max: 122.0 cm/sec MV dec slope: 293.1 cm/sec2 Ao max P.7 mmHg LV V1 max P.0 mmHg Ao V2 mean: 107.6 cm/sec LV V1 mean P.8 mmHg Ao mean P.3 mmHg LV V1 mean: 78.5 cm/sec Ao V2 VTI: 30.4 cm LV V1 VTI: 26.2 cm AV (velocity ratio): 0.86 PA V2 max: 112.8 cm/sec ECHO/Echo Complete Interpretation Summary The LV systolic function is normal. EF is 65 %. Stage 1 diastolic dysfunction. The left atrium is moderately enlarged. Mild mitral annular calcification. Increased turbulence and flow in the pulmonary artery. Recommend cardiac MRI for evaluation for possible shunts. Ordering Physician: Jerad Rodriguez Referring Physician: David Roberson Performed By: Saira Rubi RDCS 09/23/24 1253 Date Eileen Newman MD CC: Dr. Maggi Dorsey MD; Dr. Jeard Rodriguez DO; Dr. Radha Murray MD; Dr. David Roberson MD Date Dictated: 09/23/24 1142 Date Transcribed: 09/23/24 1253 Nailhead Operator: Signed Normal [facility] Emergency Department Summary on 09-21-2024 Emergency Department Summary [facility] Medical Records Department [address] [place] [address] Emergency Department Summary 09/21/24 MR#: [id number] Acct: [id number] Name: TELMA MUHAMMAD Rep #: [id number] : 1955 69 From: David Roberson MD PCP: Dr. Maggi Dorsey MD Status:REG ER Location: ED HPI History of Present Illness Chief Complaint: Hypertension Detail of Chief Complaint: Elevated blood pressure, intermittent numbness upper and lower extremity an Informant: patient Onset/Context/Timing Onset: Weeks (Onset greater than a week ago) Context: Sudden Onset Timing: Intermittent Quality: Intermittent paresthesia all extremities and problems with balance Location: Uncertain Current Severity: Gone (At the completion of my H P patient states symptoms are going) Maximum Severity: Moderate Worsened by: Nothing specific Relieved by: Not applicable Associated Symptoms Associated Symptoms: HPI narrative Narrative Narrative: Patient is a 69-year-old woman. She has history of cholelithiasis, GERD, obstructive sleep apnea not using a CPAP or BiPAP machine, thyroid disease and diabetes mellitus. She however denies diabetes mellitus. This was per review of records. Review of her medication list indicates she is on no medicine for diabetes. Patient presents because of elevated blood pressure with systolic of 180+. She states that she has had bilateral numbness in upper and lower extremity as well as unilateral. Symptoms are worse on the right side. She states she had trouble walking because her right lower extremity was very numb. She denies headache, double vision blurred vision loss of vision. She denies ringing or ears or decreased hearing. She denies trouble with speech or swallowing. She denies cardiac or respiratory symptoms. She denies GI symptoms. She denies urologic symptoms. Patient is not a good informant. Patient would describe her paresthesia when I asked her about the dizziness. From what I am able to gather the dizziness is not positional. There are no exacerbating, alleviating or precipitating factors for the dizziness or the paresthesia. commented that she had trouble using her right arm and picking things up. Prior similar symptoms: No Recent Illness/Hospitalization: No PFSH PFS Medical History Wears glasses Cancer Post-menopausal Alcohol use Arthritis History of hiatal hernia History of diverticulitis Gastric reflux COPD (chronic obstructive pulmonary disease) CPAP (continuous positive airway pressure) dependence Constipation Nausea Hypercholesteremia LLQ pain HTN (hypertension) Depression Asthma Abdominal pain Thyroid disorder Diabetes mellitus Home Medications ???Medication ???Instructions ???Recorded ???Last Taken ???Type metoprolol tartrate 50 mg tablet 50 mg PO BID 11/18/16 03/06/23 His tory fluoxetine 20 mg capsule 40 mg PO DAILY 08/03/20 Unknown Hi story omeprazole 20 mg capsule,delayed 20 mg PO BID 03/01/23 03/06/23 His tory release loratadine 10 mg tablet 10 mg PO DAILY #90 tabs 10/04/23 U nknown Rx albuterol sulfate 90 mcg/actuation 2 puff inhalation Q4H PRN Unknown Rx aerosol inhaler shortness of breath or wheezing #8.5 grams ergocalciferol (vitamin D2) 1,250 1,250 mcg PO QWEEK 04/08/24 Unkno wn History mcg (50,000 unit) capsule fluticasone furoate 200 1 inh inhalation QDAY #3 ea Unknown Rx mcg-vilanterol 25 mcg/dose inhalation powder (Breo Ellipta) montelukast 10 mg tablet 10 mg PO DAILY #90 tabs 04/08/24 U nknown Rx umeclidinium 62.5 mcg/actuation 1 inh inhalation QDAY #3 ea Unknown Rx blister powder for inhalation (Incruse Ellipta) amlodipine 10 mg tablet 10 mg PO QHS 09/21/24 Unknown Hist ory hydrochlorothiazide 25 mg tablet 25 mg PO DAILY 09/21/24 Unknown Hi story lisinopril 40 mg tablet 40 mg PO DAILY 09/21/24 Unknown Hi story Allergy/AdvReac Type Severity Reaction Status Date / Time erythromycin base Allergy Unknown Verified 09/21/24 18:51 Penicillins Allergy Unknown Verified 09/21/24 18:51 sulfamethoxazole (From Allergy Unknown Verified 09/21/24 18:51 Bactrim) tetracycline Allergy Unknown Verified 09/21/24 18:51 trimethoprim (From Bactrim) Allergy Unknown Verified 09/21/24 18:51 cefdinir AdvReac Mild Upset Verified 09/21/24 18:51 stomach metronidazole (From Flagyl) AdvReac Nausea Verified 09/21/24 18:51 Family History Brother Cancer Hypertension Mother Breast cancer Dementia Surgical History S/P laparoscopic cholecystectomy History of esophagogastroduodenoscopy (EGD) Hx of colonoscopy History of left hip replacement Social Hi (more content not included)... Normal [facility] Eosinophil percentageOrdered By: David Roberson on 09-21-2024 Eosinophils/100 WBC (Bld) 1.3 % 0-5 [facility] Erythrocyte distribution wid th ratioOrdered By: Davidalysia Roberson on 09-21-2024 Erythrocyte distribution width (RBC) [Ratio] 11.3 % Low 11.6-14.6 [facility] Erythrocyte distribution wid th standard deviationOrdered By: Davidalysia Roberson on 09-21-2024 Erythrocyte distribution width (RBC) [Ratio] 39.3 fl 35.1-43.9 [facility] Folate [Moles/volume] in Ser um or PlasmaOrdered By: Jerad Moses on 09-21-2024 Folate [Moles/Vol] 9.82 ng/mL 4.60-34.80 [facility] Comment on above: Hemolysis, Results w ill be affected, Requires Recollection. Folates,Serum (Folic Acid)on 09-21-2024 FOLATES,SERUM 9.82 ng/mL Normal 4.60-34.80 [facility] Comment on above: Result Comment: Hemo lysis, Results will be affected, Requires Recollection. Performed By: #### L 506.0200 #### [facility] [address] [place], [place], [id number] Glomerular filtration rate ( GFR) estimation/1.73 sq m using serum, plasma, or whole bOrdered By: David Roberson on 09-21-2024 GFR/1.73 sq M.predicted among non-blacks MDRD (S/P/Bld) [Vol rate/Area] 95 mL/min/{1.73_m2} >60 [facility] Comment on above: mL/min/1.73m2 CKD-EP I Creatinine Equation (2020) H AND P Exam - [place] 09-21-2024 H&P Exam - Hospitalist [facility] Medical Records Department [address] [place] [address] H P Exam - Hospitalist 09/21/242027 MR#: [id number] Acct: [id number] Name: TELMA MUHAMMAD Rep #: [id number] : 1955 69 From: Jerad Rodriguez DO PCP: Dr. Maggi Dorsey MD Status:ADM JACOBO Location: [place] [address] HPI - General General Date of Admission: 09/21/24 Date of Service: 09/21/24 Chief Complaint: Right Upper Extremity Weakness and Numbness with Elevated Blood Pressure. HPI Narrative TELMA MUHAMMAD, is a 69 F with a past medical history of essential hypertension; on lisinopril, metoprolol, amlodipine and hydrochlorothiazide, history of hyperlipidemia; currently not on treatment, overweight; BMI of 28.6 this admission, STACEY; currently not using CPAP, history of diabetes mellitus; currently not on treatment, history of tobacco abuse; subsequent asthma/COPD on umeclidinium daily plus on as needed albuterol inhaler, depression; on fluoxetine, history of cancer, history of diverticulitis, history of hiatal hernia, history of cholelithiasis; s/p laparoscopic cholecystectomy (2022), GERD; on omeprazole twice daily and OA; s/p Left THR (2022) who presents to [facility] ER complaining of RUE weakness and numbness with elevated blood pressure. Ms. Muhammad is not a good historian at this time to information was gathered from chart, medical staff and computer. According to the records her symptoms began approximately 1 week prior to admission with intermittent paresthesias in all extremities and problems with her balance. She rated symptoms of dizziness and paresthesia to be of moderate severity and not made better or worse by anything. Her informed the ER physician that she seemed to have some clumsiness and weakness of her Right arm with an elevated systolic blood pressure in the 180 mmHg range so they decided to come in for further evaluation and treatment. She denies associated fever, chills, changes in vision, discharge from eyes, runny nose, sore throat, ear pain, chest pain, shortness of breath, heart racing, palpitations, abdominal pain, nausea, vomiting, diarrhea, constipation, dysuria, hematuria, headache or rash but she does admit to heightened anxiety. In the ER she was noted to have a CT scan of the brain without contrast that revealed normal noncontrast head CT with initial blood pressure highly elevated at 187/95 mmHg consistent with uncontrolled hypertension likely due at least in part to noncompliance with CPAP compounded by laboratory evidence of mild Hyponatremia 129 mmol/L present on admission and she was then admitted to the PCU under observation status for TIA/CVA workup for stay that is expected to be less than 2 midnights. [facility] Medical History Wears glasses Cancer Post-menopausal Alcohol use Arthritis History of hiatal hernia History of diverticulitis Gastric reflux COPD (chronic obstructive pulmonary disease) CPAP (continuous positive airway pressure) dependence Constipation Nausea Hypercholesteremia LLQ pain HTN (hypertension) Depression Asthma Abdominal pain Thyroid disorder Diabetes mellitus Home Medications ???Medication ???Instructions ???Recorded ???Last Taken ???Type metoprolol tartrate 50 mg tablet 50 mg PO BID 11/18/16 03/06/23 His tory fluoxetine 20 mg capsule 40 mg PO DAILY 08/03/20 Unknown Hi story omeprazole 20 mg capsule,delayed 20 mg PO BID 03/01/23 03/06/23 His tory release loratadine 10 mg tablet 10 mg PO DAILY #90 tabs 10/04/23 U nknown Rx albuterol sulfate 90 mcg/actuation 2 puff inhalation Q4H PRN Unknown Rx aerosol inhaler shortness of breath or wheezing #8.5 grams ergocalciferol (vitamin D2) 1,250 1,250 mcg PO QWEEK 04/08/24 Unkno wn History mcg (50,000 unit) capsule fluticasone furoate 200 1 inh inhalation QDAY #3 ea Unknown Rx mcg-vilanterol 25 mcg/dose inhalation powder (Breo Ellipta) montelukast 10 mg tablet 10 mg PO DAILY #90 tabs 04/08/24 U nknown Rx umeclidinium 62.5 mcg/actuation 1 inh inhalation QDAY #3 ea Unknown Rx blister powder for inhalation (Incruse Ellipta) amlodipine 10 mg tablet 10 mg PO QHS 09/21/24 Unknown Hist ory hydrochlorothiazide 25 mg tablet 25 mg PO DAILY 09/21/24 Unknown Hi story lisinopril 40 mg tablet 40 mg PO DAILY 09/21/24 Unknown Hi story Allergy/AdvReac Type Severity Reaction Status Date / Time erythromycin base Allergy Unknown Verified 09/21/24 18:51 Penicillins Allergy Unknown Verified 09/21/24 18:51 sulfamethoxazole (From Allergy Unknown Verified 09/21/24 18:51 Bactrim) tetracycline Allergy Unknown Verified 09/21/24 18:51 trimethoprim (From Bactrim) Allergy Unknown Verified 09/21/24 18:51 cefdinir AdvReac Mild Upset Ve (more content not included)... Normal [facility] Hematocrit Auto (Bld) [Volum e fraction]Ordered By: David Roberson on 09-21-2024 Hematocrit (Bld) [Volume fraction] 42.4 % 37-47 [facility] Hemoglobin A1con 09-21-2024 HbA1c (Bld) [Mass fraction] 5.4 % Normal <=5.6 [facility] Comment on above: Result Comment: Norm al < 5.7 % Prediabetic 5.7 - 6.4 % Diabetic >or= 6.5 % Please note range changes. Performed By: #### L 501.9985, L501.9100, L503.0106, L505.5000, L501.9520 #### [facility] [address] [place] [address]. [place], [place], [id number] Hemoglobin A1c percentageOrd ered By: Jerad Moses on 09-21-2024 HbA1c (Bld) [Mass fraction] 5.4 % <5.7 [facility] Comment on above: Normal < 5.7 % Predi abetic 5.7 - 6.4 % Diabetic >or= 6.5 % Please note range changes. Hemoglobin measurementOrdere d By: David Roberson on 09-21-2024 Hemoglobin (Bld) [Mass/Vol] 15.2 g/dL High 12.0-15.0 [facility] Immature granulocytes/100 WB C Auto (Bld)Ordered By: David Roberson on 09-21-2024 Immature granulocytes/100 WBC (Bld) 0.400 % 0.0-0.9 [facility] Comment on above: IG% - Immature Granu locytes (promyelocytes, myelocytes and metamyelocytes) > 1% indicates that a LEFT SHIFT is Present. International normalized rat io (INR) calculationOrdered By: David Roberson on 09-21-2024 INR Coag (Bld) [Relative time] 0.9 {INR} [facility] L499.0042on 09-21-2024 Trop T High Sen < 6 Normal <=14 [facility] Comment on above: Performed By: #### L 499.0043 #### [facility] [address] [place], [address] L499.0043on 09-21-2024 Trop T High Sen < 6 Normal <=14 [facility] Comment on above: Performed By: #### L 499.0043 #### [facility] [address] [place], [address] L501.4021on 09-21-2024 Trop T High Sen < 6 Normal <=14 [facility] Comment on above: Performed By: #### L 300.3900, L300.4310, L500.2500, L501.4021, L100.0100 ####[facility] [address] [place], [address] MCV (mean corpuscular volume ) determinationOrdered By: David Roberson on 09-21-2024 MCV (RBC) [Entitic vol] 94.9 fL 81-99 [facility] Mean corpuscular hemoglobin (MCH) determinationOrdered By: David [facility] on 09-21-2024 MCH (RBC) [Entitic mass] 34.0 pg High 27.0-32.0 [facility] Mean corpuscular hemoglobin concentration (MCHC) determinationOrdered By: [facility] on 09-21-2024 MCHC (RBC) [Mass/Vol] 35.8 g/dL 32-36 [facility] Mean platelet volume determi nationOrdered By: David Roberson on 09-21-2024 Platelet mean volume (Bld) [Entitic vol] 9.8 fL 6.2-12.0 [facility] Monocyte percentageOrdered B y: David Roberson on 09-21-2024 Monocytes/100 WBC (Bld) 10.4 % High 0-10 [facility] Neutrophil percentageOrdered By: Davidalysia Roberson on 09-21-2024 Neutrophils/100 WBC (Bld) 66.4 % 47-70 [facility] No Panel InformationOrdered By: Jerad Moses on 09-21-2024 Urine Buprenorphine Qualitative Negative < 200 ng/mL [facility] Urine Oxycodone Screen Negative < 100 ng/mL [facility] Nucleated red blood cell per centageOrdered By: David Roberson on 09-21-2024 Nucleated RBC/100 WBC (Bld) [Ratio] 0 % 0-5 [facility] Partial Thromboplast Timeon 09-21-2024 aPTT Coag (Bld) [Time] 27.4 s Normal 24.1-36.2 [facility] Comment on above: Performed By: #### L 300.3900, L300.4310, L500.2500, L501.4021, L100.0100 ####[facility] [address] [place], [place], [id number] Platelet countOrdered By: Garrett alysia Da on 09-21-2024 Platelets (Bld) [#/Vol] 267 10*3/uL 150-450 [facility] Potassium measurement (mass/ volume)Ordered By: David Roberson on 09-21-2024 Potassium (Unsp spec) [Mass/Vol] 3.3 mmol/L 3.3-5.1 [facility] Prothrombin Time w/INRon INR Coag (PPP) [Relative time] 0.9 {INR} Normal [facility] Comment on above: Performed By: #### L 300.3900, L300.4310, L500.2500, L501.4021, L100.0100 ####[facility] [address] [place], [place], [id number] PT Coag (PPP) [Time] 12.7 s Normal 11.7-14.9 [facility] Comment on above: Performed By: #### L 300.3900, L300.4310, L500.2500, L501.4021, L100.0100 ####[facility] [address] [place], [place], [id number] Prothrombin timeOrdered By: David Roberson on 09-21-2024 PT Coag (PPP) [Time] 12.7 s 11.7-14.9 [facility] Quantitative urine opiates m easurementOrdered By: Jerad Moses on 09-21-2024 Opiates Ql (U) Negative < 300 ng/mL [facility] RBC Auto (Bld) [#/Vol]Ordere d By: David Roberson on 09-21-2024 RBC (Bld) [#/Vol] 4.47 10*6/uL 4.2-5.4 [facility] STROKE Brain/Head without Co nton 09-21-2024 STROKE Brain/Head without Cont [facility] Imaging Services [address] [place], [place] [id number] STROKE Brain/Head without Cont MR#: [id number] Acct: [id number] Name: TELMA MUHAMMAD Rep #: [id number] : 1955 F 69 From: Shravan Villalta MD PCP: Dr. Maggi Dorsey MD Status: [facility] Study: STROKE Brain/Head without Cont Date of Exam: 0 09/21/24 Exam# [id number] Ordering Dr: David Roberson MD PROCEDURE: STROKE BRAIN/HEAD WITHOUT CONT 09/21/2024 REASON FOR EXAM: NEURO DEFICIT, ACUTE, STROKE SUSPECTED TECHNIQUE: Head CT without intravenous contrast. Coronal and Sagittal reconstruction series were provided. One or more dose reduction techniques were used (e.g., Automated exposure control, adjustment of the mA and/or kV according to patient size, use of iterative reconstruction technique. COMPARISON: 04/09/2024 FINDINGS: Brain: Normal CSF Spaces: Normal Sinuses/Mastoids: Clear at visualized levels Bones: Unremarkable. CT/STROKE Brain/Head without Cont IMPRESSION: NORMAL NONCONTRAST HEAD CT. Reading Location: [facility] CC: Dr. Maggi Dorsey MD; Dr. David Roberson MD Nailhead Operator: Signed Normal [facility] STROKE CTA Head AND Neck W/C onon 09-21-2024 STROKE CTA Head AND Neck W/Con [facility] Imaging Services [address] [place] [address] STROKE CTA Head AND Neck W/Con MR#: [id number] Acct: [id number] Name: TELMA MUHAMMAD Rep #: [id number] : 1955 F 69 From: Shravan Villalta MD PCP: Dr. Maggi Dorsey MD Status: ADM JACOBO Study: STROKE CTA Head AND Neck W/Con Date of Exam: 0 09/21/24 Exam# [id number] Ordering Dr: Jerad Rodriguez DO PROCEDURE: STROKE CTA HEAD AND NECK W/CON N/A REASON FOR EXAM: NEURO DEFICIT, ACUTE, STROKE SUSPECTED TECHNIQUE: CTA imaging of the head and neck from the aortic arch to the skull vertex with out constrast and with intravenous contrast. Multiplanar and multisequence images were obtained. 3D post processing with reformations, Maximum intensity projection (MIPs) Volume rendering and Shaded surface rendering was provided. One or more dose reduction techniques were used (e.g., Automated exposure control, adjustment of the mA and/or kV according to patient size, use of iterative reconstruction technique). FINDINGS: Aortic Arch: Common origin of the brachiocephalic trunk and left common carotid artery consistent with a bovine arch which is a normal variant. Brachiocephalic and Subclavians: Mild atherosclerotic plaque without significant stenosis. RIGHT Carotid: Right CCA: Unremarkable. Right ICA: Mild calcified and soft plaque. Short-segment of the mid right internal carotid artery demonstrates a beaded appearance without significant stenosis suggestive of fibromuscular dysplasia. Maximum stenosis (NASCET): 20 % Right ECA: Unremarkable. LEFT Carotid: Left CCA: Unremarkable. Left ICA: Unremarkable. Maximum stenosis (NASCET): 0 % Left ECA: Mild calcified and soft plaque. Vertebrals: RIGHT Vertebral: Hypoplastic right vertebral artery which terminates as the right posterior inferior cerebellar artery. LEFT Vertebral: Dominant widely patent left vertebral artery. Anatomy: Persistent origin of the left posterior cerebral artery. Aneurysm or avm: No intracranial aneurysms or large vascular malformations are identified. Anterior cerebral arteries: Unremarkable: Middle cerebral arteries: Unremarkable. Basilar artery: Unremarkable. Posterior cerebral arteries: Unremarkable. Other major branches of the posterior circulation: Unremarkable. Major venous structures: Unremarkable. Other findings: Neck: No lymphadenopathy. Lungs: Lung apices are clear. Bones: Bones are unremarkable. CT/STROKE CTA Head AND Neck W/Con IMPRESSION: No large vessel occlusion. Bovine arch. Mild (20%) right carotid stenosis. Short segment of fibromuscular dysplasia of the mid right internal carotid artery. No left carotid stenosis. Patent vertebral arteries bilaterally. The right vertebral artery is hypoplastic and terminates as the right posterior inferior cerebellar artery. Reading Location: [facility] CC: Dr. Maggi Dorsey MD; Dr. Jerad Rodriguez DO Nailhead Operator: Signed Normal [facility] Screening urine fentanyl samia surementOrdered By: Jerad Moses on 09-21-2024 fentaNYL Screen Ql (U) Negative [facility] Serum creatinine measurement (mass/volume)Ordered By: David Roberson on 09-21-2024 Creatinine [Mass/Vol] 0.67 mg/dL Low 0.70-1.20 [facility] Serum glucose measurement (m ass/volume)Ordered By: David Roberson on 09-21-2024 Glucose [Mass/Vol] 114 mg/dL High 70-99 [facility] Serum or plasma calcium lake urement (mass/volume)Ordered By: Davidalysia Roberson on 09-21-2024 Calcium [Mass/Vol] 9.5 mg/dL 7.6-11.0 [facility] Serum or plasma ethanol lake urement (mass/volume)Ordered By: Jerad Moses on 09-21-2024 Ethanol [Mass/Vol] mg/dL <10.1 [facility] Comment on above: This test is for med ical purposes only. The legal definition of intoxication varies according to local law. Serum or plasma urea nitroge n measurement (mass/volume)Ordered By: David Roberson on 09-21-2024 Urea nitrogen [Mass/Vol] 11 mg/dL 4-19 [facility] Sodium levelOrdered By: David Roberson on 09-21-2024 Sodium [Moles/Vol] 129 mmol/L Low 133-145 [facility] TSH DL <= 0.005 mIU/L QnOrde red By: Jerad Moses on 09-21-2024 TSH Qn 2.810 uIU/mL 0.300-4.20 0 [facility] Thyroid Stim Hormone (TSH)on 09-21-2024 TSH 2.810 uIU/mL Normal 0.300-4.20 0 [facility] Comment on above: Performed By: #### L 501.9985, L501.9100, L503.0106, L505.5000, L501.9520 #### [facility] [address] [place], [place], [address] Troponin T.cardiac [Mass/vol ume] in Serum or Plasma by High sensitivity methodOrdered By: David Roberson on 09-21-2024 Troponin T.cardiac High sensitivity method [Mass/Vol] < 6 ng/L <14 [facility] Troponin T.cardiac High sensitivity method [Mass/Vol] < 6 ng/L <14 [facility] Troponin T.cardiac High sensitivity method [Mass/Vol] < 6 ng/L <14 [facility] Urine benzodiazepine levelOr dered By: Jerad Moses on 09-21-2024 Benzodiazepines Ql (U) Negative < 200 ng/mL [facility] Urine cocaine levelOrdered B y: Jerad Moses on 09-21-2024 Cocaine Ql (U) Negative < 300 ng/mL [facility] Urine dmucv-2-wmalmlaohpnomf abinol (THC) measurementOrdered By: Jerad Moses on 09-21-2024 Cannabinoids Screen Ql (U) Positive < 50 ng/mL [facility] Comment on above: If confirmation test ing is needed, a separate order will be required to send out testing to the reference laboratory. Urine phencyclidine (PCP) de tectionOrdered By: Jerad Moses on 09-21-2024 Phencyclidine Ql (U) Negative < 25 ng/mL [facility] Vitamin B12on 09-21-2024 Cobalamin (Vitamin B12) [Mass/Vol] 488 pg/mL Normal 180-914 [facility] Comment on above: Performed By: #### L 501.9985, L501.9100, L503.0106, L505.5000, L501.9520 #### [facility] [address] [place], [place], [phone] Vitamin B12 ser/plasOrdered By: Jerad Moses on 09-21-2024 Cobalamin (Vitamin B12) [Mass/Vol] 488 pg/mL 180-914 [facility] White blood cell (WBC) count Ordered By: David Roberson on 09-21-2024 WBC (Bld) [#/Vol] 5.6 10*3/uL 4.4-11.0 [facility] Vitamin D 1,25-Dihydroxyon 0 09-16-2024 VIT D 1,25 DIHY 88.9 pg/mL Abnormal 24.8-81.5 [facility] Comment on above: Order Comment: Order Date: 09/12/24Order Info: [id number] - [id number] Result Comment: Perf ormed at: - [facility] [address] [id number] Election Watcher: Jose Juan Augustin MD, Phone: [phone] Performed By: #### L 500.4050, L3300.0960, L100.0500, L501.9520 ####[facility] [address] [place], [place], [id number] 1,25-dihydroxyvitamin D3 [Ma ss/Vol]Ordered By: Maggi Dorsey on 09-12-2024 Vitamin D 1,25-Dihydroxy 88.9 pg/mL High 24.8-81.5 [facility] Comment on above: Performed at: [facility] [address] [id number] Director: Jose Juan Augustin MD, Phone: [phone] Anion gap in Serum or Plasma Ordered By: Maggi Dorsey on 09-12-2024 Anion gap [Moles/Vol] 13 mmol/L 5- [facility] BUN/creatinine ratioOrdered By: Maggi Inmanke on 09-12-2024 Urea nitrogen/Creatinine [Mass ratio] 14.2 mg/mg 10- [facility] Bilirubin, totalOrdered By: Maggi Inmanke on 09-12-2024 Bilirubin [Mass/Vol] 0.84 mg/dL 0.00-1.30 [facility] CBC-Complete Blood Cnt No Di ffon 09-12-2024 Erythrocyte distribution width (RBC) [Ratio] 11.8 % Normal 11.6-14.6 [facility] Comment on above: Order Comment: Order Date: 09/12/24Order Info: [id number] - CBC Performed By: #### L 500.4050, L3300.0960, L100.0500, L501.9520 ####[facility] [address] [place], [address] Hematocrit (Bld) [Volume fraction] 41.9 % Normal 37-47 [facility] Comment on above: Order Comment: Order Date: 09/12/24Order Info: [id number] - CBC Performed By: #### L 500.4050, L3300.0960, L100.0500, L501.9520 ####[facility] [address] [place], [address] Hemoglobin (Bld) [Mass/Vol] 14.4 g/dL Normal 12.0-15.0 [facility] Comment on above: Order Comment: Order Date: 09/12/24Order Info: [id number] - CBC Performed By: #### L 500.4050, L3300.0960, L100.0500, L501.9520 ####[facility] [address] [place], [address] MCH (RBC) [Entitic mass] 33.4 pg High 27.0-32.0 [facility] Comment on above: Order Comment: Order Date: 09/12/24Order Info: [id number] - CBC Performed By: #### L 500.4050, L3300.0960, L100.0500, L501.9520 ####[facility] [address] [place], [address] MCHC (RBC) [Mass/Vol] 34.4 g/dL Normal 32-36 [facility] Comment on above: Order Comment: Order Date: 09/12/24Order Info: [id number] - CBC Performed By: #### L 500.4050, L3300.0960, L100.0500, L501.9520 ####[facility] [address] [place], [address] MCV (RBC) [Entitic vol] 97.2 fL Normal 81-99 [facility] Comment on above: Order Comment: Order Date: 09/12/24Order Info: [id number] - CBC Performed By: #### L 500.4050, L3300.0960, L100.0500, L501.9520 ####[facility] [address] [place], [address] Platelet mean volume (Bld) [Entitic vol] 10.1 fL Normal 6.2-12.0 [facility] Comment on above: Order Comment: Order Date: 09/12/24Order Info: [id number] - CBC Performed By: #### L 500.4050, L3300.0960, L100.0500, L501.9520 ####[facility] [address] [place], [address] Platelets (Bld) [#/Vol] 248 10*3/uL Normal 150-450 [facility] Comment on above: Order Comment: Order Date: 09/12/24Order Info: [id number] - CBC Performed By: #### L 500.4050, L3300.0960, L100.0500, L501.9520 ####[facility] [address] [place], [address] RBC (Bld) [#/Vol] 4.31 10*6/uL Normal 4.2-5.4 [facility] Comment on above: Order Comment: Order Date: 09/12/24Order Info: [id number] - CBC Performed By: #### L 500.4050, L3300.0960, L100.0500, L501.9520 ####[facility] [address] [place], [address] RDW SD 42.5 fl Normal 35.1-43.9 [facility] Comment on above: Order Comment: Order Date: 09/12/24Order Info: [id number] - CBC Performed By: #### L 500.4050, L3300.0960, L100.0500, L501.9520 ####[facility] [address] [place], [address] WBC (Bld) [#/Vol] 4.4 10*3/uL Normal 4.4-11.0 [facility] Comment on above: Order Comment: Order Date: 09/12/24Order Info: [id number] - CBC Performed By: #### L 500.4050, L3300.0960, L100.0500, L501.9520 ####[facility] [address] [place], [address] Carbon dioxide, total [Moles /volume] in Central venous bloodOrdered By: Maggi Dorsey on 09-12-2024 CO2 [Moles/Vol] 24.9 mmol/L 21.0-32.0 [facility] Chloride assayOrdered By: Mabel Dorsey on 09-12-2024 Chloride [Moles/Vol] 93 mmol/L Low 98-108 [facility] Comprehensive Metabolic Prof ilon 09-12-2024 Albumin [Mass/Vol] 4.3 g/dL Normal 3.4-4.8 [facility] Comment on above: Order Comment: Order Date: 09/12/24Order Info: [id number] - CMPOrder Info: [id number] - TSH Performed By: #### L 500.4050, L3300.0960, L100.0500, L501.9520 ####[facility] [address] [place], [address] Albumin/Globulin [Mass ratio] 1.7 {ratio} Normal 0.9-2.4 [facility] Comment on above: Order Comment: Order Date: 09/12/24Order Info: [id number] - CMPOrder Info: [id number] - TSH Performed By: #### L 500.4050, L3300.0960, L100.0500, L501.9520 ####[facility] [address] [place], [address] ALK PHOS 61 U/L Normal 35-104 [facility] Comment on above: Order Comment: Order Date: 09/12/24Order Info: [id number] - CMPOrder Info: 3 - TSH Performed By: #### L 500.4050, L3300.0960, L100.0500, L501.9520 ####[facility] [address] [place], [address] ALT [Catalytic activity/Vol] 8 U/L Normal <=34 [facility] Comment on above: Order Comment: Order Date: 09/12/24Order Info: [id number] - CMPOrder Info: [id number] - TSH Performed By: #### L 500.4050, L3300.0960, L100.0500, L501.9520 ####[facility] [address] [place], [address] AST [Catalytic activity/Vol] 21 U/L Normal <=31 [facility] Comment on above: Order Comment: Order Date: 09/12/24Order Info: [id number] - CMPOrder Info: 6-3 - TSH Performed By: #### L 500.4050, L3300.0960, L100.0500, L501.9520 ####[facility] [address] [place], [address] Bilirubin [Mass/Vol] 0.84 mg/dL Normal 0.00-1.30 [facility] Comment on above: Order Comment: Order Date: 09/12/24Order Info: [id number] - CMPOrder Info: [id number] - TSH Performed By: #### L 500.4050, L3300.0960, L100.0500, L501.9520 ####[facility] [address] [place], [address] BUN/CRE 14.2 RATIO Normal 10-20 [facility] Comment on above: Order Comment: Order Date: 09/12/24Order Info: [id number] - CMPOrder Info: [id number] - TSH Performed By: #### L 500.4050, L3300.0960, L100.0500, L501.9520 ####[facility] [address] [place], [address] Calcium [Mass/Vol] 9.6 mg/dL Normal 7.6-11.0 [facility] Comment on above: Order Comment: Order Date: 09/12/24Order Info: [id number] - CMPOrder Info: [id number] - TSH Performed By: #### L 500.4050, L3300.0960, L100.0500, L501.9520 ####[facility] [address] [place], [address] Chloride [Moles/Vol] 93 mmol/L Low 98-108 [facility] Comment on above: Order Comment: Order Date: 09/12/24Order Info: [id number] - CMPOrder Info: [id number] - TSH Performed By: #### L 500.4050, L3300.0960, L100.0500, L501.9520 ####[facility] [address] [place], [address] CO2 [Moles/Vol] 24.9 mmol/L Normal 21.0-32.0 [facility] Comment on above: Order Comment: Order Date: 09/12/24Order Info: [id number] - CMPOrder Info: [id number] - TSH Performed By: #### L 500.4050, L3300.0960, L100.0500, L501.9520 ####[facility] [address] [place], [address] Creatinine [Mass/Vol] 0.68 mg/dL Low 0.70-1.20 [facility] Comment on above: Order Comment: Order Date: 09/12/24Order Info: [id number] - CMPOrder Info: [id number] - TSH Performed By: #### L 500.4050, L3300.0960, L100.0500, L501.9520 ####[facility] [address] [place], [address] GAP 13 Normal 5-15 [facility] Comment on above: Order Comment: Order Date: 09/12/24Order Info: [id number] - CMPOrder Info: [id number] - TSH Performed By: #### L 500.4050, L3300.0960, L100.0500, L501.9520 ####[facility] [address] [place], [address] GFR/1.73 sq M.predicted among non-blacks MDRD (S/P/Bld) [Vol rate/Area] 94 mL/min/{1.73_m2} Normal >60 [facility] Comment on above: Order Comment: Order Date: 09/12/24Order Info: [id number] - CMPOrder Info: [id number] - TSH Result Comment: mL/m in/1.73m2 CKD-EPI Creatinine Equation (2020) Performed By: #### L 500.4050, L3300.0960, L100.0500, L501.9520 ####[facility] [address] [place], [address] Globulin (S) [Mass/Vol] 2.5 g/dL Normal 2.2-4.2 [facility] Comment on above: Order Comment: Order Date: 09/12/24Order Info: [id number] - CMPOrder Info: 3015-3 - TSH Performed By: #### L 500.4050, L3300.0960, L100.0500, L501.9520 ####[facility] [address] [place], [address] Glucose [Mass/Vol] 104 mg/dL High 70-99 [facility] Comment on above: Order Comment: Order Date: 09/12/24Order Info: 0786-1 - CMPOrder Info: 3015-3 - TSH Performed By: #### L 500.4050, L3300.0960, L100.0500, L501.9520 ####[facility] [address] [place], [address] Potassium [Moles/Vol] 3.7 mmol/L Normal 3.3-5.1 [facility] Comment on above: Order Comment: Order Date: 09/12/24Order Info: 0786-1 - CMPOrder Info: 301-3 - TSH Performed By: #### L 500.4050, L3300.0960, L100.0500, L501.9520 ####[facility] [address] [place], [address] Sodium [Moles/Vol] 131 mmol/L Low 133-145 [facility] Comment on above: Order Comment: Order Date: 09/12/24Order Info: 0786-1 - CMPOrder Info: 3016-3 - TSH Performed By: #### L 500.4050, L3300.0960, L100.0500, L501.9520 ####[facility] [address] [place], [address] T PROT 6.8 g/dL Normal 5.9-8.4 [facility] Comment on above: Order Comment: Order Date: 09/12/24Order Info: 0786-1 - CMPOrder Info: 3016-3 - TSH Performed By: #### L 500.4050, L3300.0960, L100.0500, L501.9520 ####[facility] [address] [place], [place], [address] Urea nitrogen [Mass/Vol] 10 mg/dL Normal 4-19 [facility] Comment on above: Order Comment: Order Date: 09/12/24Order Info: 0786-1 - CMPOrder Info: 3016-3 - TSH Performed By: #### L 500.4050, L3300.0960, L100.0500, L501.9520 ####[facility] [address] [place], [place], [address] Erythrocyte distribution wid th (RBC) [Ratio]Ordered By: Maggi Dorsey on 09-12-2024 Erythrocyte distribution width (RBC) [Entitic vol] 42.5 fL 35.1-43.9 [facility] Erythrocyte distribution wid th ratioOrdered By: Maggi Dorsey on 09-12-2024 Erythrocyte distribution width (RBC) [Ratio] 11.8 % 11.6-14.6 [facility] Erythrocyte distribution wid th standard deviationOrdered By: Maggi Sunita on 09-12-2024 Erythrocyte distribution width (RBC) [Ratio] 42.5 fl 35.1-43.9 [facility] GFR/1.73 sq M.predicted wilberto g non-blacks MDRD (S/P/Bld) [Vol rate/Area]Ordered By: Maggi Dorsey on 09-12-2024 Estimated GFR (MDRD) Non-Af Amer 94 >60 [facility] Comment on above: mL/min/1.73m2 CKD-EP I Creatinine Equation (2020) Glomerular filtration rate ( GFR) estimation/1.73 sq m using serum, plasma, or whole bOrdered By: Maggi Dorsey on 09-12-2024 GFR/1.73 sq M.predicted among non-blacks MDRD (S/P/Bld) [Vol rate/Area] 94 mL/min/{1.73_m2} >60 [facility] Comment on above: mL/min/1.73m2 CKD-EP I Creatinine Equation (2020) Hematocrit Auto (Bld) [Volum e fraction]Ordered By: Maggi Dorsey on 09-12-2024 Hematocrit (Bld) [Volume fraction] 41.9 % 37-47 [facility] Hemoglobin measurementOrdere d By: Maggi Dorsey on 09-12-2024 Hemoglobin (Bld) [Mass/Vol] 14.4 g/dL 12.0-15.0 [facility] Laboratory - Chemistry and C hemistry - challengeOrdered By: Maggi Dorsey on 09-12-2024 AST [Catalytic activity/Vol] 21 U/L <32 [facility] MCV (mean corpuscular volume ) determinationOrdered By: Maggi Dorsey on 09-12-2024 MCV (RBC) [Entitic vol] 97.2 fL 81-99 [facility] Mean corpuscular hemoglobin (MCH) determinationOrdered By: Maggi Dorsey on 09-12-2024 MCH (RBC) [Entitic mass] 33.4 pg High 27.0-32.0 [facility] Mean corpuscular hemoglobin concentration (MCHC) determinationOrdered By: Maggi Dorsey on 09-12-2024 MCHC (RBC) [Mass/Vol] 34.4 g/dL 32-36 [facility] Mean platelet volume determi nationOrdered By: Maggi Dorsey on 09-12-2024 Platelet mean volume (Bld) [Entitic vol] 10.1 fL 6.2-12.0 [facility] Platelet countOrdered By: Mabel Dorsey on 09-12-2024 Platelets (Bld) [#/Vol] 248 10*3/uL 150-450 [facility] Potassium (Unsp spec) [Mass/ Vol]Ordered By: Maggi Dorsey on 09-12-2024 Potassium [Moles/Vol] 3.7 mmol/L 3.3-5.1 [facility] Potassium measurement (mass/ volume)Ordered By: Maggi Dorsey on 09-12-2024 Potassium (Unsp spec) [Mass/Vol] 3.7 mmol/L 3.3-5.1 [facility] RBC Auto (Bld) [#/Vol]Ordere d By: Maggi Dorsey on 09-12-2024 RBC (Bld) [#/Vol] 4.31 10*6/uL 4.2-5.4 [facility] Serum creatinine measurement (mass/volume)Ordered By: Maggi Dorsey on 09-12-2024 Creatinine [Mass/Vol] 0.68 mg/dL Low 0.70-1.20 [facility] Serum globulin measurementOr dered By: Maggi Dorsey on 09-12-2024 Globulin (S) [Mass/Vol] 2.5 g/dL 2.2-4.2 [facility] Serum glucose measurement (m ass/volume)Ordered By: Maggi Dorsey on 09-12-2024 Glucose [Mass/Vol] 104 mg/dL High 70-99 [facility] Serum or plasma alanine gilliland otransferase (ALT) measurementOrdered By: Maggi Dorsey on 09-12-2024 ALT [Catalytic activity/Vol] 8 U/L <35 [facility] Serum or plasma albumin lake urement (mass/volume)Ordered By: Maggi Dorsey on 09-12-2024 Albumin [Mass/Vol] 4.3 g/dL 3.4-4.8 [facility] Serum or plasma albumin/glob ulin mass ratioOrdered By: Maggi Dorsey on 09-12-2024 Albumin/Globulin [Mass ratio] 1.7 {ratio} 0.9-2.4 [facility] Serum or plasma alkaline hasmukh sphatase measurementOrdered By: Maggi Dorsey on 09-12-2024 ALP [Catalytic activity/Vol] 61 U/L 35-104 [facility] Serum or plasma calcitriol m easurement (mass/volume)Ordered By: Maggi Dorsey on 09-12-2024 1,25-dihydroxyvitamin D3 [Mass/Vol] 88.9 pg/mL High 24.8-81.5 [facility] Comment on above: Performed at: [address] [id number] Director: Jose Juan Augustin MD, Phone: [phone] Serum or plasma calcium lake urement (mass/volume)Ordered By: Maggi Dorsey on 09-12-2024 Calcium [Mass/Vol] 9.6 mg/dL 7.6-11.0 [facility] Serum or plasma urea nitroge n measurement (mass/volume)Ordered By: Maggi Inmanke on 09-12-2024 Urea nitrogen [Mass/Vol] 10 mg/dL 4-19 [facility] Sodium levelOrdered By: Damir Dorsey on 09-12-2024 Sodium [Moles/Vol] 131 mmol/L Low 133-145 [facility] TSH DL <= 0.005 mIU/L QnOrde red By: Maggi Inmanke on 09-12-2024 Thyroid Stimulating Hormone (TSH) 1.690 uIU/mL 0.300-4.20 0 [facility] TSH Qn 1.690 uIU/mL 0.300-4.20 0 [facility] Thyroid Stim Hormone (TSH)on 09-12-2024 TSH 1.690 uIU/mL Normal 0.300-4.20 0 [facility] Comment on above: Order Comment: Order Date: 09/12/24Order Info: 0786-1 - CMPOrder Info: 3016-3 - TSH Performed By: #### L 500.4050, L3300.0960, L100.0500, L501.9520 ####[facility] [address] [facility] [place], [address] Total proteinOrdered By: Krala Dorsey on 09-12-2024 Protein [Mass/Vol] 6.8 g/dL 5.9-8.4 [facility] White blood cell (WBC) count Ordered By: Maggi Inmanke on 09-12-2024 WBC (Bld) [#/Vol] 4.4 10*3/uL 4.4-11.0 [facility] 12 Lead EKGon 04-09-2024 12 Lead EKG [facility] Cardiovascular Services [address] [place] [address] 12 Lead EKG 04/09/241911 MR#: [id number] Acct: [id number] Name: TELMA MUHAMMAD Rep #: [id number] : 1955 68 From: Phan Salgado MD Attending Dr: Status: DEP ER Ordering Dr: Heber Allison MD Date: 04/09/24 Location: ED Sex: F C Admitted: Test Reason : DYSRHYTHMIA Blood Pressure : */* mmHG Vent. Rate : 57 BPM Atrial Rate : 57 BPM P-R Int : 152 ms QRS Dur : 82 ms QT Int : 474 ms P-R-T Axes : 38 22 24 degrees QTcB Int : 461 ms Sinus bradycardia with occasional Premature ventricular complexes Nonspecific ST abnormality Abnormal ECG Confirmed by DAMIAN BRADLEY, PHAN ([id number]), script editor EDMOND COLLADO ([id number]) on 04/10/2024 8:58:49 AM Referred By: Confirmed By: PHAN SALGADO MD 04/10/24 0858 Date Phan Salgado MD CC: Dr. Heber Allison MD; Dr. Maggi Dorsey MD Signed Normal [facility] Basic Metabolic Profile (BMP )on 04-09-2024 BUN/CRE 12.7 RATIO Normal 10-20 [facility] Comment on above: Performed By: #### L 100.0100, L500.2500 ####[facility] [address] [place], [address] CA,Total 9.5 mg/dL Normal 8.5-10.1 [facility] Comment on above: Performed By: #### L 100.0100, L500.2500 ####[facility] [address] [place], [address] Chloride [Moles/Vol] 98 mmol/L Normal 98-107 [facility] Comment on above: Performed By: #### L 100.0100, L500.2500 ####[facility] [address] [place], [address] CO2 [Moles/Vol] 29.0 mmol/L Normal 21.0-32.0 [facility] Comment on above: Performed By: #### L 100.0100, L500.2500 ####[facility] [address] [place], [address] Creatinine [Mass/Vol] 0.71 mg/dL Normal 0.55-1.02 [facility] Comment on above: Result Comment: The validity of the calculated GFR GFRAA in patients over 70 years has not been determined. Clinical correlation is essential. Performed By: #### L 100.0100, L500.2500 ####[facility] [address] [place], [address] ECRCL 64.44 ml/min Normal [facility] Comment on above: Performed By: #### L 100.0100, L500.2500 ####[facility] [address] [place], [address] EST GFR - AA 105 mL/min Normal >60 [facility] Comment on above: Result Comment: Afri can Bangladeshi GFR Calc Performed By: #### L 100.0100, L500.2500 ####[facility] [address] [place], [address] GAP 7 Normal 5-15 [facility] Comment on above: Performed By: #### L 100.0100, L500.2500 ####[facility] [address] [place], [address] GFR/1.73 sq M.predicted among non-blacks MDRD (S/P/Bld) [Vol rate/Area] 87 mL/min/{1.73_m2} Normal >60 [facility] Comment on above: Result Comment: Non- GFR Calc Performed By: #### L 100.0100, L500.2500 ####[facility] [address] [place], [address] Glucose [Mass/Vol] 103 mg/dL Normal 74-106 [facility] Comment on above: Result Comment: Fast ing Glucose result from 100 to 125 mg/dL suggests IMPAIRED HOMEOSTASIS per A.D.A. criteria. Performed By: #### L 100.0100, L500.2500 ####[facility] [address] [place], [address] Potassium [Moles/Vol] 3.2 mmol/L Low 3.5-5.1 [facility] Comment on above: Performed By: #### L 100.0100, L500.2500 ####[facility] [address] [place], [address] Sodium [Moles/Vol] 134 mmol/L Low 136-145 [facility] Comment on above: Performed By: #### L 100.0100, L500.2500 ####[facility] [address] [place], [address] Urea nitrogen [Mass/Vol] 9 mg/dL Normal 7-18 [facility] Comment on above: Performed By: #### L 100.0100, L500.2500 ####[facility] [address] [place], [address] Brain/Head without Contrasto 04-09-2024 Brain/Head without Contrast [facility] Imaging Services [address] [place] [address] Brain/Head without Contrast MR#: [id number] Acct: [id number] Name: TELMA MUHAMMAD Rep #: [id number] : 1955 F 68 From: Benny Broderick MD PCP: Dr. Maggi Dorsey MD Status: REG ER Study: Brain/Head without Contrast Date of Exam: 03/29 07/22 Exam# [id number] Ordering Dr: Heber Allison MD [id number] STUDY: CT BRAIN WITHOUT CONTRAST REASON FOR EXAM: Female, 68 years old. vision changes, paresthesias, HTN RADIATION DOSAGE (If Supplied By Facility): CTDIvol = ( 44.99 ) mGy, DLP = ( 779.24 ) mGycm TECHNIQUE: Transaxial CT imaging of the brain was performed without administration of intravenous contrast material. Individualized dose optimization techniques were used for this CT. COMPARISON: January 31, 2019. FINDINGS: Normal soft tissue structures. Normal calvarium. Moderate cortical atrophy. Normal white matter tracts of the cerebral hemispheres. Normal basal ganglia and thalami. Normal brainstem. Normal cerebellum. Partial empty sella deformity likely of no significance There is no intracranial hemorrhage. There are no findings of an acute ischemic infarction. Mild mucosal thickening of left maxillary sinus. No significant change since prior exam CT/Brain/Head without Contrast IMPRESSION: Moderate cortical atrophy. No mass or acute bleed. If concern for acute infarct MRI recommended . Electronically Signed: Benny Broderick MD at 20:14 EST Reading Location ID and State: [facility] / [place] Tel , Service support , CC: Dr. Heber Allison MD; Dr. Maggi Dorsey MD Nailhead Operator: Signed Normal [facility] CBC W/Diff, Automated03-29 Absolute Lymph 1.21 X10 3/uL Normal 0.83-4.51 [facility] Comment on above: Performed By: #### L 100.0100, L500.2500 ####[facility] [address] [place], [address] Absolute Neut 3.5 X10 3/uL Normal 2.0-7.7 [facility] Comment on above: Performed By: #### L 100.0100, L500.2500 ####[facility] [address] [place], [address] Basophils/100 WBC (Bld) 0.6 % Normal 0-1 [facility] Comment on above: Performed By: #### L 100.0100, L500.2500 ####[facility] [address] [place], [address] Eosinophils/100 WBC (Bld) 1.5 % Normal 0-5 [facility] Comment on above: Performed By: #### L 100.0100, L500.2500 ####[facility] [address] [place], [address] Erythrocyte distribution width (RBC) [Ratio] 12.8 % Normal 11.6-14.6 [facility] Comment on above: Performed By: #### L 100.0100, L500.2500 ####[facility] [address] [place], [address] Hematocrit (Bld) [Volume fraction] 43.7 % Normal 37-47 [facility] Comment on above: Performed By: #### L 100.0100, L500.2500 ####[facility] [address] [place], [address] Hemoglobin (Bld) [Mass/Vol] 14.8 g/dL Normal 12.0-15.0 [facility] Comment on above: Performed By: #### L 100.0100, L500.2500 ####[facility] [address] [place], [address] IG% 0.400 Normal 0.0-0.9 [facility] Comment on above: Result Comment: IG% - Immature Granulocytes (promyelocytes, myelocytes and metamyelocytes) > 1% indicates that a LEFT SHIFT is Present. Performed By: #### L 100.0100, L500.2500 ####[facility] [address] [place], [address] Lymphocytes/100 WBC (Bld) 23.0 % Normal 19-41 [facility] Comment on above: Performed By: #### L 100.0100, L500.2500 ####[facility] [address] [place], [address] MCH (RBC) [Entitic mass] 33.4 pg High 27.0-32.0 [facility] Comment on above: Performed By: #### L 100.0100, L500.2500 ####[facility] [address] [place], [address] MCHC (RBC) [Mass/Vol] 33.9 g/dL Normal 32-36 [facility] Comment on above: Performed By: #### L 100.0100, L500.2500 ####[facility] [address] [place], [address] MCV (RBC) [Entitic vol] 98.6 fL Normal 81-99 [facility] Comment on above: Performed By: #### L 100.0100, L500.2500 ####[facility] [address] [place], [address] Monocytes/100 WBC (Bld) 8.8 % Normal 0-10 [facility] Comment on above: Performed By: #### L 100.0100, L500.2500 ####[facility] [address] [place], [address] Neutrophils/100 WBC (Bld) 65.7 % Normal 47-70 [facility] Comment on above: Performed By: #### L 100.0100, L500.2500 ####[facility] [address] [place], [address] Nucleated RBC (Bld) [#/Vol] 0 10*3/uL Normal 0-5 [facility] Comment on above: Performed By: #### L 100.0100, L500.2500 ####[facility] [address] [place], [address] Platelet mean volume (Bld) [Entitic vol] 10.3 fL Normal 6.2-12.0 [facility] Comment on above: Performed By: #### L 100.0100, L500.2500 ####[facility] [address] [place], [address] Platelets (Bld) [#/Vol] 239 10*3/uL Normal 150-450 [facility] Comment on above: Performed By: #### L 100.0100, L500.2500 ####[facility] [address] [place], [address] RBC (Bld) [#/Vol] 4.43 10*6/uL Normal 4.2-5.4 [facility] Comment on above: Performed By: #### L 100.0100, L500.2500 ####[facility] [address] [place], [address] RDW SD 46.4 fl High 35.1-43.9 [facility] Comment on above: Performed By: #### L 100.0100, L500.2500 ####[facility] [address] [place], [address] WBC (Bld) [#/Vol] 5.3 10*3/uL Normal 4.4-11.0 [facility] Comment on above: Performed By: #### L 100.0100, L500.2500 ####[facility] [address] [place], [address] Emergency Department Summary on 04-09-2024 Emergency Department Summary [facility] Medical Records Department [address] [place] [address] Emergency Department Summary 04/09/24 MR#: [id number] Acct: [id number] Name: TELMA MUHAMMAD Rep #: [id number] : 1955 68 From: Heber Allison MD PCP: Dr. Maggi Dorsey MD Status:REG ER Location: ED HPI History of Present Illness Chief Complaint: Dizziness Informant: patient and spouse/S.O. Narrative Narrative: 68-year-old female states for the past 2 days she has been having intermittent dizziness that she describes as lightheadedness, no disequilibrium, spinning, no near-syncope or syncope. She has been having some off-and-on tingling in her hands and her feet, symmetrically bilaterally when they occur. No weakness. Some flashes of vision disturbance in her vision but no loss, diplopia. No headaches. She had her blood pressure checked when she was in pulmonary office yesterday for routine COPD follow-up and it was in the 170s unusual for her, and today she checked it at home and it was over 200 which prompted her to come to the emergency department. She states she is on multiple blood pressure medications but cannot recall them all. One of them is amlodipine 5 mg she took an extra 1 prior to coming here. She denies any chest discomfort, dyspnea, GI symptoms such as vomiting. She denies any recent injuries or significant pain. Denies any changes to her medications recently that she can recall or taking iurb-xsy-vqjoazt medicines such as a decongestant, except for a new vitamin D pill she is taking. [facility] Medical History Wears glasses Cancer Post-menopausal Alcohol use Arthritis History of hiatal hernia History of diverticulitis Gastric reflux COPD (chronic obstructive pulmonary disease) CPAP (continuous positive airway pressure) dependence Constipation Nausea Hypercholesteremia LLQ pain HTN (hypertension) Depression Asthma Abdominal pain Thyroid disorder Diabetes mellitus Home Medications ???Medication ???Instructions ???Recorded ???Last Taken ???Type metoprolol tartrate 50 mg tablet 50 mg PO BID 11/18/16 03/06/23 History fluoxetine 20 mg capsule 40 mg PO DAILY 08/03/20 Unknown History lisinopril 30 mg tablet 30 mg PO DAILY 03/01/23 Unknown History omeprazole 20 mg capsule,delayed 20 mg PO BID 03/01/23 03/06/23 History release loratadine 10 mg tablet 10 mg PO DAILY #90 tabs 10/04/23 Unknown Rx albuterol sulfate 90 mcg/actuation 2 puff inhalation Q4H PRN 04/08/24 Unknown Rx aerosol inhaler shortness of breath or wheezing #8.5 grams ergocalciferol (vitamin D2) 1,250 1,250 mcg PO QWEEK 04/08/24 Unknown History mcg (50,000 unit) capsule fluticasone furoate 200 1 inh inhalation QDAY #3 ea 04/08/24 Unknown Rx mcg-vilanterol 25 mcg/dose inhalation powder (Breo Ellipta) montelukast 10 mg tablet 10 mg PO DAILY #90 tabs 04/08/24 Unknown Rx umeclidinium 62.5 mcg/actuation 1 inh inhalation QDAY #3 ea 04/08/24 Unknown Rx blister powder for inhalation (Incruse Ellipta) amlodipine 5 mg tablet (Norvasc) 10 mg (2 x 5 mg) PO DAILY #1 TAB 04/09/24 03/05/23 Rx clonidine HCl 0.2 mg tablet 0.2 mg PO TID PRN SBP > 175 #20 04/09/24 Unknown Rx tabs Allergy/AdvReac Type Severity Reaction Status Date / Time erythromycin base Allergy Unknown Verified 04/09/24 18:09 Penicillins Allergy Unknown Verified 04/09/24 18:09 sulfamethoxazole (From Allergy Unknown Verified 04/09/24 18:09 Bactrim) tetracycline Allergy Unknown Verified 04/09/24 18:09 trimethoprim (From Bactrim) Allergy Unknown Verified 04/09/24 18:09 cefdinir AdvReac Mild Upset Verified 04/09/24 18:09 stomach metronidazole (From Flagyl) AdvReac Nausea Verified 04/09/24 18:09 Family History Brother Cancer Hypertension Mother Breast cancer Dementia Surgical History S/P laparoscopic cholecystectomy History of esophagogastroduodenoscopy (EGD) Hx of colonoscopy History of left hip replacement Social History household members: spouse Smoking Status: Unknown if ever smoked second hand exposure: No alcohol intake: former substance use type: does not use caffeine: Yes Type: coffee Number of servings: 1 what type of physical activity do you participate in: none ROS ROS ED Constitutional Constitutional ED: Denies chills or fever(s) Eyes Eyes: Reports change in vision; Denies diplopia ENT ENT ED: Denies rhinorrhea or sore throat Cardiovascular Cardiovascular: Reports as per HPI, hypertension and lightheadedness; Denies chest pain, palpitations, pedal edema or syncope Respiratory/Chest Respiratory/Chest: Denies cough o (more content not included)... Normal [facility] SCRN MAMM (CAD)W/ANTOINE BILATo n 04-09-2024 SCRN MAMM (CAD)W/ANTOINE BILAT [facility] Imaging Services [address] [place] [address] SCRN MAMM (CAD)W/ANTOINE BILAT MR#: [id number] Acct: [id number] Name: TELMA MUHAMMAD Rep #: [id number] : 1955 F 68 From: Ricky mccracken MD PCP: Dr. Maggi Dorsey MD Status: REG [facility] Study: SCRN MAMM (CAD)W/ANTOINE BILAT Date of Exam: 03/29 07/22 Exam# [id number] Ordering Dr: Maggi Dorsey MD [id number] MAMMOGRAPHY - BILATERAL SCREENING REASON FOR EXAM: Female, 68 years old. Routine annual screening examination. PERTINENT HISTORY: Mother with breast cancer. Grandmother with breast cancer. Aunt with breast cancer. TECHNIQUE: Digital bilateral breast antoine (3D mammographic acquisition) in the CC and MLO projections. 2-D mediolateral oblique (MLO) and craniocaudad (CC) views of both breasts were obtained. CAD: Full Field Digital Mammography with Computer Added Detection was performed. COMPARISON: Comparison is made with prior study March 24, 2023 and March 23, 2022. FINDINGS: Breast Composition: The breasts are heterogeneously dense, which may obscure small masses. There are no dominant masses or suspicious calcifications. Stable bilateral scattered microcalcifications. Stable fat-containing bilateral axillary lymph nodes. No other significant abnormalities are identified. There has been no significant change since the prior study. BI/SCRN MAMM (CAD)W/ANTOINE BILAT IMPRESSION: Stable bilateral screening mammogram. Yearly follow-up mammogram recommended. (A) ASSESSMENT CATEGORY: BIRADS Category 2: Benign. A letter regarding these results will be sent to the patient by the facility within 30 days. Approximately 10% of breast cancers are not detected by mammography. A normal mammogram should not delay biopsy of a clinically suspicious abnormality. [id number] Electronically Signed: Ricky Luis MD at 15:07 EST Reading Location ID and State: [address] [place] [address] , Service support , CC: Dr. Maggi Dorsey MD Nailhead Operator: Signed Normal [facility] Pulmonary Visit Reporton Pulmonary Visit Report [facility] Pulmonary Medicine of [address] [place], [place] [address] OFFICE VISIT Date of Service: 04/08/24 MR#: [id number] Acct: [id number] Name: TELMA MUHAMMAD Rep #: [id number] : 1955 Provider: FABRIZIO Joseph Age/Sex: 68/F [facility] Status: Signed Assessment and Plan Assessment and Plan (1) Asthma-COPD overlap syndrome: Status: Chronic Plan: Symptomatically stable, she does not appear to be in exacerbation today. Continue triple therapy with the use of Breo and Incruse. Follow-up in 6 months. Contact the office with any new or worsening symptoms in the meantime. No additional testing at this time. (2) STACEY (obstructive sleep apnea): Status: Chronic Plan: Noncompliant. Medications: Refilled albuterol sulfate 90 mcg/actuation administer with spacer 2 puffs inhalation Q4H PRN 8.5 grams 6RF shortness of breath or wheezing umeclidinium 62.5 mcg/actuation (Incruse Ellipta) 1 inh inhalation QDAY 3 ea 4RF montelukast 10 mg PO DAILY 90 tabs 3RF fluticasone furoate-vilanterol 200-25 mcg/dose (Breo Ellipta) after inhalation, rinse mouth with water and spit out; do not swallow 1 inh inhalation QDAY 3 ea 4RF HPI 6 M FU Chief Complaint: Routine follow-up HPI Comments Details: This patient presents to the office today for follow-up of her asthma/COPD overlap syndrome complicated by obstructive sleep apnea for which she is no longer compliant for. She is ambulatory and currently on room air. She has not recently been seen in the ED or urgent care for any respiratory illness. She has not required any antibiotics but did use a prednisone burst when she returned home from [place] in October. She is compliant with use of Breo 1 puff daily. She does report rinsing her mouth out after each use. She denies any medication side effect such as sore throat or thrush. She is also compliant with Singulair daily and Incruse daily. She is not currently using her albuterol nebulizer. If you recall, she quit smoking approximately 25 or 30 years ago. She reports shortness of breath on exertion occasionally. She denies any cough, sputum production or hemoptysis. She denies any wheezing, chest pain or chest tightness. She has not had any fever, chills or body aches. Intake Vital Signs 10/04/23 07:46 10/07/23 16:30 04/08/24 07:35 Height 5 ft 4 in 5 ft 3 in 5 ft 3 in Weight: 160 lb BMI 28.3 BP 164/76 H Blood Pressure Location Lt brachial Position Sitting Respiration 20 H Pulse 62 Pulse Source Monitor Temp 97.1 F L Temperature Source Temporal Artery Pulse Oximetry (%) 96 Oxygen Delivery Method room air Intake Visit Reasons: 6 M FU Chief Complaint: yearly Rolls Baker Required: No Accompanied by: Self Allergies erythromycin base Allergy (Verified 04/08/24 10:59) Unknown Penicillins Allergy (Verified 04/08/24 10:59) Unknown sulfamethoxazole (From Bactrim) Allergy (Verified 04/08/24 10:59) Unknown tetracycline Allergy (Verified 04/08/24 10:59) Unknown trimethoprim (From Bactrim) Allergy (Verified 04/08/24 10:59) Unknown cefdinir Adverse Reaction (Mild, Verified 04/08/24 10:59) Upset stomach metronidazole (From Flagyl) Adverse Reaction (Verified 04/08/24 10:59) Nausea Medications ???Medication ???Instructions ???Recorded ???Confirmed ???Type metoprolol tartrate 50 mg tablet 50 mg PO BID 11/18/16 04/08/24 History amlodipine 5 mg tablet (Norvasc) 5 mg PO DAILY 08/03/20 04/08/24 History fluoxetine 20 mg capsule 40 mg PO DAILY 08/03/20 04/08/24 History lisinopril 30 mg tablet 30 mg PO DAILY 03/01/23 04/08/24 History omeprazole 20 mg capsule,delayed 20 mg PO BID 03/01/23 04/08/24 History release loratadine 10 mg tablet 10 mg PO DAILY #90 tabs 10/04/23 04/08/24 Rx albuterol sulfate 90 mcg/actuation 2 puff inhalation Q4H PRN 04/08/24 04/08/24 Rx aerosol inhaler shortness of breath or wheezing #8.5 grams ergocalciferol (vitamin D2) 1,250 1,250 mcg PO QWEEK 04/08/24 04/08/24 History mcg (50,000 unit) capsule fluticasone furoate 200 1 inh inhalation QDAY #3 ea 04/08/24 04/08/24 Rx mcg-vilanterol 25 mcg/dose inhalation powder (Breo Ellipta) montelukast 10 mg tablet 10 mg PO DAILY #90 tabs 04/08/24 04/08/24 Rx umeclidinium 62.5 mcg/actuation 1 inh inhalation QDAY #3 ea 04/08/24 04/08/24 Rx blister powder for inhalation (Incruse Ellipta) Have you fallen in the past year?: No PFSH Medical History Wears glasses Cancer Post-menopausal Alcohol use Arthritis History of hiatal hernia History of diverticulitis Gastric reflux COPD (chronic obstructive pulmonary disease) CPAP (continuous positive airway pressure) dependence Constipation Nausea Hyp (more content not included)... Normal [facility] Basophil percentageOrdered B y: Yan Urbanojacshiloh on 03-06-2023 Chloride [Moles/Vol] 103 mmol/L 98-107 [facility] Glucose [Mass/Vol] 101 mg/dL 74-106 [facility] Comment on above: Fasting Glucose resu lt from 100 to 125 mg/dL suggests IMPAIRED HOMEOSTASIS per A.D.A. criteria. Potassium [Moles/Vol] 4.2 mmol/L 3.5-5.1 [facility] Comment on above: Slight Hemolysis, Re sult may be falsely increased. Sodium [Moles/Vol] 137 mmol/L 136-145 [facility] Laboratory - Chemistry and C hemistry - challengeOrdered By: Yan Mathias on 03-06-2023 CO2 [Moles/Vol] 26.0 mmol/L 21.0-32.0 [facility] Urea nitrogen/Creatinine [Mass ratio] 8.5 mg/mg 10-20 [facility] No Panel InformationOrdered By: Yan Mathias on 03-06-2023 Estimated Creatinine Clearance Calc 47.14 ml/min [facility] Estimated GFR (MDRD) Amer 106 mL/min >60 [facility] Comment on above: GFR Calc Estimated GFR (MDRD) Non-Af Amer 88 mL/min >60 [facility] Comment on above: Non- GFR Calc Serum or plasma calcium lake urement (mass/volume)Ordered By: Yan Mathias on 03-06-2023 Calcium [Mass/Vol] 9.4 mg/dL 8.5-10.1 [facility] Serum or plasma creatinine m easurement (mass/volume)Ordered By: Yan Mathias on 03-06-2023 Creatinine [Mass/Vol] 0.70 mg/dL 0.55-1.02 [facility] Comment on above: The validity of the calculated GFR & GFRAA in patients over 70 years has not been determined. Clinical correlation is essential. Serum or plasma urea nitroge n measurement (mass/volume)Ordered By: Yan Mathias on 03-06-2023 Urea nitrogen [Mass/Vol] 6 mg/dL 7-18 [facility] Thin prep Papanicolaou smear with manual screeningOrdered By: Yan Mathias on 03-06-2023 Thin prep Papanicolaou smear with manual screening 8 5-15 [facility] Absolute lymphocyte countOrd ered By: Pierce Alonzo on 01-28-2023 Lymphocytes Auto (Unsp spec) [#/Vol] 1.05 10*3/uL 0.83-4.51 [facility] Basophil percentageOrdered B y: Pierce Alonzo on 01-28-2023 Basophils/100 WBC (Bld) 0.4 % 0-1 [facility] Chloride [Moles/Vol] 101 mmol/L 98-107 [facility] Eosinophils/100 WBC (Bld) 2.0 % 0-5 [facility] Glucose [Mass/Vol] 139 mg/dL 74-106 [facility] Comment on above: Fasting Glucose resu lt greater than or equal to 126 mg/dL suggests DIABETES MELLITUS per A.D.A. criteria. Neutrophils (Bld) [#/Vol] 3.8 10*3/uL 2.0-7.7 [facility] Neutrophils/100 WBC (Bld) 69.7 % 47-70 [facility] Potassium [Moles/Vol] 3.3 mmol/L 3.5-5.1 [facility] Sodium [Moles/Vol] 133 mmol/L 136-145 [facility] WBC (Bld) [#/Vol] 5.5 10*3/uL 4.4-11.0 [facility] Blood erythrocytes count (nu mber/volume)Ordered By: Pierce Alonzo on 01-28-2023 RBC (Bld) [#/Vol] 4.10 10*6/uL 4.2-5.4 [facility] Blood hemoglobin measurement (mass/volume)Ordered By: Pierce Alonzo on 01-28-2023 Hemoglobin (Bld) [Mass/Vol] 13.1 g/dL 12.0-15.0 [facility] Blood lymphocytes/100 leukoc ytesOrdered By: Pierce Alonzo on 01-28-2023 Lymphocytes/100 WBC (Bld) 19.1 % 19-41 [facility] Blood monocytes/100 leukocyt esOrdered By: Pierce Alonzo on 01-28-2023 Monocytes/100 WBC (Bld) 8.4 % 0-10 [facility] Blood platelet mean volumeOr dered By: Pierce Alonzo on 01-28-2023 Platelet mean volume (Bld) [Entitic vol] 10.2 fL 6.2-12.0 [facility] Determination of erythrocyte mean corpuscular volume (MCV)Ordered By: Pierce Alonzo on 01-28-2023 MCV (RBC) [Entitic vol] 98.0 fL 81-99 [facility] Hematocrit Auto (Bld) [Volum e fraction]Ordered By: Pierce Alonzo on 01-28-2023 Hematocrit (Bld) [Volume fraction] 40.2 % 37-47 [facility] Laboratory - Chemistry and C hemistry - challengeOrdered By: Pierce Alonzo on 01-28-2023 CO2 [Moles/Vol] 23.0 mmol/L 21.0-32.0 [facility] Urea nitrogen/Creatinine [Mass ratio] 12.1 mg/mg 10-20 [facility] Laboratory - Hematology and Cell countsOrdered By: Pierce Alonzo on 01-28-2023 Erythrocyte distribution width (RBC) [Entitic vol] 42.2 fL 35.1-43.9 [facility] Erythrocyte distribution width (RBC) [Ratio] 11.7 % 11.6-14.6 [facility] Immature granulocytes/100 WBC (Bld) 0.400 % 0.0-0.9 [facility] Comment on above: IG% - Immature Granu locytes (promyelocytes, myelocytes and metamyelocytes) > 1% indicates that a LEFT SHIFT is Present. MCH (RBC) [Entitic mass] 32.0 pg 27.0-32.0 [facility] Nucleated RBC/100 WBC (Bld) [Ratio] 0 % 0-5 [facility] MCHC Auto (RBC) [Mass/Vol]Or dered By: Pierce Alonzo on 01-28-2023 MCHC (RBC) [Mass/Vol] 32.6 g/dL 32-36 [facility] No Panel InformationOrdered By: Pierce Alonzo on 01-28-2023 Troponin I High Sensitivity 5 pg/mL 3.0-54.0 [facility] Comment on above: Please Note: [place] t Units and Gender Specific Reference Ranges. For more information see Policy Stat Procedure [place] High Sensitivity Troponin (TNIH) and attachments. Estimated Creatinine Clearance Calc 47.14 ml/min [facility] Estimated GFR (MDRD) Amer 100 mL/min >60 [facility] Comment on above: GFR Calc Estimated GFR (MDRD) Non-Af Amer 83 mL/min >60 [facility] Comment on above: Non- GFR Calc Platelets bldOrdered By: Batsheva Alonzo on 01-28-2023 Platelets (Bld) [#/Vol] 420 10*3/uL 150-450 [facility] Serum or plasma calcium lake urement (mass/volume)Ordered By: Pierce Alonzo on 01-28-2023 Calcium [Mass/Vol] 9.6 mg/dL 8.5-10.1 [facility] Serum or plasma creatinine m easurement (mass/volume)Ordered By: Pierce Alonzo on 01-28-2023 Creatinine [Mass/Vol] 0.74 mg/dL 0.55-1.02 [facility] Comment on above: The validity of the calculated GFR & GFRAA in patients over 70 years has not been determined. Clinical correlation is essential. Serum or plasma urea nitroge n measurement (mass/volume)Ordered By: Pierce Alonzo on 01-28-2023 Urea nitrogen [Mass/Vol] 9 mg/dL 7-18 [facility] Thin prep Papanicolaou smear with manual screeningOrdered By: Pierce Alonzo on 01-28-2023 Thin prep Papanicolaou smear with manual screening 9 5-15 [facility] Basophil percentageOrdered B y: Sara Rogel on 01-26-2023 Sodium [Moles/Vol] 139 mmol/L 136-145 [facility] Basophil percentageOrdered B y: Sara Rogel on 12-28-2022 Chloride [Moles/Vol] 94 mmol/L 98-107 [facility] Glucose [Mass/Vol] 97 mg/dL 74-106 [facility] Potassium [Moles/Vol] 3.0 mmol/L 3.5-5.1 [facility] Sodium [Moles/Vol] 131 mmol/L 136-145 [facility] Laboratory - Chemistry and C hemistry - challengeOrdered By: Sara Rogel on 12-28-2022 CO2 [Moles/Vol] 27.0 mmol/L 21.0-32.0 [facility] Sodium (U) [Moles/Vol] 25 mmol/L Not Establ. [facility] Urea nitrogen/Creatinine [Mass ratio] 14.8 mg/mg 10-20 [facility] No Panel InformationOrdered By: Sara Rogel on 12-28-2022 Estimated GFR (MDRD) Amer 145 mL/min >60 [facility] Comment on above: GFR Calc Estimated GFR (MDRD) Non-Af Amer 120 mL/min >60 [facility] Comment on above: Non- GFR Calc Serum or plasma calcium lake urement (mass/volume)Ordered By: Sara Rogel on 12-28-2022 Calcium [Mass/Vol] 8.9 mg/dL 8.5-10.1 [facility] Serum or plasma creatinine m easurement (mass/volume)Ordered By: Sara Rogel on 12-28-2022 Creatinine [Mass/Vol] 0.54 mg/dL 0.55-1.02 [facility] Comment on above: The validity of the calculated GFR & GFRAA in patients over 70 years has not been determined. Clinical correlation is essential. Serum or plasma urea nitroge n measurement (mass/volume)Ordered By: Sara Rogel on 12-28-2022 Urea nitrogen [Mass/Vol] 8 mg/dL 7-18 [facility] Thin prep Papanicolaou smear with manual screeningOrdered By: Sara Rogel on 12-28-2022 Thin prep Papanicolaou smear with manual screening 10 5-15 [facility] Urine osmolality measurement Ordered By: Sara Rogel on 12-28-2022 Osmolality (U) [Osmolality] 424 mOsm/KG >50 [facility] Comment on above: Normal Urine Referen ce Ranges Random: 50 - 1200 mOsm/kg H20 depending on fluid intake Random: >850 mOsm/kg after 12 hour fluid restriction 24 hour: ~300 - 900 mOsm/kg H2O NM GASTRIC EMPTYING STUDYon 09-13-2022 NM GASTRIC EMPTYING STUDY ORIGINAL EXAMINATION: GASTRIC EMPTYING STUDY09/13/2022 3:18 pm TECHNIQUE: The patient received an oral radiolabeled solid-phase meal utilizing 2.1 mCi of Tc-99m sulfur colloid in cooked egg. Sequential anterior and posterior images of the abdomen were then acquired over the next four hours. Computer quantification of gastric emptying (using geometric mean activity) was performed. COMPARISON: None HISTORY: ORDERING SYSTEM PROVIDED HISTORY: Reason for Exam: ABDOMINAL PAIN, NAUSEA, GERD FINDINGS: Sequential static images demonstrates radiotracer within the gastric lumen, progressively emptying into small bowel. Computer quantification demonstrates gastric retention as follows: 92 % at 0.5 hr (normal min 70%) 92 % at 1 hr (normal 30%-90%) 63 % at 2 hr (normal max 60%) 27 % at 3 hr (normal max 30%) 1 % at 4 hr (normal max 10%) IMPRESSION: Mildly delayed gastric emptying of radiolabeled solid meal at several earlier time points, which subsequently normalizes at 3 and 4 hours, may represent component of gastroparesis. Interpreted by: Jerad Amor DO Preliminary Report By: Jerad Amor DO Electronically signed By Jerad Amor DO Dictated Date: 09/13/2022 4:01:56 PM Prelim Date: 09/13/2022 4:03:56 PM Sign Date: 09/13/2022 4:03:56 PM Ordering Provider: ARMAND COOK [facility] ([place]) Basophil percentageOrdered B y: Peyton Ortiz on 06-06-2022 Bilirubin [Mass/Vol] 0.40 mg/dL 0.20-1.00 [facility] Comment on above: For patients on eltr ombopag therapy, use of Dimension [place] TBIL is not recommended. Chloride [Moles/Vol] 96 mmol/L 98-107 [facility] Glucose [Mass/Vol] 95 mg/dL 74-106 [facility] Potassium [Moles/Vol] 3.5 mmol/L 3.5-5.1 [facility] Protein [Mass/Vol] 6.5 g/dL 6.4-8.2 [facility] Sodium [Moles/Vol] 134 mmol/L 136-145 [facility] Laboratory - Chemistry and C hemistry - challengeOrdered By: Peyton Ortiz on 06-06-2022 ALP [Catalytic activity/Vol] 54 U/L 45-117 [facility] ALT [Catalytic activity/Vol] 22 U/L 13-56 [facility] CO2 [Moles/Vol] 27.0 mmol/L 21.0-32.0 [facility] Globulin (S) [Mass/Vol] 3.1 g/dL 2.2-4.2 [facility] Urea nitrogen/Creatinine [Mass ratio] 17.2 mg/mg 10-20 [facility] No Panel InformationOrdered By: Peyton Ortiz on 06-06-2022 Estimated GFR (MDRD) Amer 120 mL/min >60 [facility] Comment on above: GFR Calc Estimated GFR (MDRD) Non-Af Amer 99 mL/min >60 [facility] Comment on above: Non- GFR Calc Serum or plasma albumin lake urement (mass/volume)Ordered By: Peyton Ortiz on 06-06-2022 Albumin [Mass/Vol] 3.4 g/dL 3.2-5.0 [facility] Serum or plasma albumin/glob ulin mass ratioOrdered By: Peyton Ortiz on 06-06-2022 Albumin/Globulin [Mass ratio] 1.1 {ratio} 0.9-2.4 [facility] Serum or plasma calcium lake urement (mass/volume)Ordered By: Peyton Ortiz on 06-06-2022 Calcium [Mass/Vol] 9.2 mg/dL 8.5-10.1 [facility] Serum or plasma creatinine m easurement (mass/volume)Ordered By: Peyton Ortiz on 06-06-2022 Creatinine [Mass/Vol] 0.64 mg/dL 0.55-1.02 [facility] Comment on above: The validity of the calculated GFR & GFRAA in patients over 70 years has not been determined. Clinical correlation is essential. Serum or plasma urea nitroge n measurement (mass/volume)Ordered By: Peyton Ortiz on 06-06-2022 Urea nitrogen [Mass/Vol] 11 mg/dL 7-18 [facility] Thin prep Papanicolaou smear with manual screeningOrdered By: Peyton Ortiz on 06-06-2022 Thin prep Papanicolaou smear with manual screening 20 U/L 15-37 [facility] Thin prep Papanicolaou smear with manual screening 11 5-15 [facility] Absolute lymphocyte countOrd ered By: Peyton Ortiz on 05-27-2022 Lymphocytes Auto (Unsp spec) [#/Vol] 0.72 10*3/uL 0.83-4.51 [facility] Basophil percentageOrdered B y: Peyton Ortiz on 05-27-2022 Amylase [Catalytic activity/Vol] 102 U/L 25-115 [facility] Basophils/100 WBC (Bld) 0.4 % 0-1 [facility] Bilirubin [Mass/Vol] 1.00 mg/dL 0.20-1.00 [facility] Comment on above: For patients on eltr ombopag therapy, use of Dimension [place] TBIL is not recommended. Chloride [Moles/Vol] 95 mmol/L 98-107 [facility] Eosinophils/100 WBC (Bld) 0.9 % 0-5 [facility] Glucose [Mass/Vol] 102 mg/dL 74-106 [facility] Comment on above: Fasting Glucose resu lt from 100 to 125 mg/dL suggests IMPAIRED HOMEOSTASIS per A.D.A. criteria. Neutrophils (Bld) [#/Vol] 4.1 10*3/uL 2.0-7.7 [facility] Neutrophils/100 WBC (Bld) 76.4 % 47-70 [facility] Potassium [Moles/Vol] 3.2 mmol/L 3.5-5.1 [facility] Protein [Mass/Vol] 7.0 g/dL 6.4-8.2 [facility] Sodium [Moles/Vol] 131 mmol/L 136-145 [facility] WBC (Bld) [#/Vol] 5.3 10*3/uL 4.4-11.0 [facility] Blood erythrocytes count (nu mber/volume)Ordered By: Peyton Ortiz on 05-27-2022 RBC (Bld) [#/Vol] 4.63 10*6/uL 4.2-5.4 [facility] Blood hemoglobin measurement (mass/volume)Ordered By: Peyton Ortiz on 05-27-2022 Hemoglobin (Bld) [Mass/Vol] 15.4 g/dL 12.0-15.0 [facility] Blood lymphocytes/100 leukoc ytesOrdered By: Peyton Statrosemarie on 05-27-2022 Lymphocytes/100 WBC (Bld) 13.6 % 19-41 [facility] Blood monocytes/100 leukocyt esOrdered By: Peyton Ortiz on 05-27-2022 Monocytes/100 WBC (Bld) 8.3 % 0-10 [facility] Blood platelet mean volumeOr dered By: Peyton Ortiz on 05-27-2022 Platelet mean volume (Bld) [Entitic vol] 10.5 fL 6.2-12.0 [facility] Determination of erythrocyte mean corpuscular volume (MCV)Ordered By: Peyton Ortiz on 05-27-2022 MCV (RBC) [Entitic vol] 97.2 fL 81-99 [facility] Direct bilirubinOrdered By: [facility] on 05-27-2022 Bilirubin.direct [Mass/Vol] 0.27 mg/dL 0.00-0.30 [facility] Hematocrit Auto (Bld) [Volum e fraction]Ordered By: [facility] Diana on 05-27-2022 Hematocrit (Bld) [Volume fraction] 45.0 % 37-47 [facility] Laboratory - Chemistry and C hemistry - challengeOrdered By: [facility] Diana on 05-27-2022 ALP [Catalytic activity/Vol] 66 U/L 45-117 [facility] ALT [Catalytic activity/Vol] 23 U/L 13-56 [facility] CO2 [Moles/Vol] 28.0 mmol/L 21.0-32.0 [facility] Globulin (S) [Mass/Vol] 3.2 g/dL 2.2-4.2 [facility] Lipase [Catalytic activity/Vol] 139 U/L 73-393 [facility] Urea nitrogen/Creatinine [Mass ratio] 20.5 mg/mg 10-20 [facility] Laboratory - Hematology and Cell countsOrdered By: [facility] Diana on 05-27-2022 Erythrocyte distribution width (RBC) [Entitic vol] 41.7 fL 35.1-43.9 [facility] Erythrocyte distribution width (RBC) [Ratio] 11.7 % 11.6-14.6 [facility] Immature granulocytes/100 WBC (Bld) 0.400 % 0.0-0.9 [facility] Comment on above: IG% - Immature Granu locytes (promyelocytes, myelocytes and metamyelocytes) > 1% indicates that a LEFT SHIFT is Present. MCH (RBC) [Entitic mass] 33.3 pg 27.0-32.0 [facility] Nucleated RBC/100 WBC (Bld) [Ratio] 0 % 0-5 [facility] MCHC Auto (RBC) [Mass/Vol]Or dered By: Peyton Stathopoulos on 05-27-2022 MCHC (RBC) [Mass/Vol] 34.2 g/dL 32-36 [facility] No Panel InformationOrdered By: Peyton Stathopoulos on 05-27-2022 Estimated GFR (MDRD) Amer 95 mL/min >60 [facility] Comment on above: GFR Calc Estimated GFR (MDRD) Non-Af Amer 78 mL/min >60 [facility] Comment on above: Non- GFR Calc Hepatitis A IgM Antibody Negative Negative [facility] Hepatitis B Core IgM Antibody Negative Negative [facility] Hepatitis C Antibody (EIA) 0.2 s/co ratio 0.0-0.9 [facility] Hepatitis C Antibody Comment Comment . [facility] Comment on above: NegativeNot infected with HCV, unless recent infection issuspected or other evidence exists to indicate HCVinfection.Performed at: [facility] [id number] Director: Armand Bello PhD, Phone: [phone] Platelets bldOrdered By: Merrill tlin Stathopoulos on 05-27-2022 Platelets (Bld) [#/Vol] 303 10*3/uL 150-450 [facility] Serum or plasma albumin lake urement (mass/volume)Ordered By: Peyton Stathopoulos on 05-27-2022 Albumin [Mass/Vol] 3.8 g/dL 3.2-5.0 [facility] Serum or plasma albumin/glob ulin mass ratioOrdered By: Peyton Stathopoulos on 05-27-2022 Albumin/Globulin [Mass ratio] 1.2 {ratio} 0.9-2.4 [facility] Serum or plasma calcium lake urement (mass/volume)Ordered By: Peyton Stathopoulos on 05-27-2022 Calcium [Mass/Vol] 9.6 mg/dL 8.5-10.1 [facility] Serum or plasma creatinine m easurement (mass/volume)Ordered By: Peyton Ortiz on 05-27-2022 Creatinine [Mass/Vol] 0.78 mg/dL 0.55-1.02 [facility] Comment on above: The validity of the calculated GFR & GFRAA in patients over 70 years has not been determined. Clinical correlation is essential. Serum or plasma hepatitis B virus surface antigen detection by immunoassayOrdered By: Peyton Ortiz on 05-27-2022 HBV surface Ag IA Ql Negative Negative [facility] Serum or plasma urea nitroge n measurement (mass/volume)Ordered By: [facility]eyton [facility] on 05-27-2022 Urea nitrogen [Mass/Vol] 16 mg/dL 7-18 [facility] Thin prep Papanicolaou smear with manual screeningOrdered By: [facility] on 05-27-2022 Thin prep Papanicolaou smear with manual screening 22 U/L 15-37 [facility] Thin prep Papanicolaou smear with manual screening 8 5-15 [facility] Basophil percentageon 2021 Chloride [Moles/Vol] 95 mmol/L 98-107 [facility] Work Phone: Cholesterol [Mass/Vol] 233 mg/dL <200 [facility] Work Phone: Comment on above: <200 mg/dL Desirable 200-240 mg/dL Borderline >240 mg/dL High Risk Glucose [Mass/Vol] 104 mg/dL 74-106 [facility] Work Phone: Comment on above: Fasting Glucose resu lt from 100 to 125 mg/dL suggests IMPAIRED HOMEOSTASIS per A.D.A. criteria. Potassium [Moles/Vol] 3.7 mmol/L 3.5-5.1 [facility] Work Phone: Sodium [Moles/Vol] 132 mmol/L 136-145 [facility] Work Phone: Triglyceride [Mass/Vol] 125 mg/dL <199 [facility] Work Phone: Comment on above: The drugs N-Acetylcy steine and Metamizole may falsely depress this assay.Serum Triglycerides Reference Interval Normal <150 mg/dL Borderline high 150 - 199 mg/dL High 200 - 499 mg/dL Very High > or = 500 mg/dL Laboratory - Chemistry and C hemistry - challengeon 01-05-2022 CO2 [Moles/Vol] 28.0 mmol/L 21.0-32.0 [facility] Work Phone: Urea nitrogen/Creatinine [Mass ratio] 13.9 mg/mg 10-20 [facility] Work Phone: No Panel Informationon 01-05 Estimated GFR (MDRD) Amer 117 mL/min >60 [facility] Work Phone: Comment on above: GFR Calc Estimated GFR (MDRD) Non-Af Amer 97 mL/min >60 [facility] Work Phone: Comment on above: Non- GFR Calc Serum or plasma calcium lake urement (mass/volume)on 01-05-2022 Calcium [Mass/Vol] 9.1 mg/dL 8.5-10.1 [facility] Work Phone: Serum or plasma cholesterol in HDL measurement (mass/volume)on 01-05-2022 Cholesterol in HDL [Mass/Vol] 71 mg/dL >40 [facility] Work Phone: Comment on above: The drugs N-Acetylcy steine and Metamizole may falsely depress this assay. Reference Range HDL <40 mg/dL Low HDL Cholesterol HDL >or= 60 mg/dL High HDL Cholesterol Serum or plasma cholesterol in VLDL measurement (mass/volume)on 01-05-2022 Cholesterol in VLDL [Mass/Vol] 25 mg/dL 5-40 [facility] Work Phone: Serum or plasma creatinine m easurement (mass/volume)on 01-05-2022 Creatinine [Mass/Vol] 0.65 mg/dL 0.55-1.02 [facility] Work Phone: Comment on above: The validity of the calculated GFR & GFRAA in patients over 70 years has not been determined. Clinical correlation is essential. Serum or plasma low density lipoprotein (LDL) cholesterol measurement (mass/volume)on 01-05-2022 Cholesterol in LDL [Mass/Vol] 137 mg/dL 0-130 [facility] Work Phone: Serum or plasma urea nitroge n measurement (mass/volume)on 01-05-2022 Urea nitrogen [Mass/Vol] 9 mg/dL 7-18 [facility] Work Phone: Thin prep Papanicolaou smear with manual screeningon 01-05-2022 Thin prep Papanicolaou smear with manual screening 9 5-15 [facility] [facility] Work Phone: Vital Signs Date Time Vital Sign Value Performing Clinician Christopher medrano 10-08-2024 08:25-0400 Body mass index (BMI) [Ratio] 28.3 kg/m2 Maggi Dorsey MD Work Phone: [facility] 10-08-2024 08:25-0400 Body temperature 97.4 [degF] Maggi Dorsey MD Work Phone: [facility] 10-08-2024 08:25-0400 Body weight 70.3 kg Maggi Dorsey MD Work Phone: [facility] 10-08-2024 08:25-0400 Diastolic blood pressure 60 mm[Hg] Maggi Dorsey MD Work Phone: [facility] 10-08-2024 08:25-0400 Heart rate 51 /min Maggi Dorsey MD Work Phone: [facility] 10-08-2024 08:25-0400 Respiratory rate 16 /min Maggi Dorsey MD Work Phone: [facility] 10-08-2024 08:25-0400 SaO2% (BldA) [Mass fraction] 99 % Maggi Dorsey MD Work Phone: [facility] 10-08-2024 08:25-0400 Systolic blood pressure 134 mm[Hg] Maggi Dorsey MD Work Phone: [facility] 09-26-2024 15:04-0400 Body height 157.48 cm Maggi Dorsey MD Work Phone: [facility] 09-26-2024 15:04-0400 Body mass index (BMI) [Ratio] 28.5 kg/m2 Maggi Dorsey MD Work Phone: [facility] 09-26-2024 15:04-0400 Body weight 70.81 kg Maggi Dorsey MD Work Phone: [facility] 09-23-2024 17:00-0400 Body mass index (BMI) [Ratio] 28.8 kg/m2 Maggi Dorsey MD Work Phone: [facility] 09-23-2024 16:54-0400 Body temperature 98.5 [degF] Maggi Dorsey MD Work Phone: [facility] 09-23-2024 16:54-0400 Diastolic blood pressure 75 mm[Hg] Maggi Dorsey MD Work Phone: [facility] 09-23-2024 16:54-0400 Heart rate 75 /min Maggi Dorsey MD Work Phone: [facility] 09-23-2024 16:54-0400 Respiratory rate 16 /min Maggi Dorsey MD Work Phone: [facility] 09-23-2024 16:54-0400 SaO2% (BldA) [Mass fraction] 95 % Maggi Dorsey MD Work Phone: [facility] 09-23-2024 16:54-0400 Systolic blood pressure 152 mm[Hg] Maggi Dorsey MD Work Phone: [facility] 09-22-2024 11:11-0400 Body weight 71.6 kg Maggi Dorsey MD Work Phone: [facility] 10-07-2023 16:30-0400 Body height 160.02 cm DO Sara Rogel Work Phone: [facility] 10-07-2023 16:30-0400 Body mass index (BMI) [Ratio] 27.5 kg/m2 DO Sara Juan F Work Phone: [facility] 10-07-2023 16:30-0400 Body temperature 96.3 [degF] DO Sara Juan F Work Phone: [facility] 10-07-2023 16:30-0400 Body weight 70.5 kg DO Sara Juan F Work Phone: [facility] 10-07-2023 16:30-0400 Diastolic blood pressure 103 mm[Hg] DO Sara Juan F Work Phone: [facility] 10-07-2023 16:30-0400 Heart rate 72 /min DO Sara Juan F Work Phone: [facility] 10-07-2023 16:30-0400 Respiratory rate 18 /min DO Sara Juan F Work Phone: [facility] 10-07-2023 16:30-0400 Systolic blood pressure 190 mm[Hg] DO Sara Juan F Work Phone: [facility] 10-04-2023 07:46-0400 Body mass index (BMI) [Ratio] 26.9 kg/m2 DO Sara Juan F Work Phone: [facility] 10-04-2023 07:46-0400 Body temperature 98 [degF] DO Sara Juan F Work Phone: [facility] 10-04-2023 07:46-0400 Body weight 71.21 kg DO Sara Juan F Work Phone: [facility] 10-04-2023 07:46-0400 Diastolic blood pressure 90 mm[Hg] DO Sara Juan F Work Phone: [facility] 10-04-2023 07:46-0400 Heart rate 61 /min DO Sara Juan F Work Phone: [facility] 10-04-2023 07:46-0400 Respiratory rate 18 /min DO Sara Juan F Work Phone: [facility] 10-04-2023 07:46-0400 SaO2% (BldA) [Mass fraction] 97 % DO Saradelta Stevensonnger Work Phone: [facility] 10-04-2023 07:46-0400 Systolic blood pressure 180 mm[Hg] DO Sara Juan F Work Phone: [facility] 03-06-2023 15:31-0400 Body temperature 98.7 [degF] DO Sara Juan F Work Phone: [facility] 03-06-2023 15:31-0400 Diastolic blood pressure 72 mm[Hg] DO Sara Juan F Work Phone: [facility] 03-06-2023 15:31-0400 Heart rate 69 /min DO Sara Juan F Work Phone: [facility] 03-06-2023 15:31-0400 Respiratory rate 16 /min DO Saradelta Stevensonnger Work Phone: [facility] 03-06-2023 15:31-0400 SaO2% (BldA) [Mass fraction] 93 % DO Sara Juan F Work Phone: [facility] 03-06-2023 15:31-0400 Systolic blood pressure 151 mm[Hg] DO Sara Juan F Work Phone: [facility] 03-06-2023 12:07-0400 Body height 162.56 cm DO Sara Juan F Work Phone: [facility] 03-06-2023 12:07-0400 Body mass index (BMI) [Ratio] 26.4 kg/m2 DO Sara Juan F Work Phone: [facility] 03-06-2023 12:07-0400 Body weight 69.85 kg DO Sara Juan F Work Phone: [facility] 02-27-2023 09:39-0400 Body mass index (BMI) [Ratio] 27.8 kg/m2 DO Sara Juan F Work Phone: [facility] 02-27-2023 09:39-0400 Body temperature 97.4 [degF] DO Sara Juan F Work Phone: [facility] 02-27-2023 09:39-0400 Body weight 72.57 kg DO Sara Juan F Work Phone: [facility] 02-27-2023 09:39-0400 Diastolic blood pressure 71 mm[Hg] DO Sara Juan F Work Phone: [facility] 02-27-2023 09:39-0400 Heart rate 58 /min DO Sara Juan F Work Phone: [facility] 02-27-2023 09:39-0400 Respiratory rate 18 /min DO Sara Juan F Work Phone: [facility] 02-27-2023 09:39-0400 SaO2% (BldA) [Mass fraction] 96 % DO Sara Juan F Work Phone: [facility] 02-27-2023 09:39-0400 Systolic blood pressure 135 mm[Hg] DO Sara Juan F Work Phone: [facility] 02-22-2023 14:53-0400 Body mass index (BMI) [Ratio] 28.2 kg/m2 DO Sara Juan F Work Phone: [facility] 02-22-2023 14:53-0400 Body temperature 97.3 [degF] DO Sara Juan F Work Phone: [facility] 02-22-2023 14:53-0400 Body weight 72.29 kg DO Sara Juan F Work Phone: [facility] 02-22-2023 14:53-0400 Diastolic blood pressure 77 mm[Hg] DO Sara Juan F Work Phone: [facility] 02-22-2023 14:53-0400 Heart rate 54 /min DO Sara Juan F Work Phone: [facility] 02-22-2023 14:53-0400 Respiratory rate 17 /min DO Sara Juan F Work Phone: [facility] 02-22-2023 14:53-0400 SaO2% (BldA) [Mass fraction] 96 % DO Sara Juan F Work Phone: [facility] 02-22-2023 14:53-0400 Systolic blood pressure 160 mm[Hg] DO Sara Juan F Work Phone: [facility] 02-12-2023 02:04-0400 Diastolic blood pressure 64 mm[Hg] DO Sara Juan F Work Phone: [facility] 02-12-2023 02:04-0400 Systolic blood pressure 154 mm[Hg] DO Sara Juan F Work Phone: [facility] 02-12-2023 00:13-0400 Body temperature 96 [degF] DO Sara Juan F Work Phone: [facility] 02-12-2023 00:13-0400 Heart rate 61 /min DO Sara Juan F Work Phone: [facility] 02-12-2023 00:13-0400 Respiratory rate 24 /min DO Sara Juan F Work Phone: [facility] 02-12-2023 00:13-0400 SaO2% (BldA) [Mass fraction] 100 % DO Sara Juan F Work Phone: [facility] 02-12-2023 00:11-0400 Body height 160.02 cm DO Sara Juan F Work Phone: [facility] 02-12-2023 00:11-0400 Body mass index (BMI) [Ratio] 29 kg/m2 DO Sara Juan F Work Phone: [facility] 02-12-2023 00:11-0400 Body weight 74.3 kg DO Sara Juan F Work Phone: [facility] 01-28-2023 17:21-0400 Diastolic blood pressure 77 mm[Hg] DO Sara Juan F Work Phone: [facility] 01-28-2023 17:21-0400 Heart rate 63 /min DO Sara Juan F Work Phone: [facility] 01-28-2023 17:21-0400 Respiratory rate 13 /min DO Sara Juan F Work Phone: [facility] 01-28-2023 17:21-0400 SaO2% (BldA) [Mass fraction] 98 % DO Sara Juan F Work Phone: [facility] 01-28-2023 17:21-0400 Systolic blood pressure 144 mm[Hg] DO Sara Juan F Work Phone: [facility] 01-28-2023 13:50-0400 Body height 162.56 cm DO Sara Juan F Work Phone: [facility] 01-28-2023 13:50-0400 Body mass index (BMI) [Ratio] 29.2 kg/m2 DO Sara Juan F Work Phone: [facility] 01-28-2023 13:50-0400 Body temperature 98.4 [degF] DO Sara Juan F Work Phone: [facility] 01-28-2023 13:50-0400 Body weight 77.2 kg DO Sara Juan F Work Phone: [facility] 11-21-2022 07:54-0400 Body height 161.29 cm DO Sara Juan F Work Phone: [facility] 11-21-2022 07:54-0400 Body mass index (BMI) [Ratio] 29.5 kg/m2 DO Sara Juan F Work Phone: [facility] 11-21-2022 07:54-0400 Body temperature 97.2 [degF] DO Sara Juan F Work Phone: [facility] 11-21-2022 07:54-0400 Body weight 76.65 kg DO Sara Marroquiner Work Phone: [facility] 11-21-2022 07:54-0400 Diastolic blood pressure 67 mm[Hg] DO Sara Stevensonnger Work Phone: [facility] 11-21-2022 07:54-0400 Heart rate 67 /min DO Sara Stevensonnger Work Phone: [facility] 11-21-2022 07:54-0400 Respiratory rate 18 /min DO Sara Marroquiner Work Phone: [facility] 11-21-2022 07:54-0400 SaO2% (BldA) [Mass fraction] 95 % DO Sara Stevensonnger Work Phone: [facility] 11-21-2022 07:54-0400 Systolic blood pressure 154 mm[Hg] DO Sara Marroquiner Work Phone: [facility] 04-06-2022 09:23-0500 Body height 161.[address] Justin Rivas Work Phone: [facility] 04-06-2022 09:23-0500 Body mass index (BMI) [Ratio] 30.9 kg/m2 Dr. Justin Rivas Work Phone: [facility] 04-06-2022 09:23-0500 Body temperature 98.6 [degF] Dr. Justin Rivas Work Phone: [facility] 04-06-2022 09:23-0500 Body weight 80.[address] Justin Rivas Work Phone: [facility] 04-06-2022 09:23-0500 Diastolic blood pressure 86 mm[Hg] Dr. Justin Rivas Work Phone: [facility] 04-06-2022 09:23-0500 Heart rate 54 /min Dr. Justin Rivas Work Phone: [facility] 04-06-2022 09:23-0500 Respiratory rate 16 /min Dr. Justin Rivas Work Phone: [facility] 04-06-2022 09:23-0500 SaO2% (BldA) [Mass fraction] 99 % Dr. Justin Rivas Work Phone: [facility] 04-06-2022 09:23-0500 Systolic blood pressure 145 mm[Hg] Dr. Justin Rivas Work Phone: [facility] Encounters Encounter Date Encounter Type Care Provider Facility Start: 11-06-2024 ambulatory [facility] Facility:[facility] Start: 11-05-2024 ambulatory [facility] Facility:[facility] Start: 10-28-2024 End: 10-28-2024 ambulatory Maggi Dorsey MD Work Phone: [facility] Work Phone: Start: 10-28-2024 End: 10-28-2024 Patient encounter procedure Fern Joseph NP-C -Pulmonary Services/Neurology Work Phone: Start: 10-28-2024 End: 10-28-2024 ambulatory [facility] Facility:[facility] Start: 10-10-2024 ambulatory [facility] Facility:[facility] Start: 10-08-2024 End: 10-08-2024 Patient encounter procedure Fern DINH -[facility] Work Phone: Start: 10-08-2024 End: 10-08-2024 ambulatory Maggi Dorsey MD Work Phone: [facility] Work Phone: Start: 09-26-2024 End: 09-26-2024 Patient encounter procedure Brigette COOPER -[facility] Work Phone: Start: 09-26-2024 End: 09-26-2024 ambulatory Chalon Sunita Facility:[facility] Start: 09-23-2024 Non-patient / Non-visit Dr. Radha Murray MD -[facility] Work Phone: Start: 09-23-2024 ambulatory Maggi Sunita Facility:[facility] Start: 09-23-2024 Non-patient / Non-visit Dr. Eileen Newman MD -[facility] Start: 09-23-2024 ambulatory Maggi Sunita [facility] Start: 09-23-2024 Non-patient / Non-visit Dr. Hilton Ulrich MD -[facility] Start: 09-22-2024 Non-patient / Non-visit Dr. Erik Moreno DO -[facility] Work Phone: Start: 09-21-2024 End: 09-23-2024 ambulatory [facility] Facility:[facility] Start: 09-21-2024 End: 09-23-2024 Evaluation and management of inpatient Dr. Radha Murray MD -Progressive Care Unit Work Phone: Start: 09-12-2024 End: 09-12-2024 ambulatory Maggi Dorsey MD Work Phone: [facility] Work Phone: Start: 09-12-2024 End: 09-12-[address] Magig Dorsey MD -Laboratory, [facility] Start: 09-12-2024 End: 09-12-20[facility] Start: 04-09-2024 End: 04-09-2024 Emergency department patient visit Damirbennie Sunita Facility:[facility] Start: 04-08-2024 End: 04-09-2024 [facility] Start: 10-07-2023 End: 10-07-2023 Emergency department patient visit DO Sara Rogel Work Phone: [facility]-Emergency Department Work Phone: Start: 10-04-2023 End: 10-04-2023 Patient encounter procedure DO Sara Rogel Work Phone: [facility] Work Phone: Start: 03-24-2023 End: 03-24-2023 ambulatory DO Sara Rogel Work Phone: [facility] Work Phone: Start: 03-24-2023 End: 03-24-2023 Patient encounter procedure DO Sara Rogel Work Phone: [facility]-Outpatient Breast Imaging Work Phone: Start: 03-21-2023 End: 03-21-2023 Patient encounter procedure DO Sara Rogel Work Phone: [facility] Work Phone: Start: 03-06-2023 End: 03-06-2023 Non-patient / Non-visit DO Sara Rogel Work Phone: [facility] Start: 03-06-2023 End: 03-06-2023 Admission to same day surgery center DO Sara Rogel Work Phone: [facility] Start: 02-27-2023 End: 02-27-2023 Patient encounter procedure DO Sara Rogel Work Phone: [facility] Work Phone: Start: 02-22-2023 End: 02-22-2023 Patient encounter procedure DO Sara Rogel Work Phone: [facility] Work Phone: Start: 02-14-2023 End: 02-14-2023 ambulatory DO Sara Rogel Work Phone: [facility] Work Phone: Start: 02-14-2023 End: 02-14-2023 Patient encounter procedure DO Sara Rogel Work Phone: [facility] Work Phone: Start: 02-12-2023 End: 02-12-2023 Emergency department patient visit DO Sara Rogel Work Phone: [facility]Emergency Department Work Phone: Start: 01-28-2023 End: 01-28-2023 Emergency department patient visit DO [facility] Start: 01-26-2023 End: 01-26-2023 ambulatory DO Sara Rogel Work Phone: [facility] Work Phone: Start: 01-26-2023 End: 01-26-2023 Patient encounter procedure DO Sara Rogel Work Phone: [facility] Start: 12-28-2022 End: 12-28-2022 ambulatory DO Sara Rogel Work Phone: [facility] Work Phone: Start: 12-28-2022 End: 12-28-2022 Patient encounter procedure DO Sara Rogel Work Phone: [facility] Start: 11-21-2022 End: 11-21-2022 Patient encounter procedure DO Sara Rogel Work Phone: [facility] Work Phone: Start: 09-13-2022 End: 09-14-[address] ARMAND COOK MD Facility:[facility] Start: 09-06-2022 End: 09-06-2022 ambulatory DO Sara Rogel Work Phone: [facility] Work Phone: Start: 09-06-2022 End: 09-06-2022 Discharged Recurring DO Sara Rogel Work Phone: [facility]-Physical Therapy Work Phone: Start: 07-28-2022 End: 07-28-[address] Justin Rivas Work Phone: [facility] Work Phone: Start: 07-28-2022 End: 07-28-[address] Justin Rivas Work Phone: [facility] Start: 06-06-2022 End: 06-06-[address] Justin Rivas Work Phone: [facility] Work Phone: Start: 06-06-2022 End: 06-06-[address] Justin Rivas Work Phone: [facility] Start: 05-27-2022 End: 05-27-[address] Justin Rivas Work Phone: [facility] Work Phone: Start: 05-27-2022 End: 05-27-[address] Justin Rivas Work Phone: [facility] Start: 04-06-2022 End: 04-06-[address] Justin Rivas Work Phone: [facility] Start: 03-23-2022 End: 03-23-2022 ambulatory [facility] Work Phone: Start: 03-23-2022 End: 03-23-2022 Patient encounter procedure [facility] Start: 01-05-2022 End: 01-05-2022 Patient encounter procedure [facility] Procedures Date Procedure Procedure Detail Performing Clinician Start: 09-26-2024 X-ray of cervical spine Maggi Dorsey MD Work Phone: Start: 09-23-2024 Nucleic acid assay Damir Dorsey MD Work Phone: Start: 09-23-2024 MRI of brain with contrast Maggi Dorsey MD Work Phone: Start: 09-23-2024 MRI of cervical spin e with contrast Maggi Dorsey MD Work Phone: Start: 09-21-2024 Methadone measuremen t, urine Maggi Dorsey MD Work Phone: Start: 09-21-2024 CT angiography of he ad and neck Maggi Dorsey MD Work Phone: Start: 09-21-2024 Estimated creatinine clearance Maggi Dorsey MD Work Phone: Start: 09-21-2024 CT of head without contrast Maggi Dorsey MD Work Phone: Start: 03-24-2023 Screening mammography D O Sara Rogel Work Phone: Start: 02-14-2023 US scan of gallbladder DO Sara Rogel Work Phone: Start: 01-28-2023 CT angiography of ch est with contrast DO Sara Rogel Work Phone: Start: 01-28-2023 Plain chest X-ray DO Nithin Rogel Work Phone: Start: 07-28-2022 Plain x-ray of pelvi s and lower extremity Dr. Justin Rivas Work Phone: Start: 03-23-2022 Screening mammography Plan of Treatment Date Care Activity Detail Author Start: 11-05-2024 Walking distance 6 minutes [facility] Start: 09-23-2024 Patient discharge [facility] Start: 09-21-2024 End: 09-22-2024 [facility] Start: 09-21-2024 Application of intermittent pneumatic compression device [facility] Start: 09-21-2024 Following clinical pathway protocol [facility] Start: 09-21-2024 Cardiac monitoring [facility] Start: 09-21-2024 Catheterization of vein [facility] Start: 09-21-2024 Consultation [facility] Start: 09-21-2024 Continuous positive airway pressure ventilation treatment [facility] Start: 09-21-2024 Elevation of head of bed [facility] Start: 09-21-2024 Exercises [facility] Start: 09-21-2024 Notification of physician [facility] Start: 09-21-2024 Oxygen therapy [facility] Start: 09-21-2024 Patient referral to dietitian [facility] Start: 09-21-2024 Referral to service [facility] Start: 09-21-2024 Speech therapy assessment [facility] Start: 09-21-2024 Telemedicine consultation with patient [facility] Start: 09-21-2024 Tobacco use cessation education [facility] Start: 09-21-2024 Vital signs measurements [facility] Start: 09-21-2024 Admission procedure [facility] Start: 09-21-2024 Inhalation therapy procedure [facility] Start: 10-07-2023 [facility] Start: 03-06-2023 Patient discharge [facility] Start: 03-06-2023 Anes intraperitoneal upper abdomen w/laps nos ANESTH SURG UPPER ABDOMEN [facility] Start: 03-06-2023 Laparoscopy surg cholecystectomy LAPAROSCOPIC CHOLECYSTECTOMY [facility] Start: 01-28-2023 [facility] Measurement of respi ratory function [facility] Patient Education [facility] Work Phone: Patient referral [facility] Work Phone: Walking distance [address] [facility] Payers Date Payer Category Payer Self-pay [id number] 2023 Medicare [id number] 2022 Medicare [id number] 2022 Unknown [id number] 2013 Unknown [id number] 1955 Unknown [id number] 27 Private Health Insurance [facility] [id number] Unknown [id number] Unknown [id number] [id number] 62 Unknown [id number] 2.16.840.1.544848.3.579.2.4 62 Unknown [id number] 2.16.840.1.467098.3.579.2.4 62 Unknown [id number] 2.16.840.1.384049.3.579.2.4 62 Unknown [id number] 2.16.840.1.786189.3.579.2.4 62 Unknown [id number] 2.16.840.1.995082.3.579.2.4 62 Unknown [id number] 2.16.840.1.685605.3.579.2.4 62 Unknown [id number] 2.16.840.1.629226.3.579.2.4 62 Unknown [id number] 2.16.840.1.988785.3.579.2.4 62 Unknown [id number] 2.16.840.1.364770.3.579.2.4 62 Unknown [id number] 2.16.840.1.046987.3.579.2.4 62 Unknown [id number] 2.16.840.1.991115.3.579.2.4 62 Unknown [id number] 2.16.840.1.629938.3.579.2.4 62 Unknown [id number] 2.16.840.1.143360.3.579.2.4 62 Unknown [id number] 2.16.840.1.132404.3.579.2.4 62 Unknown [id number] 2.16.840.1.667134.3.579.2.4 62 Unknown [id number] 2.16.840.1.438401.3.579.2.4 62 Social History Date Type Detail Facility Start: 06-16-2021 End: 04-09-2024 Tobacco smoking status NHIS Unknown if ever smoked [facility] Start: 1955 Sex Assigned At Female [facility] Start: 09-17-2024 Sex Female (finding) [facility] Start: 09-23-2024 Tobacco smoking status NHIS Never smoked tobacco (finding) [facility] NEGATED: Highlighted row [facility] Procedure Code Equipment Code Equipment Original Text Equipment Identifier Dates Total cholecystectomy with exploration of common bile duct Ligation clip, synthetic polymer, non-bioabsorbable [id number] FDA Start: 03-06-2023 Goals Date Patient Goal Desired Activity /State Functional Status Date Assessment Result Facility 09-23-2024 Functional status Ambulates [facility] Work Phone: Mental Status Date Assessment Result Facility 09-22-2024 Cognitive function Voice/Name [facility] Work Phone: 10-07-2023 Cognitive function Level Of Cons ciousness Awake;Alert [facility] Work Phone: 03-06-2023 Cognitive function Voice/Name [facility] Work Phone: 01-28-2023 Cognitive function Awake;Alert;Appropriat e [facility] Work Phone: Discharge summary note 09-23-2024 Note Date & Type Note Facility 09-23-2024 Note [facility] Medical Records Department [address] [place] [id number] Discharge Summary 09/23/24 1633 MR#: [id number] Acct: [id number] Name: TELMA MUHAMMAD Rep #: [id number] : 1955 69 From: Radha Murray MD PCP: Dr. Maggi Dorsey MD Status:ADM JACOBO Location: [place] [address] Providers Date of Admission: 09/21/24 Date of Discharge: 09/23/24 Primary Care Physician: Maggi Dorsey MD Consultations 09/21/24 21:22 Consult: Tele-Neurology Routine Consulting Provider: [facility] Reason for Consult: Acute Ischemic Stroke/TIA EMERGENT Consult: No MD Notified: Yes Date Notified: 09/21/24 Time Notified: 22:13 Method of Notification: Answering Service Method of Consult:: Telemedicine Nursing Unit Staff Notify [facility] of Tele-Neurology Consult: Yes Reason For Visit: INTERMITTENT RUE WEAKNESS AND NUMBNESS Diagnosis Discharge Diagnosis (1) Paresthesia of right upper and lower extremity: Status: Acute Code(s): R20.2 - Paresthesia of skin Medications at Discharge Home Medications metoprolol tartrate 50 mg tablet 50 mg PO BID blood pressure 11/18/16 fluoxetine 20 mg capsule 40 mg PO DAILY depression 08/03/20 omeprazole 20 mg capsule,delayed release 20 mg PO BID GERD 03/01/23 loratadine 10 mg tablet 10 mg PO DAILY #90 tabs 10/04/23 albuterol sulfate 90 mcg/actuation aerosol inhaler 2 puff inhalation Q4H PRN shortness of breath or wheezing #8.5 grams 04/08/24 ergocalciferol (vitamin D2) 1,250 mcg (50,000 unit) capsule 1,250 mcg PO QWEEK 04/08/24 fluticasone furoate 200 mcg-vilanterol 25 mcg/dose inhalation powder (Breo Ellipta) 1 inh inhalation QDAY #3 ea 04/08/24 montelukast 10 mg tablet 10 mg PO DAILY allergies #90 tabs 04/08/24 umeclidinium 62.5 mcg/actuation blister powder for inhalation (Incruse Ellipta) 1 inh inhalation QDAY COPD #3 ea 04/08/24 amlodipine 10 mg tablet 10 mg PO QHS blood pressure 09/21/24 hydrochlorothiazide 25 mg tablet 25 mg PO DAILY blood pressure 09/21/24 lisinopril 40 mg tablet 40 mg PO DAILY blood presssure 09/21/24 aspirin 81 mg tablet,delayed release 81 mg PO BREAKFAST #30 tabs 09/23/24 Hospital Course Operations None Procedures None Summary of Care Provided Minutes Spent on Discharge: 55 Hospital Course: Patient is a 69-year-old female with past medical history as outlined including hypertension and a history of depression and anxiety who was admitted through the ED on 09/21/2024 with complaint of right upper extremity weakness and numbness as well as elevated blood pressure. Symptoms have been going on for about a week prior to admission and she admitted to dizziness and paresthesia in all her extremities. The symptoms were intermittent. noticed some clumsiness and weakness in her right upper extremity and blood pressure was elevated in the 180s so they came in for review. CT of the brain showed no acute intracranial pathology. She was admitted to be managed for strokelike symptoms to rule out stroke as well as poorly controlled hypertension. Neurology was consulted. Patient had MRI of the brain with and without contrast which did not show any evidence of acute pathology. She also had cervical spine MRI which showed evidence of moderate cervical stenosis. This could also be contributing to her symptoms. Symptoms however resolved while in the hospital and she felt better. Her blood pressure control also improved. Patient was worried that she had severe anxiety and depression and this could also be contributing to her symptoms. She was counseled to follow-up with her PCP for management of this. She was discharged home on 09/23/2024. She had 2D echo which showed EF of 65% with stage I diastolic dysfunction and moderately enlarged left atrium and increased turbulence and flow in the pulmonary artery with recommendation for cardiac MRI for evaluation of possible shunts. She is follow-up with her PCP for this cardiac MRI to be ordered as deemed necessary. Patient seen and examined prior to discharge. Her daughter was by her bedside. She denied any numbness or tingling at that time. Review of systems otherwise negative. Labs and vitals reviewed. Home medication reviewed and reconciled. Physical Exam Const alert, oriented x3 and no apparent distress General Appearance: cooperative, comfortable and anxious Orientation / Consciousness: awake Exam Limitations: no limitations HEENT normocephalic, head/scalp atraumatic, hearing grossly normal bilaterally, moist oral mucous membranes and oropharynx normal Mouth: oral and palatal mucosa normal Eyes PERRL, EOMs intact bilaterally and conjunctivae normal Neck no lymphadenopathy and supple Resp normal respiratory effort, no retractions, no use of accessory muscles and clear to auscultation bilaterally Cardio regular rate, regular rhythm, S1 normal heart sound, S2 normal heart soun (more content not included)... [facility] Evaluation note 09-21-2024 Note Date & Type Note Facility 09-21-2024 Evaluation note Diagnosis Onset Date Resolution Hyponatremia acute September 21, 2024 8:59pm Noncompliance with CPAP treatment resolved September 21, 2024 8:59pm Hemiplegia affecting right dominant side inactive September 21, 2024 8:59pm STACEY (obstructive sleep apnea) inactive September 21, 2024 8:59pm Overweight (BMI 25.0-29.9) inactive September 21, 2024 8:59pm Paresthesia of right upper and lower extremity inactive September 21, 2024 8:59pm Uncontrolled hypertension inactive September 21, 2024 8:59pm Degenerative disc disease, cervical acute September 26, 2024 2:58pm [facility] Work Phone: Evaluation note 09-21-2024 Note Date & Type Note Facility 09-21-2024 Evaluation note Diagnosis Onset Date Resolution Hyponatremia acute September 21, 2024 8:59pm Noncompliance with CPAP treatment resolved September 21, 2024 8:59pm Hemiplegia affecting right dominant side inactive September 21, 2024 8:59pm STACEY (obstructive sleep apnea) inactive September 21, 2024 8:59pm Overweight (BMI 25.0-29.9) inactive September 21, 2024 8:59pm Paresthesia of right upper and lower extremity inactive September 21, 2024 8:59pm Uncontrolled hypertension inactive September 21, 2024 8:59pm Degenerative disc disease, cervical acute September 26, 2024 2:58pm Allergic rhinitis chronic September 1:10pm Asthma-COPD overlap syndrome chronic October 08, 2024 1:10pm CPAP (continuous positive airway pressure) dependence chronic October 08, 025 1:10pm [facility] Work Phone: Discharge summary 10-07-2023 Note Date & Type Note Facility 10-07-2023 Discharge summary Note Date/Time October 07, 2023 5:00pm [facility] Medical Records Department [address] [place] [address] Emergency Department Summary 10/07/23 MR#: [id number] Acct: [id number] Name: TELMA MUHAMMAD Rep #:[id number] : 1955 68 From: Raad Wakefield MD PCP: Dr. Maggi Dorsey MD Status:DEP ER Location: ED HPI History of Present Illness Chief Complaint: Hypertension Informant: patient Onset/Context/Timing Onset: Days Context: Gradual Onset Timing: Intermittent Current Severity: Mild Maximum Severity: Mild Narrative Narrative: 68-year-old female history of hypertension, COPD and diabetes. For her hypertension she is treated with 3 medications, amlodipine 5 mg daily, lisinopril 30 mg daily and metoprolol 50 mg twice daily. States typically they control blood pressure well. Says she has not been ill recently. Denies any chest pain or severe headache. Does states she has been anxious recently about a upcoming trip. Taken to [place]. Prior similar symptoms: Yes Recent Illness/Hospitalization: No PFSH PFSH Medical History Abdominal pain Alcohol use Arthritis Asthma Cancer Constipation COPD (chronic obstructive pulmonary disease) CPAP (continuous positive airway pressure) dependence Depression Diabetes mellitus Gastric reflux History of diverticulitis History of hiatal hernia HTN (hypertension) Hypercholesteremia LLQ pain Nausea Post-menopausal Thyroid disorder Wears glasses Home Medications metoprolol tartrate 50 mg tablet 50 mg PO BID 11/18/16 [History Last Taken 03/06/23] amlodipine 5 mg tablet (Norvasc) 5 mg PO DAILY 08/03/20 [History Last Taken 03/05/23] fluoxetine 20 mg capsule 40 mg PO DAILY 08/03/20 [History Last Taken Unknown] lisinopril 30 mg tablet 30 mg PO DAILY 03/01/23 [History Last Taken Unknown] omeprazole 20 mg capsule,delayed release 20 mg PO BID 03/01/23 [History Last Taken 03/06/23] albuterol sulfate 90 mcg/actuation aerosol inhaler 2 puff inhalation Q4H PRN shortness of breath or wheezing #8.5 grams 10/04/23 [Rx Last Taken Unknown] fluticasone furoate 200 mcg-vilanterol 25 mcg/dose inhalation powder (Breo Ellipta) 1 inh inhalation QDAY #3 ea 10/04/23 [Rx Last Taken Unknown] loratadine 10 mg tablet 10 mg PO DAILY #90 tabs 10/04/23 [Rx Last Taken Unknown] montelukast 10 mg tablet 10 mg PO DAILY #90 tabs 10/04/23 [Rx Last Taken Unknown] prednisone 10 mg tablet 10 mg PO QDAY #30 tabs 10/04/23 [Rx Last Taken Unknown] umeclidinium 62.5 mcg/actuation blister powder for inhalation (Incruse Ellipta) 1 inh inhalation QDAY #3 ea 10/04/23 [Rx Last Taken Unknown] Allergy/AdvReac Type Severity Reaction Status Date / Time erythromycin base Allergy Unknown Verified 10/07/23 16:29 Penicillins Allergy Unknown Verified 10/07/23 16:29 sulfamethoxazole Allergy Unknown Verified 10/07/23 16:29 [From Bactrim] tetracycline Allergy Unknown Verified 10/07/23 16:29 trimethoprim [From Bactrim] Allergy Unknown Verified 10/07/23 16:29 cefdinir AdvReac Mild Upset Verified 10/07/23 16:29 stomach metronidazole [From Flagyl] AdvReac Nausea Verified 10/07/23 16:29 Family History Brother Cancer Hypertension Mother Breast cancer Dementia Surgical History History of esophagogastroduodenoscopy (EGD) History of left hip replacement Hx of colonoscopy S/P laparoscopic cholecystectomy Social History household members: spouse Smoking Status: Former smoker second hand exposure: No alcohol intake: former substance use type: does not use caffeine: Yes Type: coffee Number of servings: 1 what type of physical activity do you participate in: none ROS ROS ED ROS Narrative Denies recent illness. Review of Systems ROS Unobtainable: Denies due to encephalopathy Constitutional Constitutional ED: Denies chills or fever(s) Eyes Eyes: Denies blurry vision ENT ENT ED: Denies ear pain Cardiovascular Cardiovascular: Denies chest pain Respiratory/Chest Respiratory/Chest: Denies cough or dyspnea Gastrointestinal Gastrointestinal: Denies abdominal pain Genitourinary Genitourinary ED: Denies dysuria or hematuria Musculoskeletal Musculoskeletal: Denies arthralgias Integumentary Denies abscess Neurologic Neurologic: Denies paresthesias or weakness Psychiatric Psychiatric: Denies anxiety Endocrine Endocrinology: Denies cold intolerance Hematologic/Lymphatic Hematologic/Lymphatic: Reports none Allergic/Immunologic Allergic/Immunologic ED: Denies mouth swelling, tongue swelling or urticaria EXAM Physical Exam Narrative Exam Narrative: Well-appearing 68-year-old female. Vital signs stable blood pressure is elevated at 190/103. She does not look septic toxic or in any distress. H EENTexam normal. Pupils round react light. No facial droop. Normal speech. Neck nontender. No meningismus. Lungs clear to auscultation bilaterally. Heart regular rhythm rate about 70 no murmur. Chest wall and ribs nontender. Abdomensoft nontender. Moving all 4 extremities. 5 out of 5 speed belt sander tender strength. Dorsi plantarflexion intact. Neurological exam she is awake and alert. Answer questions following commands. Normal speed belt sander tender strength bilaterally. Normal dorsi plantarflexion. Fingertip to nose and [id number] within normal limits. NIH score 0. At times she does get emotional about anxiety with trip but otherwise acting very normally. Const Vital Signs: 10/07/23 16:30 10/07/23 16:26 Temperature 96.3 F L 96.3 F L Temperature Source Temporal Temporal Pulse Rate 72 72 Respiratory Rate 18 18 Blood Pressure 190/103 H 190/103 H Blood Pressure Mean 132 132 Positive well nourished and well developed; Negative for cachectic, contracturesor unkempt General Appearance ED: well developed and NAD; Negative for unkempt, cachectic, contractures, cyanotic, diaphoretic or pallor Nutritional Appearance: Negative for cachectic HEENT Reports moist mucous membranes Negative for trauma or tenderness Eyes PERRL and EOMs intact bilaterally General Eye ED: Negative for pale conjunctiva Neck no lymphadenopathy, supple and no JVD General: Negative for tenderness Lymph Lymphatic: Negative for other Chest Wall inspection of chest normal and palpation of chest normal Resp normal respiratory effort and clear to auscultation bilaterally Effort and Inspection: Negative for retractions Auscultation: Negative for rales, rhonchi or wheezes Cardio regular rate, regular rhythm, S1 normal heart sound, S2 normal heart sound and no murmurs Palpation: Negative for palpable S3 or palpable S4 Rate: Negative for bradycardia or tachycardic Rhythm: Negative for abnormal rhythm GI normal to inspection, nondistended, normoactive bowel sounds, non-tender, non-distended and no masses Auscultation: normoactive bowel sounds Palpation: soft; Negative for tender, guarding or rebound tenderness present Bladder / Kidney Exam: No other Back/Spine no CVA tenderness General Back: Negative for CVA tenderness Cervical Spine: Negative for cervical spine tenderness Thoracic Spine / Upper Back: Negative for thoracic spinal tenderness or paraspinal muscle tenderness Lumbar Spine / Lower Back: Negative for lumbar spinal tenderness Extremity normal to inspection General Extremety ED: Negative for edema or tenderness General Extremity: Negative for edema Neuro oriented x3 and CN's II-XII intact bilaterally Sensorium / Orientation: alert; Negative for orientation impaired, lethargic or stuporous Motor Exam: strength 5/5 throughout; Negative for general weakness or strength abnormal Psych mental status grossly normal Appearance: Negative for unkempt Attitude: No agitated Mood & Affect: Negative for depressed, anxious or tearful Skin no rashes or lesions noted, no wounds and skin turgor normal General Skin Exam: Negative for elasticity normal, jaundice or pallor Lesions: No lesion noted Rashes: No rashes noted Trauma: Negative for abrasion Wounds: Negative for wounds noted MDM MDM MDM Narrative Medical decision making narrative: Patient with acute on chronic hypertension. Normal exam. She had labs several months ago kidney function was unremarkable at that time. She has a completely normal neurologic exam. I do not think she needs any type of imaging or blood work today. She will continue her current medications. Log her blood pressure to follow-up with her primary care provider. She knows she can take an extra dose of either the metoprolol or lisinopril if she needs to if her pressure is running significantly higher. Both she and her are comfortable with plan. Discharge Plan Triage Chief Complaint: Hypertension ED Provider: Raad Wakefield Dx/Rx/DC Orders Clinical Impression: Chronic hypertension, History of diabetes mellitus Instructions: ED Hypertension, Established Prescriptions: No Action amlodipine [Norvasc] 5 mg tablet 5 mg PO DAILY albuterol sulfate 90 mcg/actuation HFA aerosol inhaler 2 puff INHALATION Q4H PRN (Reason: shortness of breath or wheezing) Qty: 8.5 6RF Rx Instructions: administer with spacer Breo Ellipta 200-25 mcg/dose blister with device 1 inh INHALATION QDAY Qty: 3 4RF Rx Instructions: after inhalation, rinse mouth with water and spit out; do not swallow loratadine 10 mg tablet 10 mg PO DAILY Qty: 90 3RF Incruse Ellipta 62.5 mcg/actuation blister with device 1 inh INHALATION QDAY Qty: 3 4RF montelukast 10 mg tablet 10 mg PO DAILY Qty: 90 3RF prednisone 10 mg tablet 10 mg PO QDAY Qty: 30 0RF Rx Instructions: take 4 tabs for three days, then 3 tabs for three days, then 2 tabs for three days, then 1 tab for 3 days fluoxetine 20 mg capsule 40 mg PO DAILY metoprolol tartrate 50 MG tablet 50 mg PO BID lisinopril 30 mg tablet 30 mg PO DAILY omeprazole 20 mg capsule,delayed release(DR/EC) 20 mg PO BID Patient Comments: TAKE 1 CAPSULE BY MOUTH TWICE A DAY BEFORE MORNING AND EVENING MEALS Primary Care Provider: Maggi Dorsey Referrals: Maggi Dorsey MD [Primary Care Provider] - 1-2 Weeks Activity Restrictions/Additional Instructions: Take your blood pressure medications as prescribed. Log your blood pressure twice daily when you are calm and relaxed after breakfast and after dinner. Take those readings to your primary care physician when you follow-up with them to help them determine if they need to adjust your blood pressure medications. Disposition Disposition: Home, Self Care What to do if you have Problems For any increased pain, shortness of breath, bleeding, nausea or vomiting, chestpain, or any unexpected problems, contact your Primary Care Provider. Call [facility] ([phone]) or report to the closest Emergency Room. Call 911 if necessary. 10/07/23 1709 <Electronically signed by Raad Wakefield MD> Cosigner Signature (if applicable): CC: Dr. Maggi Dorsey MD ~ Signed [facility] Work Phone: Discharge summary 01-28-2023 Note Date & Type Note Facility 01-28-2023 Discharge summary Note Date/Time January 28, 2023 2:02pm [facility] Medical Records Department [address] [place] [id number] Emergency Department Summary 01/28/23 MR#: [id number] Acct: [id number] Name: TELMA MUHAMMAD Rep #:[id number] : 1955 67 From: Pierce Alonzo MD PCP: Sara Rogel, DO Status:REG E R Location: ED HPI History of Present Illness Chief Complaint: Chest Pain Narrative Narrative: 67-year-old female past medical history obstructive sleep apnea, hypersomnia, diabetes, thyroid disorder, presents with chest pain that she has had since thismorning. It did not wake her from sleep, and after she got dressed she started having chest pain underneath her breasts. She denies any exacerbating or alleviating factors. Of note, they changed her blood pressure medications recently from lisinopril/hydrochlorothiazide to strictly lisinopril once a day from twice daily dosing. This was because her sodium was low so they took out the water pill component according to the patient and her . They had to increase her lisinopril to 30 mg because of continued elevated blood pressure. She denies any exacerbating or alleviating factors. She may have chest pain on exertion. She states the pain is underneath both of her breasts and across her chest. No nausea or vomiting. No diaphoresis. CVD Risk Factors: Positive for Hypertension and Diabetes [facility] Medical History Abdominal pain Alcohol abuse, uncomplicated Asthma Back pain Chest wall deformity Constipation Daytime sleepiness Depression Diabetes mellitus Diverticulitis HTN (hypertension) Hypercholesteremia LLQ pain Nausea Thyroid disorder Home Medications metoprolol tartrate 50 mg tablet 50 mg PO BID 11/18/16 [History Last Taken 09/21/20] amlodipine 5 mg tablet (Norvasc) 5 mg PO DAILY 08/03/20 [History Last Taken Unknown] fluoxetine 20 mg capsule 20 mg PO DAILY 08/03/20 [History Last Taken Unknown] omeprazole 20 mg capsule,delayed release 20 mg PO DAILY 04/06/21 [History Last Taken Unknown] lisinopril 20 mg-hydrochlorothiazide 12.5 mg tablet 1 tab PO DAILY 06/18/21 [History Last Taken Unknown] umeclidinium 62.5 mcg/actuation blister powder for inhalation (Incruse Ellipta) 1 inh inhalation QDAY #3 ea 04/06/22 [Rx Last Taken Unknown] meloxicam 15 mg tablet 15 mg PO DAILY 06/15/22 [History Last Taken Unknown] montelukast 10 mg tablet 10 mg PO DAILY #30 tabs 07/28/22 [Rx Last Taken Unknown] albuterol sulfate 90 mcg/actuation aerosol inhaler 2 puff inhalation Q4H PRN shortness of breath or wheezing #8.5 grams 10/25/22 [Rx Last Taken Unknown] fluticasone furoate 200 mcg-vilanterol 25 mcg/dose inhalation powder (Breo Ellipta) 1 inh inhalation QDAY #3 ea 10/25/22 [Rx Last Taken Unknown] Allergy/AdvReac Type Severity Reaction Status Date / Time erythromycin base Allergy Unknown Verified 11/21/22 10:43 Penicillins Allergy Unknown Verified 11/21/22 10:43 sulfamethoxazole Allergy Unknown Verified 11/21/22 10:43 [From Bactrim] tetracycline Allergy Unknown Verified 11/21/22 10:43 trimethoprim [From Bactrim] Allergy Unknown Verified 11/21/22 10:43 cefdinir AdvReac Mild Upset Verified 11/21/22 10:43 stomach metronidazole [From Flagyl] AdvReac Nausea Verified 11/21/22 10:43 Family History Brother Cancer Hypertension Dementia Mother Breast cancer Dementia Social History Smoking Status: Former smoker second hand exposure: No alcohol intake: current alcohol intake frequency: 3 or more drinks per day substance use type: does not use caffeine: Yes Type: coffee Number of servings: 1 what type of physical activity do you participate in: none ROS ROS ED ROS Narrative Constitutional: No fever, no chills. HEENT: No sore throat. No neck pain. No loss of vision. No rhinorrhea. Cardiovascular: Positive chest pain. No palpitations. No pedal edema. Respiratory: No cough, no shortness of breath. Abdominal: No abdominal pain. No nausea. No vomiting. Genitourinary: No dysuria. No hematuria. Musculoskeletal: No myalgias. No arthralgias. Neurologic: No headaches. No dizziness. No lightheadedness. Skin: No rash. No change in color. Psychiatric: No depression. No anxiety. EXAM Physical Exam Narrative Exam Narrative: Afebrile. Vital signs noted. HEENT: Normocephalic. Atraumatic. PERRL, EOMI. Neck soft and supple. No pointtenderness or step off. Cardiovascular: Regular rate and rhythm. No murmurs, rubs, or gallops appreciated. Respiratory: No tachypnea. Lungs clear to auscultation bilaterally. Gastrointestinal: Abdomen soft, nontender, with normoactive bowel sounds. No rebound or guarding. Neurological: Awake. Alert. Nonfocal, nonlateralizing. Skin: No rash. Normal color. No pallor. Musculoskeletal: No pedal edema. Full range of motion extremities. Const Vital Signs: 01/28/23 13:50 01/28/23 13:55 01/28/23 14:10 Temperature 98.4 F Temperature Source Temporal Pulse Rate 68 Respiratory Rate 20 H Respiratory Effort Short of Breath Labored Blood Pressure 180/85 H Blood Pressure Mean 116 Pulse Ox 100 Oxygen Delivery Method Room Air Room Air 01/28/23 14:13 01/28/23 15:00 Temperature Temperature Source Pulse Rate 67 58 L Respiratory Rate 9 L Respiratory Effort Blood Pressure 142/72 H 153/64 H Blood Pressure Mean 88 Pulse Ox 98 Oxygen Delivery Method Heart Score History: Slightly/Non-Suspicious ECG: Normal Age: >/= 65 years Risk Factors: 1 or 2 Risk Factors Score: 3 MDM MDM MDM Narrative Medical decision making narrative: In the differential diagnosis is acute coronary syndrome versus pulmonary embolism versus aortic dissection versus hypertensive urgency. She does have elevated blood pressure of 180/85. I have lower suspicion for pulmonary embolism as she has a pulse of 68 and is satting 100% on room air without evidence of hypoxia. She denies DVT or PE risk factors as well except for recent surgery. I have low suspicion for aortic dissection as she is not havingtearing back pain, and has equal radial pulses. Her history and physical is notsuggestive of dissection pain. Chest pain work-up was pursued. EKG was obtained and interpreted by myself independently as normal sinus rhythm at 72 bpm without ectopy or acute ST changes. No STEMI. In review of previous EKG, there is no significant change from EKG dated January 31, 2019 except for he was bradycardic at that time at 56 bpm. She will be given aspirin and nitroglycerin, as this is also an attempt to lower her blood pressure. I reviewed her laboratory work from today and she has a normal white count of 5.5, hemoglobin normal at 13.1, platelet count normal at 420. Electrolyte panelshows sodium slightly low at 133 but this appears chronic, potassium 3.3, but also she has had low potassium in the past. Glucose appropriately elevated at 139 with a normal anion gap of 9. Initial high-sensitivity troponin is 5. Patient informed me that she had hip surgery 3 weeks ago. While I was going to add a D-dimer, in review of the chest x-ray, while there is no evidence of pneumonia or pneumothorax on my independent interpretation, I reviewed the radiology report which shows concern for hilar mass versus lymphadenopathy. They recommended a CT of the chest with IV contrast. Hence instead of a D-dimer I will perform CTA to look for pulmonary embolism as a cause of her chest pain. However, upon repeat examination her blood pressure is now 153/64 and she statesshe feels improved. I feel that as long as she has a negative repeat troponin and her CTA shows no evidence of pulmonary embolism, that most likely she would be able to be discharged with follow-up to her primary care provider. Patient will be signed out to the oncoming physician, Dr. Brayan Vargas. Disposition ispending. Patient is in stable condition. History & Record Review Discussion w/independent historian: Patient and Family Additional record(s) reviewed:: Prior ED visit and Prior labs Lab Data Attestation: I reviewed the patient's lab results. Labs: Laboratory Results - last 24 hr 01/28/23 13:55 WBC 5.5 RBC 4.10 L Hgb 13.1 Hct 40.2 MCV 98.0 MCH 32.0 MCHC 32.6 RDW Std Deviation 42.2 RDW Coeff of Derik 11.7 Plt Count 420 MPV 10.2 Immature Gran % (Auto) 0.400 Neut % (Auto) 69.7 Lymph % (Auto) 19.1 [place] % (Auto) 8.4 Eos % (Auto) 2.0 Baso % (Auto) 0.4 Absolute Neuts (auto) 3.8 Absolute Lymphs (auto) 1.05 Nucleated RBC % 0 Sodium 133 L Potassium 3.3 L Chloride 101 Carbon Dioxide 23.0 Anion Gap 9 BUN 9 Creatinine 0.74 Estim Creat Clear Calc 47.14 Est GFR (MDRD) Af Amer 100 Est GFR (MDRD) Non-Af 83 BUN/Creatinine Ratio 12.1 Glucose 139 H Calcium 9.6 Troponin I High Sens 5 Radiography Diagnostic Testing: Clinical Impression(s) from Imaging Studies Chest X-Ray 01/28/23 13:56 IMPRESSION: Possible right hilar mass or lymphadenopathy correlation with CT of the chest with contrast is recommended. Electronically Signed: Shravan Villalta MD at 14:23 EDT , Discharge Plan Triage Chief Complaint: Chest Pain ED Provider: Pierce Alonzo Dx/Rx/DC Orders Clinical Impression: History of hip surgery, Chest pain Prescriptions: No Action omeprazole 20 mg capsule,delayed release(DR/EC) 20 mg PO DAILY amlodipine [Norvasc] 5 mg tablet 5 mg PO DAILY Incruse Ellipta 62.5 mcg/actuation blister with device 1 inh INHALATION QDAY Qty: 3 4RF meloxicam 15 mg tablet 15 mg PO DAILY fluoxetine 20 mg capsule 20 mg PO DAILY metoprolol tartrate 50 MG tablet 50 mg PO BID lisinopril-hydrochlorothiazide 20-12.5 mg tablet 1 tab PO DAILY montelukast 10 mg tablet 10 mg PO DAILY Qty: 30 11RF albuterol sulfate 90 mcg/actuation HFA aerosol inhaler 2 puff INHALATION Q4H PRN (Reason: shortness of breath or wheezing) Qty: 8.5 6RF Rx Instructions: administer with spacer Breo Ellipta 200-25 mcg/dose blister with device 1 inh INHALATION QDAY Qty: 3 4RF Rx Instructions: after inhalation, rinse mouth with water and spit out; do not swallow Primary Care Provider: Sara Rogel Referrals: Sara Rogel, [Primary Care Provider] - What to do if you have Problems For any increased pain, shortness of breath, bleeding, nausea or vomiting, chestpain, or any unexpected problems, contact your Primary Care Provider. Call [facility] ([phone]) or report to the closest Emergency Room. Call 911 if necessary. 01/28/23 1603 <Electronically signed by Pierce Alonzo MD> Cosigner Signature (if applicable): CC: Sara Rogel DO ~ Signed ADDENDUM by Dr. Brayan Vargas DO on 01/28/23 at 1750 The patient's second troponin is normal. Therefore I do not believe this is to be ACS. CTA of the chest demonstrates no pulmonary artery embolism or dissection. No infiltrates or effusions noted. The fullness seen on the chest x-ray is secondary to pulmonary artery enlargement. Patient has a history of obstructive sleep apnea and is not currently using CPAP therapy. She states that she has visited with her assessment counselor about this and plans on revisiting that. We talked about problems downstream from untreated pulmonary hypertension. Patient notes understanding. At this point I think the patient can be discharged home. She will follow-up with primary care as well as pulmonology. Return if worsening or concerns 01/28/23 1750<Electronically signed by Brayan Vargas DO> Cosigner Signature (if applicable): cc: Sara Rogel DO ~* Signed [facility] Work Phone: Evaluation note Note Date & Type Note Facility Evaluation note No assessment information availa ble [facility] Work Phone: Evaluation note Note Date & Type Note Facility Evaluation note Diagnosis Onset Date Asthma-COPD overlap syndrome chronic STACEY (obstructive sleep apnea) chronic [facility] Work Phone: Evaluation note Note Date & Type Note Facility Evaluation note Diagnosis Onset Date Abdominal pain acute Cholelithiasis acute GERD (gastroesophageal reflux disease) acute Nausea acute Cholelithiasis acute Cholelithiasis acute [facility] Work Phone: Hospital Discharge instructions Note Date & Type Note Facility Hospital Discharge instructions Additional Instructions Take your blood pressure medications as prescribed. Log your blood pressure twice daily when you are calm and relaxed after breakfast and after dinner. Take those readings to your primary care physician when you follow-up with them to help them determine if they need to adjust your blood pressure medications. [facility] Work Phone: Reason for referral (narrative) Note Date & Type Note Facility Reason for referral (narrative) No reason for referral information available [facility] Work Phone: Family History No Family History Records Found Relationship Condition Age at Onset Recorded Date/T swati brother Malignant neoplasm Unknown Hypertension Unknown Dementia Unknown mother Malignant neoplasm of breast Unknown Relationship Condition Age at Onset Recorded Date/T swati brother Malignant neoplasm Unknown Hypertension Unknown mother Malignant neoplasm of breast Unknown Dementia Unknown Advance Directives No Advanced Directives Records Found Advance Directive Response Recorded Date/ Time Living Will No September 17, 2020 8:34am Power of Actuary Clerk No September 17 8:34am Advance Directive Response Recorded Date/ Time Living Will No September 17, 2020 7:34am Power of Actuary Clerk No September 17 7:34am Advance Directive Response Recorded Date/ Time Living Will No January 28, 2 023 1:55pm Power of Actuary Clerk No January 28, 2023 1:55pm Advance Directive Response Recorded Date/ Time Living Will No February 12, 2023 12:20am Power of Actuary Clerk No January 12:20am Advance Directive Response Recorded Date/ Time Living Will No March 01 3:06pm Power of Actuary Clerk No March 01 2 023 3:06pm Advance Directive Response Recorded Date/ Time Living Will No October 07, 2023 5 :07pm Power of Actuary Clerk No October 07, 2023 5:07pm Advance Directive Response Recorded Date/ Time Do you have a Healthcare Power of Actuary Clerk? No September 21, 2024 9:23pm Chief Complaint and Reason for Visit Chief Complaint SCREENING Chief Complaint SCREENING 1 Y FU Reason for Visit Asthma-COPD overlap syndrome STACEY (obstructive sleep apnea) Chief Complaint 1 Y FU EORDER- left hip pain Reason for Visit Asthma-COPD overlap syndrome STACEY (obstructive sleep apnea) Chief Complaint ARTHRITIS/GAIT. RX H ERE surgery clearance for hip replacement Reason for Visit Asthma-COPD overlap syndrome STACEY (obstructive sleep apnea) Chief Complaint surgery clearance fo r hip replacement chest pain Reason for Visit Asthma-COPD overlap syndrome STACEY (obstructive sleep apnea) Chief Complaint surgery clearance fo r hip replacement chest pain ABD PAIN RUQ PAIN Reason for Visit Asthma-COPD overlap syndrome STACEY (obstructive sleep apnea) Chief Complaint chest pain ABD PAIN RUQ PAIN SEVERE GALLBLADDER SYMPTOMS GALLSTONES Laparoscopic, Cholecystectomy with PREOP Laparoscopic, Cholecystectomy with GALLBLADDER 10-9 SCREENING Reason for Visit Abdominal pain Cholelithiasis GERD (gastroesophageal reflux disease) Nausea Cholelithiasis Cholelithiasis Chief Complaint 6 M FU HYPERTENSION Reason for Visit Asthma-COPD overlap syndrome STACEY (obstructive sleep apnea) Chief Complaint Admit Date INTERMITTENT RUE WEAKNESS AND NUMBNESS A pril 2024 8:59pm INTERMITTENT RUE WEAKNESS AND NUMBNESS A pril 2024 5:53pm INTERMITTENT RUE WEAKNESS AND NUMBNESS A pril 2024 4:33pm LUMBAR SPINE September 26, 2024 2:58pm Room 5 September 26, 2024 3:16pm 6 M FU October 08, 2024 1:10p m Reason for Visit Admit Date Hyponatremia September 21, 2024 8:5 9pm Noncompliance with CPAP treatment September 21, 2024 8:59pm Hemiplegia affecting right dominant side September 21, 2024 8:59pm STACEY (obstructive sleep apnea) August 8:59pm Overweight (BMI 25.0-29.9) September 21 025 8:59pm Paresthesia of right upper and lower ext remity September 21, 2024 8:59pm Uncontrolled hypertension September 21 8:59pm Degenerative disc disease, cervical September 26, 2024 2:58pm Chief Complaint Admit Date INTERMITTENT RUE WEAKNESS AND NUMBNESS A pril 2024 8:59pm INTERMITTENT RUE WEAKNESS AND NUMBNESS A pril 2024 5:53pm INTERMITTENT RUE WEAKNESS AND NUMBNESS A pril 2024 4:33pm LUMBAR SPINE September 26, 2024 2:58pm Room 5 September 26, 2024 3:16pm 6 M FU October 08, 2024 1:10p m J44.9 - Chronic obstructive pulmonary di sease, uns October 28, 2024 8:04am Reason for Visit Admit Date Hyponatremia September 21, 2024 8:5 9pm Noncompliance with CPAP treatment September 21, 2024 8:59pm Hemiplegia affecting right dominant side September 21, 2024 8:59pm STACEY (obstructive sleep apnea) August 8:59pm Overweight (BMI 25.0-29.9) September 21 025 8:59pm Paresthesia of right upper and lower ext remity September 21, 2024 8:59pm Uncontrolled hypertension September 21 8:59pm Degenerative disc disease, cervical September 26, 2024 2:58pm Allergic rhinitis October 08, 2024 1:10p m Asthma-COPD overlap syndrome October 08 025 1:10pm CPAP (continuous positive airway pressur e) dependence October 08, 2024 1:10pm Summary Purpose Additional Source Comments Goals (unrecognized section and content) Goals may be documented in a n alternate sectionGoals may be documented in an alternate sectionGoals may be documented in an alternate sectionGoals may be documented in an alternate sectionGoals may be documented in an alternate sectionGoals may be documented in an alternate sectionGoals may be documented in an alternate sectionGoals may be documented in an alternate sectionGoals may be documented in an alternate sectionGoals may be documented in an alternate sectionGoals may be documented in an alternate sectionGoals may be documented in an alternate section Care Teams (unrecognized sec tion and content) Team Status: Active Member Role Status Dates Dr. Justin Rivas MD Family Provider Active Sara Rogel , DO Primary Care Provider Active Team Status: Inactive Member Role Status Dates Dr. Justin Rivas MD Referring Provider Active Dr. Mikey Haq , Attending Provider Active Sara Rogel , DO Primary Care Provider Active Team Status: Inactive Member Role Status Dates Dr. My Frederick MD Primary Care Provider Active Sara Rogel , DO Attending Provider Active Team Status: Inactive Member Role Status Dates Sara Rogel , DO Primary Care Provider, Referring Provider Active Peyton Ortiz , ROLL CARRIER-C Attending Provider Active Team Status: Inactive Member Role Status Dates Sara Rogel , DO Primary Care Provider Active Peyton Ortzi , ROLL CARRIER-C Attending Provider Active Team Status: Inactive Member Role Status Dates Sara Rogel DO Primary Care Provider Active Emmanuelle Melendez ROLL CARRIER, ROLL CARRIER-C Attending Provider, Referring Pro vider Active Team Status: Inactive Member Role Status Dates Sara Rogel , DO Primary Care Provider, Referring Provider Active Fern Joseph ROLL CARRIER, ROLL CARRIER-C Attending Provider Active Team Status: Inactive Member Role Status Dates Sara Rogel , DO Primary Care Provider, Attending Provider Active Team Status: Active Member Role Status Dates Sara Rogel , DO Primary Care Provider, Attending Provider Active Team Status: Inactive Member Role Status Dates Sara Rogel DO Primary Care Provider Active Dr. Brayan Vargas , DO Emergency Provider Active Team Status: Inactive Member Role Status Dates Sara Rogel , DO Primary Care Provider Active Dr. Brayan Vargas , DO Attending Provider, Emergency P roviliban Active Team Status: Inactive Member Role Status Dates Sara Rogel DO Primary Care Provider Active Dr. Prasanna Berger , DO Attending Provider, Emergency Pr ovider Active Team Status: Inactive Member Role Status Dates Sara Rogel , Primary Care Provider Active Dr. Prasanna Berger , DO Attending Provider, Referring Pr ovider Active Team Status: Inactive Member Role Status Dates Sara Rogel , DO Primary Care Provider, Referring Provider Active Dr. Ernestina Hardy MD Attending Provider Active Team Status: Inactive Member Role Status Dates Sara Rogel , DO Primary Care Provider, Referring Provider Active Dr. El Green MD Attending Provider Active Team Status: Active Member Role Status Dates Saradelta Rogel , DO Primary Care Provider Active Dr. El Green MD Attending Pr ovider, Referring Provider, Other Provider Active Team Status: Active Member Role Status Dates Sara Rogel DO Primary Care Provider Active Dr. Phan Salgado MD Attending Provider Active Dr. El Green MD Referring Provider Active Team Status: Inactive Member Role Status Dates Sara Rogel DO Primary Care Provider Active Dr. El Green MD Attending Provider, Referr ing Provider Active Team Status: Inactive Member Role Status Dates Saradelta Rogel , DO Primary Care Provi liban, Attending Provider, Referring Provider Active Team Status: Active Member Role Status Dates Dr. Justin Rivas MD Family Provider Active Maggi Dorsey MD Primary Care Provider Active Team Status: Inactive Member Role Status Dates Maggi Dorsey MD Primary Care Provider Active Dr. Raad Wakefield MD Emergency Provider Active Team Status: Inactive Member Role Status Norma Dorsey MD Primary Care Provider Active St art: September 12, 2024 End: September 12, 2024 Maggi Dorsey MD Attending Provider Active Start : September 12, 2024 End: September 12, 2024 Maggi Dorsey MD Referring Provider Active Start : September 12, 2024 End: September 12, 2024 Team Status: Active Member Role Status Norma Dorsey MD Primary Care Provider Active Team Status: Inactive Member Role Status Norma Dorsey MD Primary Care Provider Active St art: September 21, 2024 End: September 23, 2024 Dr. David Roberson MD Referring Provider Active Sta rt: September 21, 2024 End: September 23, 2024 Dr. David Roberson MD Emergency Provider Active Sta rt: September 21, 2024 End: September 23, 2024 Dr. Jerad Rodriguez DO Admit Provider Active Start: September 21, 2024 End: September 23, 2024 Dr. Jerad Rodriguez DO Other Provider Active Start: September 21, 2024 End: September 23, 2024 Enrico Santos MD Other Provider Active Start: 2024 End: September 23, 2024 Dr. Carlos Harmon MD Other Provider Active Start: September 21, 2024 End: September 23, 2024 Elyssa Lloyd MD Other Provider Active Start : September 21, 2024 End: September 23, 2024 Dr. Saida Walters DO Other Provider Active St art: September 21, 2024 End: September 23, 2024 Dr. Stefany Cantu MD Other Provider Active Start: September 21, 2024 End: September 23, 2024 Dr. Braxton Choi MD Other Provider Active Sta rt: September 21, 2024 End: September 23, 2024 Dr. Esther Yu MD Other Provider Active Start : September 21, 2024 End: September 23, 2024 Dr. Jaime Mccray MD Other Provider Active Start: September 21, 2024 End: September 23, 2024 Dr. Felipe Perez MD Other Provider Active Start : September 21, 2024 End: September 23, 2024 Dr. Matt Sal MD Other Provider Active Sta rt: September 21, 2024 End: September 23, 2024 Caitlin Contreras MD Other Provider Active Start : September 21, 2024 End: September 23, 2024 Dr. Migue Ibanez MD Other Provider Active St art: September 21, 2024 End: September 23, 2024 Dr. Domitila Cantrell MD Other Provider Active Start : September 21, 2024 End: September 23, 2024 Dr. Alec Malik MD Other Provider Active Sta rt: September 21, 2024 End: September 23, 2024 Dr. Roseline Gonzalez MD Other Provider Active Start: September 21, 2024 End: September 23, 2024 Dr. Niranjan Briones MD Other Provider Active St art: September 21, 2024 End: September 23, 2024 Dr. Arturo Khanna MD Other Provider Active Star t: September 21, 2024 End: September 23, 2024 Dr. Hao Rodriguez MD Other Provider Active St art: September 21, 2024 End: September 23, 2024 Dr. Caroline Guzman MD Other Provider Active Start: September 21, 2024 End: September 23, 2024 Sriram Powell MD Other Provider Active Start: September 21, 2024 End: September 23, 2024 Dr. Radha Murray MD Attending Provider Active Start: September 21, 2024 End: September 23, 2024 Dr. Erik Moreno DO Other Provider Active S tart: September 21, 2024 End: September 23, 2024 Team Status: Active Member Role Status Dates Maggi Dorsey MD Primary Care Provider Active St art: September 22, 2024 Dr. David Roberson MD Emergency Provider Active Sta rt: September 22, 2024 Dr. Jerad Rodriguez DO Admit Provider Active Start: September 22, 2024 Dr. Jerad Rodriguez DO Other Provider Active Start: September 22, 2024 Enrico Santos MD Other Provider Active Start: Ap 2024 Dr. Carlos Harmon MD Other Provider Active Start: September 22, 2024 Elyssa Lloyd MD Other Provider Active Start : September 22, 2024 Dr. Saida Walters DO Other Provider Active St art: September 22, 2024 Dr. Stefany Cantu MD Other Provider Active Start: September 22, 2024 Dr. Braxton Choi MD Other Provider Active Sta rt: September 22, 2024 Dr. Esther Yu MD Other Provider Active Start : September 22, 2024 Dr. Jaime Mccray MD Other Provider Active Start: September 22, 2024 Dr. Felipe Perez MD Other Provider Active Start : September 22, 2024 Dr. Matt Sal MD Other Provider Active Sta rt: September 22, 2024 Caitlin Contreras MD Other Provider Active Start : September 22, 2024 Dr. Migue Ibanez MD Other Provider Active St art: September 22, 2024 Dr. oDmitila Cantrell MD Other Provider Active Start : September 22, 2024 Dr. Alec Malik MD Other Provider Active Sta rt: September 22, 2024 Dr. Roseline Gonzalez MD Other Provider Active Start: September 22, 2024 Dr. Niranjan Briones MD Other Provider Active St art: September 22, 2024 Dr. Arturo Khanna MD Other Provider Active Star t: September 22, 2024 Dr. Hao Rodriguez MD Other Provider Active St art: September 22, 2024 Dr. Caroline Guzman MD Other Provider Active Start: September 22, 2024 Sriram Powell MD Other Provider Active Start: September 22, 2024 Dr. Erik Moreno DO Attending Provider Active Start: September 22, 2024 Dr. Erik Moreno DO Other Provider Active S tart: September 22, 2024 Team Status: Active Member Role Status Norma Dorsey MD Primary Care Provider Active St art: September 23, 2024 Dr. Hilton Ulrich MD Attending Provider Active S tart: September 23, 2024 Dr. Jerad Rodriguez DO Referring Provider Active Start: September 23, 2024 Team Status: Active Member Role Status Norma Dorsey MD Primary Care Provider Active St art: September 23, 2024 Dr. Eileen Newman MD Attending Provider Active Start: September 23, 2024 Team Status: Active Member Role Status Norma Dorsey MD Primary Care Provider Active St art: September 23, 2024 Dr. David Roberson MD Emergency Provider Active Sta rt: September 23, 2024 Dr. Jerad Rodriguez DO Admit Provider Active Start: September 23, 2024 Dr. Jerad Rodriguez DO Other Provider Active Start: September 23, 2024 Enrico Santos MD Other Provider Active Start: 2024 Dr. Carlos Harmon MD Other Provider Active Start: September 23, 2024 Elyssa Lloyd MD Other Provider Active Start : September 23, 2024 Dr. Saida Walters DO Other Provider Active St art: September 23, 2024 Dr. Stefany Cantu MD Other Provider Active Start: September 23, 2024 Dr. Braxton Choi MD Other Provider Active Sta rt: September 23, 2024 Dr. Esther Yu MD Other Provider Active Start : September 23, 2024 Dr. Jaime Mccray MD Other Provider Active Start: September 23, 2024 Dr. Felipe Perez MD Other Provider Active Start : September 23, 2024 Dr. Matt Sal MD Other Provider Active Sta rt: September 23, 2024 Caitlin Contreras MD Other Provider Active Start : September 23, 2024 Dr. Migue Ibanez MD Other Provider Active St art: September 23, 2024 Dr. Domitila Cantrell MD Other Provider Active Start : September 23, 2024 Dr. Alec Malik MD Other Provider Active Sta rt: September 23, 2024 Dr. Roseline Gonzalez MD Other Provider Active Start: September 23, 2024 Dr. Niranjan Briones MD Other Provider Active St art: September 23, 2024 Dr. Arturo Khanna MD Other Provider Active Star t: September 23, 2024 Dr. Hao Rodriguez MD Other Provider Active St art: September 23, 2024 Dr. Caroline Guzman MD Other Provider Active Start: September 23, 2024 Sriram Powell MD Other Provider Active Start: September 23, 2024 Dr. Radha Murray MD Attending Provider Active Start: September 23, 2024 Dr. Radha Murray MD Other Provider Active St art: September 23, 2024 Dr. Erik Moreno DO Other Provider Active S tart: September 23, 2024 Team Status: Inactive Member Role Status Norma Dorsey MD Primary Care Provider Active St art: September 26, 2024 End: September 26, 2024 Maggi Dorsey MD Referring Provider Active Start : September 26, 2024 End: September 26, 2024 KENNETH Watts Attending Provider Active Star t: September 26, 2024 End: September 26, 2024 Team Status: Inactive Member Role Status Norma Dorsey MD Primary Care Provider Active St art: September 26, 2024 End: September 26, 2024 Dr. Phan Salgado MD Attending Provider Active S tart: September 26, 2024 End: September 26, 2024 Team Status: Inactive Member Role Status Norma Dorsey MD Primary Care Provider Active St art: October 08, 2024 End: October 08, 2024 Maggi Dorsey MD Referring Provider Active Start : October 08, 2024 End: October 08, 2024 Fern Joseph NP, NP-Nerissa Attending Provider Active Start: October 08, 2024 End: October 08, 2024 Team Status: Inactive Member Role Status Dates Maggi Dorsey MD Primary Care Provider Active St art: October 28, 2024 End: October 28, 2024 FABRIZIO Mariscal NP Attending Provider Active Start: October 28, 2024 End: October 28, 2024 FABRIZIO Mariscal NP Referring Provider Active Start: October 28, 2024 End: October 28, 2024 INFORMATION SOURCE (unrecogn ized section and content) DATE CREATED AUTHOR 09/14/2022 [facility] ([place]) DATE CREATED AUTHOR AUTHOR'S ORGANIZ ATION 11/06/2024 [facility] FOR RECORDS PERTAINING TO PATIENTS WHO ARE OR HAVE BEEN ENROLLED IN A CHEMICAL DEPENDENCY/SUBSTANCEABUSE PROGRAM, SOME INFORMATION MAY BE OMITTED. This clinical summary was aggregated from multiple sources. Caution should be exercised in using it in the provision of clinical care. This summary normalizes information from multiple sources, and as a consequence, information in this document may materially change the coding, format and clinical context of patient data. In addition, data may be omitted in some cases. CLINICAL DECISIONS SHOULD BE BASED ON THE PRIMARY CLINICAL RECORDS. [email or web address] provides no warranty or guarantee of the accuracy or completeness of information in this document.
== END | disposition home or self-care (01) ==
LOC: OPBD 12:15
PROVIDERS: PCP Family Medicine; Referring Provider Family Medicine; Visit Provider Family Medicine
DX: Z78.0 Asymptomatic menopausal state (principal)
CPT/HCPCS: 77080

== ENCOUNTER → 2025-04-16 | Outpatient (CLI) | payer MEDICARE, OTHER, SELFPAY ==
--- NOTE | 2025-04-16 15:07 | BI_ITS ---
EXAM: SCRN MAMM (CAD)W/ANTOINE BILAT DATE: 04/16/2025 CLINICAL HISTORY: F, Age 69 y/o , ANNUAL SCREENING Mother with breast cancer. Grandmother with breast cancer. TECHNIQUE: Procedure Code: [id number] Modality: MG Procedure: SCRN MAMM (CAD)W/ANTOINE BILAT COMPARISON: Prior exam(s) dated April 09, 2024. FINDINGS: TISSUE DENSITY: There are scattered areas of fibroglandular density. Bilateral Breast Mammographic Findings: No significant masses, calcifications or other abnormalities are identified. Stable bilateral. Stable small bilateral fat containing axillary lymph nodes. No suspicious masses, areas of developing architectural distortion, or suspicious calcifications. There has been no significant interval change. BI/SCRN MAMM (CAD)W/ANTOINE BILAT IMPRESSION: Stable bilateral screening mammogram. OVERALL FINAL ASSESSMENT BI-RADS 2: BENIGN RECOMMENDATION: Routine annual follow-up in 1 Year Additional Recommendation none A letter with findings and recommendations will be mailed to the patient. Reading Location: [facility]
== END | disposition home or self-care (01) ==
LOC: OPBI 15:06
PROVIDERS: PCP Family Medicine; Referring Provider Family Medicine; Visit Provider Family Medicine
DX: Z12.31 Encounter for screening mammogram for malignant neoplasm of breast (principal)
CPT/HCPCS: 77063; 77067